=== PATIENT | female | born 1945 | race Caucasian/White ===

== ENCOUNTER → 2018-05-20 09:21 | Outpatient (CLI) | payer MEDICARE, OTHER, SELFPAY | PROVIDERS: Family Provider Family Medicine; PCP Family Medicine; Visit Provider Nurse Practitioner Women's Health | DX: Z12.31 Encounter for screening mammogram for malignant neoplasm of breast (principal) | CPT/HCPCS: 77063; 77067 ==

== ENCOUNTER → 2019-06-15 | Outpatient (CLI) | payer MEDICARE, OTHER, SELFPAY ==
[2019-06-15 11:02] VITALS: BMI 29.5
--- NOTE | 2019-06-15 11:49 | BI_ITS ---
MAMMOGRAPHY - BILATERAL SCREENING REASON FOR EXAM: Female, 74 years old. Routine annual screening examination. PERTINENT HISTORY: Aunt with breast cancer. Remote right nipple biopsy. TECHNIQUE: Digital bilateral breast carmen (3D mammographic acquisition) in the CC and MLO projections. 2-D mediolateral oblique (MLO) and craniocaudad (CC) views of both breasts were obtained. CAD: Full Field Digital Mammography with Computer Added Detection was performed. COMPARISON: Comparison is made with prior examination dated May 20, 2018 and May 06, 2017. FINDINGS: Breast Composition: There are scattered areas of fibroglandular density. There are no dominant masses or suspicious calcifications. No other significant abnormalities are identified. There has been no significant change since the prior study. BI/SCREEN MAMM (CAD) W/CARMEN BILAT IMPRESSION: Stable bilateral screening mammogram. Yearly follow-up mammogram recommended. (A) ASSESSMENT CATEGORY: BIRADS Category 1: Negative. A letter regarding these results will be sent to the patient by the facility within 30 days. Approximately 10% of breast cancers are not detected by mammography. A normal mammogram should not delay biopsy of a clinically suspicious abnormality. [id number] Electronically Signed: Abdirashid Fairbanks, at 15:09 EDT , Service support ,
== END | disposition home or self-care (01) ==
LOC: OPBI 11:30
PROVIDERS: Family Provider Family Medicine; PCP Family Medicine; Referring Provider Nurse Practitioner Women's Health; Visit Provider Nurse Practitioner Women's Health
DX: Z12.31 Encounter for screening mammogram for malignant neoplasm of breast (principal)
CPT/HCPCS: 77063; 77067

== ENCOUNTER 2019-10-15 14:17 | Emergency (ER) | payer MEDICARE, OTHER, SELFPAY ==
[2019-06-15 11:02] VITALS: BMI 29.5
[2019-10-15 14:18] VITALS: BP 199/98; PULSE 73; RESP 18; TEMP 36.1; O2SAT 95; BMI 30.4
--- NOTE | 2019-10-15 14:55 | RAD_ITS ---
STUDY: X-RAY - LUMBAR SPINE REASON FOR EXAM: Female, 74 years old. fall, back pain with left sciatica TECHNIQUE: 3 view(s) of the lumbar spine were obtained. COMPARISON: None FINDINGS: Normal lumbar lordosis. There is no substantial scoliosis. There is a normal alignment of the vertebrae. There is multilevel endplate spondylosis of the lumbar vertebrae. There is multi-level degenerative disc disease with multi-level disc space narrowing. There is no demonstrated fracture. Moderate facet arthropathy in the lower lumbar levels. There is atherosclerotic calcification of the abdominal aorta without a demonstrated aneurysm. RAD/Lumbar Spine 2 or 3 Views IMPRESSION: No compression fracture. Multilevel degenerative changes. Electronically Signed: Ronald Zepeda MD ([place]) at 15:22 EST , Service support ,
[2019-10-15] MEDS: morphine 10 MG/ML Syringe SC (15:08)
--- NOTE | 2019-10-15 15:50 | ED.DCSUM_ITS ---
History of Present Illness Informant: Patient Occurred: Weeks - 1 week Mechanism/Context: Same level fall, Trip, Slip. Negative for: Cannot recall fall, Prodromal, Dizziness, Vertigo, Lightheadedness, Near-syncope Usually ambulates: Without assistance Location: low back Quality of Pain: Sharp Current Severity: Severe Maximum Severity: Severe Worsened by: walking Relieved by: rest Associated Symptoms: Negative for: Parasthesias, Weakness, Loss of function, Inability to ambulate, Loss of consciousness, Amnesia Narrative: 74-year-old female presents with low back pain radiating down her left leg that started after a fall about a week ago. Pain is constant sharp and stabbing worse with movement better with rest. No lower extremity weakness or paresthesias or loss of bowel or bladder function. No fevers or vomiting. No abdominal pain. No difficulty urinating or loss of bowel or bladder function. No relief with Motrin and acetaminophen Tetanus Immunization: Unknown Prior similar symptoms: No Recent Illness/Hospitalization: No <James Cavanaugh - Last Filed: 10/15/19 15:50> <Sapna Cleveland - Last Filed: 10/15/19 23:22> Chief Complaint: Fall Past Medical History Prior records reviewed: Yes Past Medical History: - - Hyperlipidemia Surgical History: - - Laminectomy Lives: With Family Smoking Status: Never smoker <James Cavanaugh - Last Filed: 10/15/19 15:50> <Sapna Cleveland - Last Filed: 10/15/19 23:22> - Allergies and Home Meds Allergies/Adverse Reactions: Allergies levofloxacin [From Levaquin] Allergy (Mild, Verified 10/15/19 14:19) severe joint issues Sulfa (Sulfonamide Antibiotics) Allergy (Mild, Verified 10/15/19 14:19) stopped breathing Primary Care Physician: Juan Luis Austin MD [Primary Care Provider] - Review of Systems All systems negative except as indicated General: Denies: Chills, Fever Eyes: Denies: Visual changes - bilaterally, Blurred Vision - bilaterally ENT: Denies: Rhinorrhea, Sore throat Cardiovascular: Denies: Chest pain, Palpitations, Heart racing Respiratory: Denies: Dyspnea, Cough, Sputum Gastrointestinal: Denies: Abdominal pain, Nausea, Vomiting, Diarrhea Genitourinary: Denies: Dysuria, Hematuria, Frequency Musculoskeletal: Reports: Back pain. Denies: Neck pain, Swelling, Extremity Pain Skin: Denies: Rash, Abscess, Abrasions, Wounds Neurological: Denies: Headache, Weakness, Parasthesia, Numbness <James Cavanaugh - Last Filed: 10/15/19 15:50> Physical Exam Vital Signs/Narrative: Vital Signs Temp Pulse Resp BP Pulse Ox 10/15/19 14:18 96.9 F L 73 18 199/98 H 95 Inital Vital Signs reviewed: Yes General: Well nourished, Well developed Head: Normocephalic, Atraumatic Eyes: EOMI ENT: No hemotympanum or drainage, No trauma. Negative for: Nasal trauma Neck: Nontender, Full ROM. Negative for: Spinal Tenderness, Paraspinal Tendern ess Cardiovascular: Regular rate, Regular rhythm, No murmurs Respiratory: No distress, CTA bilaterally, Chest nontender Abdomen: Soft, Nontender, Nondistended, Normal bowel sounds, No masses Back: Nontender, Paraspinal Tenderness, Negative SLR - Right, Positive SLR - Left. Negative for: Spinal Tenderness Skin: Normal color, No rash Neurological: Alert, Oriented x3, Cranial nerves II-XII grossly intact, Normal Strength, Normal Sensation, Normal DTR, Normal Gait Psychological: Normal affect <James Cavanaugh - Last Filed: 10/15/19 15:50> Diagnostic/Tx/Re-eval - Medical Decision Making X-ray lumbar spine shows no acute abnormality. Patient is neurovascularly intact. She is able to ambulate. She was given a dose of morphine with improvement of her pain. Repeat evaluation she is ambulatory she feels well we will discharge with a short course of Percocet and have her follow-up with her doctor. <James Cavanaugh - Last Filed: 10/15/19 15:50> - Medical Decision Making I have personally performed a [id number] assessment of the patient and have reviewed the PA note. My galvin findings include 74-year-old female presents after fall 1 week ago. She complains of persistent back pain radiating to her left leg. She denies bowel or bladder incontinence. X-rays are unremarkable. She h as improvement after pain medication. She will follow-up with her primary care physician. Advised return to ED if worsening complaints. <Sapna Cleveland - Last Filed: 10/15/19 23:22> ED Disposition <James Cavanaugh - Last Filed: 10/15/19 15:50> <Sapna Cleveland - Last Filed: 10/15/19 23:22> - Plan for ED Patient: Disposition: Home or Assisted Living Diagnosis: Sciatica Instructions: BACK PAIN w/ SCIATICA Prescriptions: Oxycodone HCl/Acetaminophen [Percocet 5/325] 1 tab PO Q6H PRN PRN 3 Days #12 tab PRN Reason: Pain Prescription Printed Ondansetron [Zofran Odt] 4 mg PO Q8H PRN PRN #10 tab PRN Reason: Nausea Prescription Printed Referrals: Juan Luis Austin MD [Primary Care Provider] -
[2019-10-15] MEDS: Ondansetron ODT 4 MG Tablet PO (16:44)
[2019-10-15 16:45] VITALS: RESP 18
== END 2019-10-15 16:47 | disposition home or self-care (01) ==
PROVIDERS: Emergency Provider Physician Assistant Medical; PCP Family Medicine
DX: M54.42 Lumbago with sciatica, left side (principal)
CPT/HCPCS: 72100; 96372; 99282

== ENCOUNTER 2020-05-02 21:55 | Emergency (ER) | payer MEDICARE, OTHER, SELFPAY ==
[2020-05-02 21:57] VITALS: BP 185/73; PULSE 77; RESP 18; TEMP 37; O2SAT 98; BMI 30.9
--- NOTE | 2020-05-02 22:09 | ED.DCSUM_ITS ---
History of Present Illness Chief Complaint: Fall Informant: Patient Onset: Today Current Severity: Moderate Maximum Severity: Severe Narrative: She presents with right rib pain after a fall. She went to a neighbor's house and when leaving fell down 3 steps, landing on her right side on landscape rocks. She states she did hit her head but did not lose consciousness. She is on no anticoagulants. She did take some Advil at home for pain. She is complaining of pain around the right ribs. - Past Medical History (1) Asthma Status: Chronic (2) Celiac disease Status: Chronic (3) Diabetes Status: Chronic (4) Essential tremor Status: Chronic (5) Hypertension Status: Chronic (6) Lichen sclerosus Status: Chronic Past Medical History - Allergies and Home Meds Allergies/Adverse Reactions: Allergies levofloxacin [From Levaquin] Allergy (Mild, Verified 05/02/20 22:04) severe joint issues Sulfa (Sulfonamide Antibiotics) Allergy (Mild, Verified 05/02/20 22:04) stopped breathing morphine Adverse Reaction (Verified 05/02/20 22:04) Vomiting Primary Care Physician: Juan Luis Austin MD [Primary Care Provider] - Prior records reviewed: Yes Surgical History: - - Laminectomy Lives: Alone Smoking Status: Never smoker Review of Systems General: Denies: Chills, Fever Eyes: Denies: Visual changes - bilaterally ENT: Denies: Bilateral ear pain Cardiovascular: Reports: Chest pain Respiratory: Reports: Dyspnea - Pain with deep breath Gastrointestinal: Denies: Abdominal pain, Nausea, Vomiting, Diarrhea Genitourinary: Denies: Dysuria Musculoskeletal: Denies: Swelling, Extremity Pain Neurological: Denies: Headache Hematologic: Denies: Easy bruising, Easy bleeding Allergy: Denies: Uticaria Physical Exam Vital Signs/Narrative: Vital Signs Temp Pulse Resp BP Pulse Ox 05/02/20 21:57 98.6 F 77 18 185/73 H 98 Inital Vital Signs reviewed: Yes General: Well nourished, Well developed Head: Normocephalic ENT: Moist mucous membranes Neck: Supple Cardiovascular: Regular rate, Regular rhythm Respiratory: No distress, CTA bilaterally, - - Right lateral rib tenderness. Early ecchymosis noted on the posterior right ribs. No abrasions. No crepitus. Abdomen: Soft, Nontender Extremities: Nontender Skin: Normal color Neurological: Alert, Oriented x3 Psychological: Normal affect Diagnostic/Tx/Re-eval Impressions Ribs w/Chest X-Ray 05/02/20 22:09 IMPRESSION: RIBS: Fractures of right ribs 2 through 8. CHEST: No acute pulmonary findings. Electronically Signed: Kenan Mariscal MD at 23:22 EDT Tel , Service support , 05/02/20 22:09 Ribs Uni Min 3V w/PA Chest [RAD] Stat - Medical Decision Making Patient's oxygen saturation is maintained in the high 90s. She was given Zofran and 25 mcg of fentanyl IV. On repeat examination she is still rating her rib pain at 7. Test results are discussed with her and family at bedside. She does have significant number of fractures, but no evidence of pneumothorax. She would prefer to try to go home with pain medication. She will be given another 25 mcg of fentanyl now along with p.o. oxycodone which she has done well with in the past. We will write a prescription for oxycodone to be filled at our pharmacy [facility] so she will have medication with her at home. ED Disposition - Plan for ED Patient: Disposition: Home or Assisted Living Diagnosis: Ribs, multiple fractures Instructions: ED Rib Fx Prescriptions: Oxycodone HCl/Acetaminophen [Percocet 5/325] 1 tablet PO Q6H PRN PRN 5 Days #20 tablet PRN Reason: Pain Score 4-10/10 Referrals: Juan Luis Austin MD [Primary Care Provider] - 1 Week
--- NOTE | 2020-05-02 22:09 | RAD_ITS ---
STUDY: X-RAY - UNILATERAL RIBS ( RIGHT ) WITH CHEST REASON FOR EXAM: Female, 75 years old. Fall today. Mid rib pain. TECHNIQUE - RIBS: 3 view(s) of the ribs. TECHNIQUE - CHEST: Single frontal view of the chest. COMPARISON: None. FINDINGS - RIBS: Fractures of right ribs 2 through 8. FINDINGS - CHEST: The lungs are clear and expanded. There is no demonstrated pleural abnormality. Normal size heart. Normal mediastinum and gage. Normal visualized pulmonary arteries. Normal visualized aortic arch and descending thoracic aorta. Normal visualized thoracic spine. There is no demonstrated abnormality of the visualized soft tissue structures of the upper abdomen. RAD/Ribs Uni Min 3V w/PA Chest IMPRESSION: RIBS: Fractures of right ribs 2 through 8. CHEST: No acute pulmonary findings. Electronically Signed: Kenan Mariscal MD at 23:22 EDT Tel , Service support ,
[2020-05-02] MEDS: Ondansetron 4 MG/2 ML Vial IV (22:38)
[2020-05-02] MEDS: fentaNYL 100 MCG/2 ML Ampul 25 MCG IV (22:38)
[2020-05-03] MEDS: fentaNYL 100 MCG/2 ML Ampul 25 MCG IV (00:06)
[2020-05-03] MEDS: oxyCODONE 5 MG Tablet PO (00:12)
[2020-05-03 00:44] VITALS: BP 163/61; PULSE 76; RESP 16; O2SAT 97
== END 2020-05-03 00:46 | disposition home or self-care (01) ==
PROVIDERS: Emergency Provider Emergency Medicine; PCP Family Medicine
DX: S22.41XA Multiple fractures of ribs, right side, initial encounter for closed fracture (principal); I10 Essential (primary) hypertension; E11.9 Type 2 diabetes mellitus without complications; W10.9XXA Fall (on) (from) unspecified stairs and steps, initial encounter; Z79.4 Long term (current) use of insulin; Z79.899 Other long term (current) drug therapy
CPT/HCPCS: 71101; 96374; 96375; 96376; 99251; 99285; G0463; J2405

== ENCOUNTER → 2020-08-19 13:45 | Outpatient (CLI) | payer MEDICARE, OTHER, SELFPAY ==
--- NOTE | 2020-08-19 13:48 | BI_ITS ---
MAMMOGRAPHY - BILATERAL SCREENING REASON FOR EXAM: Female, 75 years old. Routine annual screening examination. PERTINENT HISTORY: Screening TECHNIQUE: Digital bilateral breast carmen (3D mammographic acquisition) in the CC and MLO projections. 2-D mediolateral oblique (MLO) and craniocaudad (CC) views of both breasts were obtained. CAD: Full Field Digital Mammography with Computer Added Detection was performed. COMPARISON: Previous mammogram obtained on 06/15/2019 FINDINGS: Breast Composition: Scattered There are no dominant masses or suspicious calcifications. No other significant abnormalities are identified. BI/SCREEN MAMM (CAD) W/CARMEN BILAT IMPRESSION: Stable bilateral screening mammogram. Yearly follow-up mammogram recommended. (A) ASSESSMENT CATEGORY: BIRADS Category 1: Negative. A letter regarding these results will be sent to the patient by the facility within 30 days. Approximately 10% of breast cancers are not detected by mammography. A normal mammogram should not delay biopsy of a clinically suspicious abnormality. [id number] Electronically Signed: Zak Santo, at 17:17 EST Tel , Service support ,
== END ==
PROVIDERS: PCP Family Medicine; Referring Provider Nurse Practitioner Women's Health; Visit Provider Nurse Practitioner Women's Health
DX: Z12.31 Encounter for screening mammogram for malignant neoplasm of breast (principal)
CPT/HCPCS: 77063; 77067

== ENCOUNTER 2020-12-03 12:53 | Outpatient (RCR) | payer MEDICARE, OTHER, SELFPAY ==
[2020-12-03] MEDS: COVID-19 VACC, MRNA(PFIZER)/PF 30 MCG/0.3 ML SYRINGE IM (10:41)
[2020-12-24] MEDS: COVID-19 VACC, MRNA(PFIZER)/PF 30 MCG/0.3 ML SYRINGE IM (10:29)
== END 2021-03-04 23:59 ==
LOC: IMMUN 12:53
PROVIDERS: PCP Family Medicine; Visit Provider Family Medicine
DX: Z23 Encounter for immunization (principal)
CPT/HCPCS: 0001A; 0002A; 91300

== ENCOUNTER → 2021-09-04 12:34 | Outpatient (CLI) | payer MEDICARE, OTHER, SELFPAY ==
--- NOTE | 2021-09-04 12:37 | BI_ITS ---
MAMMOGRAPHY - BILATERAL SCREENING REASON FOR EXAM: Female, 76 years old. Routine annual screening examination. PERTINENT HISTORY: Aunt with breast cancer. TECHNIQUE: Digital bilateral breast carmen (3D mammographic acquisition) in the CC and MLO projections. 2-D mediolateral oblique (MLO) and craniocaudad (CC) views of both breasts were obtained. CAD: Full Field Digital Mammography with Computer Added Detection was performed. COMPARISON: Comparison is made with prior study dated 08/19/2020 and 06/15/2019. FINDINGS: Breast Composition: There are scattered areas of fibroglandular density. There are no dominant masses or suspicious calcifications. No other significant abnormalities are identified. There has been no significant change since the prior study. BI/SCRN MAMM (CAD)W/CARMEN BILAT IMPRESSION: Stable bilateral screening mammogram. Yearly follow-up mammogram recommended. (A) ASSESSMENT CATEGORY: BIRADS Category 1: Negative. A letter regarding these results will be sent to the patient by the facility within 30 days. Approximately 10% of breast cancers are not detected by mammography. A normal mammogram should not delay biopsy of a clinically suspicious abnormality. [id number] Electronically Signed: Abdirashid Fairbanks MD at 13:28 EST , Service support ,
== END ==
PROVIDERS: PCP Family Medicine; Referring Provider Nurse Practitioner Women's Health; Visit Provider Nurse Practitioner Women's Health
DX: Z12.31 Encounter for screening mammogram for malignant neoplasm of breast (principal)
CPT/HCPCS: 77063; 77067

== ENCOUNTER → 2022-06-09 | Outpatient (CLI) | payer MEDICARE, OTHER, SELFPAY ==
[2022-06-09 15:15] LABS: Absolute Lymphocyte Count 1.12 X10^3/uL (0.83-4.51); Absolute Neutrophil Count 3.4 X10^3/uL (2.0-7.7); Basophil# 0.04 X10^3/uL; Basophil% 0.8 % (0-1); Eosinophil# 0.13 X10^3/uL; Eosinophils% 2.6 % (0-5); Hematocrit 40.4 % (37-47); Hemoglobin 13.9 g/dL (12.0-15.0); Lymphocyte # 1.12 X10^3/ul (0.83-4.51); Lymphocyte % 22.4 % (19-41); Mean Corp Hgb Conc 34.4 g/dL (32-36); Mean Corpuscular Hgb 31.4 pg (27.0-32.0); Mean Corpuscular Volume 91.2 fL (81-99); Mean Platelet Vol. 10.7 fl (6.2-12.0); Monocyte# 0.32 X10^3/uL; Monocyte% 6.4 % (0-10); NRBC Flagged by Analyzer 0 % (0-5); Neutrophil # 3.39 X10^3/uL (2.7-7.7); Neutrophil % 67.6 % (47-70); Platelet Count 193 K/mm3 (150-450); RBC Distribution Width CV 12.2 % (11.6-14.6); RBC Distribution Width SD 40.9 fl (35.1-43.9); Red Blood Count 4.43 M/mm3 (4.2-5.4)
[2022-06-09 16:01] LABS: Anion Gap 6 (5-15); BUN 21 mg/dL (7-18); BUN/Creat Ratio 24.6 RATIO (10-20); Calcium,Total 9.5 mg/dL (8.5-10.1); Chloride 106 mmol/L (98-107); Creatinine, Serum 0.86 mg/dL (0.55-1.02); EST Glomerular Filtration Rate 69 mL/min (>60); Est Glom Filt Rate - Afr Amer 83 mL/min (>60); Glucose 195 mg/dL (74-106); Potassium 4.2 mmol/L (3.5-5.1); Sodium Level 140 mmol/L (136-145)
== END | disposition home or self-care (01) ==
LOC: MTLAB 13:50
PROVIDERS: PCP Family Medicine; Referring Provider Specialist; Visit Provider Specialist
DX: Z01.818 Encounter for other preprocedural examination (principal)
CPT/HCPCS: 36415; 80048; 85025

== ENCOUNTER → 2022-06-16 | Outpatient (CLI) | payer MEDICARE, OTHER, SELFPAY ==
--- NOTE | 2022-06-16 15:49 | EKG12_ITS ---
Test Reason : PRE OP Blood Pressure : / mmHG Vent. Rate : 080 BPM Atrial Rate : 080 BPM P-R Int : 150 ms QRS Dur : 080 ms QT Int : 372 ms P-R-T Axes : 030 -18 066 degrees QTc Int : 429 ms Normal sinus rhythm Poor R wave progression Confirmed by JUANA GUILLEN, KRISTINA ([id number]), copy editor GAB HORNE ([id number]) on 06/17/2022 11:12:04 AM Referred By: Rafael Franz Confirmed By:KRISTINA ARIAS MD
== END | disposition home or self-care (01) ==
LOC: PSN 15:40
PROVIDERS: PCP Family Medicine; Referring Provider Specialist; Visit Provider Specialist
DX: Z01.818 Encounter for other preprocedural examination (principal); Z01.810 Encounter for preprocedural cardiovascular examination
CPT/HCPCS: 93005

== ENCOUNTER → 2022-09-07 | Outpatient (CLI) | payer MEDICARE, OTHER, SELFPAY ==
--- NOTE | 2022-09-07 09:41 | BI_ITS ---
MAMMOGRAPHY - BILATERAL SCREENING REASON FOR EXAM: Female, 77 years old. Routine annual screening examination. PERTINENT HISTORY: Aunt with breast cancer. TECHNIQUE: Digital bilateral breast carmen (3D mammographic acquisition) in the CC and MLO projections. 2-D mediolateral oblique (MLO) and craniocaudad (CC) views of both breasts were obtained. CAD: Full Field Digital Mammography with Computer Added Detection was performed. COMPARISON: Comparison is made with prior examination dated 09/04/2021 and 08/19/2020. FINDINGS: Breast Composition: There are scattered areas of fibroglandular density. There are no dominant masses or suspicious calcifications. Small benign-appearing bilateral axillary lymph nodes. No other significant abnormalities are identified. There has been no significant change since the prior study. BI/SCRN MAMM (CAD)W/CARMEN BILAT IMPRESSION: Stable bilateral screening mammogram. Yearly follow-up mammogram recommended. (A) ASSESSMENT CATEGORY: BIRADS Category 2: Benign. A letter regarding these results will be sent to the patient by the facility within 30 days. Approximately 10% of breast cancers are not detected by mammography. A normal mammogram should not delay biopsy of a clinically suspicious abnormality. [id number] Electronically Signed: Abdirashid Fairbanks MD at 11:09 EST ,
== END | disposition home or self-care (01) ==
LOC: OPBI 09:40
PROVIDERS: PCP Family Medicine; Visit Provider Nurse Practitioner Women's Health
DX: Z12.31 Encounter for screening mammogram for malignant neoplasm of breast (principal); Z80.3 Family history of malignant neoplasm of breast
CPT/HCPCS: 77063; 77067

== ENCOUNTER → 2022-09-22 | Outpatient (CLI) | payer MEDICARE, OTHER, SELFPAY ==
[2022-09-22 13:10] LABS: Internal QC Validated? YES +Cl - CLEAR BKGD; Monotest Negative (Negative)
== END | disposition home or self-care (01) ==
PROVIDERS: PCP Family Medicine
DX: R59.9 Enlarged lymph nodes, unspecified (principal)
CPT/HCPCS: 86308

== ENCOUNTER 2022-10-29 11:30 | Outpatient (RCR) | payer MEDICARE, OTHER, SELFPAY ==
--- NOTE | 2022-10-01 12:34 | HP.OTEVAL ---
Patient's Visit Information KRUPA OBRIEN is a 77 year old F, referred to Occupational Therapy by Dr. Rafael Franz MD, with a diagnosis of left trigger finger. Date of Evaluation: 10/01/22 Occupational Therapist: Lis Demarco, JEFE/Davi, CHT - Subjective This 77 year old female was seen for OT eval with dx of Trigger finger- with sx on 06/18/22. pt states she feels she did well after sx but now last 8 weeks she is having joint stiffness in the AM and difficulty making a fist for daily tasks and no strength to perform daily tasks. pt would like to get her full ROM and return to using her left hand with ADLs and IADls. pt does state tingling in left hand has become worse last two months -pt does have cervical spine issues and not sure if it is related to cervical spine or more of median nerve issue. - Pain left hand 2 Pain Intensity Range: 4 - ROM Opposition: Kapandji opposition scale right 10 left 10 ROM Comments: left hand is limited by 2 from composite fist. right hand pt can form tight composite fist. 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 with ADLS and IADLs by d/c Goal:: pt will demo the ability to form tight left composite fist to increase use of left hand with ADLs by d/c. pt will demo PIP ext at -5* or less by d.c indicating decrease scar adhesions. Goal:: pt will report no pain greater than 2/10 with use of left hand with ADLs and IADLs by d/c - Rehabilitation General Assessment: pt demo with limited composite fist of left hand following trigger finger release- pt does appear to demo possible scar adhesions to flexor tendon limiting pts full MF ext. pain and weakness limits pts use of left hand with all ADls and IADls. pt would benefit from skilled OT services 2x week for 4 weeks to return pt to her PLOF. Today therapist gave instruction on use of elastomer at night to soften scar, AROM, PROM and scar massage. pt demo understanding and agree to POC. Rehabilitation Potential: Good - Anticipated Interventions A/AAROM/PROM, Strengthening, Scar Care, Triggerpoint Release, Modalities, Orthoses, Joint Protection/Energy Conservation, Ergonomic Education, Fine Motor Coord/Raul, Education re assistive Equipment, Education re Diagnosis, Home Program - Visit Plan Frequency: 2x /Week Duration: 4 Weeks General Plan: therapist used US to increase soft tissue mobility- completed manual scar release agnes. and also completed place and hold ex. pt was able to get light fist following- pt demo good laurie. of this therapy session and feel she will make good recovery as we transition pt from gaining ROM to strengthening. TEXT: Thank you for the opportunity to evaluate your patient. For Medicare and Medicare HMO plans, please review the plan of care and approve it. It will need to be FAXED BACK to us at [phone] for Medicare purposes. Please let me know if there are questions or concerns regarding this plan of care. Physician Signature: Date:
--- NOTE | 2022-10-29 12:05 | HP.OTDCSUM ---
It has been my pleasure to treat KRUPA OBRIEN under orders from Dr. Rafael Franz MD, for the diagnosis of left trigger finger for a total of 8 visit(s). Please see the following information for a summary of their discharge status. % Improvement: 85 Objective/Function: left MF MCP ext.-15. left MF PIP 0/90. left machine setter supervisor strength 20#. pt continues to demo limited MCP and PIP motion decreasing tight composite fist- pt reports does not limit her day to day. pt is to continue with her HEP to mtg. scar adhesions and ROM . Patient Goals: Regain Mobility, Regain Strength, Decrease Swelling/Stiffness, Improve Fine Motor Skills, Use Hand/Wrist/Arm Normally Again, Be More Independent in ADLS Goal:: pt will demo a 30# machine setter supervisor strength to increase pts ind. with ADLS and IADLs by d/c Goal:: pt will demo the ability to form tight left composite fist to increase use of left hand with ADLs by d/c. pt will demo PIP ext at -5* or less by d.c indicating decrease scar adhesions. Goal:: pt will report no pain greater than 2/10 with use of left hand with ADLs and IADLs by d/c Plan: pt to see Wednesday. Discharge Comments: Pts scar has improved and pt has made good gains with her ROM. Pts pain has decreased so pt has returned to using her hand with ADLs and IADs. pt has HEP of scar mtg, PROM and return to use. pt agrees with D/C If there are questions or concerns regarding this patient's occupational therapy, please fell free to call me at [phone]. Thank you for the referral of this patient. Sincerely, Lis Demarco, OTR/L, CHT
== END 2022-10-29 12:58 | disposition home or self-care (01) ==
LOC: OT 11:30
PROVIDERS: PCP Family Medicine; Referring Provider Specialist; Visit Provider Specialist
DX: M65.332 Trigger finger, left middle finger (principal); M25.642 Stiffness of left hand, not elsewhere classified
CPT/HCPCS: 97035; 97110; 97140; 97166; 97530

== ENCOUNTER → 2023-10-26 | Outpatient (CLI) | payer MEDICARE, OTHER, SELFPAY ==
--- NOTE | 2023-10-26 16:21 | RAD_ITS ---
EXAM: XR LUMBOSACRAL SPINE, 4 OR 5 VIEWS CLINICAL INDICATION: lumbar DDD, facet arthropathy TECHNIQUE: Frontal, lateral and bilateral oblique views of the lumbar spine. COMPARISON: XR Lumbosacral Spine dated 10/15/2019 FINDINGS: VERTEBRAE: Dextroscoliosis of the spine noted centered at the thoracolumbar junction appears more prominent on the current study. Bony structures appear diffusely osteoporotic. No acute fracture. Mild anterior listhesis of L4 on L5 likely related to facet arthropathy. DISC SPACES: Disc space narrowing at T12-L1 and L5-S1. GASTROINTESTINAL TRACT: Normal bowel gas pattern. RAD/L/S Spine Min 4 Views IMPRESSION: Osteoporosis. No acute abnormality. Interval increase in the dextroscoliosis. Spondylosis as described. Electronically Signed: Ottoniel Gagnon MD at 16:45 EST ,
--- OUTSIDE RECORDS SUMMARY | 2023-10-26 16:57 | XMS RPT_ITS | CCD ---
Author Name Unknown Address [address] [facility] [address] [place] [address] Organization [facility] Care Team Providers Care Multicultural Manager Name Role Phone Lissette Torres Unavailable Unavailable Abel Michele MD Primary Care Provider [phone] [facility] [place] Unavailable Abel Michele MD Primary Care Provider [facility] Unavailable Abel Michele MD Primary Care Provider [phone] [facility] [place] Unavailable Abel Michele MD Primary Care Provider [facility] [place] Unavailable ABEL MICHELE Referring Unavailable ABEL MICHELE Primary Care Unavailable ABEL MICHELE Primary Care Unavailable GERTRUDE MORGAN Referring Unavailable ABEL MICHELE Primary Care Unavailable ABEL MICHELE Primary Care Unavailable ABEL MICHELE Primary Care Unavailable ABEL MICHELE Primary Care Unavailable KIRIT BRIDGES Attending Unavailable ABEL MICHELE Primary Care Unavailable ABEL MICHELE Primary Care Unavailable ABEL MICHELE Attending Unavailable LORRIE MARKS Referring Unavailable ABEL MICHELE Primary Care Unavailable ABEL MICHELE Primary Care Unavailable Allergies Allergy Classification Reported Allergen(s) Allergy Type Date of Onset Reaction(s) Facility (1 source) Sulfonamides (Antibiotic) drug allergy 7 [facility] (1 source) LEVIQUIN drug allergy 7 [facility] (20 sources) dapagliflozin; Translations: [DAPAGLIFLOZIN] Drug Allergy 7 Intolerance [facility] Work Phone: (20 sources) levoFLOXacin; Translations: [LEVOFLOXACIN] Drug Allergy 9 [facility] Work Phone: (20 sources) Morphine; Translations: [MORPHINE] Drug Allergy 0 Vomiting [facility] (20 sources) Sulfonamides (Antibiotic); Translations: [SULFA (SULFONAMIDE ANTIBIOTICS)] Propensity to adverse reactions 9 Anaphylaxis [facility] Work Phone: Medications Current Medications Medication Drug Class(es) Dates Sig (Normalized) Sig (Original) benzonatate 100 mg oral capsule (1 source) Non-narcotic Antitussive Start: 01-22-2023 End: 01-29-2023 take 1 capsule by mouth every eight hours as needed for cough and cough benzonatate (TESSALON PERLES) 100 mg capsule Indications: Acute cough Take 1 capsule by mouth three times daily as needed for up to 7 days. 21 capsule 0 01/22/2023 01/29/2023 Active Completed/Discontinued Medications Medication Drug Class(es) Dates Sig (Normalized) Sig (Original) acetaminophen 500 mg oral tablet (20 sources) Start: 03-06-2020 take 2 tablets by mouth three times daily as needed for pain PAIN RELIEF EXTRA STRENGTH 500 mg tablet TAKE 2 TABLETS BY MOUTH THREE TIMES DAILY NEEDED FOR PAIN DO NOT EXCEED 3000MG/DAY 0 03/06/2020 Active Problems Active Problems Problem Classification Problem Date Documented Da te Episodic/Chronic Adjustment disorders (4 sources) Adjustment disorder with mixed anxiety and depressed mood; Translations: [Adjustment disorder with mixed anxiety and depressed mood] Chronic Asthma (20 sources) Asthma; Translations: [Unspecified asthma, uncomplicated] Onset: 0 04-06-2011 Chronic Coronary atherosclerosis and other heart disease (20 sources) Disorder of coronary artery; Translations: [Atherosclerotic heart disease of [place] coronary artery with unspecified angina pectoris] Onset: 5 09-12-2015 Chronic Diabetes mellitus without complication (20 sources) Type 2 diabetes mellitus; Translations: [Type 2 diabetes mellitus without complication] Onset: 0 04-29-2017 Chronic Esophageal disorders (20 sources) Gastroesophageal reflux disease; Translations: [Gastro-esophageal reflux disease without esophagitis] Onset: 0 06-03-2010 Chronic Essential hypertension (20 sources) Hypertensive disorder; Translations: [Benign essential hypertension] Onset: 0 04-29-2017 Chronic Genitourinary symptoms and ill-defined conditions (1 source) Increased frequency of urination; Translations: [Frequency of micturition] 08-29-2023 Episodic Headache; including migraine (20 sources) Migraine; Translations: [Migraine, unspecified, not intractable, without status migrainosus] Onset: 0 06-03-2010 Chronic Headache; including migraine (1 source) Headache; 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] Episodic Lymphadenitis (1 source) Cervical lymphadenopathy; Translations: [Localized enlarged lymph nodes] Episodic Nausea and vomiting (1 source) Nausea and vomiting; Translations: [Nausea with vomiting, unspecified] Episodic Noninfectious gastroenteritis (1 source) Acute gastroenteritis; Translations: [Noninfective gastroenteritis and colitis, unspecified] Episodic Nutritional deficiencies (20 sources) Vitamin D deficiency; Translations: [Vitamin D deficiency, unspecified] Onset: 0 04-06-2011 Chronic Osteoarthritis (20 sources) Osteoarthritis; Translations: [Unspecified osteoarthritis, unspecified site] Onset: 0 06-03-2010 Chronic Other bone disease and musculoskeletal deformities (1 source) Senile osteopenia; Translations: [Other specified disorders of bone density and structure, unspecified site] Episodic Other fractures (1 source) Closed fracture of multiple ribs; Translations: [Multiple fractures of ribs, right side, subsequent encounter for fracture with routine healing] Episodic Other gastrointestinal disorders (20 sources) Celiac disease; Translations: [Celiac disease] Onset: 0 04-29-2017 Chronic Other hereditary and degenerative nervous system conditions (20 sources) Essential tremor; Translations: [Essential tremor] Onset: 0 04-06-2011 Chronic Other hereditary and degenerative nervous system conditions (1 source) Mild cognitive disorder ; Translations: [Mild cognitive impairment, so stated] Chronic Other lower respiratory disease (1 source) Cough; Translations: [Acute cough] Episodic Other lower respiratory disease (1 source) Rib pain; Translations: [Pleurodynia] 04-27-2023 Episodic Other nutritional; endocrine; and metabolic disorders (20 sources) Obese class I; Translations: [Obesity, unspecified] Onset: 2 Chronic Other skin disorders (1 source) Lichen sclerosus et atrophicus; Translations: [Lichen sclerosus et atrophicus] Onset: 7 04-29-2017 Chronic Other upper respiratory disease (1 source) Chronic rhinitis; Translations: [Unspecified sinusitis (chronic)] Chronic Other upper respiratory infections (1 source) Acute upper respiratory infection; Translations: [Acute upper respiratory infection, unspecified] Episodic Residual codes; unclassified (1 source) Influenza-like symptoms; Translations: [Other general symptoms and signs] Episodic Residual codes; unclassified (1 source) Left parotid gland swelling; Translations: [Localized edema] Episodic Spondylosis; intervertebral disc disorders; other back problems (20 sources) Displacement of cervical intervertebral disc; Translations: [Other cervical disc displacement, unspecified cervical region] Onset: 4 06-08-2014 Chronic Unclassified (1 source) Screening mammography ; Translations: [Encounter for screening mammogram for malignant neoplasm of breast] Onset: 7 04-29-2017 Unclassified (1 source) Gynecologic examination ; Translations: [Encounter for gynecological examination (general) (routine) without abnormal findings] Onset: 7 04-29-2017 Unclassified (1 source) Acute cough; Translations: [Acute cough] Onset: 3 Urinary tract infections (1 source) Recurrent urinary tract infection; Translations: [Urinary tract infection, site not specified] 08-29-2023 Episodic Past or Other Problems Problem Classification Problem Date Documented Da te Episodic/Chronic Conditions associated with dizziness or vertigo (20 sources) Benign paroxysmal positional vertigo; Translations: [Benign paroxysmal vertigo, unspecified ear] Onset: 10-23-2016 10-23-2016 Episodic Other aftercare (1 source) [facility] (current) use of insulin; Translations: [Controlled type 2 diabetes mellitus without complication, with long-term current use of insulin (HCC)] Onset: 09-22-2021 Episodic Other bone disease and musculoskeletal deformities (20 sources) Osteopenia; Translations: [Other specified disorders of bone density and structure, unspecified site] Onset: 03-01-2010 06-03-2010 Episodic Other bone disease and musculoskeletal deformities (1 source) Other specified disorders of bone density and structure, unspecified site; Translations: [Osteopenia, senile] Onset: 03-29-2023 Episodic Other lower respiratory disease (1 source) Pleurodynia; Translations: [Rib pain on right side] Onset: 04-27-2023 Episodic Other non-traumatic joint disorders (20 sources) Pain of right shoulder joint; Translations: [Pain in right shoulder] Onset: 08-31-2017 08-31-2017 Episodic Other screening for suspected conditions (not mental disorders or infectious disease) (3 sources) Patient encounter status; Translations: [Encounter for screening for eye and ear disorders] Onset: 03-29-2023 Episodic Spondylosis; intervertebral disc disorders; other back problems (20 sources) Cervical radiculopathy; Translations: [Radiculopathy, cervical region] Onset: 06-08-2014 06-08-2014 Episodic Results Test Name Value Interpretation Reference Range Facil ity Vital Signs Date Time Vital Sign Value Performing Clinician Facility 08-29-2023 12:40-0500 Body temperature 97.2 [degF] Gertrude Morgan APRN.CNP Work Phone: [facility] 08-29-2023 12:40-0500 Body weight 83.28 kg Gertrude Morgan APRN.CNP Work Phone: [facility] 08-29-2023 12:40-0500 Diastolic blood pressure 84 mm[Hg] Gertrude Morgan APRN.DYE MAKER Work Phone: [facility] 08-29-2023 12:40-0500 Heart rate 74 /min Gertrude Morgan APRN.DYE MAKER Work Phone: [facility] 08-29-2023 12:40-0500 Respiratory rate 18 /min Gertrude Morgan APRN.DYE MAKER Work Phone: [facility] 08-29-2023 12:40-0500 SaO2% (BldA) [Mass fraction] 99 % Gertrude Morgan APRN.DYE MAKER Work Phone: [facility] 08-29-2023 12:40-0500 Systolic blood pressure 138 mm[Hg] Gertrude Morgan GARAGE DOOR INSTALLER.DYE MAKER Work Phone: [facility] 07-12-2023 15:24-0400 Body height 172.7 cm Abel Michele MD Work Phone: [facility] 07-12-2023 15:24-0400 Body weight 84.37 kg Abel Michele MD Work Phone: [facility] 07-12-2023 15:24-0400 Diastolic blood pressure 75 mm[Hg] Abel Michele MD Work Phone: [facility] 07-12-2023 15:24-0400 Heart rate 82 /min Abel Michele MD Work Phone: [facility] 07-12-2023 15:24-0400 SaO2% (BldA) [Mass fraction] 96 % Abel Michele MD Work Phone: [facility] 07-12-2023 15:24-0400 Systolic blood pressure 116 mm[Hg] Abel Michele MD Work Phone: [facility] 04-27-2023 14:13-0400 Body temperature 98.2 [degF] Lorrie Marks GARAGE DOOR INSTALLER.DYE MAKER Work Phone: [facility] 04-27-2023 14:13-0400 Body weight 86.36 kg Lorrie Marks GARAGE DOOR INSTALLER.DYE MAKER Work Phone: [facility] 04-27-2023 14:13-0400 Diastolic blood pressure 74 mm[Hg] Lorrie Marks GARAGE DOOR INSTALLER.DYE MAKER Work Phone: [facility] 04-27-2023 14:13-0400 Heart rate 68 /min Lorrie Selina GARAGE DOOR INSTALLER.DYE MAKER Work Phone: [facility] 04-27-2023 14:13-0400 Respiratory rate 22 /min Lorrie Selina GARAGE DOOR INSTALLER.DYE MAKER Work Phone: [facility] 04-27-2023 14:13-0400 SaO2% (BldA) [Mass fraction] 98 % Lorrie Selina GARAGE DOOR INSTALLER.DYE MAKER Work Phone: [facility] 04-27-2023 14:13-0400 Systolic blood pressure 122 mm[Hg] Lorrie Marks APRN.DYE MAKER Work Phone: [facility] 01-22-2023 14:28-0400 Body temperature 97 [degF] Gertrude Morgan APRN.DYE MAKER Work Phone: [facility] 01-22-2023 14:28-0400 Body weight 85.19 kg Gertrude Morgan APRN.DYE MAKER Work Phone: [facility] 01-22-2023 14:28-0400 Diastolic blood pressure 72 mm[Hg] Gertrude Morgan APRN.DYE MAKER Work Phone: [facility] 01-22-2023 14:28-0400 Heart rate 77 /min Gertrude Morgan APRN.DYE MAKER Work Phone: [facility] 01-22-2023 14:28-0400 Respiratory rate 21 /min Gertrude Morgan APRN.DYE MAKER Work Phone: [facility] 01-22-2023 14:28-0400 SaO2% (BldA) [Mass fraction] 98 % Gertrude Morgan APRN.DYE MAKER Work Phone: [facility] 01-22-2023 14:28-0400 Systolic blood pressure 138 mm[Hg] Gertrude Morgan APRN.DYE MAKER Work Phone: [facility] 09-29-2022 09:38-0500 Body height 172.7 cm Kirit Bridges GARAGE DOOR INSTALLER.DYE MAKER Work Phone: [facility] 09-29-2022 09:38-0500 Body weight 85.28 kg Kirit Bridges GARAGE DOOR INSTALLER.DYE MAKER Work Phone: [facility] 09-29-2022 09:38-0500 Diastolic blood pressure 67 mm[Hg] Kirit Bridges GARAGE DOOR INSTALLER.DYE MAKER Work Phone: [facility] 09-29-2022 09:38-0500 Heart rate 74 /min Kirit Bridges GARAGE DOOR INSTALLER.DYE MAKER Work Phone: [facility] 09-29-2022 09:38-0500 Systolic blood pressure 129 mm[Hg] Kirit Mark GARAGE DOOR INSTALLER.DYE MAKER Work Phone: [facility] 09-17-2022 10:29-0500 Body temperature 97.81 [degF] Flavia Praisler-Wood GARAGE DOOR INSTALLER.DYE MAKER Work Phone: [facility] 09-17-2022 10:29-0500 Body weight 86.91 kg Flavia Praisler-Wood GARAGE DOOR INSTALLER.DYE MAKER Work Phone: [facility] 09-17-2022 10:29-0500 Diastolic blood pressure 92 mm[Hg] Flavia Praisler-Wood GARAGE DOOR INSTALLER.DYE MAKER Work Phone: [facility] 09-17-2022 10:29-0500 Heart rate 82 /min Flavia Praisler-Wood GARAGE DOOR INSTALLER.DYE MAKER Work Phone: [facility] 09-17-2022 10:29-0500 Respiratory rate 20 /min Flavia Praisler-Wood GARAGE DOOR INSTALLER.DYE MAKER Work Phone: [facility] 09-17-2022 10:29-0500 SaO2% (BldA) [Mass fraction] 95 % Flavia Praisler-Wood GARAGE DOOR INSTALLER.DYE MAKER Work Phone: [facility] 09-17-2022 10:29-0500 Systolic blood pressure 152 mm[Hg] Flavia Praisler-Wood GARAGE DOOR INSTALLER.DYE MAKER Work Phone: [facility] 08-13-2022 15:53-0500 Body height 172.7 cm Abel Michele MD Work Phone: [facility] 08-13-2022 15:53-0500 Body weight 86.18 kg Abel Michele MD Work Phone: [facility] 08-13-2022 15:53-0500 Diastolic blood pressure 47 mm[Hg] Abel Michele MD Work Phone: [facility] 08-13-2022 15:53-0500 Heart rate 71 /min Abel Michele MD Work Phone: [facility] 08-13-2022 15:53-0500 SaO2% (BldA) [Mass fraction] 97 % Abel Michele MD Work Phone: [facility] 08-13-2022 15:53-0500 Systolic blood pressure 116 mm[Hg] Abel Michele MD Work Phone: [facility] 06-29-2022 13:37-0400 Body temperature 97.5 [degF] Lorrie Selina GARAGE DOOR INSTALLER.DYE MAKER Work Phone: [facility] 06-29-2022 13:37-0400 Body weight 87.09 kg Lorrie Selina GARAGE DOOR INSTALLER.DYE MAKER Work Phone: [facility] 06-29-2022 13:37-0400 Diastolic blood pressure 86 mm[Hg] Lorrie Selina GARAGE DOOR INSTALLER.DYE MAKER Work Phone: [facility] 06-29-2022 13:37-0400 Heart rate 82 /min Lorrie Selina GARAGE DOOR INSTALLER.DYE MAKER Work Phone: [facility] 06-29-2022 13:37-0400 Respiratory rate 16 /min Lorrie Selina GARAGE DOOR INSTALLER.DYE MAKER Work Phone: [facility] 06-29-2022 13:37-0400 SaO2% (BldA) [Mass fraction] 97 % Lorrie Selina GARAGE DOOR INSTALLER.DYE MAKER Work Phone: [facility] 06-29-2022 13:37-0400 Systolic blood pressure 142 mm[Hg] Lorrie Selina GARAGE DOOR INSTALLER.DYE MAKER Work Phone: [facility] 04-29-2017 15:50-0400 BMI (Body Mass Index) 31.44 kg/m2 [facility] 04-29-2017 15:50-0400 Body Temperature 97.2 [degF] Lissette Torres [facility] 04-29-2017 15:50-0400 Height 172.72 cm Lissette Torres [facility] 04-29-2017 15:50-0400 Pulse (Heart Rate) 77 /min [facility] 04-29-2017 15:50-0400 Weight 93.8 kg Lissette [facility] Encounters Encounter Date Encounter Type Care Provider Facility Start: 08-29-2023 End: 08-29-2023 ambulatory ABEL MICHELE Facility:[facility] Start: 08-29-2023 End: 08-29-2023 Patient encounter procedure Gertrude Guido SARAH.DYE MAKER Work Phone: [facility] Procedures Date Procedure Procedure Detail Performing Clinician Start: 08-29-2023 Urnls dip stick/tabl et rgnt auto w/o microscopy Christopher Manuel APRN.DYE MAKER Work Phone: Start: 09-04-2021 Mammography Abel anguiano MD Work Phone: Start: 08-25-2020 Adult depression scr eening assessment Abel Michele MD Work Phone: Start: 09-25-2015 Colonoscopy Abel anguiano MD Work Phone: Plan of Treatment Date Care Activity Detail Author Start: 09-25-2025 Colonoscopy COLONOSCOPY [facility] Start: 09-25-2025 COLORECTAL CANCER SCREENING COLORECTAL CANCER SCREENING [facility] Start: 07-12-2024 3 comp foot exam completed Diabetic Foot Exam [facility] Start: 07-12-2024 Annual PCP Team Pricing/Signage Team Member laura Disease Visit Annual PCP Team Chronic Disease Visit [facility] Start: 07-12-2024 BP Controlled (<130/80) BP Controlle d (<130/80) [facility] Start: 04-27-2024 BP CONTROLLED (<130/80) BP CONTROLLE D (<130/80) [facility] Start: 03-29-2024 Hepatitis B surface antibody level LDL CHOLESTEROL [facility] Start: 10-18-2023 Covid-19 Vaccine (6 - Pfizer series) Covid-19 Vaccine (6 - Pfizer series) [facility] Start: 09-29-2023 ANNUAL PCP TEAM EXTRUDER TENDER LAURA DISEASE VISIT ANNUAL PCP TEAM CHRONIC DISEASE VISIT [facility] Start: 09-29-2023 BP CONTROLLED (<130/80) BP CONTROLLE D (<130/80) [facility] Start: 09-29-2023 Hemoglobin A1c/Hemoglobin.total in Blood HBA1C [facility] Start: 09-22-2023 Hepatitis C antibody , confirmatory test DILATED RETINAL EXAM [facility] Start: 08-13-2023 ANNUAL PCP TEAM EXTRUDER TENDER LAURA DISEASE VISIT ANNUAL PCP TEAM CHRONIC DISEASE VISIT [facility] Start: 08-13-2023 BP CONTROLLED (<130/80) BP CONTROLLE D (<130/80) [facility] Start: 08-13-2023 SHINGRIX VACCINE (2 of 3) RENE GRIX VACCINE (2 of 3) [facility] Immunizations Immunization Date Immunization Notes Care Provider Fa cility 06-18-2023 COVID-19 vaccine, ag e 12+ yr, season (PFIZER-BIONTECH) Abel Michele MD Work Phone: [facility] 06-18-2023 influenza (aIIV4) vaccine, age 65+ yr, quadrivalent, PF (FLUAD QUAD) Abel Michele MD Work Phone: [facility] 07-17-2022 influenza (aIIV4) vaccine, age 65+ yr, quadrivalent, PF (FLUAD QUADRIVALENT) Abel Michele MD Work Phone: [facility] 07-17-2021 COVID-19 vaccine, ag e 12+ yr (PFIZER-BIONTECH - PURPLE TOP) Abel Michele MD Work Phone: [facility] 06-10-2021 influenza, high-dose , quadrivalent vaccine (FLUZONE HIGH DOSE QUADRIVALENT) Abel Michele MD Work Phone: [facility] 12-24-2020 COVID-19 vaccine, ag e 12+ yr (PFIZER-BIONTECH - PURPLE TOP) Abel Michele MD Work Phone: [facility] 12-03-2020 COVID-19 vaccine, ag e 12+ yr (PFIZER-BIONTECH - PURPLE TOP) Abel Michele MD Work Phone: [facility] 07-15-2020 influenza, high-dose , quadrivalent vaccine (FLUZONE HIGH DOSE QUADRIVALENT) Abel Michele MD Work Phone: [facility] 06-29-2020 influenza, high dose seasonal, preservative-free Abel Michele MD Work Phone: [facility] 06-16-2019 influenza, high dose seasonal, preservative-free Able Michele MD Work Phone: [facility] 06-10-2018 influenza, high dose seasonal, preservative-free Abel Michele MD Work Phone: [facility] 06-11-2017 influenza, high dose seasonal, preservative-free Abel Michele MD Work Phone: [facility] 06-26-2016 influenza, high dose seasonal, preservative-free Abel Michele MD Work Phone: [facility] 06-12-2016 influenza, seasonal, injectable Abel Michele MD Work Phone: [facility] 06-21-2015 influenza, high dose seasonal, preservative-free Abel Michele MD Work Phone: [facility] 06-21-2015 influenza, seasonal, injectable Abel Michele MD Work Phone: [facility] 05-24-2015 pneumococcal conjuga te vaccine, 13 valent Abel Michele MD Work Phone: [facility] 06-25-2014 influenza virus vacc ine, unspecified formulation Abel Michele MD Work Phone: [facility] 06-15-2014 influenza, seasonal, injectable Abel Michele MD Work Phone: [facility] 03-10-2014 zoster vaccine, live Abel Michele MD Work Phone: [facility] 07-08-2013 influenza virus vacc ine, whole virus Abel Michele MD Work Phone: [facility] 05-31-2013 influenza, seasonal, injectable Abel Michele MD Work Phone: [facility] 09-05-2012 pneumococcal polysaccharide vaccine, 23 valent Abel Michele MD Work Phone: [facility] 06-22-2012 influenza virus vacc ine, whole virus Abel Michele MD Work Phone: [facility] 04-29-2011 tetanus toxoid, redu sonja diphtheria toxoid, and acellular pertussis vaccine, adsorbed Abel Michele MD Work Phone: [facility] 09-02-2010 tetanus and diphther ia toxoids, adsorbed, preservative free, for adult use (2 Lf of tetanus toxoid and 2 Lf of diphtheria toxoid) Abel Michele MD Work Phone: [facility] Work Phone: Payers Date Payer Category Payer Unknown HOSPITAL/MEDICAL GENERIC MEDICAL GENERIC [id number] 2017-Present [phone] [address] [place] [address] Indemnity [id number] 2017 Unknown HOSPITAL/MEDICAL GENERIC MEDICAL GENERIC [id number] 2017-Present [phone] [address] [place] [address] Indemnity [id number] 2017 Unknown [id number] 2017 Medicare MEDICARE MEDICAR E A AND B [id number] 2017-Present [phone] [place] [address] Medicare [id number] 2017 Medicare MEDICARE MEDICAR E A AND B [id number] 2017-Present [phone] [place] [address] Medicare [id number] 2017 Medicare [id number] Social History Date Type Detail Facility Start: 09-30-2011 End: 06-29-2022 Tobacco smoking status NHIS Never smoked tobacco [facility] Start: 12-22-2021 End: 08-29-2023 Alcohol intake Current non-drinker of alcohol (finding) [facility] Start: 1945 Sex Assigned At Not on file [facility] Start: 12-12-2021 End: 08-13-2022 Exposure to SARS-CoV-2 (event) Not sure [facility] Start: 01-28-2022 End: 08-12-2022 History SDOH Alcohol Frequency 1 [facility] Start: 01-28-2022 End: 09-28-2022 History SDOH Physical Activity DPW 0 [facility] Start: 01-28-2022 End: 09-28-2022 History SDOH Stress 3 [facility] Start: 01-28-2022 End: 09-28-2022 History SDOH Housing Homeless Last Year 2 [facility] Start: 09-30-2011 End: 06-29-2022 Tobacco use and exposure Smokeless tobacco non-user [facility] Start: 09-28-2022 History SDOH Social Connections Phone 5 [facility] Start: 09-28-2022 History SDOH Financial 4 [facility] Start: 09-27-2022 End: 10-13-2022 [facility] Start: 09-27-2022 End: 10-13-2022 Social connection and isolation panel [facility] Do you belong to any clubs or organizations such as sikhism groups, unions, fraternal or athletic groups, or school groups? Yes [facility] Are you now , , , , never or living with a partner? [facility] How often to you hav e a drink containing alcohol? Never [facility] How many standard dr inks containing alcohol do you have on a typical day? Patient does not drink [facility] How hard is it for y ou to pay for the very basics like food, housing, medical care, and heating Not very hard [facility] Do you feel stress - tense, restless, nervous, or anxious, or unable to sleep at night because your mind is troubled all the time - these days [OSQ] Only a little [facility] (I/We) worried [facility] (my/our) food would run out before (I/we) got money to buy more. Never true [facility] In the past 12 month s, was there a time when you were not able to pay the mortgage or rent on time? No [facility] Medical Equipment Procedure Code Equipment Code Equipment Origin al Text Equipment Identifier Dates Start: 05-23-2015 Clinical Notes 03-12-2016 to 08-29-2023 Gertrude Morgan APRN.DYE MAKER - 08/29/2023 12:50 PM Abel Zabala MD - 07/12/2023 3:46 PM EDTTelephone Encounter - Sonali PastranaPHILIP - 06/24/2023 2:14 PM EDTPatient Instructions Note Date & Type Note Facility 08-29-2023 Note HNO ID: [id number] Author: Gertrude Morgan APRN.DYE MAKER Service: ? Author Type: Nurse Practitioner Type: Progress Notes Filed: 08/29/2023 12:52 PM Note Text: CC: Patient presents with: Urinary Frequency: Frequency, burning and blood x 1 day HPI Krupa Rubio is a 78 year old female who presents with complaint of possible UTI. These symptoms have been present for 1 days. Associated symptoms: burning, frequency, and hematuria Denies: fever, chills, sweats, abdominal pain, and flank pain Treatments: nothing The ROS was otherwise negative. PMH, Medications, labs, allergies, and recent past visits with PCP were reviewed and updated as able. PHYSICAL EXAM: BP 138/84 Pulse 74 Temp 36.2 ?C (97.2 ?F) (Tympanic) Resp 18 Wt 83.3 kg (183 lb 9.6 oz) LMP (LMP Unknown) SpO2 99% BMI 27.92 kg/m? 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/2015 Essential and other specified forms of tremor Essential hypertension, benign Hypercholesteremia Leiomyoma of uterus, unspecified Migraine Osteopenia Type II or unspecified type diabetes mellitus with unspecified complication, not stated as uncontrolled type 2 PAST SURGICAL HISTORY Procedure Laterality Date ARTHROSCOPY KNEE DIAGNOSTIC W/WO SYNOVIAL BX SPX Arthroscopy, knee right CHOLECYSTECTOMY Cholecystectomy COLONOSCOPY 2005 due 2010 COLONOSCOPY FLX DX W/COLLJ SPEC WHEN PFRMD 09/25/15 Colonoscopy ESOPHAGOGASTRODUODENOSCOPY TRANSORAL DIAGNOSTIC 09/25/15 EGD LAMINECTOMY W/O FFD 09/28 VERT SEG LUMBAR PAST SURGICAL HISTORY OF 04/28/2010 re-do right wrist -- Dr. Brown, [facility] (Worker's Comp) TOTAL ABDOMINAL HYSTERECT W/WO RMVL TUBE OVARY b/l oophorectomy also ALLERGIES Farxiga [Dapagliflozin], Levaquin [Levofloxacin], Morphine, and Sulfa (Sulfonamide Antibiotics) MEDICATIONS glipiZIDE (GLUCOTROL XL) 10mg 24 hr tablet Take 1 tablet by mouth once daily. atenolol (TENORMIN) 50 mg tablet Take 1 tablet by mouth two times a day. gabapentin (NEURONTIN) 300 mg capsule Take 1 capsule by mouth three times a day for 180 days. insulin glargine (BASAGLAR KWIKPEN U-100 INSULIN) 100 unit/mL (3 mL) Inject 22 Units subcutaneously daily at bedtime. May self-titrate by 1 unit every 3 days for goal FBG <130 meloxicam (MOBIC) 15 mg tablet Take 1 tablet by mouth once daily. PARoxetine (PAXIL) 20 mg tablet Take 1 tablet by mouth once daily. primidone (MYSOLINE) 50 mg tablet Take 3 tablets by mouth two times a day. dulaglutide (TRULICITY) 0.75 mg/0.5 mL pen injector Inject 0.75 mg subcutaneously one time a week. albuterol HFA (PROVENTIL HFA, VENTOLIN HFA) 90 mcg/actuation inhaler Inhale 2 Puffs as instructed every 4 hours as needed for wheezing/shortness of breath. pravastatin (PRAVACHOL) 40 mg tablet TAKE 1 TABLET BY MOUTH EVERYDAY AT BEDTIME amLODIPine-Benazepril 10-40 mg per capsule TAKE 1 CAPSULE BY MOUTH ONCE DAILY promethazine (PHENERGAN) 12.5 mg tablet Take 1 tablet by mouth every 6 hours as needed. clobetasol (TEMOVATE) 0.05 % ointment Apply to affected area. APPLY TO VULVAR AREA BID FOR 2 WEEKS THEN DAILY FOR 2 WEEKS, THEN DAILY NEEDED PAIN RELIEF EXTRA STRENGTH 500 mg tablet TAKE 2 TABLETS BY MOUTH THREE TIMES DAILY NEEDED FOR PAIN DO NOT EXCEED 3000MG/DAY blood sugar diagnostic (ONETOUCH VERIO) test strip Test blood sugar(s) 3 times daily. Dx: Type 2 DM - Uncontrolled E11.65 Insulin: Yes glucose (DEX4 GLUCOSE) 4 gram chewable tablet Take 4 tablets by mouth as needed. insulin needles, DISPOSABLE, (PEN NEEDLE) 31 gauge x 5/16 ndle Use one needle per dose. 2 per day. ONE TOUCH DELICA 33 gauge misc TEST BLOOD SUGAR(S) 3 TO 4 TIMES DAILY Blood-Glucose Meter (ONETOUCH VERIO SYSTEM) [facility] U[facility] to check blood sugar Dx. E11.65 Insulin: Yes Lancets (ACCU-CHEK SOFTCLIX LANCETS) lancets Test blood sugar(s) 3 times daily. Dx: 250.00. Insulin: Yes loperamide (IMODIUM) 2 mg cap(s) Take 1 capsule by mouth four times daily as needed. aspirin, enteric coated (ECOTRIN LOW STRENGTH) 81 mg EC tablet Take 1 tablet by mouth once daily. Cholecalciferol, Vitamin D3, 25 mcg (1,000 unit) cap Take 2,000 Units by mouth once daily. multivitamin tablet Take 1 tablet by mouth once daily. nitrofurantoin monohydrate and macrocrystal (MACROBID) 100 mg capsule Take 1 capsule by mouth two times a day for 5 days. albuterol HFA (PROVENTIL HFA, VENTOLIN HFA) 90 mcg/actuation inhaler Inhale 2 Puffs as instructed four times daily as needed. FOR WHEEZING AND SHORTNESS OF BREATH. (Patient not taking: Reported on 08/29/2023) FAMILY HISTORY Problem Relation Age of Onset Cancer Father lung Diabet (more content not included)... [facility] 08-29-2023 History of Presen t illness Narrative CC: Patient presents with: Urinary Frequency: Frequency, burning and blood x 1 day HPI Krupa Rubio is a 78 year old female who presents with complaint of possible UTI. These symptoms have been present for 1 days. Associated symptoms: burning, frequency, and hematuria Denies: fever, chills, sweats, abdominal pain, and flank pain Treatments: nothing The ROS was otherwise negative. PMH, Medications, labs, allergies, and recent past visits with PCP were reviewed and updated as able. 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/2015 Essential and other specified forms of tremor Essential hypertension, benign Hypercholesteremia Leiomyoma of uterus, unspecified Migraine Osteopenia Type II or unspecified type diabetes mellitus with unspecified complication, not stated as uncontrolled type 2 PAST SURGICAL HISTORY Procedure Laterality Date ARTHROSCOPY KNEE DIAGNOSTIC W/WO SYNOVIAL BX SPX Arthroscopy, knee right CHOLECYSTECTOMY Cholecystectomy COLONOSCOPY 2005 due 2010 COLONOSCOPY FLX DX W/COLLJ SPEC WHEN PFRMD 09/25/15 Colonoscopy ESOPHAGOGASTRODUODENOSCOPY TRANSORAL DIAGNOSTIC 09/25/15 EGD LAMINECTOMY W/O FFD 09/28 VERT SEG LUMBAR PAST SURGICAL HISTORY OF 04/28/2010 re-do right wrist -- Dr. Brown, [facility] (Worker's Comp) TOTAL ABDOMINAL HYSTERECT W/WO RMVL TUBE OVARY b/l oophorectomy also ALLERGIES Farxiga [Dapagliflozin], Levaquin [Levofloxacin], Morphine, and Sulfa (Sulfonamide Antibiotics) MEDICATIONS glipiZIDE (GLUCOTROL XL) 10mg 24 hr tablet Take 1 tablet by mouth once daily. atenolol (TENORMIN) 50 mg tablet Take 1 tablet by mouth two times a day. gabapentin (NEURONTIN) 300 mg capsule Take 1 capsule by mouth three times a day for 180 days. insulin glargine (BASAGLAR KWIKPEN U-100 INSULIN) 100 unit/mL (3 mL) Inject 22 Units subcutaneously daily at bedtime. May self-titrate by 1 unit every 3 days for goal FBG <130 meloxicam (MOBIC) 15 mg tablet Take 1 tablet by mouth once daily. PARoxetine (PAXIL) 20 mg tablet Take 1 tablet by mouth once daily. primidone (MYSOLINE) 50 mg tablet Take 3 tablets by mouth two times a day. dulaglutide (TRULICITY) 0.75 mg/0.5 mL pen injector Inject 0.75 mg subcutaneously one time a week. albuterol HFA (PROVENTIL HFA, VENTOLIN HFA) 90 mcg/actuation inhaler Inhale 2 Puffs as instructed every 4 hours as needed for wheezing/shortness of breath. pravastatin (PRAVACHOL) 40 mg tablet TAKE 1 TABLET BY MOUTH EVERYDAY AT BEDTIME amLODIPine-Benazepril 10-40 mg per capsule TAKE 1 CAPSULE BY MOUTH ONCE DAILY promethazine (PHENERGAN) 12.5 mg tablet Take 1 tablet by mouth every 6 hours as needed. clobetasol (TEMOVATE) 0.05 % ointment Apply to affected area. APPLY TO VULVAR AREA BID FOR 2 WEEKS THEN DAILY FOR 2 WEEKS, THEN DAILY NEEDED PAIN RELIEF EXTRA STRENGTH 500 mg tablet TAKE 2 TABLETS BY MOUTH THREE TIMES DAILY NEEDED FOR PAIN DO NOT EXCEED 3000MG/DAY blood sugar diagnostic (ONETOUCH VERIO) test strip Test blood sugar(s) 3 times daily. Dx: Type 2 DM - Uncontrolled E11.65 Insulin: Yes glucose (DEX4 GLUCOSE) 4 gram chewable tablet Take 4 tablets by mouth as needed. insulin needles, DISPOSABLE, (PEN NEEDLE) 31 gauge x 5/16 ndle Use one needle per dose. 2 per day. ONE TOUCH [place] 33 gauge [facility] [place]LOOD [place](S) 3 TO 4 TIMES DAILY Blood-Glucose Meter (ONETOUCH VERIO SYSTEM) [facility] [place] [place] check blood sugar Dx. E11.65 Insulin: Yes Lancets (ACCU-CHEK SOFTCLIX LANCETS) lancets Test blood sugar(s) 3 times daily. Dx: 250.00. Insulin: Yes loperamide (IMODIUM) 2 mg cap(s) Take 1 capsule by mouth four times daily as needed. aspirin, enteric coated (ECOTRIN LOW STRENGTH) 81 mg EC tablet Take 1 tablet by mouth once daily. Cholecalciferol, Vitamin D3, 25 mcg (1,000 unit) cap Take 2,000 Units by mouth once daily. multivitamin tablet Take 1 tablet by mouth once daily. nitrofurantoin monohydrate and macrocrystal (MACROBID) 100 mg capsule Take 1 capsule by mouth two times a day for 5 days. albuterol HFA (PROVENTIL HFA, VENTOLIN HFA) 90 mcg/actuation inhaler Inhale 2 Puffs as instructed four times daily as needed. FOR WHEEZING AND SHORTNESS OF BREATH. (Patient not taking: Reported on 08/29/2023) FAMILY HISTORY Problem Relation Age of Onset Cancer Father lung Diabetes Mother Hypertension Mother Osteoporosis Mother other (dementia [Other]) Mother Diabetes Brother Cancer Maternal Aunt Cancer Maternal Aunt Coronary Artery Disease Maternal Grandfather Social History Tobacco Use Smoking status: Never Smokeless tobacco: Never Vaping Use Vaping Use: Never used Substance Use Topics Alcohol use: No Drug use: No ASSESSMENT/PLAN: 1. Urinary frequency - ICD9: 788.41, ICD10: R35.0 (primary diagnosis) - UA DIP, URINE (POC) - URINE CULTURE 2. Recurrent UTI (urinary tract infection) - ICD9: 599.0, ICD10: N39.0 - NITROFURANTOIN MONOHYDRATE & MACROCRYSTAL 100 MG ORAL CAP Prescription instructions reviewed with patient as applicable. Potential red flag symptoms discussed with the patient. Reviewed appropriate action plan to take if red flag symptoms occur. Patient agreeable to treatment plan. Gertrude Morgan APRN.GERA documented in this encounter [facility] 07-12-2023 Note HNO ID: [id number] Author: Abel Michele MD Service: ? Author Type: Physician Type: Progress Notes Filed: 07/12/2023 6:16 PM Note Text: CHIEF COMPLAINT Patient presents with: diabetes follow up HISTORY OF PRESENT ILLNESS Krupa Rubio is a 78 year old female who presents here today for a diabetes follow up. I last saw this patient on 08/13/22. tremor - Patient reports manageable tremor symptoms diabetes Control has been pretty good, she's on blipizide 10 mg daily , no low glucose episodes. Hypertension/ hyperlipidemia/CAD She is not having angina now. The patient denies exertional chest pain, shortness of breath, palpitations. Health Maintenance Spirometry Hepatitis B Vaccine (1 of 3 - Risk 3-Dose Series) Diabetic Foot Exam Urine Albumin: Creatinine Ratio Labs reviewed. Past medical history, appointments, medications, allergies reviewed. REVIEW OF SYSTEMS General: Feels well, no weight changes, fevers or chills. HEENT: No sinus congestion, earache, sore throat. Cardiac: No chest pain, palpitations Resp: No cough, wheeze, shortness of breath GI: No reflux symptoms, food intolerance, bowel changes. : No urinary frequency, dysuria. MS some neck pains. Back pain. Arthritis pain knees. 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 Repeat BP: 116/75 General: Alert, well developed, well nourished, no distress, pleasant and cooperative. Obese. Heart: Regular rate and rhythm. Normal S1 and S2. No murmurs, rubs, or gallops. Lungs: Clear to auscultation bilaterally. No respiratory distress. No wheezes, rales, or rhonchi. Abdomen: Soft, non-tender, no distention. Extremities: Feet/ankles without edema, posterior tibial pulses full and symmetrical. Feet:Shoes and socks removed, No deformities, ulcers, calluses, and normal distal pulses Data Reviewed Lab Results Component Value Date/Time CHOL 156 03/29/2023 08:51 AM CHOL 148 03/28/2021 10:36 AM HDL 60 03/29/2023 08:51 AM HDL 40 03/28/2021 10:36 AM LDL 79 03/29/2023 08:51 AM LDL 67 03/28/2021 10:36 AM HBA1C 6.7 (H) 03/29/2023 08:51 AM HBA1C 6.5 08/06/2021 09:54 AM HBA1C 6.9 (H) 03/28/2021 10:36 AM TSH 2.220 06/03/2012 11:29 AM Assessment/Plan (E11.9, Z79.4) Controlled type 2 diabetes mellitus without complication, with long-term current use of insulin (HCC) (primary encounter diagnosis) Comment: doing well. Plan: Continue with current plan AND medications (I25.119) Coronary artery disease involving [place] coronary artery of [place] heart with angina pectoris (HCC) (I10) Essential hypertension, benign Comment: bp well controlled. Plan: atenolol (TENORMIN) 50 mg tablet (G25.0) Tremor, essential Comment: beta lisa and mysoline with decent control Plan: atenolol (TENORMIN) 50 mg tablet, primidone (MYSOLINE) 50 mg tablet (F43.23) Adjustment disorder with mixed anxiety and depressed mood Comment: stable on regimen Plan: PARoxetine (PAXIL) 20 mg tablet (E55.9) Vitamin D deficiency Comment: taking replacement Plan: moaintain (M17.0) Primary osteoarthritis of both knees (M50.30) DDD (degenerative disc disease), cervical (M47.816) Lumbar spondylosis Comment: symptoms. Plan: seeing the spine Dr, conssideration of injections. Requested Prescriptions Pending Prescriptions Disp Refills atenolol (TENORMIN) 50 mg tablet 180 tablet 0 Sig: Take 1 tablet by mouth two times a day. gabapentin (NEURONTIN) 300 mg capsule 90 capsule 0 Sig: Take 1 capsule by mouth three times a day for 30 days. insulin glargine (BASAGLAR KWIKPEN U-100 INSULIN) 100 unit/mL (3 mL) 5 Each 5 Sig: Inject 22 Units subcutaneously daily at bedtime. May self-titrate by 1 unit every 3 days for goal FBG <130 meloxicam (MOBIC) 15 mg tablet 90 tablet 2 Sig: Take 1 tablet by mouth once daily. PARoxetine (PAXIL) 20 mg tablet 90 tablet 1 Sig: Take 1 tablet by mouth once daily. primidone (MYSOLINE) 50 mg tablet 540 tablet 0 Sig: Take 3 tablets by mouth two times a day. dulaglutide (TRULICITY) 0.75 mg/0.5 mL pen injector 4 Each 11 Sig: Inject 0.75 mg subcutaneously one time a week. RTO: 6 months if all is well Scribe Attestation: By signing my name below, I, Chad Millan, attest that this documentation has been prepared under the direction and in the presence of Juan Luis Michele M.D. Electronically Signed: Margy De Jesus. July 12, 2023 3:46 (more content not included)... [facility] 07-12-2023 History of Presen t illness Narrative CHIEF COMPLAINT Patient presents with: diabetes follow up HISTORY OF PRESENT ILLNESS Krupa Rubio is a 78 year old female who presents here today for a diabetes follow up. I last saw this patient on 08/13/22. tremor - Patient reports manageable tremor symptoms diabetes Control has been pretty good, she's on blipizide 10 mg daily , no low glucose episodes. Hypertension/ hyperlipidemia/CAD She is not having angina now. The patient denies exertional chest pain, shortness of breath, palpitations. Health Maintenance Spirometry Hepatitis B Vaccine (1 of 3 - Risk 3-Dose Series) Diabetic Foot Exam Urine Albumin: Creatinine Ratio Labs reviewed. Past medical history, appointments, medications, allergies reviewed. REVIEW OF SYSTEMS General: Feels well, no weight changes, fevers or chills. HEENT: No sinus congestion, earache, sore throat. Cardiac: No chest pain, palpitations Resp: No cough, wheeze, shortness of breath GI: No reflux symptoms, food intolerance, bowel changes. : No urinary frequency, dysuria. MS some neck pains. Back pain. Arthritis pain knees. 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 Obese. Heart: Regular rate and rhythm. Normal S1 and S2. No murmurs, rubs, or gallops. Lungs: Clear to auscultation bilaterally. No respiratory distress. No wheezes, rales, or rhonchi. Abdomen: Soft, non-tender, no distention. Extremities: Feet/ankles without edema, posterior tibial pulses full and symmetrical. Feet:Shoes and socks removed, No deformities, ulcers, calluses, and normal distal pulses Data Reviewed Lab Results Component Value Date/Time CHOL 156 03/29/2023 08:51 AM CHOL 148 03/28/2021 10:36 AM HDL 60 03/29/2023 08:51 AM HDL 40 03/28/2021 10:36 AM LDL 79 03/29/2023 08:51 AM LDL 67 03/28/2021 10:36 AM HBA1C 6.7 (H) 03/29/2023 08:51 AM HBA1C 6.5 08/06/2021 09:54 AM HBA1C 6.9 (H) 03/28/2021 10:36 AM TSH 2.220 06/03/2012 11:29 AM Assessment/Plan (E11.9, Z79.4) Controlled type 2 diabetes mellitus without complication, with long-term current use of insulin ([facility]) (primary encounter diagnosis) Comment: doing well. Plan: Continue with current plan & medications (I25.119) Coronary artery disease involving [place] coronary artery of [place] heart with angina pectoris ([facility]) (I10) Essential hypertension, benign Comment: bp well controlled. Plan: atenolol (TENORMIN) 50 mg tablet (G25.0) Tremor, essential Comment: beta lisa and mysoline with decent control Plan: atenolol (TENORMIN) 50 mg tablet, primidone (MYSOLINE) 50 mg tablet (F43.23) Adjustment disorder with mixed anxiety and depressed mood Comment: stable on regimen Plan: PARoxetine (PAXIL) 20 mg tablet (E55.9) Vitamin D deficiency Comment: taking replacement Plan: moaintain (M17.0) Primary osteoarthritis of both knees (M50.30) DDD (degenerative disc disease), cervical (M47.816) Lumbar spondylosis Comment: symptoms. Plan: seeing the spine Dr, conssideration of injections. Requested Prescriptions Pending Prescriptions Disp Refills atenolol (TENORMIN) 50 mg tablet 180 tablet 0 Sig: Take 1 tablet by mouth two times a day. gabapentin (NEURONTIN) 300 mg capsule 90 capsule 0 Sig: Take 1 capsule by mouth three times a day for 30 days. insulin glargine (BASAGLAR KWIKPEN U-100 INSULIN) 100 unit/mL (3 mL) 5 Each 5 Sig: Inject 22 Units subcutaneously daily at bedtime. May self-titrate by 1 unit every 3 days for goal FBG <130 meloxicam (MOBIC) 15 mg tablet 90 tablet 2 Sig: Take 1 tablet by mouth once daily. PARoxetine (PAXIL) 20 mg tablet 90 tablet 1 Sig: Take 1 tablet by mouth once daily. primidone (MYSOLINE) 50 mg tablet 540 tablet 0 Sig: Take 3 tablets by mouth two times a day. dulaglutide (TRULICITY) 0.75 mg/0.5 mL pen injector 4 Each 11 Sig: Inject 0.75 mg subcutaneously one time a week. RTO: 6 months if all is well Scribe Attestation: By signing my name below, IChad, attest that this documentation has been prepared under the direction and in the presence of Juan Luis Michele M.D. Electronically Signed: Margy De Jesus. July 12, 2023 3:46 PM Provider Attestation: Abel Levin MD, personally performed the services described in this documentation. All medical record entries made by the scribe were at my direction and in my presence. I have reviewed the chart and discharge instructions (if applicable), and agree that the record reflects my personal performance and is accurate and complete. Electronically Signed: Abel Michele MD July 12, 2023 6:15 PM documented in this encounter [facility] 06-24-2023 Miscellaneous Notes Last appointment: 09/29/22 Next appointment: 07/12/23 Pharmacy verified in [facility]. Refill(s) requested: Requested Prescriptions Pending Prescriptions Disp Refills gabapentin (NEURONTIN) 300 mg capsule 90 capsule 0 Sig: Take 1 capsule by mouth three times daily for 30 days. Order(s) pended. Please advise,thank you. Sonali DIAS June 24, 2023 2:14 PM documented in this encounter [facility] 06-07-2023 Miscellaneous Notes 1st attempt, sent [facility]. The following approved medication requests have been transmitted electronically. Requested Prescriptions Signed Prescriptions Disp Refills atenolol (TENORMIN) 50 mg tablet 180 tablet 0 Sig: TAKE 1 TABLET BY MOUTH TWICE A DAY Authorizing Provider: ABEL MICHELE Due for appt by end of year Abel Michele MD Pharmacy verified in [facility] Patient has been identified by name and date of : Yes Patient aware RX will be sent to pharmacy. No need to notify patient. Pharmacy phones for refill(s): Requested Prescriptions Pending Prescriptions Disp Refills atenolol (TENORMIN) 50 mg tablet [Pharmacy Med Name: ATENOLOL 50 MG TABLET] 180 tablet 3 Sig: TAKE 1 TABLET BY MOUTH TWICE A DAY Date of last office visit : 09/29/2022 Date of next office visit : Visit date not found Last 2 Encounter Wt Readings: Date: Wt: 04/27/2023 86.4 kg (190 lb 6.4 oz) 01/22/2023 85.2 kg (187 lb 12.8 oz) Blood Pressure: BUN (mg/dL) Date Value 03/29/2023 15 12/14/2020 18 Creatinine (mg/dL) Date Value 03/29/2023 0.79 12/14/2020 0.78 Sodium (mmol/L) Date Value 03/29/2023 141 12/14/2020 138 Potassium (mmol/L) Date Value 03/29/2023 4.4 12/14/2020 4.8 Last 1 Encounter BP Readings: Date: BP: 04/27/2023 122/74 Please advise. Jane Robbins documented in this encounter [facility] 05-07-2023 Miscellaneous Notes The following approved medication requests have been transmitted electronically. Requested Prescriptions Signed Prescriptions Disp Refills gabapentin (NEURONTIN) 300 mg capsule 90 capsule 0 Sig: Take 1 capsule by mouth three times daily for 30 days. Authorizing Provider: ABEL MICHELE MD Pharmacy verified in [facility] Patient has been identified by name and date of : Yes Patient aware RX will be sent to pharmacy. No need to notify patient. Patient phones for refill(s): Requested Prescriptions Pending Prescriptions Disp Refills gabapentin (NEURONTIN) 300 mg capsule 90 capsule 0 Sig: Take 1 capsule by mouth three times daily for 30 days. Date of last office visit : 09/29/2022 Date of next office visit : Visit date not found Last 2 Encounter Wt Readings: Date: Wt: 04/27/2023 86.4 kg (190 lb 6.4 oz) 01/22/2023 85.2 kg (187 lb 12.8 oz) Not applicable Please advise. Rosalia David MA documented in this encounter [facility] 05-03-2023 Miscellaneous Notes Pharmacy verified in [facility] Patient has been identified by name and date of : Yes Patient aware RX will be sent to pharmacy. No need to notify patient. Pharmacy phones for refill(s): Requested Prescriptions Pending Prescriptions Disp Refills primidone (MYSOLINE) 50 mg tablet [Pharmacy Med Name: PRIMIDONE 50 MG TABLET] 540 tablet 0 Sig: TAKE 3 TABLETS BY MOUTH TWICE A DAY Date of last office visit : 09/29/2022 Date of next office visit : Visit date not found Last 2 Encounter Wt Readings: Date: Wt: 04/27/2023 86.4 kg (190 lb 6.4 oz) 01/22/2023 85.2 kg (187 lb 12.8 oz) Blood Pressure: BUN (mg/dL) Date Value 03/29/2023 15 12/14/2020 18 Creatinine (mg/dL) Date Value 03/29/2023 0.79 12/14/2020 0.78 Sodium (mmol/L) Date Value 03/29/2023 141 12/14/2020 138 Potassium (mmol/L) Date Value 03/29/2023 4.4 12/14/2020 4.8 Last 1 Encounter BP Readings: Date: BP: 04/27/2023 122/74 Please advise. Carolina Alejandre LPN documented in this encounter [facility] 04-27-2023 Note HNO ID: [id number] Author: Juany Hernandez RT(R) Service: Radiology Author Type: Technologist Type: Progress Notes Filed: 04/27/2023 2:35 PM Note Text: Radiology Service Progress Note PATIENT NAME: Krupa Rubio DATE OF SERVICE: April 27, 2023 TIME: 2:22 PM PATIENT IDENTITY VERIFICATION COMPLETED USING TWO (2) IDENTIFIERS: Name and Date of confirmed by patient verbally. FALL SCREENING: Has the patient had 2 falls in the last year or 1 fall with injury or currently using an Ambulatory Assistive Device (Walker, Cane, Wheelchair, Crutches, etc.)? No PATIENT GENDER DATA: Female. status: : No status: NO. PATIENT RELEVANT IMPLANT DATA REVIEWED: Not Applicable RADIOLOGY DEPARTMENT: General X-ray: Exam(s) Completed: Rib X-Ray: Right PERIPHERAL IV DATA: Not applicable SIGNED BY: RT Shanna(R) April 27, 2023 2:22 PM [facility] 04-27-2023 Note HNO ID: [id number] Author: Lorrie Marks APRN.DYE MAKER Service: ? Author Type: Nurse Practitioner Type: Progress Notes Filed: 04/27/2023 2:48 PM Note Text: Subjective The history is provided by the patient. No language arts teacher was used. HPI Krupa Rubio is a 78 year old female who presents today for CC of right sided rib pain that started on Wednesday. 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 She has used tylenol with some relief. 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 HENT: Negative for congestion, ear pain, sinus pain and sore throat. Respiratory: Negative for cough. Cardiovascular: Positive for chest pain (right sided rib pain). Musculoskeletal: Negative for myalgias. Neurological: Negative for headaches. Objective Physical Exam Vitals and nursing note reviewed. Cardiovascular: Rate and Rhythm: Normal rate and regular rhythm. Heart sounds: Normal heart sounds. Pulmonary: Effort: Pulmonary effort is normal. Breath sounds: Normal breath sounds. Chest: Chest wall: Tenderness present. No mass, lacerations, deformity, swelling, crepitus or edema. There is no dullness to percussion. Comments: Area of tenderness along 9, 10 ribs Skin: General: Skin is warm and dry. Neurological: Mental Status: She is alert and oriented to person, place, and time. Psychiatric: Mood and Affect: Affect normal. ASSESSMENT/PLAN: 1. Rib pain on right side - ICD9: 786.50, ICD10: R07.81 Encourage deep breathing Warm moist heat/ice Tylenol Follow up with PCP prn - XR RIBS/CHEST 3V AP RIB/OBLS/CXR RIGHT FINDINGS: Osseous demineralization. Redemonstration of multiple healed right posterolateral rib fracture deformities involving the right second through ninth ribs. No radiographic evidence of acute fracture. Right upper quadrant surgical clips. IMPRESSION: Multiple healed remote right rib fracture deformities again identified. No radiographic evidence of acute fracture. Interpreted by : MD Lorrie DHALIWAL APRN.[facility] 04-27-2023 Instructions Lorrie Marks APRN.GERA - 04/27/2023 2:48 PM EDT Encourage deep breathing Warm moist heat/ice Tylenol Follow up with PCP prn documented in this encounter [facility] 04-27-2023 History of Presen t illness Narrative Images from the original note were not included. Subjective The history is provided by the patient. No language arts teacher was used. HPI Krupa Rubio is a 78 year old female who presents today for CC of right sided rib pain that started on Wednesday. 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 She has used tylenol with some relief. 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 HENT: Negative for congestion, ear pain, sinus pain and sore throat. Respiratory: Negative for cough. Cardiovascular: Positive for chest pain (right sided rib pain). Musculoskeletal: Negative for myalgias. Neurological: Negative for headaches. Objective Physical Exam Vitals and nursing note reviewed. Cardiovascular: Rate and Rhythm: Normal rate and regular rhythm. Heart sounds: Normal heart sounds. Pulmonary: Effort: Pulmonary effort is normal. Breath sounds: Normal breath sounds. Chest: Chest wall: Tenderness present. No mass, lacerations, deformity, swelling, crepitus or edema. There is no dullness to percussion. Comments: Area of tenderness along 9, 10 ribs Skin: General: Skin is warm and dry. Neurological: Mental Status: She is alert and oriented to person, place, and time. Psychiatric: Mood and Affect: Affect normal. ASSESSMENT/PLAN: 1. Rib pain on right side - ICD9: 786.50, ICD10: R07.81 Encourage deep breathing Warm moist heat/ice Tylenol Follow up with PCP prn - XR RIBS/CHEST 3V AP RIB/OBLS/CXR RIGHT FINDINGS: Osseous demineralization. Redemonstration of multiple healed right posterolateral rib fracture deformities involving the right second through ninth ribs. No radiographic evidence of acute fracture. Right upper quadrant surgical clips. IMPRESSION: Multiple healed remote right rib fracture deformities again identified. No radiographic evidence of acute fracture. Interpreted by : MD Lorrie DHALIWAL APRN.DYE MAKER documented in this encounter [facility] 03-25-2023 Miscellaneous Notes The following approved medication requests have been transmitted electronically. Requested Prescriptions Signed Prescriptions Disp Refills gabapentin (NEURONTIN) 300 mg capsule 90 capsule 0 Sig: Take 1 capsule by mouth three times daily for 30 days. Authorizing Provider: ABEL MICHELE MD Pharmacy verified in [facility] Patient has been identified by name and date of : Yes Patient aware RX will be sent to pharmacy. No need to notify patient. Patient phones for refill(s): Requested Prescriptions Pending Prescriptions Disp Refills gabapentin (NEURONTIN) 300 mg capsule 90 capsule 0 Sig: Take 1 capsule by mouth three times daily for 30 days. Date of last office visit : 09/29/2022 Date of next office visit : Visit date not found Last 2 Encounter Wt Readings: Date: Wt: 01/22/2023 85.2 kg (187 lb 12.8 oz) 01/11/2023 85.7 kg (189 lb) Not applicable Please advise. Rosalia David MA documented in this encounter [facility] 03-25-2023 Miscellaneous Notes The following approved medication requests have been transmitted electronically. Requested Prescriptions Signed Prescriptions Disp Refills PARoxetine (PAXIL) 20 mg tablet 90 tablet 1 Sig: Take 1 tablet by mouth once daily. Authorizing Provider: ABEL MICHELE MD Pharmacy verified in [facility] Patient has been identified by name and date of : Yes Patient aware RX will be sent to pharmacy. No need to notify patient. Patient phones for refill(s): Requested Prescriptions Pending Prescriptions Disp Refills PARoxetine (PAXIL) 20 mg tablet 90 tablet 1 Sig: Take 1 tablet by mouth once daily. Date of last office visit : Visit date not found Date of next office visit : Visit date not found Last 2 Encounter Wt Readings: Date: Wt: 01/22/2023 85.2 kg (187 lb 12.8 oz) 01/11/2023 85.7 kg (189 lb) Not applicable Please advise. Rosalia David MA documented in this encounter [facility] 03-03-2023 Miscellaneous Notes Our last visit was in July, so you're due for lab and visit any time now. I've placed orders for some fasting labs you can have drawn in [place] before coming for visit. Get Medical Advice on 03/01/23 COMP METABOLIC PANEL LIPID PANEL BASIC HGB A1C CBC VITAMIN D 25 HYDROXY Abel Michele MD documented in this encounter [facility] 02-01-2023 Miscellaneous Notes Last appointment: 09/29/22 Next appointment: none Pharmacy verified in [facility]. Refill(s) requested: Requested Prescriptions Pending Prescriptions Disp Refills gabapentin (NEURONTIN) 300 mg capsule 90 capsule 0 Sig: Take 1 capsule by mouth three times daily for 30 days. Refused Prescriptions Disp Refills primidone (MYSOLINE) 50 mg tablet 540 tablet 0 Sig: Take 3 tablets by mouth twice daily. Order(s) pended. Please advise. Ludmila Rahman LPN, CMA documented in this encounter [facility] 02-01-2023 Miscellaneous Notes Pharmacy verified in [employer] Patient has been identified by name and date of : Yes Patient aware RX will be sent to pharmacy. No need to notify patient. Pharmacy phones for refill(s): Requested Prescriptions Pending Prescriptions Disp Refills primidone (MYSOLINE) 50 mg tablet [Pharmacy Med Name: PRIMIDONE 50 MG TABLET] 540 tablet 0 Sig: TAKE 3 TABLETS BY MOUTH TWICE A DAY Date of last office visit : 09/29/2022 Date of next office visit : Visit date not found Last 2 Encounter Wt Readings: Date: Wt: 01/22/2023 85.2 kg (187 lb 12.8 oz) 01/11/2023 85.7 kg (189 lb) Not applicable Please advise. Jane Robbins documented in this encounter [facility] 01-22-2023 Note HNO ID: [id number] Author: RT Susan(R) Service: Radiology Author Type: Technologist Type: Progress Notes Filed: 01/22/2023 2:53 PM Note Text: Radiology Service Progress Note PATIENT NAME: Krupa Rubio DATE OF SERVICE: January 22, 2023 TIME: 2:45 PM PATIENT IDENTITY VERIFICATION COMPLETED USING TWO (2) IDENTIFIERS: Name and Date of confirmed by patient verbally. FALL SCREENING: Has the patient had 2 falls in the last year or 1 fall with injury or currently using an Ambulatory Assistive Device (Walker, Cane, Wheelchair, Crutches, etc.)? No PATIENT GENDER DATA: Female. status: : No status: NO. PATIENT RELEVANT IMPLANT DATA REVIEWED: Yes RADIOLOGY DEPARTMENT: General X-ray: Exam(s) Completed: Chest X-Ray PERIPHERAL IV DATA: Not applicable SIGNED BY: RT Susan(R) January 22, 2023 2:45 PM [facility] 01-22-2023 Note HNO ID: [id number] Author: Gertrude Morgan APRN.DYE MAKER Service: ? Author Type: Nurse Practitioner Type: Progress Notes Filed: 01/22/2023 3:13 PM Note Text: CC: Patient presents with: Cough: Sinus, congestion, sore throat x 2.5 weeks HPI: Krupa Rubio is a 77 year old female who presents to the office with complaint of chest congestion, head congestion, cough, nonproductive, sore throat, and sinus symptoms for 2 weeks. Symptoms are worsening Associated symptoms includes dyspnea. Denies fever, nausea, vomiting , and diarrhea. Treatments tried include nothing so far. with no relief of symptoms. Sick contacts: unknown. History of asthma, frequent episodes of bronchitis, chronic bronchitis, bronchiectasis or COPD: Yes asthma and history of pneumonia. Smoker: No Seasonal/environmental allergies: No The ROS is otherwise negative. The patient's pmh, medications, allergies, and past visits are reviewed. PHYSICAL EXAM: BP 138/72 Pulse 77 Temp 36.1 ?C (97 ?F) Resp 21 Wt 85.2 kg (187 lb 12.8 oz) LMP (LMP Unknown) SpO2 98% BMI 28.56 kg/m? General appearance: alert, cooperative, pleasant, in no acute distress Head: Normocephalic Eyes: EOM's intact, conjunctiva pink and moist, no icterus, sclera white, non-injected Ears: Right ear: External ear/canal- Normal, TM - clear with good landmarks. Left ear: External ear/canal- Normal, TM - clear with good landmarks Oropharynx:moist without lesions, No erythema, exudates or tonsillar hypertrophy. Heart: Negative. RRR without obvious murmur, gallop, or rubs. No ectopy. 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/2015 Essential and other specified forms of tremor Essential hypertension, benign Hypercholesteremia Leiomyoma of uterus, unspecified Migraine Osteopenia Type II or unspecified type diabetes mellitus with unspecified complication, not stated as uncontrolled type 2 PAST SURGICAL HISTORY Procedure Laterality Date ARTHROSCOPY KNEE DIAGNOSTIC W/WO SYNOVIAL BX SPX Arthroscopy, knee right CHOLECYSTECTOMY Cholecystectomy COLONOSCOPY 2005 due 2010 COLONOSCOPY FLX DX W/COLLJ SPEC WHEN PFRMD 09/25/15 Colonoscopy ESOPHAGOGASTRODUODENOSCOPY TRANSORAL DIAGNOSTIC 09/25/15 EGD LAMINECTOMY W/O FFD 1/2 VERT SEG LUMBAR PAST SURGICAL HISTORY OF 04/28/2010 re-do right wrist -- Dr. Brown, [facility] (Worker's Comp) TOTAL ABDOMINAL HYSTERECT W/WO RMVL TUBE OVARY b/l oophorectomy also ALLERGIES Farxiga [Dapagliflozin], Levaquin [Levofloxacin], Morphine, and Sulfa (Sulfonamide Antibiotics) MEDICATIONS albuterol HFA (PROVENTIL HFA, VENTOLIN HFA) 90 mcg/actuation inhaler Inhale 2 Puffs as instructed every 4 hours as needed for wheezing/shortness of breath. PARoxetine (PAXIL) 20 mg tablet TAKE 1 TABLET BY MOUTH EVERY DAY glipiZIDE (GLUCOTROL XL) 10mg 24 hr tablet TAKE 1 TABLET BY MOUTH EVERY DAY pravastatin (PRAVACHOL) 40 mg tablet TAKE 1 TABLET BY MOUTH EVERYDAY AT BEDTIME meloxicam (MOBIC) 15 mg tablet TAKE 1 TABLET BY MOUTH EVERY DAY primidone (MYSOLINE) 50 mg tablet TAKE 3 TABLETS BY MOUTH TWICE A DAY amLODIPine-Benazepril 10-40 mg per capsule TAKE 1 CAPSULE BY MOUTH ONCE DAILY gabapentin (NEURONTIN) 300 mg capsule TAKE 1 CAPSULE BY MOUTH THREE TIMES DAILY FOR 30 DAYS. TRULICITY 0.75 mg/0.5 mL pen injector INJECT 0.75 MG SUBCUTANEOUSLY ONE TIME A WEEK. atenolol (TENORMIN) 50 mg tablet Take 1 tablet by mouth twice daily. insulin glargine (BASAGLAR KWIKPEN U-100 INSULIN) 100 unit/mL (3 mL) Inject 22 Units subcutaneously daily at bedtime. May self-titrate by 1 unit every 3 days for goal FBG <130 clobetasol (TEMOVATE) 0.05 % ointment Apply to affected area. APPLY TO VULVAR AREA BID FOR 2 WEEKS THEN DAILY FOR 2 WEEKS, THEN DAILY NEEDED PAIN RELIEF EXTRA STRENGTH 500 mg tablet TAKE 2 TABLETS BY MOUTH THREE TIMES DAILY NEEDED FOR PAIN DO NOT EXCEED 3000MG/DAY blood sugar diagnostic (KaymbuTOUCH VERIO) test strip Test blood sugar(s) 3 times daily. Dx: Type 2 DM - Uncontrolled E11.65 Insulin: Yes glucose (DEX4 GLUCOSE) 4 gram chewable tablet Take 4 tablets by mouth as needed. insulin needles, DISPOSABLE, (PEN NEEDLE) 31 gauge x 5/16 ndle Use one needle per dose. 2 per day. ONE TOUCH DELICA 33 gauge misc TEST BLOOD SUGAR(S) 3 TO 4 TIMES DAILY Blood-Glucose Meter (ONETOUCH VERIO SYSTEM) misc UAD to check blood sugar Dx. E11.65 Insulin: Yes Lancets (ACCU-CHEK SOFTCLIX LANCETS) lancets Test blood sugar(s) 3 times daily. Dx: 250.00. Insulin: Yes loperamide (IMODIUM) 2 mg cap(s) Take 1 capsule by mouth four times daily as needed. aspirin, enteric coated (ECOTRIN LOW STRENGTH) 81 mg EC tablet Take 1 tablet by mouth once daily. Cholecalciferol, Vitamin D3, 25 mcg (1,000 unit) cap Take 2,0 (more content not included)... [facility] 01-22-2023 History of Presen t illness Narrative CC: Patient presents with: Cough: Sinus, congestion, sore throat x 2.5 weeks HPI: Krupa Rubio is a 77 year old female who presents to the office with complaint of chest congestion, head congestion, cough, nonproductive, sore throat, and sinus symptoms for 2 weeks. Symptoms are worsening Associated symptoms includes dyspnea. Denies fever, nausea, vomiting , and diarrhea. Treatments tried include nothing so far. with no relief of symptoms. Sick contacts: unknown. History of asthma, frequent episodes of bronchitis, chronic bronchitis, bronchiectasis or COPD: Yes asthma and history of pneumonia. Smoker: No Seasonal/environmental allergies: No The ROS is otherwise negative. The patient's pmh, medications, allergies, and past visits are reviewed. PHYSICAL EXAM: BP 138/72 Pulse 77 Temp 36.1 C (97 F) Resp 21 Wt 85.2 kg (187 lb 12.8 oz) LMP (LMP Unknown) SpO2 98% BMI 28.56 kg/m General appearance: alert, cooperative, pleasant, in no acute distress Head: Normocephalic Eyes: EOM's intact, conjunctiva pink and moist, no icterus, sclera white, non-injected Ears: Right ear: External ear/canal- Normal, TM - clear with good landmarks. Left ear: External ear/canal- Normal, TM - clear with good landmarks Oropharynx:moist without lesions, No erythema, exudates or tonsillar hypertrophy. Heart: Negative. RRR without obvious murmur, gallop, or rubs. No ectopy. 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/2015 Essential and other specified forms of tremor Essential hypertension, benign Hypercholesteremia Leiomyoma of uterus, unspecified Migraine Osteopenia Type II or unspecified type diabetes mellitus with unspecified complication, not stated as uncontrolled type 2 PAST SURGICAL HISTORY Procedure Laterality Date ARTHROSCOPY KNEE DIAGNOSTIC W/WO SYNOVIAL BX SPX Arthroscopy, knee right CHOLECYSTECTOMY Cholecystectomy COLONOSCOPY 2005 due 2010 COLONOSCOPY FLX DX W/COLLJ SPEC WHEN PFRMD 09/25/15 Colonoscopy ESOPHAGOGASTRODUODENOSCOPY TRANSORAL DIAGNOSTIC 09/25/15 EGD LAMINECTOMY W/O FFD 09/28 VERT SEG LUMBAR PAST SURGICAL HISTORY OF 04/28/2010 re-do right wrist -- Dr. Brown, [facility] (Worker's Comp) TOTAL ABDOMINAL HYSTERECT W/WO RMVL TUBE OVARY b/l oophorectomy also ALLERGIES Farxiga [Dapagliflozin], Levaquin [Levofloxacin], Morphine, and Sulfa (Sulfonamide Antibiotics) MEDICATIONS albuterol HFA (PROVENTIL HFA, VENTOLIN HFA) 90 mcg/actuation inhaler Inhale 2 Puffs as instructed every 4 hours as needed for wheezing/shortness of breath. PARoxetine (PAXIL) 20 mg tablet TAKE 1 TABLET BY MOUTH EVERY DAY glipiZIDE (GLUCOTROL XL) 10mg 24 hr tablet TAKE 1 TABLET BY MOUTH EVERY DAY pravastatin (PRAVACHOL) 40 mg tablet TAKE 1 TABLET BY MOUTH EVERYDAY AT BEDTIME meloxicam (MOBIC) 15 mg tablet TAKE 1 TABLET BY MOUTH EVERY DAY primidone (MYSOLINE) 50 mg tablet TAKE 3 TABLETS BY MOUTH TWICE A DAY amLODIPine-Benazepril 10-40 mg per capsule TAKE 1 CAPSULE BY MOUTH ONCE DAILY gabapentin (NEURONTIN) 300 mg capsule TAKE 1 CAPSULE BY MOUTH THREE TIMES DAILY FOR 30 DAYS. TRULICITY 0.75 mg/0.5 mL pen injector INJECT 0.75 MG SUBCUTANEOUSLY ONE TIME A WEEK. atenolol (TENORMIN) 50 mg tablet Take 1 tablet by mouth twice daily. insulin glargine (BASAGLAR KWIKPEN U-100 INSULIN) 100 unit/mL (3 mL) Inject 22 Units subcutaneously daily at bedtime. May self-titrate by 1 unit every 3 days for goal FBG <130 clobetasol (TEMOVATE) 0.05 % ointment Apply to affected area. APPLY TO VULVAR AREA BID FOR 2 WEEKS THEN DAILY FOR 2 WEEKS, THEN DAILY NEEDED PAIN RELIEF EXTRA STRENGTH 500 mg tablet TAKE 2 TABLETS BY MOUTH THREE TIMES DAILY NEEDED FOR PAIN DO NOT EXCEED 3000MG/DAY blood sugar diagnostic (ONETOUCH VERIO) test strip Test blood sugar(s) 3 times daily. Dx: Type 2 DM - Uncontrolled E11.65 Insulin: Yes glucose (DEX4 GLUCOSE) 4 gram chewable tablet Take 4 tablets by mouth as needed. insulin needles, DISPOSABLE, (PEN NEEDLE) 31 gauge x 5/16 ndle Use one needle per dose. 2 per day. ONE TOUCH DELICA 33 gauge misc TEST BLOOD SUGAR(S) 3 TO 4 TIMES DAILY Blood-Glucose Meter (ONETOUCH VERIO SYSTEM) misc UAD to check blood sugar Dx. E11.65 Insulin: Yes Lancets (ACCU-CHEK SOFTCLIX LANCETS) lancets Test blood sugar(s) 3 times daily. Dx: 250.00. Insulin: Yes loperamide (IMODIUM) 2 mg cap(s) Take 1 capsule by mouth four times daily as needed. aspirin, enteric coated (ECOTRIN LOW STRENGTH) 81 mg EC tablet Take 1 tablet by mouth once daily. Cholecalciferol, Vitamin D3, 25 mcg (1,000 unit) cap Take 2,000 Units by mouth once daily. multivitamin tablet Take 1 tablet by mouth once daily. promethazine (PHENERGAN) 12.5 mg tablet Take 1 tablet by mouth every 6 hours as needed. (Patient not taking: Reported on 09/29/2022) albuterol HFA (PROVENTIL HFA, VENTOLIN HFA) 90 mcg/actuation inhaler Inhale 2 Puffs as instructed four times daily as needed. FOR WHEEZING AND SHORTNESS OF BREATH. (Patient not taking: Reported on 01/11/2023) FAMILY HISTORY Problem Relation Age of Onset Cancer Father lung Diabetes Mother Hypertension Mother Osteoporosis Mother other (dementia [Other]) Mother Diabetes Brother Cancer Maternal Aunt Cancer Maternal Aunt Coronary Artery Disease Maternal Grandfather Social History Tobacco Use Smoking status: Never Smokeless tobacco: Never Vaping Use Vaping Use: Never used Substance Use Topics Alcohol use: No Drug use: No ASSESSMENT/PLAN: 1. Acute cough - ICD9: 786.2, ICD10: R05.1 (primary diagnosis) - XR CHEST 2V FRONTAL/LAT * * * * Physician Interpretation * * * * EXAMINATION: CHEST RADIOGRAPH (2 VIEW FRONTAL & LATERAL) CLINICAL HISTORY: Acute cough MQ: [id number] EXAM DATE/TIME: 01/22/2023 2:52 PM COMPARISON: Chest x-ray 01/11/2023 RESULT: Lines, tubes, and devices: None. Lungs and pleura: No consolidation. No lung mass. No pleural effusion. No pneumothorax. Cardiomediastinal silhouette: Normal cardiomediastinal silhouette. Bones and soft tissues: Multiple healed right rib fractures. IMPRESSION IMPRESSION: No acute radiographic abnormality. Poultry Inseminator: MARIANNA Transcribe Date/Time: Jan 22 2023 2:56P Dictated by : GM AG MD - BENZONATATE 100 MG CAPSULE 2. Rhinosinusitis - ICD9: 473.9, ICD10: J31.0, J32.9 - DOXYCYCLINE MONOHYDRATE 100 MG TABLET Prescription instructions reviewed with patient as applicable. Potential red flag symptoms discussed with the patient. Reviewed appropriate action plan to take if red flag symptoms occur. Patient agreeable to treatment plan. Gertrude Morgan APRN.GERA documented in this encounter [facility] 01-11-2023 Note HNO ID: [id number] Author: RT Shanna(R) Service: Nuclear Medicine Author Type: Technologist Type: Progress Notes Filed: 01/11/2023 4:04 PM Note Text: Radiology Service Progress Note PATIENT NAME: Krupa Rubio DATE OF SERVICE: January 11, 2023 TIME: 3:57 PM PATIENT IDENTITY VERIFICATION COMPLETED USING TWO (2) IDENTIFIERS: Name and Date of confirmed by patient verbally. FALL SCREENING: Has the patient had 2 falls in the last year or 1 fall with injury or currently using an Ambulatory Assistive Device (Walker, Cane, Wheelchair, Crutches, etc.)? No PATIENT GENDER DATA: Female. status: : No status: NO. PATIENT RELEVANT IMPLANT DATA REVIEWED: Not Applicable RADIOLOGY DEPARTMENT: General X-ray: Exam(s) Completed: Chest X-Ray PERIPHERAL IV DATA: Not applicable SIGNED BY: RT Shanna(R) January 11, 2023 3:57 PM [facility] 01-11-2023 Note HNO ID: [id number] Author: SUSANNA Delacruz Service: ? Author Type: Physician Project Engineer [employer]s Type: Progress Notes Filed: 01/11/2023 4:12 PM Note Text: This note was created using [employer]. Subjective Krupa Rubio is a 77 year old female. HPI 77-year-old female with PMH of asthma presents for cough and wheezing. Patient has had a cough for the past 4 to 5 days. States cough is getting worse. She states it is dry. She has a lot had a little bit of runny nose. No fevers or chills. No vomiting or diarrhea. She states that she has history of asthma and previously had an inhaler, but has not used it for few years, so is unsure where it is at. She has noticed that she has been wheezing while she has had this cough for the past few days. 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 Essential and other specified forms of tremor Essential hypertension, benign Hypercholesteremia Leiomyoma of uterus, unspecified Migraine Osteopenia Type II or unspecified type diabetes mellitus with unspecified complication, not stated as uncontrolled type 2 PAST SURGICAL HISTORY Procedure Laterality Date ARTHROSCOPY KNEE DIAGNOSTIC W/WO SYNOVIAL BX SPX Arthroscopy, knee right CHOLECYSTECTOMY Cholecystectomy COLONOSCOPY 2005 due 2010 COLONOSCOPY FLX DX W/COLLJ SPEC WHEN PFRMD 09/25/15 Colonoscopy ESOPHAGOGASTRODUODENOSCOPY TRANSORAL DIAGNOSTIC 09/25/15 EGD LAMINECTOMY W/O FFD 09/28 VERT SEG LUMBAR PAST SURGICAL HISTORY OF 04/28/2010 re-do right wrist -- Dr. Brown, [facility] (Worker's Comp) TOTAL ABDOMINAL HYSTERECT W/WO RMVL TUBE OVARY b/l oophorectomy also ALLERGIES Farxiga [Dapagliflozin], Levaquin [Levofloxacin], Morphine, and Sulfa (Sulfonamide Antibiotics) MEDICATIONS PARoxetine (PAXIL) 20 mg tablet TAKE 1 TABLET BY MOUTH EVERY DAY glipiZIDE (GLUCOTROL XL) 10mg 24 hr tablet TAKE 1 TABLET BY MOUTH EVERY DAY pravastatin (PRAVACHOL) 40 mg tablet TAKE 1 TABLET BY MOUTH EVERYDAY AT BEDTIME meloxicam (MOBIC) 15 mg tablet TAKE 1 TABLET BY MOUTH EVERY DAY primidone (MYSOLINE) 50 mg tablet TAKE 3 TABLETS BY MOUTH TWICE A DAY amLODIPine-Benazepril 10-40 mg per capsule TAKE 1 CAPSULE BY MOUTH ONCE DAILY gabapentin (NEURONTIN) 300 mg capsule TAKE 1 CAPSULE BY MOUTH THREE TIMES DAILY FOR 30 DAYS. TRULICITY 0.75 mg/0.5 mL pen injector INJECT 0.75 MG SUBCUTANEOUSLY ONE TIME A WEEK. atenolol (TENORMIN) 50 mg tablet Take 1 tablet by mouth twice daily. insulin glargine (BASAGLAR KWIKPEN U-100 INSULIN) 100 unit/mL (3 mL) Inject 22 Units subcutaneously daily at bedtime. May self-titrate by 1 unit every 3 days for goal FBG <130 clobetasol (TEMOVATE) 0.05 % ointment Apply to affected area. APPLY TO VULVAR AREA BID FOR 2 WEEKS THEN DAILY FOR 2 WEEKS, THEN DAILY NEEDED PAIN RELIEF EXTRA STRENGTH 500 mg tablet TAKE 2 TABLETS BY MOUTH THREE TIMES DAILY NEEDED FOR PAIN DO NOT EXCEED 3000MG/DAY blood sugar diagnostic (ONETOUCH VERIO) test strip Test blood sugar(s) 3 times daily. Dx: Type 2 DM - Uncontrolled E11.65 Insulin: Yes glucose (DEX4 GLUCOSE) 4 gram chewable tablet Take 4 tablets by mouth as needed. insulin needles, DISPOSABLE, (PEN NEEDLE) 31 gauge x 5/16 ndle Use one needle per dose. 2 per day. ONE TOUCH DELICA 33 gauge [facility] [place]OD [place](S) 3 TO 4 TIMES DAILY Blood-Glucose Meter (ONETOUCH VERIO SYSTEM) [facility] [place] check blood sugar Dx. E11.65 Insulin: Yes Lancets (ACCU-CHEK SOFTCLIX LANCETS) lancets Test blood sugar(s) 3 times daily. Dx: 250.00. Insulin: Yes loperamide (IMODIUM) 2 mg cap(s) Take 1 capsule by mouth four times daily as needed. aspirin, enteric coated (ECOTRIN LOW STRENGTH) 81 mg EC tablet Take 1 tablet by mouth once daily. Cholecalciferol, Vitamin D3, 25 mcg (1,000 unit) cap Take 2,000 Units by mouth once daily. multivitamin tablet Take 1 tablet by mouth once daily. promethazine (PHENERGAN) 12.5 mg tablet Take 1 tablet by mouth every 6 hours as needed. (Patient not taking: Reported on 09/29/2022) albuterol HFA (PROVENTIL HFA, VENTOLIN HFA) 90 mcg/actuation inhaler Inhale 2 Puffs as instructed four times daily as needed. FOR WHEEZING AND SHORTNESS OF BREATH. (Patient not taking: Reported on 01/11/2023) FAMILY HISTORY Problem Relation Age of Onset Cancer Father lung Diabetes Mother Hypertension Mother Osteoporosis Mother other (dementia [Other]) Mother Diabetes Brother Cancer Maternal Aunt Cancer Maternal Aunt Coronary Artery Disease Maternal Grandfather Social History Tobacco Use Smoking status: Never Smokeless tobacco: Never Vaping Use Vaping Use: Never used Substance Use Topics Alcohol use: No Drug use: No Review of Systems Constitutional: Negative for chills and fever. HENT: Positive for rhinorrhea. Negative for congestion, ear pain a (more content not included)... [facility] 12-23-2022 Miscellaneous Notes The following approved medication requests have been transmitted electronically. Requested Prescriptions Signed Prescriptions Disp Refills glipiZIDE (GLUCOTROL XL) 10mg 24 hr tablet 90 tablet 3 Sig: TAKE 1 TABLET BY MOUTH EVERY DAY Authorizing Provider: ABEL MICHELE MD Pharmacy verified in [facility] Patient has been identified by name and date of : Yes Patient aware RX will be sent to pharmacy. No need to notify patient. Patient phones for refill(s): Requested Prescriptions Pending Prescriptions Disp Refills glipiZIDE XL (GLUCOTROL XL) 10 mg 24 hr tablet [Pharmacy Med Name: GLIPIZIDE ER 10 MG TABLET] 90 tablet 3 Sig: TAKE 1 TABLET BY MOUTH EVERY DAY Date of last office visit : 09/29/2022 Date of next office visit : Visit date not found Last 2 Encounter Wt Readings: Date: Wt: 09/29/2022 85.3 kg (188 lb) 09/22/2022 85.7 kg (189 lb) Diabetes: Hemoglobin A1C (%) Date Value 08/26/2022 7.0 03/28/2021 6.9 Hemoglobin A1C (POCT) (%) Date Value 08/06/2021 6.5 Please advise. Demetris Tang documented in this encounter [facility] 10-30-2022 Miscellaneous Notes Received 10/30/2022 from [facility]. Placed in provider's inbox for review. Route to [place] for scanning documented in this encounter [facility] 10-19-2022 Miscellaneous Notes Recent bp and labs. The following approved medication requests have been transmitted electronically. Requested Prescriptions Signed Prescriptions Disp Refills amLODIPine-Benazepril 10-40 mg per capsule 90 capsule 3 Sig: TAKE 1 CAPSULE BY MOUTH ONCE DAILY Authorizing Provider: ABEL MICHELE MD Pharmacy verified in [facility] Patient has been identified by name and date of : Yes Patient aware RX will be sent to pharmacy. No need to notify patient. Patient phones for refill(s): Requested Prescriptions Pending Prescriptions Disp Refills amLODIPine-Benazepril 10-40 mg per capsule [Pharmacy Med Name: AMLODIPINE-BENAZEPRIL 10-40 MG] 90 capsule 3 Sig: TAKE 1 CAPSULE BY MOUTH ONCE DAILY Date of last office visit : 09/29/2022 Date of next office visit : Visit date not found Last 2 Encounter Wt Readings: Date: Wt: 09/29/2022 85.3 kg (188 lb) 09/22/2022 85.7 kg (189 lb) Blood Pressure: BUN (mg/dL) Date Value 08/26/2022 13 12/14/2020 18 Creatinine (mg/dL) Date Value 08/26/2022 0.80 12/14/2020 0.78 Sodium (mmol/L) Date Value 08/26/2022 138 12/14/2020 138 Potassium (mmol/L) Date Value 08/26/2022 4.4 12/14/2020 4.8 Last 1 Encounter BP Readings: Date: BP: 09/29/2022 129/67 Please advise. Demetris Tang documented in this encounter [facility] 10-14-2022 Miscellaneous Notes Pharmacy verified in [facility] Patient has been identified by name and date of : Yes Patient aware RX will be sent to pharmacy. No need to notify patient. Pharmacy phones for refill(s): Requested Prescriptions Pending Prescriptions Disp Refills gabapentin (NEURONTIN) 300 mg capsule [Pharmacy Med Name: GABAPENTIN 300 MG CAPSULE] 90 capsule 0 Sig: TAKE 1 CAPSULE BY MOUTH THREE TIMES DAILY FOR 30 DAYS. Date of last office visit : 09/29/2022 Date of next office visit : Visit date not found Last 2 Encounter Wt Readings: Date: Wt: 09/29/2022 85.3 kg (188 lb) 09/22/2022 85.7 kg (189 lb) Not applicable Please advise. Jane Robbins documented in this encounter [facility] 10-01-2022 Miscellaneous Notes Received OT evaluation/ orders from [facility]. Placed in provider's inbox for review. Route to [place] fax/scanning. documented in this encounter [facility] 09-30-2022 Miscellaneous Notes Pharmacy verified in [facility] Patient has been identified by name and date of : Yes Patient aware RX will be sent to pharmacy. No need to notify patient. Patient phones for refill(s): Requested Prescriptions Pending Prescriptions Disp Refills PARoxetine (PAXIL) 20 mg tablet 30 tablet 4 Sig: Take 1 tablet by mouth once daily. Date of last office visit : 09/29/2022 Date of next office visit : Last 2 Encounter Wt Readings: Date: Wt: 09/29/2022 85.3 kg (188 lb) 09/22/2022 85.7 kg (189 lb) Not applicable Please advise. Carolina Alejandre LPN documented in this encounter [facility] 09-29-2022 Note HNO ID: [id number] Author: Kirit Bridges APRN.DYE MAKER Service: ? Author Type: Nurse Practitioner Type: Progress Notes Filed: 09/29/2022 11:38 AM Note Text: This note was created using [employer]. Subjective Krupa Rubio is a 77 year old female. Patient here to follow-up on face/neck swelling. Seen on 09/17 at [facility], prescribed Keflex. Re-evaluated on 09/22 in [facility] because it was more tender on the left side with ear pain. Since that time, her symptoms are improving, less swollen and less tender. No URI or ill symptoms during this time, felt well and at baseline. Has dental appointment on Wednesday. The history is provided by the patient. Review of Systems Constitutional: Negative for chills, fatigue and fever. Respiratory: Negative for cough and shortness of breath. Cardiovascular: Negative for chest pain. Gastrointestinal: Negative for abdominal pain. Genitourinary: Negative for difficulty urinating. Allergic/Immunologic: Positive for immunocompromised state. Hematological: Positive for adenopathy. 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/2015 Essential and other specified forms of tremor Essential hypertension, benign Hypercholesteremia Leiomyoma of uterus, unspecified Migraine Osteopenia Type II or unspecified type diabetes mellitus with unspecified complication, not stated as uncontrolled type 2 PAST SURGICAL HISTORY Procedure Laterality Date ARTHROSCOPY KNEE DIAGNOSTIC W/WO SYNOVIAL BX SPX Arthroscopy, knee right CHOLECYSTECTOMY Cholecystectomy COLONOSCOPY 2005 due 2010 COLONOSCOPY FLX DX W/COLLJ SPEC WHEN PFRMD 09/25/15 Colonoscopy ESOPHAGOGASTRODUODENOSCOPY TRANSORAL DIAGNOSTIC 09/25/15 EGD LAMINECTOMY W/O FFD / VERT SEG LUMBAR PAST SURGICAL HISTORY OF 04/28/2010 re-do right wrist -- Dr. Brown, [facility] (Worker's Comp) TOTAL ABDOMINAL HYSTERECT W/WO RMVL TUBE OVARY b/l oophorectomy also ALLERGIES Farxiga [Dapagliflozin], Levaquin [Levofloxacin], Morphine, and Sulfa (Sulfonamide Antibiotics) MEDICATIONS gabapentin (NEURONTIN) 300 mg capsule Take 1 capsule by mouth three times daily for 30 days. primidone (MYSOLINE) 50 mg tablet TAKE 3 TABLETS BY MOUTH TWICE A DAY PARoxetine (PAXIL) 20 mg tablet Take 1 tablet by mouth once daily. TRULICITY 0.75 mg/0.5 mL pen injector INJECT 0.75 MG SUBCUTANEOUSLY ONE TIME A WEEK. atenolol (TENORMIN) 50 mg tablet Take 1 tablet by mouth twice daily. meloxicam (MOBIC) 15 mg tablet TAKE 1 TABLET BY MOUTH EVERY DAY insulin glargine (BASAGLAR KWIKPEN U-100 INSULIN) 100 unit/mL (3 mL) Inject 22 Units subcutaneously daily at bedtime. May self-titrate by 1 unit every 3 days for goal FBG <130 glipiZIDE (GLUCOTROL XL) 10mg 24 hr tablet Take 1 tablet by mouth once daily. pravastatin (PRAVACHOL) 40 mg tablet TAKE 1 TABLET BY MOUTH EVERYDAY AT BEDTIME amLODIPine-Benazepril 10-40 mg per capsule Take 1 capsule by mouth once daily. clobetasol (TEMOVATE) 0.05 % ointment Apply to affected area. APPLY TO VULVAR AREA BID FOR 2 WEEKS THEN DAILY FOR 2 WEEKS, THEN DAILY NEEDED PAIN RELIEF EXTRA STRENGTH 500 mg tablet TAKE 2 TABLETS BY MOUTH THREE TIMES DAILY NEEDED FOR PAIN DO NOT EXCEED 3000MG/DAY blood sugar diagnostic (ONETOUCH VERIO) test strip Test blood sugar(s) 3 times daily. Dx: Type 2 DM - Uncontrolled E11.65 Insulin: Yes glucose (DEX4 GLUCOSE) 4 gram chewable tablet Take 4 tablets by mouth as needed. albuterol HFA (PROVENTIL HFA, VENTOLIN HFA) 90 mcg/actuation inhaler Inhale 2 Puffs as instructed four times daily as needed. FOR WHEEZING AND SHORTNESS OF BREATH. insulin needles, DISPOSABLE, (PEN NEEDLE) 31 gauge x 5/16 ndle Use one needle per dose. 2 per day. ONE TOUCH DELICA 33 gauge misc TEST BLOOD SUGAR(S) 3 TO 4 TIMES DAILY Blood-Glucose Meter (ONETOUCH VERIO SYSTEM) [facility] [place] check blood sugar Dx. E11.65 Insulin: Yes Lancets (ACCU-CHEK SOFTCLIX LANCETS) lancets Test blood sugar(s) 3 times daily. Dx: 250.00. Insulin: Yes loperamide (IMODIUM) 2 mg cap(s) Take 1 capsule by mouth four times daily as needed. aspirin, enteric coated (ECOTRIN LOW STRENGTH) 81 mg EC tablet Take 1 tablet by mouth once daily. Cholecalciferol, Vitamin D3, 25 mcg (1,000 unit) cap Take 2,000 Units by mouth once daily. multivitamin tablet Take 1 tablet by mouth once daily. promethazine (PHENERGAN) 12.5 mg tablet Take 1 tablet by mouth every 6 hours as needed. (Patient not taking: Reported on 09/29/2022) FAMILY HISTORY Problem Relation Age of Onset Cancer Father lung Diabetes Mother Hypertension Mother Osteoporosis Mother other (dementia [Other]) Mother Diabetes Brother Cancer Maternal Aunt Cancer Maternal Aunt Coronary Artery Disease Maternal Grandfather Social History Tobacco Use Smoking status: Never Smokeless tobacco: Never Vaping Use (more content not included)... [facility] 09-29-2022 History of Presen t illness Narrative Images from the original note were not included. This note was created using [employer]. Subjective Krupa Rubio is a 77 year old female. Patient here to follow-up on face/neck swelling. Seen on 09/17 at [facility], prescribed Keflex. Re-evaluated on 09/22 in [facility] because it was more tender on the left side with ear pain. Since that time, her symptoms are improving, less swollen and less tender. No URI or ill symptoms during this time, felt well and at baseline. Has dental appointment on Wednesday. The history is provided by the patient. Review of Systems Constitutional: Negative for chills, fatigue and fever. Respiratory: Negative for cough and shortness of breath. Cardiovascular: Negative for chest pain. Gastrointestinal: Negative for abdominal pain. Genitourinary: Negative for difficulty urinating. Allergic/Immunologic: Positive for immunocompromised state. Hematological: Positive for adenopathy. 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/2015 Essential and other specified forms of tremor Essential hypertension, benign Hypercholesteremia Leiomyoma of uterus, unspecified Migraine Osteopenia Type II or unspecified type diabetes mellitus with unspecified complication, not stated as uncontrolled type 2 PAST SURGICAL HISTORY Procedure Laterality Date ARTHROSCOPY KNEE DIAGNOSTIC W/WO SYNOVIAL BX SPX Arthroscopy, knee right CHOLECYSTECTOMY Cholecystectomy COLONOSCOPY 2005 due 2010 COLONOSCOPY FLX DX W/COLLJ SPEC WHEN PFRMD 09/25/15 Colonoscopy ESOPHAGOGASTRODUODENOSCOPY TRANSORAL DIAGNOSTIC 09/25/15 EGD LAMINECTOMY W/O FFD 09/28 VERT SEG LUMBAR PAST SURGICAL HISTORY OF 04/28/2010 re-do right wrist -- Dr. Brown, [facility] (Worker's Comp) TOTAL ABDOMINAL HYSTERECT W/WO RMVL TUBE OVARY b/l oophorectomy also ALLERGIES Farxiga [Dapagliflozin], Levaquin [Levofloxacin], Morphine, and Sulfa (Sulfonamide Antibiotics) MEDICATIONS gabapentin (NEURONTIN) 300 mg capsule Take 1 capsule by mouth three times daily for 30 days. primidone (MYSOLINE) 50 mg tablet TAKE 3 TABLETS BY MOUTH TWICE A DAY PARoxetine (PAXIL) 20 mg tablet Take 1 tablet by mouth once daily. TRULICITY 0.75 mg/0.5 mL pen injector INJECT 0.75 MG SUBCUTANEOUSLY ONE TIME A WEEK. atenolol (TENORMIN) 50 mg tablet Take 1 tablet by mouth twice daily. meloxicam (MOBIC) 15 mg tablet TAKE 1 TABLET BY MOUTH EVERY DAY insulin glargine (BASAGLAR KWIKPEN U-100 INSULIN) 100 unit/mL (3 mL) Inject 22 Units subcutaneously daily at bedtime. May self-titrate by 1 unit every 3 days for goal FBG <130 glipiZIDE (GLUCOTROL XL) 10mg 24 hr tablet Take 1 tablet by mouth once daily. pravastatin (PRAVACHOL) 40 mg tablet TAKE 1 TABLET BY MOUTH EVERYDAY AT BEDTIME amLODIPine-Benazepril 10-40 mg per capsule Take 1 capsule by mouth once daily. clobetasol (TEMOVATE) 0.05 % ointment Apply to affected area. APPLY TO VULVAR AREA BID FOR 2 WEEKS THEN DAILY FOR 2 WEEKS, THEN DAILY NEEDED PAIN RELIEF EXTRA STRENGTH 500 mg tablet TAKE 2 TABLETS BY MOUTH THREE TIMES DAILY NEEDED FOR PAIN DO NOT EXCEED 3000MG/DAY blood sugar diagnostic ([employer] VERIO) test strip Test blood sugar(s) 3 times daily. Dx: Type 2 DM - Uncontrolled E11.65 Insulin: Yes glucose (DEX4 GLUCOSE) 4 gram chewable tablet Take 4 tablets by mouth as needed. albuterol HFA (PROVENTIL HFA, VENTOLIN HFA) 90 mcg/actuation inhaler Inhale 2 Puffs as instructed four times daily as needed. FOR WHEEZING AND SHORTNESS OF BREATH. insulin needles, DISPOSABLE, (PEN NEEDLE) 31 gauge x 5/16 ndle Use one needle per dose. 2 per day. ONE TOUCH DELICA 33 gauge misc TEST BLOOD SUGAR(S) 3 TO 4 TIMES DAILY Blood-Glucose Meter (ONETOUCH VERIO SYSTEM) misc UAD to check blood sugar Dx. E11.65 Insulin: Yes Lancets (ACCU-CHEK SOFTCLIX LANCETS) lancets Test blood sugar(s) 3 times daily. Dx: 250.00. Insulin: Yes loperamide (IMODIUM) 2 mg cap(s) Take 1 capsule by mouth four times daily as needed. aspirin, enteric coated (ECOTRIN LOW STRENGTH) 81 mg EC tablet Take 1 tablet by mouth once daily. Cholecalciferol, Vitamin D3, 25 mcg (1,000 unit) cap Take 2,000 Units by mouth once daily. multivitamin tablet Take 1 tablet by mouth once daily. promethazine (PHENERGAN) 12.5 mg tablet Take 1 tablet by mouth every 6 hours as needed. (Patient not taking: Reported on 09/29/2022) FAMILY HISTORY Problem Relation Age of Onset Cancer Father lung Diabetes Mother Hypertension Mother Osteoporosis Mother other (dementia [Other]) Mother Diabetes Brother Cancer Maternal Aunt Cancer Maternal Aunt Coronary Artery Disease Maternal Grandfather Social History Tobacco Use Smoking status: Never Smokeless tobacco: Never Vaping Use Vaping Use: Never used Substance Use Topics Alcohol use: No Drug use: No Objective BP 129/67 Pulse 74 Ht 172.7 cm (5' 7.99 ) Wt 85.3 kg (188 lb) LMP (LMP Unknown) BMI 28.59 kg/m Physical Exam Vitals and nursing note reviewed. Constitutional: Appearance: She is well-developed. She is not ill-appearing. HENT: Head: Comments: Mild swelling/tenderness of left parotid gland Pulmonary: Effort: Pulmonary effort is normal. Lymphadenopathy: Head: Left side of head: No submental, submandibular, tonsillar, preauricular, posterior auricular or occipital adenopathy. Cervical: Cervical adenopathy present. Left cervical: Superficial cervical adenopathy present. No deep cervical adenopathy. Skin: General: Skin is warm and dry. Neurological: Mental Status: She is alert and oriented to person, place, and time. Assessment and Plan 1. Swelling of left parotid gland Symptoms resolving. Keep dental appointment on Wednesday as scheduled and discuss with them. If symptoms do not completely resolve or worsen again, return for re-evaluation. Kirit Bridges APRN.DYE MAKER documented in this encounter [facility] 09-22-2022 Miscellaneous Notes Received 09/22/2022 from Jasper Baker O.D. Placed in provider's inbox for review. Route to [place] for scanning. D<M T2 No Retinopathy documented in this encounter [facility] 09-17-2022 History of Presen t illness Narrative Images from the original note were not included. Subjective HPI Krupa Rubio is a 77 year old female who presents with swelling on her left face and neck. This has been present for 5 days, seems to be getting worse. She states the swollen area is tender, she has not had a rash or fever. She has taken tylenol at home for pain. Review of Systems Constitutional: Negative for chills and fever. HENT: Negative for congestion, ear pain and sore throat. See HPI Respiratory: Negative for cough. Cardiovascular: Negative. Skin: Negative for itching and rash. 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/2015 Essential and other specified forms of tremor Essential hypertension, benign Hypercholesteremia Leiomyoma of uterus, unspecified Migraine Osteopenia Type II or unspecified type diabetes mellitus with unspecified complication, not stated as uncontrolled type 2 PAST SURGICAL HISTORY Procedure Laterality Date ARTHROSCOPY KNEE DIAGNOSTIC W/WO SYNOVIAL BX SPX Arthroscopy, knee right CHOLECYSTECTOMY Cholecystectomy COLONOSCOPY 2005 due 2010 COLONOSCOPY FLX DX W/COLLJ SPEC WHEN PFRMD 09/25/15 Colonoscopy ESOPHAGOGASTRODUODENOSCOPY TRANSORAL DIAGNOSTIC 09/25/15 EGD LAMINECTOMY W/O FFD 09/28 VERT SEG LUMBAR PAST SURGICAL HISTORY OF 04/28/2010 re-do right wrist -- Dr. Brown, [facility] (Worker's Comp) TOTAL ABDOMINAL HYSTERECT W/WO RMVL TUBE OVARY b/l oophorectomy also ALLERGIES Farxiga [Dapagliflozin], Levaquin [Levofloxacin], Morphine, and Sulfa (Sulfonamide Antibiotics) MEDICATIONS cephALEXin (KEFLEX) 500 mg capsule Take 1 capsule by mouth three times daily for 7 days. gabapentin (NEURONTIN) 300 mg capsule Take 1 capsule by mouth three times daily for 30 days. primidone (MYSOLINE) 50 mg tablet TAKE 3 TABLETS BY MOUTH TWICE A DAY promethazine (PHENERGAN) 12.5 mg tablet Take 1 tablet by mouth every 6 hours as needed. PARoxetine (PAXIL) 20 mg tablet Take 1 tablet by mouth once daily. TRULICITY 0.75 mg/0.5 mL pen injector INJECT 0.75 MG SUBCUTANEOUSLY ONE TIME A WEEK. atenolol (TENORMIN) 50 mg tablet Take 1 tablet by mouth twice daily. meloxicam (MOBIC) 15 mg tablet TAKE 1 TABLET BY MOUTH EVERY DAY insulin glargine (BASAGLAR KWIKPEN U-100 INSULIN) 100 unit/mL (3 mL) Inject 22 Units subcutaneously daily at bedtime. May self-titrate by 1 unit every 3 days for goal FBG <130 glipiZIDE (GLUCOTROL XL) 10mg 24 hr tablet Take 1 tablet by mouth once daily. pravastatin (PRAVACHOL) 40 mg tablet TAKE 1 TABLET BY MOUTH EVERYDAY AT BEDTIME amLODIPine-Benazepril 10-40 mg per capsule Take 1 capsule by mouth once daily. clobetasol (TEMOVATE) 0.05 % ointment Apply to affected area. APPLY TO VULVAR AREA BID FOR 2 WEEKS THEN DAILY FOR 2 WEEKS, THEN DAILY NEEDED PAIN RELIEF EXTRA STRENGTH 500 mg tablet TAKE 2 TABLETS BY MOUTH THREE TIMES DAILY NEEDED FOR PAIN DO NOT EXCEED 3000MG/DAY blood sugar diagnostic (ONETOUCH VERIO) test strip Test blood sugar(s) 3 times daily. Dx: Type 2 DM - Uncontrolled E11.65 Insulin: Yes glucose (DEX4 GLUCOSE) 4 gram chewable tablet Take 4 tablets by mouth as needed. albuterol HFA (PROVENTIL HFA, VENTOLIN HFA) 90 mcg/actuation inhaler Inhale 2 Puffs as instructed four times daily as needed. FOR WHEEZING AND SHORTNESS OF BREATH. insulin needles, DISPOSABLE, (PEN NEEDLE) 31 gauge x 5/16 ndle Use one needle per dose. 2 per day. ONE TOUCH DELICA 33 gauge misc TEST BLOOD SUGAR(S) 3 TO 4 TIMES DAILY Blood-Glucose Meter (ONETOUCH VERIO SYSTEM) misc UAD to check blood sugar Dx. E11.65 Insulin: Yes Lancets (ACCU-CHEK SOFTCLIX LANCETS) lancets Test blood sugar(s) 3 times daily. Dx: 250.00. Insulin: Yes loperamide (IMODIUM) 2 mg cap(s) Take 1 capsule by mouth four times daily as needed. aspirin, enteric coated (ECOTRIN LOW STRENGTH) 81 mg EC tablet Take 1 tablet by mouth once daily. Cholecalciferol, Vitamin D3, 25 mcg (1,000 unit) cap Take 2,000 Units by mouth once daily. multivitamin tablet Take 1 tablet by mouth once daily. FAMILY HISTORY Problem Relation Age of Onset Cancer Father lung Diabetes Mother Hypertension Mother Osteoporosis Mother other (dementia [Other]) Mother Diabetes Brother Cancer Maternal Aunt Cancer Maternal Aunt Coronary Artery Disease Maternal Grandfather Social History Tobacco Use Smoking status: Never Smokeless tobacco: Never Vaping Use Vaping Use: Never used Substance Use Topics Alcohol use: No Drug use: No Objective Physical Exam Vitals and nursing note reviewed. Constitutional: Appearance: Normal appearance. HENT: Head: Right Ear: Tympanic membrane, ear canal and external ear normal. Left Ear: Tympanic membrane, ear canal and external ear normal. Mouth/Throat: Mouth: Mucous membranes are moist. Pharynx: Oropharynx is clear. Uvula midline. No oropharyngeal exudate or posterior oropharyngeal erythema. Cardiovascular: Rate and Rhythm: Normal rate and regular rhythm. Heart sounds: Normal heart sounds. Pulmonary: Effort: Pulmonary effort is normal. No respiratory distress. Breath sounds: Normal breath sounds. No wheezing or rales. Musculoskeletal: Cervical back: Neck supple. Lymphadenopathy: Head: Left side of head: Tonsillar, preauricular and posterior auricular adenopathy present. Cervical: No cervical adenopathy. Skin: General: Skin is warm and dry. Findings: No erythema or rash. Neurological: Mental Status: She is alert. ASSESSMENT/PLAN: 1. Lymphadenopathy, cervical - ICD9: 785.6, ICD10: R59.0 - CEPHALEXIN 500 MG CAPSULE - apply ice to area 2-3 times daily. - Follow-up with your PCP in 3-5 days if symptoms have not improved or sooner if symptoms worsen - Discussed red flags and need for immediate medical evaluation if any occur. - Discussed supportive care treatment with fluids, rest and analgesia. - Discussed expected course of illness Flavia Ames APRN.CNP documented in this encounter [facility] 09-17-2022 Instructions Flavia Ames APRN.CNP - 09/17/2022 10:39 AM EST ASSESSMENT/PLAN: 1. Lymphadenopathy, cervical - ICD9: 785.6, ICD10: R59.0 - CEPHALEXIN 500 MG CAPSULE - apply ice to area 2-3 times daily. - Follow-up with your PCP in 3-5 days if symptoms have not improved or sooner if symptoms worsen - Discussed red flags and need for immediate medical evaluation if any occur. - Discussed supportive care treatment with fluids, rest and analgesia. - Discussed expected course of illness Flavia Ames APRN.DYE MAKER documented in this encounter [facility] 09-16-2022 Miscellaneous Notes Pharmacy verified in [facility] Patient has been identified by name and date of : Yes Patient aware RX will be sent to pharmacy. No need to notify patient. Pharmacy phones for refill(s): Requested Prescriptions Pending Prescriptions Disp Refills gabapentin (NEURONTIN) 300 mg capsule 90 capsule 0 Sig: Take 1 capsule by mouth three times daily for 30 days. Date of last office visit : 08/13/2022 Date of next office visit : Visit date not found Last 2 Encounter Wt Readings: Date: Wt: 08/13/2022 86.2 kg (190 lb) 06/29/2022 87.1 kg (192 lb) Not applicable Please advise. Carolina Alejandre LPN documented in this encounter [facility] 09-07-2022 Miscellaneous Notes Received 09/07/2022 from [facility]. Placed in provider's inbox for review. Route to [place] for scanning documented in this encounter [facility] 08-13-2022 History of Presen t illness Narrative CHIEF COMPLAINT Patient presents with: f/u: Diabetes, forgetfulness, episodes of diarrhea HISTORY OF PRESENT ILLNESS Krupa Rubio is a 77 year old female who presents here today for follow up management multiple medical conditions. I last saw this patient on 01/28/22. Forgetfulness Patient is still able to drive place and do things She says that things just slips her mind. Patient says that the forgetfulness is not severe. Diarrhea Patient went to urgent care for diarrhea She had another episode of diarrhea 2 weeks ago. This has been an exacerbation of prior condition She has been taking Imodium. Health Maintenance Due for spirometry. Due for Shingrix series Due for TDAP. Due for COVID booster Due for dilated retinal exam. Due for depression screening. Due for diabetic foot exam. Due for influenza Due for routine labs. Labs reviewed. Past medical history, appointments, medications, allergies reviewed. REVIEW OF SYSTEMS Pertinent positives/ negatives: General: Feels well, no fever, no chills +forgetfulness. HEENT: No sinus congestion, earache, sore throat. Cardiac: No chest pain, palpitations Resp: No cough, wheeze, shortness of breath GI: No reflux symptoms, food intolerance, +diarrhea : No urinary frequency, dysuria. MS: No pain or joint complaints. 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 Heart: Regular rate and rhythm. Normal S1 and S2. No murmurs, rubs, or gallops. Lungs: Clear to auscultation bilaterally. No respiratory distress. No wheezes, rales, or rhonchi. Abdomen: Soft, non-tender, no distention. Extremities: Feet/ankles without edema, posterior tibial pulses full and symmetrical. Assessment/Plan (G31.84) Mild cognitive impairment of uncertain or unknown etiology (primary encounter diagnosis) Comment: patient starting to forget things Plan: CONSULT TO GERIATRICS (K52.9) Acute gastroenteritis Comment: frequent episodes of diarrhea Plan: COMP METABOLIC PANEL, CBC (E11.9, Z79.4) Controlled type 2 diabetes mellitus without complication, with long-term current use of insulin ([facility]) Comment: due for labs Plan: HGB A1C Requested Prescriptions Signed Prescriptions Disp Refills gabapentin (NEURONTIN) 300 mg capsule 90 capsule 0 Sig: Take 1 capsule by mouth three times daily for 30 days. RTO: 6 months Scribe Attestation: By signing my name below, I, Barbie Flynn, attest that this documentation has been prepared under the direction and in the presence of Juan Luis Michele M.D. Electronically Signed: Margy Yip. August 13, 2022 9:55 AM Provider Attestation: I, Abel Michele MD, personally performed the services described in this documentation. All medical record entries made by the scribe were at my direction and in my presence. I have reviewed the chart and discharge instructions (if applicable) and agree that the record reflects my personal performance and is accurate and complete. Electronically Signed: Abel Michele MD August 13, 2022 5:25 PM documented in this encounter [facility] 07-30-2022 Miscellaneous Notes Pharmacy verified in Epic Patient has been identified by name and date of : Yes Patient aware RX will be sent to pharmacy. No need to notify patient. Pharmacy phones for refill(s): Requested Prescriptions Pending Prescriptions Disp Refills primidone (MYSOLINE) 50 mg tablet [Pharmacy Med Name: PRIMIDONE 50 MG TABLET] 540 tablet 0 Sig: TAKE 3 TABLETS BY MOUTH TWICE A DAY Date of last office visit : 01/28/2022 Date of next office visit : Visit date not found Last 2 Encounter Wt Readings: Date: Wt: 06/29/2022 87.1 kg (192 lb) 12/22/2021 89.9 kg (198 lb 3.2 oz) Blood Pressure: BUN (mg/dL) Date Value 01/26/2022 16 12/14/2020 18 Creatinine (mg/dL) Date Value 01/26/2022 0.87 12/14/2020 0.78 Sodium (mmol/L) Date Value 01/26/2022 139 12/14/2020 138 Potassium (mmol/L) Date Value 01/26/2022 4.3 12/14/2020 4.8 Last 1 Encounter BP Readings: Date: BP: 06/29/2022 142/86 Please advise. Carolina Alejandre LPN documented in this encounter [facility] 06-30-2022 Miscellaneous Notes Patient notified.Lexy Washington LPN Let patient know their covid19/influenza test was negative. documented in this encounter [facility] 06-29-2022 Instructions Lorrie Marks APRN.DYE MAKER - 06/29/2022 1:55 PM EDT covid test ordered You will be notified in 24 hours, [facility] until covid results are back Rest, increase water intake Tylenol as needed for fever or pain. Salt water gargles, chloraseptic spray or lozenges as needed for sore throat. Warm beverages, honey. Nasal saline spray as needed Cool mist humidifier at night Tylenol (generic acetaminophen) 500 mg-2 tabs every 8 hrs. as needed for fever and aches -Mucinex (generic is fine) Guaifenesin 1200 mg twice daily to help with cough and to thin out mucus Phenergan as ordered Drink small sips of clear fluids to begin with. Advance to other liquids as tolerated. If tolerating liquids for several hours without vomiting, then you can try bland foods such as toast, crackers, etc. Advance to full diet when nausea/vomiting has completely resolved but avoid greasy, fatty, spicy foods for next several days. To ER for worsening symptoms, increased pain, fevers, vomiting, decreased urine output, blood in her urine blood in her stools or dark tarry stools. * Seek medical care immediately, call 911, go to ER if you have chest pain, difficulty breathing, shortness of breath, inability to swallow. documented in this encounter [facility] 06-29-2022 History of Presen t illness Narrative Subjective The history is provided by the patient. No language arts teacher was used. HPI Krupa Rubio is a 77 year old female who presents today for CC of cough, congestion, post nasal drainage and sore throat for 4 days. She also has had off and on vomiting, and nausea. She has used OTC mucinex without relief. She is a diabetic on insulin and watching her blood sugars, and monitoring insulin so not hypoglycemic. Her BS range from 90-160. No known exposure to viral illnesses or covid. 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 Negative for chills and fever. HENT: Positive for congestion and sore throat. Negative for ear pain and sinus pain. Respiratory: Positive for cough. Negative for sputum production, shortness of breath and wheezing. Cardiovascular: Negative for chest pain. Gastrointestinal: Positive for nausea and vomiting. Negative for abdominal pain and diarrhea. Musculoskeletal: Negative for myalgias. Neurological: Negative for headaches. Objective Physical Exam Vitals and nursing note reviewed. Constitutional: Appearance: Normal appearance. HENT: Head: Normocephalic and atraumatic. Right Ear: Tympanic membrane, ear canal and external ear normal. Left Ear: Tympanic membrane, ear canal and external ear normal. Nose: No mucosal edema, congestion or rhinorrhea. Right Sinus: No maxillary sinus tenderness or frontal sinus tenderness. Left Sinus: No maxillary sinus tenderness or frontal sinus tenderness. Mouth/Throat: Pharynx: Uvula midline. No oropharyngeal exudate or posterior oropharyngeal erythema. Cardiovascular: Rate and Rhythm: Normal rate and regular rhythm. Heart sounds: Normal heart sounds. Pulmonary: Effort: Pulmonary effort is normal. Breath sounds: Normal breath sounds. Abdominal: General: Bowel sounds are normal. There is no abdominal bruit. Palpations: Abdomen is not rigid. There is no mass or pulsatile mass. Tenderness: There is generalized abdominal tenderness (mild, achy). There is no guarding or rebound. Negative signs include Forrester's sign and McBurney's sign. Lymphadenopathy: Head: Right side of head: No submental, submandibular or tonsillar adenopathy. Left side of head: No submental, submandibular or tonsillar adenopathy. Cervical: No cervical adenopathy. Skin: General: Skin is warm and dry. Neurological: Mental Status: She is alert and oriented to person, place, and time. Psychiatric: Mood and Affect: Affect normal. ASSESSMENT/PLAN: 1. Flu-like symptoms - ICD9: 780.99, ICD10: R68.89 (primary diagnosis) Home isolation Testing ordered Comfort measures discussed - see patient instructions. When to seek higher level of care Notified in 24-48 hours with results, available on [employer] - COVID WITH FLUA+B, ROUTINE 2. Acute upper respiratory infection, unspecified - ICD9: 465.9, ICD10: J06.9 - Discussed viral etiology and rationale for treatment. - Symptomatic treatment with prn analgesia - Supportive care with fluids and rest - COVID WITH FLUA+B, ROUTINE 3. Nausea and vomiting, unspecified vomiting type - ICD9: 787.01, ICD10: R11.2 Encourage hydration, monitor blood sugars, insulin dosing Monitor urine output [place] diet Phenergan Diagnosis and treatment plan were discussed and questions were answered to the patient's satisfaction. Pt acknowledged understanding of concepts and follow up plan. Specific signs and symptoms that would indicate the need for higher level of care were discussed in detail warranting prompt ER evaluation. Lorrie Marks APRN.GERA documented in this encounter [facility] 06-17-2022 Miscellaneous Notes Received EKG from [facility]. Placed in provider's inbox for review. Route to [place] scanning. documented in this encounter [facility] 06-17-2022 Miscellaneous Notes Pharmacy verified in Epic Patient has been identified by name and date of : Yes Patient aware RX will be sent to pharmacy. No need to notify patient. Patient phones for refill(s): Requested Prescriptions Pending Prescriptions Disp Refills PARoxetine (PAXIL) 20 mg tablet 30 tablet 4 Sig: Take 1 tablet by mouth once daily. Date of last office visit : 04/22/21 distance 01/28/22 Date of next office visit : Visit date not found Last 2 Encounter Wt Readings: Date: Wt: 12/22/2021 89.9 kg (198 lb 3.2 oz) 08/06/2021 89.8 kg (198 lb) Not applicable Please advise. Carolina Alejandre LPN documented in this encounter [facility] 06-10-2022 Miscellaneous Notes Pharmacy verified in [facility] Patient has been identified by name and date of : Yes Patient aware RX will be sent to pharmacy. No need to notify patient. Patient phones for refill(s): Requested Prescriptions Pending Prescriptions Disp Refills TRULICITY 0.75 mg/0.5 mL pen injector [Pharmacy Med Name: TRULICITY 0.75 MG/0.5 ML PEN] 11 Sig: INJECT 0.75 MG SUBCUTANEOUSLY ONE TIME A WEEK. Date of last office visit : 03/06/2021 Date of next office visit : Visit date not found Last 2 Encounter Wt Readings: Date: Wt: 12/22/2021 89.9 kg (198 lb 3.2 oz) 08/06/2021 89.8 kg (198 lb) Diabetes: Hemoglobin A1C (%) Date Value 01/26/2022 7.0 03/28/2021 6.9 Hemoglobin A1C (POCT) (%) Date Value 08/06/2021 6.5 Please advise. Carolina Alejandre LPN documented in this encounter [facility] 06-02-2022 Miscellaneous Notes Pharmacy verified in [facility] Patient has been identified by name and date of : Yes Patient aware RX will be sent to pharmacy. No need to notify patient. Patient phones for refill(s): Requested Prescriptions Pending Prescriptions Disp Refills atenolol (TENORMIN) 50 mg tablet 180 tablet 3 Sig: Take 1 tablet by mouth twice daily. Date of last office visit : 04/22/2021 Date of next office visit : Visit date not found Last 2 Encounter Wt Readings: Date: Wt: 12/22/2021 89.9 kg (198 lb 3.2 oz) 08/06/2021 89.8 kg (198 lb) Blood Pressure: BUN (mg/dL) Date Value 01/26/2022 16 12/14/2020 18 Creatinine (mg/dL) Date Value 01/26/2022 0.87 12/14/2020 0.78 Sodium (mmol/L) Date Value 01/26/2022 139 12/14/2020 138 Potassium (mmol/L) Date Value 01/26/2022 4.3 12/14/2020 4.8 Last 1 Encounter BP Readings: Date: BP: 12/22/2021 162/80 Please advise. Carolina Alejandre LPN documented in this encounter [facility] 05-07-2022 Miscellaneous Notes The following approved medication requests have been transmitted electronically. Requested Prescriptions Pending Prescriptions Disp Refills meloxicam (MOBIC) 15 mg tablet [Pharmacy Med Name: MELOXICAM 15 MG TABLET] 90 tablet 1 Sig: TAKE 1 TABLET BY MOUTH EVERY DAY Abel Michele MD Pharmacy verified in Epic Patient has been identified by name and date of : Yes Patient aware RX will be sent to pharmacy. No need to notify patient. Pharmacy phones for refill(s): Requested Prescriptions Pending Prescriptions Disp Refills meloxicam (MOBIC) 15 mg tablet [Pharmacy Med Name: MELOXICAM 15 MG TABLET] 90 tablet 1 Sig: TAKE 1 TABLET BY MOUTH EVERY DAY Date of last office visit : 01/28/2022 Date of next office visit : Visit date not found Last 2 Encounter Wt Readings: Date: Wt: 12/22/2021 89.9 kg (198 lb 3.2 oz) 08/06/2021 89.8 kg (198 lb) Not applicable Please advise. Jane Robbins documented in this encounter [facility] 05-01-2022 Miscellaneous Notes The following approved medication requests have been transmitted electronically. Signed Prescriptions Disp Refills gabapentin (NEURONTIN) 400 mg capsule 90 capsule 2 Sig: Take 1 capsule by mouth three times daily for 90 days. NIRAJ: No Authorizing Provider: ABEL MICHELE MD Last appointment: 01/28/22 Next appointment: n/a Pharmacy verified in [facility]. Refill(s) requested: Pending Prescriptions Disp Refills GABAPENTIN 400 MG CAPSULE 90 capsule 2 Sig: Take 1 capsule by mouth three times daily for 90 days. NIRAJ: No Order(s) pended. Please advise. Tasia Evans LPN documented in this encounter [facility] 04-30-2022 Miscellaneous Notes Pharmacy verified in [facility] Patient has been identified by name and date of : Yes Patient aware RX will be sent to pharmacy. No need to notify patient. Patient phones for refill(s): Pending Prescriptions Disp Refills PRIMIDONE 50 MG TABLET 540 tablet 0 Sig: TAKE 3 TABLETS BY MOUTH TWICE A DAY NIRAJ: Yes Date of last office visit : 04/22/[address] [facility] 01/28/2022 Date of next office visit : Visit date not found Last 2 Encounter Wt Readings: Date: Wt: 12/22/2021 89.9 kg (198 lb 3.2 oz) 08/06/2021 89.8 kg (198 lb) Blood Pressure: BUN (mg/dL) Date Value 01/26/2022 16 12/14/2020 18 Creatinine (mg/dL) Date Value 01/26/2022 0.87 12/14/2020 0.78 Sodium (mmol/L) Date Value 01/26/2022 139 12/14/2020 138 Potassium (mmol/L) Date Value 01/26/2022 4.3 12/14/2020 4.8 Last 1 Encounter BP Readings: Date: BP: 12/22/2021 162/80 Please advise. Carolina Alejandre LPN documented in this encounter [facility] 04-03-2022 Miscellaneous Notes The following approved medication requests have been transmitted electronically. Signed Prescriptions Disp Refills insulin glargine (BASAGLAR KWIKPEN U-100 INSULIN) 100 unit/mL (3 mL) 5 Pen 5 Sig: Inject 22 Units subcutaneously daily at bedtime. May self-titrate by 1 unit every 3 days for goal FBG <130 NIRAJ: No Authorizing Provider: ABEL MICHELE MD Patient requesting refills as follows: Last Prescribed: 02/12/21 Last O/V: 01/28/22 Next O/V : none Pending Prescriptions Disp Refills INSULIN GLARGINE (U-100) 100 UNIT/ML (3 ML) SUBCUTANEOUS PEN 5 Pen 5 Sig: Inject 22 Units subcutaneously daily at bedtime. May self-titrate by 1 unit every 3 days for goal FBG <130 NIRAJ: No Please review and advise. Ambika Knight Ma documented in this encounter [facility] 02-02-2022 Miscellaneous Notes Pharmacy verified in [facility] Patient has been identified by name and date of : Yes Patient aware RX will be sent to pharmacy. No need to notify patient. Pharmacy phones for refill(s): Pending Prescriptions Disp Refills PRIMIDONE 50 MG TABLET 540 tablet 0 Sig: TAKE 3 TABLETS BY MOUTH TWICE A DAY NIRAJ: Yes Date of last office visit : 01/28/2022 Date of next office visit : Visit date not found Last 2 Encounter Wt Readings: Date: Wt: 12/22/2021 89.9 kg (198 lb 3.2 oz) 08/06/2021 89.8 kg (198 lb) Not applicable Please advise. Jane Robbins documented in this encounter [facility] 01-28-2022 History of Presen t illness Narrative This Team Access Model visit is a virtual encounter. It required patient-provider interaction for the medical decision making as documented below. The patient consented to proceed by video encounter before initiating the encounter. DISTANCE HEALTH VISIT Krupa Rubio is a 76 year old female seen for follow up management of multiple medical issues. Diabetes Mellitus Patient is managed on glipizide 10 mg, gabapentin 400 mg and Trulicity Adherent to current regimen without side effects from medication. No current symptoms. Hyperlipidemia Patient is managed on pravastatin 40 mg. Patient denies muscle aches or cramps with statin use Hypertension Patient is managed on amlodipine-Benzepril 10-40 mg Adherent to current regimen without side effects from medication. No current symptoms. Headaches Patient notes having headaches since she had COVID over a year ago. She says that they are not as frequent as they used to be but they happen enough. Memory loss Patient says that her memory is worsening She has trouble with dates. Patient says that she is still functioning. Patient denies getting lost when leaving her house. HISTORY REVIEWED (electronic chart updated): - medical history - medications - allergies REVIEW OF SYSTEMS: General: Feels well, no weight changes, fever, chills. +memory loss HEENT: No sinus congestion, earache, sore throat. +headache Cardiac: No chest pain, palpitations Resp: No cough, wheeze, shortness of breath GI: No reflux symptoms, food intolerance, bowel changes. : No urinary frequency, dysuria. MS: No pain or joint complaints. PHYSICAL EXAMINATION: VIDEO EXAM: performed via video enabled technology GENERAL: alert and appropriate, in no distress and well-hydrated, well nourished Data Reviewed: 01/26/22 Albumin- within normal limits Lipid- within normal limits A1C trends- Lab Results Component Value Date HBA1C 7.0 01/26/2022 HBA1C 6.5 08/06/2021 HBA1C 6.9 03/28/2021 HBA1C 8.1 12/14/2020 HBA1C 6.7 06/05/2020 BMP- glucose (119 high) ASSESSMENT/PLAN: This encounter occurred by video encounter over the course of 13 minutes. (E11.9, Z79.4) Controlled type 2 diabetes mellitus without complication, with long-term current use of insulin (HCC) (primary encounter diagnosis) Comment: well controlled on current regimen Plan: maintain current regimen, follow up with PharmD , follow up here in 6 mos, A1c at office visit next time. (I10) Essential hypertension, benign Comment: well controlled on current regimen Plan: send MyChart message when refills for medications needed (G25.0) Tremor, essential Comment: well controlled Plan: send MyChart message when refills for medications needed (K21.9) Gastroesophageal reflux disease, unspecified whether esophagitis present Comment: well controlled Plan: send MyChart message when refills for medications needed (R51.9, U09.9, G89.29) Post-COVID chronic headache Comment: Patient has been having headaches since her covid diagnosis 1 year ago Plan: continue to monitor No medications selected for refill. RTO: 6 months Scribe Attestation: By signing my name below, IBarbie, attest that this documentation has been prepared under the direction and in the presence of Juan Luis Michele M.D.. Electronically Signed: Margy Yip. January 28, 2022 9:17 AM. This telehealth encounter is provided under a state of emergency due to COVID19 and is for care for condition where providing the care is supportive of minimizing potential exposure and/or transmission of COVID19. Provider Attestation: Abel Levin MD, personally performed the services described in this documentation. All medical record entries made by the scribe were at my direction and in my presence. I have reviewed the chart and discharge instructions (if applicable) and agree that the record reflects my personal performance and is accurate and complete. Electronically Signed: Abel Michele MD. January 28, 2022 3:47 PM documented in this encounter [facility] 01-14-2022 Miscellaneous Notes Patient read mychart message. Appointment on 01/28/22 changed to virtual 1st attempt: MC sent documented in this encounter [facility] 12-24-2021 Miscellaneous Notes Pharmacy verified in Epic Patient has been identified by name and date of : Yes Patient aware RX will be sent to pharmacy. No need to notify patient. Patient phones for refill(s): Pending Prescriptions Disp Refills GLIPIZIDE ER 10 MG TABLET, EXTENDED RELEASE 24 HR 90 tablet 3 Sig: Take 1 tablet by mouth once daily. NIRAJ: No Date of last office visit : 04/22/2021 Date of next office visit : 01/28/2022 Last 2 Encounter Wt Readings: Date: Wt: 12/22/2021 89.9 kg (198 lb 3.2 oz) 08/06/2021 89.8 kg (198 lb) Diabetes: Hemoglobin A1C (%) Date Value 03/28/2021 6.9 Hemoglobin A1C (POCT) (%) Date Value 08/06/2021 6.5 Please advise. Gabby Guzman RN documented in this encounter [facility] documented as of this encounter (statuses as of 12/24/2021) [facility] History of Past illness Narrative* Problem Noted Date Resolved Date Acute pain of right knee 03/12/2016 021 documented as of this encounter (statuses as of 01/14/2022) [facility] History of Past illness Narrative* Problem Noted Date Resolved Date Acute pain of right knee 03/12/2016 021 documented as of this encounter (statuses as of 01/16/2022) [facility] History of Past illness Narrative* Problem Noted Date Resolved Date Acute pain of right knee 03/12/2016 021 documented as of this encounter (statuses as of 01/28/2022) [facility] History of Past illness Narrative* Problem Noted Date Resolved Date Acute pain of right knee 03/12/2016 021 documented as of this encounter (statuses as of 02/02/2022) [address]16-2016 History of Past illness Narrative* Problem Noted Date Resolved Date Acute pain of right knee 03/12/2016 021 documented as of this encounter (statuses as of 04/03/2022) [facility] History of Past illness Narrative* Problem Noted Date Resolved Date Acute pain of right knee 03/12/2016 021 documented as of this encounter (statuses as of 04/27/2022) [address]16-2016 History of Past illness Narrative* Problem Noted Date Resolved Date Acute pain of right knee 03/12/2016 021 documented as of this encounter (statuses as of 04/30/2022) [address]16-2016 History of Past illness Narrative* Problem Noted Date Resolved Date Acute pain of right knee 03/12/2016 021 documented as of this encounter (statuses as of 05/01/2022) [address]16-2016 History of Past illness Narrative* Problem Noted Date Resolved Date Acute pain of right knee 03/12/2016 021 documented as of this encounter (statuses as of 05/07/2022) [facility] of Past illness Narrative* Problem Noted Date Resolved Date Acute pain of right knee 03/12/2016 021 documented as of this encounter (statuses as of 06/03/2022) [facility] History of Past illness Narrative* Problem Noted Date Resolved Date Acute pain of right knee 03/12/2016 021 documented as of this encounter (statuses as of 06/10/2022) [address]16-2016 History of Past illness Narrative* Problem Noted Date Resolved Date Acute pain of right knee 03/12/2016 021 documented as of this encounter (statuses as of 06/17/2022) [address]16[address]2016 History of Past illness Narrative* Problem Noted Date Resolved Date Acute pain of right knee 03/12/2016 021 documented as of this encounter (statuses as of 06/17/2022) [address]16-2016 History of Past illness Narrative* Problem Noted Date Resolved Date Acute pain of right knee 03/12/2016 021 documented as of this encounter (statuses as of 06/29/2022) [address]16[address]2016 History of Past illness Narrative* Problem Noted Date Resolved Date Acute pain of right knee 03/12/2016 021 documented as of this encounter (statuses as of 06/30/2022) [facility] Past illness Narrative* Problem Noted Date Resolved Date Acute pain of right knee 03/12/2016 021 documented as of this encounter (statuses as of 07/30/2022) [address]16[address]2016 History of Past illness Narrative* Problem Noted Date Resolved Date Acute pain of right knee 03/12/2016 021 documented as of this encounter (statuses as of 08/13/2022) [address]16-2016 History of Past illness Narrative* Problem Noted Date Resolved Date Acute pain of right knee 03/12/2016 021 documented as of this encounter (statuses as of 09/07/2022) [address]16[address]2016 History of Past illness Narrative* Problem Noted Date Resolved Date Acute pain of right knee 03/12/2016 021 documented as of this encounter (statuses as of 09/16/2022) [address]16[address]2016 History of Past illness Narrative* Problem Noted Date Resolved Date Acute pain of right knee 03/12/2016 021 documented as of this encounter (statuses as of 09/18/2022) [address]16[address]2016 History of Past illness Narrative* Problem Noted Date Resolved Date Acute pain of right knee 03/12/2016 021 documented as of this encounter (statuses as of 09/28/2022) [address]16[address]2016 History of Past illness Narrative* Problem Noted Date Resolved Date Acute pain of right knee 03/12/2016 021 documented as of this encounter (statuses as of 10/01/2022) [address]16-2016 History of Past illness Narrative* Problem Noted Date Resolved Date Acute pain of right knee 03/12/2016 021 documented as of this encounter (statuses as of 10/02/2022) [address]16[address]2016 History of Past illness Narrative* Problem Noted Date Resolved Date Acute pain of right knee 03/12/2016 021 documented as of this encounter (statuses as of 10/02/2022) [facility] of Past illness Narrative* Problem Noted Date Resolved Date Acute pain of right knee 03/12/2016 021 documented as of this encounter (statuses as of 10/14/2022) [facility] History of Past illness Narrative* Problem Noted Date Resolved Date Acute pain of right knee 03/12/2016 021 documented as of this encounter (statuses as of 10/19/2022) [facility] History of Past illness Narrative* Problem Noted Date Resolved Date Acute pain of right knee 03/12/2016 021 documented as of this encounter (statuses as of 10/30/2022) [facility] History of Past illness Narrative* Problem Noted Date Resolved Date Acute pain of right knee 03/12/2016 021 documented as of this encounter (statuses as of 12/23/2022) [address]16[address]2016 History of Past illness Narrative* Problem Noted Date Resolved Date Acute pain of right knee 03/12/2016 021 documented as of this encounter (statuses as of 01/22/2023) [facility] History of Past illness Narrative* Problem Noted Date Resolved Date Acute pain of right knee 03/12/2016 021 documented as of this encounter (statuses as of 02/01/2023) [address]16[address]2016 History of Past illness Narrative* Problem Noted Date Resolved Date Acute pain of right knee 03/12/2016 021 documented as of this encounter (statuses as of 02/02/2023) [address]16[address]2016 History of Past illness Narrative* Problem Noted Date Resolved Date Acute pain of right knee 03/12/2016 021 documented as of this encounter (statuses as of 03/03/2023) [facility] History of Past illness Narrative* Problem Noted Date Resolved Date Acute pain of right knee 03/12/2016 021 documented as of this encounter (statuses as of 03/25/2023) [address]16[address]2016 History of Past illness Narrative* Problem Noted Date Resolved Date Acute pain of right knee 03/12/2016 021 documented as of this encounter (statuses as of 03/25/2023) [address]16[address]2016 History of Past illness Narrative* Problem Noted Date Diagnosed Date Resolved Date Acute pain of right knee 03/12/201604/2021 documented as of this encounter (statuses as of 04/28/2023) [address]16-2016 History of Past illness Narrative* Problem Noted Date Diagnosed Date Resolved Date Acute pain of right knee 03/12/201604/2021 documented as of this encounter (statuses as of 05/03/2023) [address]16[address]2016 History of Past illness Narrative* Problem Noted Date Diagnosed Date Resolved Date Acute pain of right knee 03/12/201604/2021 documented as of this encounter (statuses as of 05/10/2023) [address]16-2016 History of Past illness Narrative* Problem Noted Date Diagnosed Date Resolved Date Acute pain of right knee 03/12/201604/2021 documented as of this encounter (statuses as of 06/08/2023) [address]16-2016 History of Past illness Narrative* Problem Noted Date Diagnosed Date Resolved Date Acute pain of right knee 03/12/201604/2021 documented as of this encounter (statuses as of 06/25/2023) [address]16-2016 History of Past illness Narrative* Problem Noted Date Diagnosed Date Resolved Date Acute pain of right knee 03/12/201604/2021 documented as of this encounter (statuses as of 07/13/2023) [address]16-2016 History of Past illness Narrative* Problem Noted Date Diagnosed Date Resolved Date Acute pain of right knee 03/12/201604/2021 documented as of this encounter (statuses as of 07/13/2023) [address]16[address]2016 History of Past illness Narrative* Problem Noted Date Diagnosed Date Resolved Date Acute pain of right knee 03/12/201604/2021 documented as of this encounter (statuses as of 08/29/2023) [facility] Controlled type 2 diabetes mellitus without complication, with long-term current use of insulin (HCC) 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) [facility] Controlled type 2 diabetes mellitus without complication, with long-term current use of insulin ([facility])- Primary Essential hypertension, benign Tremor, essential Essential and other specified forms of tremor Gastroesophageal reflux disease, unspecified whether esophagitis present Post-COVID chronic headache Obesity, Class I, BMI 30-34.9 Obesity, unspecified [facility] Diagnosis Tremor, essential Essential and other specified forms of tremor [facility] Tremor, essential Essential and other specified forms of tremor [facility] Diagnosis Closed fracture of multiple ribs of right side with routine healing, subsequent encounter [facility] Diagnosis Essential hypertension, benign Tremor, essential Essential and other specified forms of tremor [facility] Diagnosis Adjustment disorder with mixed anxiety and depressed mood [facility] Diagnosis Flu-like symptoms- Primary Other general symptoms Acute upper respiratory infection, unspecified Nausea and vomiting, unspecified vomiting type [facility] Diagnosis Mild cognitive impairment of uncertain or unknown etiology- Primary Acute gastroenteritis Other and unspecified noninfectious gastroenteritis and colitis Controlled type 2 diabetes mellitus without complication, with long-term current use of insulin ([facility]) [facility] Diagnosis Lymphadenopathy, cervical- Primary Enlargement of lymph nodes [facility] Diagnosis Screening for diabetic retinopathy- Primary Screening for other eye conditions [facility] Diagnosis Swelling of left parotid gland- Primary [facility]* Diagnosis Adjustment disorder with mixed anxiety and depressed mood [facility] Diagnosis Acute cough- Primary Rhinosinusitis Unspecified sinusitis (chronic) [facility]* Diagnosis Tremor, essential Essential and other specified forms of tremor [facility] Diagnosis Controlled type 2 diabetes mellitus without complication, with long-term current use of insulin ([facility])- Primary DDD (degenerative disc disease), cervical Degeneration of cervical intervertebral disc Coronary artery disease involving [place] coronary artery of [place] heart with angina pectoris ([facility]) Encounter for vitamin deficiency screening Screening for other and unspecified endocrine, nutritional, metabolic, and immunity disorders Osteopenia, senile Disorder of bone and cartilage, unspecified [facility] Diagnosis Adjustment disorder with mixed anxiety and depressed mood [facility] Diagnosis Rib pain on right side- Primary Chest pain, unspecified [facility] Diagnosis Tremor, essential Essential and other specified forms of tremor [facility] Diagnosis Essential hypertension, benign Tremor, essential Essential and other specified forms of tremor [facility] Diagnosis Controlled type 2 diabetes mellitus without complication, with long-term current use of insulin ([facility])- Primary Essential hypertension, benign Tremor, essential Essential and other specified forms of tremor Adjustment disorder with mixed anxiety and depressed mood Vitamin D deficiency Unspecified vitamin D deficiency Coronary artery disease involving [place] coronary artery of [place] heart with angina pectoris ([facility]) Primary osteoarthritis of both knees Primary localized osteoarthrosis, lower leg DDD (degenerative disc disease), cervical Degeneration of cervical intervertebral disc Lumbar spondylosis Lumbosacral spondylosis without myelopathy [facility] Diagnosis Urinary frequency- Primary Recurrent UTI (urinary tract infection) Urinary tract infection, site not specified [facility] Diagnostic Procedure Only (Urgent) - Closed Specialty Diagnoses / Procedures Referred By Contac t Referred To Contact XR IMAGING Diagnoses Rib pain on right side Procedures XR RIBS/CHEST 3V AP RIB/OBLS/CXR RIGHT RADEX RIBS UNI W/POSTEROANT CH MINIMUM 3 VIEWS Lorrie Marks APRN.CNP [id number] [place] [id number] Xr Imaging Referral ID Status Reason Start Date Expiration Date V isits Requested Visits Authorized [id number] Closed Auto-Generate d Referral 04/27/2023 05/26/2024 1 1 [facility] Summary Purpose Family History No Family History Records FoundNo Family History Records Found Advance Directives No Advanced Directives Records FoundNo Advanced Directives Records Found Health Concerns Infection Onset Date Last Indicated Resolved Time COVID-19 Rule-Out 06/29/2022 06/29/2022 Infection Onset Date Last Indicated Resolved Time COVID-19 Rule-Out 06/29/2022 06/29/2022 06/30/2022 1:51 AM EDT Reason for Referral Specialty Diagnoses / Procedures Referred By Contac t Referred To Contact Gerontology Diagnoses Mild cognitive impairment of uncertain or unknown etiology Procedures CONSULT TO GERIATRICS OFFICE/OUTPATIENT [facility]3] 60-74 MINUTES Abel Michele MD [address] [place] [address] [place] [address] Referral ID Status Reason Start Date Expiration Date Visits Requested Visits Authorized [id number] Authorized PCP Requested Referral 08/13/2023 1 1 Additional Source Comments INFORMATION SOURCE (unrecogn ized section and content) DATE CREATED AUTHOR AUTHOR'S ORGANIZ ATION 09/25/2023 [facility] Source Comments (unrecognize d section and content) In the event this informatio n is protected by the Federal Confidentiality of Alcohol and Drug Abuse Patient Records regulations: The Federal rules restrict any use of the information to criminally investigate or prosecute any alcohol or drug abuse patient.[facility] the event this information is protected by the Federal Confidentiality of Alcohol and Drug Abuse Patient Records regulations: The Federal rules restrict any use of the information to criminally investigate or prosecute any alcohol or drug abuse patient.[facility] the event this information is protected by the Federal Confidentiality of Alcohol and Drug Abuse Patient Records regulations: The Federal rules restrict any use of the information to criminally investigate or prosecute any alcohol or drug abuse patient.[facility] the event this information is protected by the Federal Confidentiality of Alcohol and Drug Abuse Patient Records regulations: The Federal rules restrict any use of the information to criminally investigate or prosecute any alcohol or drug abuse patient.[facility] the event this information is protected by the Federal Confidentiality of Alcohol and Drug Abuse Patient Records regulations: The Federal rules restrict any use of the information to criminally investigate or prosecute any alcohol or drug abuse patient.[facility] the event this information is protected by the Federal Confidentiality of Alcohol and Drug Abuse Patient Records regulations: The Federal rules restrict any use of the information to criminally investigate or prosecute any alcohol or drug abuse patient.[facility] the event this information is protected by the Federal Confidentiality of Alcohol and Drug Abuse Patient Records regulations: The Federal rules restrict any use of the information to criminally investigate or prosecute any alcohol or drug abuse patient.[facility] the event this information is protected by the Federal Confidentiality of Alcohol and Drug Abuse Patient Records regulations: The Federal rules restrict any use of the information to criminally investigate or prosecute any alcohol or drug abuse patient.[facility] the event this information is protected by the Federal Confidentiality of Alcohol and Drug Abuse Patient Records regulations: The Federal rules restrict any use of the information to criminally investigate or prosecute any alcohol or drug abuse patient.[facility] the event this information is protected by the Federal Confidentiality of Alcohol and Drug Abuse Patient Records regulations: The Federal rules restrict any use of the information to criminally investigate or prosecute any alcohol or drug abuse patient.[facility] the event this information is protected by the Federal Confidentiality of Alcohol and Drug Abuse Patient Records regulations: The Federal rules restrict any use of the information to criminally investigate or prosecute any alcohol or drug abuse patient.[facility] the event this information is protected by the Federal Confidentiality of Alcohol and Drug Abuse Patient Records regulations: The Federal rules restrict any use of the information to criminally investigate or prosecute any alcohol or drug abuse patient.[facility] the event this information is protected by the Federal Confidentiality of Alcohol and Drug Abuse Patient Records regulations: The Federal rules restrict any use of the information to criminally investigate or prosecute any alcohol or drug abuse patient.[facility] the event this information is protected by the Federal Confidentiality of Alcohol and Drug Abuse Patient Records regulations: The Federal rules restrict any use of the information to criminally investigate or prosecute any alcohol or drug abuse patient.[facility]In the event this information is protected by the Federal Confidentiality of Alcohol and Drug Abuse Patient Records regulations: The Federal rules restrict any use of the information to criminally investigate or prosecute any alcohol or drug abuse patient.[facility]In the event this information is protected by the Federal Confidentiality of Alcohol and Drug Abuse Patient Records regulations: The Federal rules restrict any use of the information to criminally investigate or prosecute any alcohol or drug abuse patient.[facility] HospitalIn the event this information is protected by the Federal Confidentiality of Alcohol and Drug Abuse Patient Records regulations: The Federal rules restrict any use of the information to criminally investigate or prosecute any alcohol or drug abuse patient.[facility] HospitalIn the event this information is protected by the Federal Confidentiality of Alcohol and Drug Abuse Patient Records regulations: The Federal rules restrict any use of the information to criminally investigate or prosecute any alcohol or drug abuse patient.[facility] HospitalIn the event this information is protected by the Federal Confidentiality of Alcohol and Drug Abuse Patient Records regulations: The Federal rules restrict any use of the information to criminally investigate or prosecute any alcohol or drug abuse patient.[facility] HospitalIn the event this information is protected by the Federal Confidentiality of Alcohol and Drug Abuse Patient Records regulations: The Federal rules restrict any use of the information to criminally investigate or prosecute any alcohol or drug abuse patient.[facility] HospitalIn the event this information is protected by the Federal Confidentiality of Alcohol and Drug Abuse Patient Records regulations: The Federal rules restrict any use of the information to criminally investigate or prosecute any alcohol or drug abuse patient.[facility] HospitalIn the event this information is protected by the Federal Confidentiality of Alcohol and Drug Abuse Patient Records regulations: The Federal rules restrict any use of the information to criminally investigate or prosecute any alcohol or drug abuse patient.[facility] HospitalIn the event this information is protected by the Federal Confidentiality of Alcohol and Drug Abuse Patient Records regulations: The Federal rules restrict any use of the information to criminally investigate or prosecute any alcohol or drug abuse patient.[facility] HospitalIn the event this information is protected by the Federal Confidentiality of Alcohol and Drug Abuse Patient Records regulations: The Federal rules restrict any use of the information to criminally investigate or prosecute any alcohol or drug abuse patient.[facility] HospitalIn the event this information is protected by the Federal Confidentiality of Alcohol and Drug Abuse Patient Records regulations: The Federal rules restrict any use of the information to criminally investigate or prosecute any alcohol or drug abuse patient.[facility] HospitalIn the event this information is protected by the Federal Confidentiality of Alcohol and Drug Abuse Patient Records regulations: The Federal rules restrict any use of the information to criminally investigate or prosecute any alcohol or drug abuse patient.[facility] HospitalIn the event this information is protected by the Federal Confidentiality of Alcohol and Drug Abuse Patient Records regulations: The Federal rules restrict any use of the information to criminally investigate or prosecute any alcohol or drug abuse patient.[facility] HospitalIn the event this information is protected by the Federal Confidentiality of Alcohol and Drug Abuse Patient Records regulations: The Federal rules restrict any use of the information to criminally investigate or prosecute any alcohol or drug abuse patient.[facility] HospitalIn the event this information is protected by the Federal Confidentiality of Alcohol and Drug Abuse Patient Records regulations: The Federal rules restrict any use of the information to criminally investigate or prosecute any alcohol or drug abuse patient.[facility] HospitalIn the event this information is protected by the Federal Confidentiality of Alcohol and Drug Abuse Patient Records regulations: The Federal rules restrict any use of the information to criminally investigate or prosecute any alcohol or drug abuse patient.[facility] HospitalIn the event this information is protected by the Federal Confidentiality of Alcohol and Drug Abuse Patient Records regulations: The Federal rules restrict any use of the information to criminally investigate or prosecute any alcohol or drug abuse patient.[facility] HospitalIn the event this information is protected by the Federal Confidentiality of Alcohol and Drug Abuse Patient Records regulations: The Federal rules restrict any use of the information to criminally investigate or prosecute any alcohol or drug abuse patient.[facility] HospitalIn the event this information is protected by the Federal Confidentiality of Alcohol and Drug Abuse Patient Records regulations: The Federal rules restrict any use of the information to criminally investigate or prosecute any alcohol or drug abuse patient.[facility] HospitalIn the event this information is protected by the Federal Confidentiality of Alcohol and Drug Abuse Patient Records regulations: The Federal rules restrict any use of the information to criminally investigate or prosecute any alcohol or drug abuse patient.[facility] HospitalIn the event this information is protected by the Federal Confidentiality of Alcohol and Drug Abuse Patient Records regulations: The Federal rules restrict any use of the information to criminally investigate or prosecute any alcohol or drug abuse patient.[facility] HospitalIn the event this information is protected by the Federal Confidentiality of Alcohol and Drug Abuse Patient Records regulations: The Federal rules restrict any use of the information to criminally investigate or prosecute any alcohol or drug abuse patient.[facility] HospitalIn the event this information is protected by the Federal Confidentiality of Alcohol and Drug Abuse Patient Records regulations: The Federal rules restrict any use of the information to criminally investigate or prosecute any alcohol or drug abuse patient.[facility] HospitalIn the event this information is protected by the Federal Confidentiality of Alcohol and Drug Abuse Patient Records regulations: The Federal rules restrict any use of the information to criminally investigate or prosecute any alcohol or drug abuse patient.[facility] HospitalIn the event this information is protected by the Federal Confidentiality of Alcohol and Drug Abuse Patient Records regulations: The Federal rules restrict any use of the information to criminally investigate or prosecute any alcohol or drug abuse patient.[facility] HospitalIn the event this information is protected by the Federal Confidentiality of Alcohol and Drug Abuse Patient Records regulations: The Federal rules restrict any use of the information to criminally investigate or prosecute any alcohol or drug abuse patient.[facility] HospitalIn the event this information is protected by the Federal Confidentiality of Alcohol and Drug Abuse Patient Records regulations: The Federal rules restrict any use of the information to criminally investigate or prosecute any alcohol or drug abuse patient.[facility] HospitalIn the event this information is protected by the Federal Confidentiality of Alcohol and Drug Abuse Patient Records regulations: The Federal rules restrict any use of the information to criminally investigate or prosecute any alcohol or drug abuse patient.[facility] HospitalIn the event this information is protected by the Federal Confidentiality of Alcohol and Drug Abuse Patient Records regulations: The Federal rules restrict any use of the information to criminally investigate or prosecute any alcohol or drug abuse patient.[facility] Care Teams (unrecognized sec tion and content) Multicultural Manager Relationship Specialty Start Date End Date Abel Michele MD [address] [place], [place] [id number] PCP - General Family Practice 02/24/12 Marisela Blair RPh [address] [place], [place] [id number] Pharmacist Pharmacy 06/29/18 Multicultural Manager Relationship Specialty Start Date End Date Abel Michele MD [address] [place], [place] [id number] PCP - General Family Practice 02/24/12 Marisela Blair, [facility] [address] [place] [address] Pharmacist Pharmacy 06/29/18 Multicultural Manager Relationship Specialty Start Date End Date Abel Michele MD [address] [place] [address] PCP - General Family Practice 02/24/12 Marisela Blair, [facility] [address] [place] [address] Pharmacist Pharmacy 06/29/18 Multicultural Manager Relationship Specialty Start Date End Date Abel Michele MD [address] [place] [address] PCP - General Family Practice 02/24/12 Marisela Blair, [facility] [address] [place] [address] Pharmacist Pharmacy 06/29/18 Multicultural Manager Relationship Specialty Start Date End Date Abel Michele MD [address] [place] [address] PCP - General Family Practice 02/24/12 Marisela Blair, [facility] [address] [place] [address] Pharmacist Pharmacy 06/29/18 Multicultural Manager Relationship Specialty Start Date End Date Abel Michele MD [address] [place] [address] PCP - General Family Practice 02/24/12 Marisela Blair, [facility] [address] [place] [address] Pharmacist Pharmacy 06/29/18 Multicultural Manager Relationship Specialty Start Date End Date Abel Michele MD [address] [place] [address] PCP - General Family Practice 02/24/12 Johnnie, Marisela, [facility] [address] [place] [address] Pharmacist Pharmacy 06/29/18 Multicultural Manager Relationship Specialty Start Date End Date Abel Michele MD [address] [facility] [place] [address] PCP - General Family Medicine 02/24/12 Upland, Marisela, [facility] [address] [place] [address] Pharmacist Pharmacy 06/29/18 Multicultural Manager Relationship Specialty Start Date End Date Abel Michele MD [address] [facility] [place] [address] PCP - General Family Medicine 02/24/12 UplandFarrah clarkeily, [facility] [address] [place] [address] Pharmacist Pharmacy 06/29/18 Multicultural Manager Relationship Specialty Start Date End Date Abel Michele MD [address] [place] [address] PCP - General Family Medicine 02/24/12 JohnnieFarrah clarkeily, [facility] [address] [place] [address] Pharmacist Pharmacy 06/29/18 Multicultural Manager Relationship Specialty Start Date End Date Abel Michele MD [address] [place] [address] PCP - General Family Medicine 02/24/12 [place] Marisela, [facility] [address] [place] [address] Pharmacist Pharmacy 06/29/18 Multicultural Manager Relationship Specialty Start Date End Date Abel Michele MD [address] [facility] [place] [address] PCP - General Family Medicine 02/24/12 Marisela Blair, [facility] [address] [facility] [place] [address] Pharmacist Pharmacy 06/29/18 Multicultural Manager Relationship Specialty Start Date End Date Abel Michele MD [address] [facility] [place] [address] PCP - General Family Medicine 02/24/12 [place], Marisela, [facility] [address] [facility] [place] [address] Pharmacist Pharmacy 06/29/18 Multicultural Manager Relationship Specialty Start Date End Date Abel Michele MD [address] [place] [address] PCP - General Family Medicine 02/24/12 UplandMarisela, [facility] [address] [facility] [place] [address] Pharmacist Pharmacy 06/29/18 Multicultural Manager Relationship Specialty Start Date End Date Abel Michele MD [address] [place] [address] PCP - General Family Medicine 02/24/12 [place], Marisela, [facility] [address] [facility] [place] [address] Pharmacist Pharmacy 06/29/18 Multicultural Manager Relationship Specialty Start Date End Date Abel Michele MD [address] [facility] [place] [address] PCP - General Family Medicine 02/24/12 Johnnie, Marisela, [facility] [address] [facility] [place] [address] Pharmacist Pharmacy 06/29/18 Multicultural Manager Relationship Specialty Start Date End Date Abel Michele MD [address] [place] [address] PCP - General Family Medicine 02/24/12 Johnnie, Marisela, [facility] [address] [place] [address] Pharmacist Pharmacy 06/29/18 Multicultural Manager Relationship Specialty Start Date End Date Abel Michele MD [address] [place] [address] PCP - General Family Medicine 02/24/12 JohnnieFarrah clarkeily, [facility] [address] [place] [address] Pharmacist Pharmacy 06/29/18 Multicultural Manager Relationship Specialty Start Date End Date Abel Michele MD [address] [place] [address] PCP - General Family Medicine 02/24/12 Johnnie, Marisela, [facility] [address] [place] [address] Pharmacist Pharmacy 06/29/18 Multicultural Manager Relationship Specialty Start Date End Date Abel Michele MD [address] [place] [address] PCP - General Family Medicine 02/24/12 UplandMarisela, [facility] [address] [place] [address] Pharmacist Pharmacy 06/29/18 Multicultural Manager Relationship Specialty Start Date End Date Abel Michele MD [address] [place] [address] PCP - General Family Medicine 02/24/12 UplandMarisela, [facility] [address] [place] [address] Pharmacist Pharmacy 06/29/18 Multicultural Manager Relationship Specialty Start Date End Date Abel Michele MD [address] [place] [address] PCP - General Family Medicine 02/24/12 UplandMarisela, [facility] [address] [facility] [place] [address] Pharmacist Pharmacy 06/29/18 Multicultural Manager Relationship Specialty Start Date End Date Abel Michele MD [address] [place] [address] PCP - General Family Medicine 02/24/12 UplandMarisela, [facility] [address] [facility] [place] [address] Pharmacist Pharmacy 06/29/18 Multicultural Manager Relationship Specialty Start Date End Date Abel Michele MD [address] [place] [address] PCP - General Family Medicine 02/24/12 UplandMarisela, [facility] [address] [facility] [place] [address] Pharmacist Pharmacy 06/29/18 Reason for Visit (unrecogniz ed section and content) Reason Comments Follow Up Reason Comments Refill Request Reason Onset Date Comments Refill Request 04/03/2022 Reason Onset Date Comments Refill Request 04/30/2022 Reason Onset Date Comments Refill Request 06/16/2022 Reason Comments Received Outside Medical Records EKG [facility] Reason Comments Sore Throat Vomiting, cough, sor e throat, fatigue x 4 days Reason Comments Results Reason Comments f/u Diabetes, forgetfuln ess, episodes of diarrhea Reason Comments Received Outside Medical Records [facility] Bilateral Screening Mammogram 09/07/2022 Reason Onset Date Comments Refill Request 09/15/2022 Reason Comments Swollen Lymph Node L sided swollen lymp h node with throat and neck pain x5 days Reason Comments Received Outside Medical Records [facility] O.D[facility] Eye exam 09/22/2022 Reason Comments Swollen Glands Reason Onset Date Comments Refill Request 09/30/2022 Reason Comments Received Outside Medical Records Orders [facility] OT Reason Comments Received Outside Medical Records [facility] OT [facility] Discharge summary 10/29/2022 Reason Comments Cough Sinus, congestion, s ore throat x 2.5 weeks Reason Onset Date Comments Refill Request 02/01/2023 Reason Onset Date Comments Refill Request 03/25/2023 Reason Comments Pain Right rib pain x 3 d ays Reason Onset Date Comments Refill Request 05/07/2023 Reason Onset Date Comments Refill Request 06/24/2023 Reason Comments diabetes follow up Reason Comments Med Change Request Reason Comments Urinary Frequency Frequency, burning a nd blood x 1 day FOR RECORDS PERTAINING TO PATIENTS WHO ARE OR HAVE BEEN ENROLLED IN A CHEMICAL DEPENDENCY/SUBSTANCEABUSE PROGRAM, SOME INFORMATION MAY BE OMITTED. This clinical summary was aggregated from multiple sources. Caution should be exercised in using it in the provision of clinical care. This summary normalizes information from multiple sources, and as a consequence, information in this document may materially change the coding, format and clinical context of patient data. In addition, data may be omitted in some cases. CLINICAL DECISIONS SHOULD BE BASED ON THE PRIMARY CLINICAL RECORDS. [facility] [employer] [facility]. provides no warranty or guarantee of the accuracy or completeness of information in this document.
== END | disposition home or self-care (01) ==
LOC: MTRAD 16:18
PROVIDERS: PCP Family Medicine; Referring Provider Clinical Nurse Specialist Adult Health; Visit Provider Clinical Nurse Specialist Adult Health
DX: M51.36 Other intervertebral disc degeneration, lumbar region (principal); M47.816 Spondylosis without myelopathy or radiculopathy, lumbar region
CPT/HCPCS: 72110

== ENCOUNTER 2023-11-06 13:54 | Emergency (ER) | payer MEDICARE, OTHER, SELFPAY ==
[2023-11-06 13:55] VITALS: BP 162/96; PULSE 76; RESP 14; TEMP 37.2; O2SAT 99; BMI 26.1
--- OUTSIDE RECORDS SUMMARY | 2023-11-06 14:13 | XMS RPT_ITS | CCD ---
Author Name Unknown Address [address] [facility] [address] [place] [address] Organization [facility] Care Team Providers Care Counter Waitress/Waiter Name Role Phone Lissette Torres Unavailable Unavailable Abel Michele MD Primary Care Provider [facility], Marisela Unavailable Abel Michele MD Primary Care Provider [facility], Marisela Unavailable Abel Michele MD Primary Care Provider [facility], Marisela Unavailable Abel Michele MD Primary Care Provider [facility], Marisela Unavailable ABEL MICHELE Primary Care Unavailable GERTRUDE MORGAN Referring Unavailable ABEL MICHELE Primary Care Unavailable ABEL MICHELE Primary Care Unavailable ABEL MICHELE Primary Care Unavailable ABEL MICHELE Primary Care Unavailable ABEL MICHELE Primary Care Unavailable ABEL MICHELE Attending Unavailable LORRIE MARKS Referring Unavailable ABEL MICHELE Primary Care Unavailable ABEL MICHELE Primary Care Unavailable ABEL MICHELE Referring Unavailable ABEL MICHELE Primary Care Unavailable Allergies Allergy Classification Reported Allergen(s) Allergy Type Date of Onset Reaction(s) Facility (1 source) Sulfonamides (Antibiotic) drug allergy 7 [facility] (1 source) LEVIQUIN drug allergy 7 [facility] (20 sources) dapagliflozin; Translations: [DAPAGLIFLOZIN] Drug Allergy 7 Intolerance [facility] Work Phone: (20 sources) levoFLOXacin; Translations: [LEVOFLOXACIN] Drug Allergy 9 [facility] Work Phone: (20 sources) Morphine; Translations: [MORPHINE] Drug Allergy 0 Vomiting [facility] (20 sources) Sulfonamides (Antibiotic); Translations: [SULFA (SULFONAMIDE ANTIBIOTICS)] Propensity to adverse reactions 9 Anaphylaxis [facility] Work Phone: Medications Current Medications Medication [...] coronary artery; Translations: [Atherosclerotic heart disease of [place] coronary artery with unspecified angina pectoris] Onset: [...] 10-23-2016 10-23-2016 Episodic Other aftercare (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; Translations: [Controlled type [...] 12:40-0500 Body temperature 97.2 [degF] Gertrude Morgan APRN.SPEECH THERAPIST EARLY INTERVENTION Work Phone: [facility] 08-29-2023 12:40-0500 Body weight 83.28 kg Gertrued Morgan APRN.SPEECH THERAPIST EARLY INTERVENTION Work Phone: [facility] 08-29-2023 12:40-0500 Diastolic blood pressure 84 mm[Hg] Gertrude Morgan APRN.SPEECH THERAPIST EARLY INTERVENTION Work Phone: [facility] 08-29-2023 12:40-0500 Heart rate 74 /min Gertrude Morgan APRN.SPEECH THERAPIST EARLY INTERVENTION Work Phone: [facility] 08-29-2023 12:40-0500 Respiratory rate 18 /min Gertrude Morgan APRN.SPEECH THERAPIST EARLY INTERVENTION Work Phone: [facility] 08-29-2023 12:40-0500 SaO2% (BldA) [Mass fraction] 99 % Gertrude Morgan APRN.SPEECH THERAPIST EARLY INTERVENTION Work Phone: [facility] 08-29-2023 12:40-0500 Systolic blood pressure 138 mm[Hg] Gertrude Morgan APRN.SPEECH THERAPIST EARLY INTERVENTION Work Phone: [facility] 07-12-2023 15:24-0400 Body height 172.7 cm Abel Michele MD Work Phone: [facility] 07-12-2023 15:24-0400 Body weight 84.37 kg Abel Michele MD Work Phone: [facility] 07-12-2023 15:24-0400 Diastolic blood pressure 75 mm[Hg] Abel Michele MD Work Phone: [facility] 07-12-2023 15:24-0400 Heart rate 82 /min Abel Michele MD Work Phone: [facility] 07-12-2023 15:24-0400 SaO2% (BldA) [Mass fraction] 96 % Abel Michele MD Work Phone: [facility] 07-12-2023 15:24-0400 Systolic blood pressure 116 mm[Hg] Abel Michele MD Work Phone: [facility] 04-27-2023 14:13-0400 Body temperature 98.2 [degF] Lorrie Selina LABELER.SPEECH THERAPIST EARLY INTERVENTION Work Phone: [facility] 04-27-2023 14:13-0400 Body weight 86.36 kg Lorrie Selina LABELER.SPEECH THERAPIST EARLY INTERVENTION Work Phone: [facility] 04-27-2023 14:13-0400 Diastolic blood pressure 74 mm[Hg] Lorrie Selina LABELER.SPEECH THERAPIST EARLY INTERVENTION Work Phone: [facility] 04-27-2023 14:13-0400 Heart rate 68 /min Lorrie Selina LABELER.SPEECH THERAPIST EARLY INTERVENTION Work Phone: [facility] 04-27-2023 14:13-0400 Respiratory rate 22 /min Lorrie Selina LABELER.SPEECH THERAPIST EARLY INTERVENTION Work Phone: [facility] 04-27-2023 14:13-0400 SaO2% (BldA) [Mass fraction] 98 % Lorrie Selina LABELER.SPEECH THERAPIST EARLY INTERVENTION Work Phone: [facility] 04-27-2023 14:13-0400 Systolic blood pressure 122 mm[Hg] Lorrie Brunerk LABELER.SPEECH THERAPIST EARLY INTERVENTION Work Phone: [facility] 01-22-2023 14:28-0400 Body temperature 97 [degF] Gertrude Morgan APRN.SPEECH THERAPIST EARLY INTERVENTION Work Phone: [facility] 01-22-2023 14:28-0400 Body weight 85.19 kg Gertrude Morgan APRN.SPEECH THERAPIST EARLY INTERVENTION Work Phone: [facility] 01-22-2023 14:28-0400 Diastolic blood pressure 72 mm[Hg] Gertrude Morgan APRN.SPEECH THERAPIST EARLY INTERVENTION Work Phone: [facility] 01-22-2023 14:28-0400 Heart rate 77 /min Gertrude Morgan APRN.SPEECH THERAPIST EARLY INTERVENTION Work Phone: [facility] 01-22-2023 14:28-0400 Respiratory rate 21 /min Gertrude Morgan APRN.SPEECH THERAPIST EARLY INTERVENTION Work Phone: [facility] 01-22-2023 14:28-0400 SaO2% (BldA) [Mass fraction] 98 % Gertrude Morgan APRN.SPEECH THERAPIST EARLY INTERVENTION Work Phone: [facility] 01-22-2023 14:28-0400 Systolic blood pressure 138 mm[Hg] Gertrude Morgan APRN.SPEECH THERAPIST EARLY INTERVENTION Work Phone: [facility] 09-29-2022 09:38-0500 Body height 172.7 cm Dayanna Flores LABELER.SPEECH THERAPIST EARLY INTERVENTION Work Phone: [facility] 09-29-2022 09:38-0500 Body weight 85.28 kg Dayanna Flores LABELER.SPEECH THERAPIST EARLY INTERVENTION Work Phone: [facility] 09-29-2022 09:38-0500 Diastolic blood pressure 67 mm[Hg] Dayanna Flores LABELER.SPEECH THERAPIST EARLY INTERVENTION Work Phone: [facility] 09-29-2022 09:38-0500 Heart rate 74 /min Dayanna Flores LABELER.SPEECH THERAPIST EARLY INTERVENTION Work Phone: [facility] 09-29-2022 09:38-0500 Systolic blood pressure 129 mm[Hg] Dayanna Mark LABELER.SPEECH THERAPIST EARLY INTERVENTION Work Phone: [facility] 09-17-2022 10:29-0500 Body temperature 97.81 [degF] Flavia Praisler-Wood LABELER.SPEECH THERAPIST EARLY INTERVENTION Work Phone: [facility] 09-17-2022 10:29-0500 Body weight 86.91 kg Flavia Praisler-Wood LABELER.SPEECH THERAPIST EARLY INTERVENTION Work Phone: [facility] 09-17-2022 10:29-0500 Diastolic blood pressure 92 mm[Hg] Flavia Praisler-Wood LABELER.SPEECH THERAPIST EARLY INTERVENTION Work Phone: [facility] 09-17-2022 10:29-0500 Heart rate 82 /min Flavia Praisler-Wood LABELER.SPEECH THERAPIST EARLY INTERVENTION Work Phone: [facility] 09-17-2022 10:29-0500 Respiratory rate 20 /min Flavia Praisler-Wood LABELER.SPEECH THERAPIST EARLY INTERVENTION Work Phone: [facility] 09-17-2022 10:29-0500 SaO2% (BldA) [Mass fraction] 95 % Flavia Praisler-Wood LABELER.SPEECH THERAPIST EARLY INTERVENTION Work Phone: [facility] 09-17-2022 10:29-0500 Systolic blood pressure 152 mm[Hg] Flavia Praisler-Wood LABELER.SPEECH THERAPIST EARLY INTERVENTION Work Phone: [facility] 08-13-2022 15:53-0500 Body height 172.7 cm Abel Michele MD Work Phone: [facility] 08-13-2022 15:53-0500 Body weight 86.18 kg Abel Michele MD Work Phone: [facility] 08-13-2022 15:53-0500 Diastolic blood pressure 47 mm[Hg] Abel Michele MD Work Phone: [facility] 08-13-2022 15:53-0500 Heart rate 71 /min Abel Michele MD Work Phone: [facility] 08-13-2022 15:53-0500 SaO2% (BldA) [Mass fraction] 97 % Abel Michele MD Work Phone: [facility] 08-13-2022 15:53-0500 Systolic blood pressure 116 mm[Hg] Abel Michele MD Work Phone: [facility] 06-29-2022 13:37-0400 Body temperature 97.5 [degF] Lorrie Selina LABELER.SPEECH THERAPIST EARLY INTERVENTION Work Phone: [facility] 06-29-2022 13:37-0400 Body weight 87.09 kg Lorrie Selina LABELER.SPEECH THERAPIST EARLY INTERVENTION Work Phone: [facility] 06-29-2022 13:37-0400 Diastolic blood pressure 86 mm[Hg] Lorrie Selina LABELER.SPEECH THERAPIST EARLY INTERVENTION Work Phone: [facility] 06-29-2022 13:37-0400 Heart rate 82 /min Lorrie Selina LABELER.SPEECH THERAPIST EARLY INTERVENTION Work Phone: [facility] 06-29-2022 13:37-0400 Respiratory rate 16 /min Lorrie Selina LABELER.SPEECH THERAPIST EARLY INTERVENTION Work Phone: [facility] 06-29-2022 13:37-0400 SaO2% (BldA) [Mass fraction] 97 % Lorrie Selina LABELER.SPEECH THERAPIST EARLY INTERVENTION Work Phone: [facility] 06-29-2022 13:37-0400 Systolic blood pressure 142 mm[Hg] Lorrie Selina LABELER.SPEECH THERAPIST EARLY INTERVENTION Work Phone: [facility] 04-29-2017 15:50-0400 BMI (Body Mass Index) 31.44 kg/m2 Lissette Torres [facility] 04-29-2017 15:50-0400 Body Temperature 97.2 [degF] Lissette Torres [facility] 04-29-2017 15:50-0400 Height 172.72 cm Lissette Torres [facility] 04-29-2017 15:50-0400 Pulse (Heart Rate) 77 /min [facility] 04-29-2017 15:50-0400 Weight 93.8 kg Lissette Torres [facility] Encounters Encounter Date Encounter Type Care Provider Facility Start: 08-29-2023 End: 08-29-2023 ambulatory ABEL MICHELE Facility:[facility] Start: 08-29-2023 End: 08-29-2023 Patient encounter procedure Gertrude Morgan APRN.SPEECH THERAPIST EARLY INTERVENTION Work Phone: [facility] Procedures Date Procedure Procedure Detail Performing Clinician Start: 08-29-2023 Urnls dip stick/tabl et rgnt auto w/o microscopy Christopher Manuel LABELER.SPEECH THERAPIST EARLY INTERVENTION Work Phone: Start: 09-04-2021 Mammography Abel anguiano MD Work Phone: Start: 08-25-2020 Adult depression scr eening assessment Abel Michele MD Work Phone: Start: 09-25-2015 Colonoscopy Abel anguiano MD Work Phone: Plan of Treatment Date Care Activity Detail Author Start: 09-25-2025 Colonoscopy COLONOSCOPY [facility] Start: 09-25-2025 COLORECTAL CANCER SCREENING COLORECTAL CANCER SCREENING [facility] Start: 07-12-2024 3 comp foot exam completed Diabetic Foot Exam [facility] Start: 07-12-2024 Annual PCP Team Algebraist laura Disease Visit Annual PCP Team Chronic Disease Visit [facility] Start: 07-12-2024 BP Controlled (<130/80) BP Controlle d (<130/80) [facility] Start: 04-27-2024 BP CONTROLLED (<130/80) BP CONTROLLE D (<130/80) [facility] Start: 03-29-2024 Hepatitis B surface antibody level LDL CHOLESTEROL [facility] Start: 10-18-2023 Covid-19 Vaccine (6 - Pfizer series) Covid-19 Vaccine (6 - Pfizer series) [facility] Start: 09-29-2023 ANNUAL PCP TEAM TEACHER HEARING IMPAIRED LAURA DISEASE VISIT ANNUAL PCP TEAM CHRONIC DISEASE VISIT [facility] Start: 09-29-2023 BP CONTROLLED (<130/80) BP CONTROLLE D (<130/80) [facility] Start: 09-29-2023 Hemoglobin A1c/Hemoglobin.total in Blood HBA1C [facility] Start: 09-22-2023 Hepatitis C antibody , confirmatory test DILATED RETINAL EXAM [facility] Start: 08-13-2023 ANNUAL PCP TEAM TEACHER HEARING IMPAIRED LAURA DISEASE VISIT ANNUAL PCP TEAM CHRONIC DISEASE VISIT [facility] Start: 08-13-2023 BP CONTROLLED (<130/80) BP CONTROLLE D (<130/80) [facility] Start: 08-13-2023 SHINGRIX VACCINE (2 of 3) RENE GRIX VACCINE (2 of 3) [facility] Immunizations Immunization Date Immunization Notes Care Provider Fa cility 06-18-2023 COVID-19 vaccine, ag e 12+ yr, season (PFIZER-BIONTECH) Abel Michele MD Work Phone: [facility] 06-18-2023 influenza (aIIV4) vaccine, age 65+ yr, quadrivalent, PF (FLUAD QUAD) Abel Michele MD Work Phone: [facility] 07-17-2022 influenza (aIIV4) vaccine, age 65+ yr, quadrivalent, PF (FLUAD QUADRIVALENT) Abel Michele MD Work Phone: [facility] 07-17-2021 COVID-19 vaccine, ag e 12+ yr (PFIZER-BIONTECH - PURPLE TOP) Abel Michele MD Work Phone: [facility] 06-10-2021 influenza, high-dose , quadrivalent vaccine (FLUZONE HIGH DOSE QUADRIVALENT) Abel Michele MD Work Phone: [facility] 12-24-2020 COVID-19 vaccine, ag e 12+ yr (PFIZER-BIONTECH - PURPLE TOP) Abel Michele MD Work Phone: [facility] 12-03-2020 COVID-19 vaccine, ag e 12+ yr (PFIZER-BIONTECH - PURPLE TOP) Abel Michele MD Work Phone: [facility] 07-15-2020 influenza, high-dose , quadrivalent vaccine (FLUZONE HIGH DOSE QUADRIVALENT) Abel Michele MD Work Phone: [facility] 06-29-2020 influenza, high dose seasonal, preservative-free Abel Michele MD Work Phone: [facility] 06-16-2019 influenza, high dose seasonal, preservative-free Abel Michele MD Work Phone: [facility] 06-10-2018 influenza, high dose seasonal, preservative-free Abel Michele MD Work Phone: [facility] 06-11-2017 influenza, high dose seasonal, preservative-free Abel Michele MD Work Phone: [facility] 06-26-2016 influenza, high dose seasonal, preservative-free Abel Michele MD Work Phone: [facility] 06-12-2016 influenza, seasonal, injectable Abel Michele MD Work Phone: [facility] 06-21-2015 influenza, high dose seasonal, preservative-free Abel Michele MD Work Phone: [facility] 06-21-2015 influenza, seasonal, injectable Abel Michele MD Work Phone: [facility] 05-24-2015 pneumococcal conjuga te vaccine, 13 valent Abel Michele MD Work Phone: [facility] 06-25-2014 influenza virus vacc ine, unspecified formulation Abel Michele MD Work Phone: [facility] 06-15-2014 influenza, seasonal, injectable Abel Michele MD Work Phone: [facility] 03-10-2014 zoster vaccine, live Abel Michele MD Work Phone: [facility] 07-08-2013 influenza virus vacc ine, whole virus Abel Michele MD Work Phone: [facility] 05-31-2013 influenza, seasonal, injectable Abel Michele MD Work Phone: [facility] 09-05-2012 pneumococcal polysaccharide vaccine, 23 valent Abel Michele MD Work Phone: [facility] 06-22-2012 influenza virus vacc ine, whole virus Abel Michele MD Work Phone: [facility] 04-29-2011 tetanus toxoid, redu sonja diphtheria toxoid, and acellular pertussis vaccine, adsorbed Abel Michele MD Work Phone: [facility] 09-02-2010 tetanus and diphther ia toxoids, adsorbed, preservative free, for adult use (2 Lf of tetanus toxoid and 2 Lf of diphtheria toxoid) Abel Michele MD Work Phone: [facility] Work Phone: Payers Date Payer Category Payer Unknown HOSPITAL/MEDICAL GENERIC MEDICAL GENERIC [id number] 2017-Present [phone] [address] [place] [address] Indemnity [id number] 2017 Unknown HOSPITAL/MEDICAL GENERIC MEDICAL GENERIC [id number] 2017-Present [phone] [address] [place] [address] Indemnity [id number] 2017 Unknown [id number] 2017 Medicare MEDICARE MEDICAR E A AND B [id number] 2017-Present [phone] [place] [address] Medicare [id number] 2017 Medicare MEDICARE MEDICAR E A AND B [id number] 2017-Present [phone] [place] [address] Medicare [id number] 2017 Medicare [id number] Social History Date Type Detail Facility Start: 09-30-2011 End: 06-29-2022 Tobacco smoking status NHIS Never smoked tobacco [facility] Start: 12-22-2021 End: 08-29-2023 Alcohol intake Current non-drinker of alcohol (finding) [facility] Start: 1945 Sex Assigned At Not on file [facility] Start: 12-12-2021 End: 08-13-2022 Exposure to SARS-CoV-2 (event) Not sure [facility] Start: 01-28-2022 End: 08-12-2022 History SDOH Alcohol Frequency 1 [facility] Start: 01-28-2022 End: 09-28-2022 History SDOH Physical Activity DPW 0 [facility] Start: 01-28-2022 End: 09-28-2022 History SDOH Stress 3 [facility] Start: 01-28-2022 End: 09-28-2022 History SDOH Housing Homeless Last Year 2 [facility] Start: 09-30-2011 End: 06-29-2022 Tobacco use and exposure Smokeless tobacco non-user [facility] Start: 09-28-2022 History SDOH Social Connections Phone 5 [facility] Start: 09-28-2022 History SDOH Financial 4 [facility] Start: 09-27-2022 End: 10-13-2022 History of Social function [facility] Start: 09-27-2022 End: 10-13-2022 Social connection and isolation panel [facility] Do you belong to any clubs or organizations such as yazdanism groups, unions, fraternal or athletic groups, or school groups? Yes [facility] Are you now , , , , never or living with a partner? [facility] How often to you hav e a drink containing alcohol? Never [facility] How many standard dr inks containing alcohol do you have on a typical day? Patient does not drink [facility] How hard is it for y ou to pay for the very basics like food, housing, medical care, and heating Not very hard [facility] Do you feel stress - tense, restless, nervous, or anxious, or unable to sleep at night because your mind is troubled all the time - these days [OSQ] Only a little [facility] (I/We) worried wheyosvany er (my/our) food would run out before (I/we) got money to buy more. Never true [facility] In the past 12 month s, was there a time when you were not able to pay the mortgage or rent on time? No [facility] Medical Equipment Procedure Code Equipment Code Equipment Origin al Text Equipment Identifier Dates Start: 05-23-2015 Clinical Notes 03-12-2016 to 08-29-2023 Gertrude Morgan APRN.SPEECH THERAPIST EARLY INTERVENTION - 08/29/2023 12:50 PM Abel Zabala MD - 07/12/2023 3:46 PM EDTTelephone Encounter - Sonali Pastrana [facility] - 06/24/2023 2:14 PM EDTPatient Instructions Note Date & Type Note Facility 08-29-2023 Note HNO ID: [id number] Author: Gertrude Morgan APRN.SPEECH THERAPIST EARLY INTERVENTION Service: ? 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 Brown, [facility] (Worker's Comp) TOTAL ABDOMINAL HYSTERECT W/WO RMVL [...] per day. ONE TOUCH DELICA [facility] BLOOD SUGAR(S) 3 TO 4 TIMES DAILY Blood-Glucose Meter (ONETOUCH VERIO SYSTEM) [facility] UAD to check blood sugar Dx. E11.65 [...] Patient agreeable to treatment plan. Gertrude Morgan APRN.SPEECH THERAPIST EARLY INTERVENTION documented in this encounter [facility] 07-12-2023 Note HNO ID: [id number] Author: Abel Michele MD Service: ? 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 Plan: Continue with current plan & medications (I25.119) Coronary artery disease involving [place] coronary artery of [place] heart with angina pectoris ([facility]) (I10) Essential hypertension, benign Comment: bp well [...] Scribe Attestation: By signing my name below, Chad Levin, attest that this documentation has been prepared [...] 2023 6:15 PM documented in this encounter [facility] 06-24-2023 Miscellaneous Notes Last appointment: 09/29/22 Next appointment: 07/12/23 Pharmacy verified in [facility]. Refill(s) requested: Requested Prescriptions Pending Prescriptions Disp Refills gabapentin (NEURONTIN) 300 mg capsule 90 capsule 0 Sig: Take 1 capsule by mouth three times daily for 30 days. Order(s) pended. Please advise,thank you. Sonali DIAS June 24, 2023 2:14 PM documented in this encounter [facility] 06-07-2023 Miscellaneous Notes 1st attempt, sent [facility]. The following approved medication requests have been transmitted electronically. Requested Prescriptions Signed Prescriptions Disp Refills atenolol (TENORMIN) 50 mg tablet 180 tablet 0 Sig: TAKE 1 TABLET BY MOUTH TWICE A DAY Authorizing Provider: ABEL MICHELE Due for appt by end of year Abel Michele MD Pharmacy verified in [facility] Patient has been identified by name and [...] advise. Jane Robbins documented in this encounter [facility] 05-07-2023 Miscellaneous Notes The following approved medication requests have been transmitted electronically. Requested Prescriptions Signed Prescriptions Disp Refills gabapentin (NEURONTIN) 300 mg capsule 90 capsule 0 Sig: Take 1 capsule by mouth three times daily for 30 days. Authorizing Provider: ABEL MICHELE MD Pharmacy verified in [facility] Patient has been identified by name and [...] Rosalia David MA documented in this encounter [facility] 05-03-2023 Miscellaneous Notes Pharmacy verified in [facility] Patient has been identified by name and [...] Carolina Alejandre LPN documented in this encounter [facility] 04-27-2023 Note HNO ID: [id number] Author: Juany Hernandez RT(R) Service: Radiology Author [...] [facility] 04-27-2023 Note HNO ID: [id number] Author: Lorrie Marks APRN.SPEECH THERAPIST EARLY INTERVENTION Service: ? Author Type: Nurse Practitioner Type: Progress Notes Filed: 04/27/2023 2:48 PM Note Text: Subjective The history is provided by the patient. No bilingual speech language pathologist was used. HPI Krupa Rubio is a 78 year old female who presents today for CC of right sided rib pain that started on Wednesday. 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 She has used tylenol with some relief. 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 Review of Systems Constitutional: Negative for chills [...] fracture. Interpreted by : MD Lorrie DHALIWAL APRN.GERA [facility] 04-27-2023 Instructions Lorrie Marks APRN.GERA - 04/27/2023 2:48 PM EDT Encourage deep breathing Warm moist heat/ice Tylenol Follow up with PCP prn documented in this encounter [facility] 04-27-2023 History of Presen t illness Narrative Images from the original note were not included. Subjective The history is provided by the patient. No bilingual speech language pathologist was used. HPI Krupa Rubio is a 78 year old female who presents today for CC of right sided rib pain that started on Wednesday. 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 She has used tylenol with some relief. 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 Review of Systems Constitutional: Negative for chills [...] fracture. Interpreted by : MD Lorrie DHALIWAL APRN.SPEECH THERAPIST EARLY INTERVENTION documented in this encounter [facility] 03-25-2023 Miscellaneous Notes The following approved medication requests have been transmitted electronically. Requested Prescriptions Signed Prescriptions Disp Refills gabapentin (NEURONTIN) 300 mg capsule 90 capsule 0 Sig: Take 1 capsule by mouth three times daily for 30 days. Authorizing Provider: ABEL MICHELE MD Pharmacy verified in [facility] Patient has been identified by name and [...] Rosalia David MA documented in this encounter [facility] 03-25-2023 Miscellaneous Notes The following approved medication requests have been transmitted electronically. Requested Prescriptions Signed Prescriptions Disp Refills PARoxetine (PAXIL) 20 mg tablet 90 tablet 1 Sig: Take 1 tablet by mouth once daily. Authorizing Provider: ABEL MICHELE MD Pharmacy verified in [facility] Patient has been identified by name and [...] Rosalia David MA documented in this encounter [facility] 03-03-2023 Miscellaneous Notes Our last visit was in July, so you're due for lab and visit any time now. I've placed orders for some fasting labs you can have drawn in [place] before coming for visit. Get Medical Advice on 03/01/23 COMP METABOLIC PANEL LIPID PANEL BASIC HGB A1C CBC VITAMIN D 25 HYDROXY bAel Michele MD documented in this encounter [facility] 02-01-2023 Miscellaneous Notes Last appointment: 09/29/22 Next appointment: none Pharmacy verified in [facility]. Refill(s) requested: Requested Prescriptions Pending Prescriptions Disp Refills gabapentin (NEURONTIN) 300 mg capsule 90 capsule 0 Sig: Take 1 capsule by mouth three times daily for 30 days. Refused Prescriptions Disp Refills primidone (MYSOLINE) 50 mg tablet 540 tablet 0 Sig: Take 3 tablets by mouth twice daily. Order(s) pended. Please advise. Ludmila Rahman LPN, CMA documented in this encounter [facility] 02-01-2023 Miscellaneous Notes Pharmacy verified in [...] advise. Jane Robbins documented in this encounter [facility] 01-22-2023 Note HNO ID: [id number] Author: RT Susan(R) Service: Radiology Author Type: [...] [facility] 01-22-2023 Note HNO ID: [id number] Author: Gertrude Morgan APRN.SPEECH THERAPIST EARLY INTERVENTION Service: ? 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 Brown, [facility] (Worker's Comp) TOTAL ABDOMINAL HYSTERECT W/WO RMVL [...] TIMES DAILY Blood-Glucose Meter (ONETOUCH VERIO SYSTEM) [facility] [place] UAD to check blood sugar Dx. 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 Brown, [facility] (Worker's Comp) TOTAL ABDOMINAL HYSTERECT W/WO RMVL [...] 3 TO 4 TIMES DAILY Blood-Glucose Meter ([facility] [employer] VERIO SYSTEM) misc UAD to check blood [...] fractures. IMPRESSION IMPRESSION: No acute radiographic abnormality. Air And Water Filler: MARIANNA Transcribe Date/Time: Jan 22 2023 2:56P [...] Gertrude Morgan APRN.GERA documented in this encounter [facility] 01-11-2023 Note HNO ID: [id number] Author: RT Shanna(R) Service: Nuclear Medicine Author [...] [facility] 01-11-2023 Note HNO ID: [id number] Author: SUSANNA Delacruz Service: ? Author Type: Physician Aboriginal Ceremonial Celebrant Type: Progress Notes Filed: 01/11/2023 4:12 PM Note Text: This note was created using Softdeskriter. 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 Brown, [facility] (Worker's Comp) TOTAL ABDOMINAL HYSTERECT W/WO RMVL [...] per day. ONE TOUCH DELICA 33 gauge [facility] [place] TEST BLOOD SUGAR(S) 3 TO 4 TIMES DAILY Blood-Glucose Meter (ONETOUCH VERIO SYSTEM) [facility] [place] UAD to check blood sugar Dx. E11.65 [...] Provider: ABEL MICHELE MD Pharmacy verified in [facility] Patient has been identified by name and [...] advise. Demetris Tang documented in this encounter [facility] 10-30-2022 Miscellaneous Notes Received 10/30/2022 from [facility]. Placed in provider's inbox for review. [facility] documented in this encounter [facility] 10-19-2022 Miscellaneous Notes Recent bp and labs. The following approved medication requests have been transmitted electronically. Requested Prescriptions Signed Prescriptions Disp Refills amLODIPine-Benazepril 10-40 mg per capsule 90 capsule 3 Sig: TAKE 1 CAPSULE BY MOUTH ONCE DAILY Authorizing Provider: ABEL MICHELE MD Pharmacy verified in [facility] Patient has been identified by name and [...] advise. Demetris Tang documented in this encounter [facility] 10-14-2022 Miscellaneous Notes Pharmacy verified in [facility] Patient has been identified by name and [...] advise. Jane Robbins documented in this encounter [facility] 10-01-2022 Miscellaneous Notes Received OT evaluation/ orders from [facility]. Placed in provider's inbox for review. [facility] to [facility]. documented in this encounter [facility] 09-30-2022 Miscellaneous Notes Pharmacy verified in [facility] Patient has been identified by name and [...] Carolina Alejandre LPN documented in this encounter [facility] 09-29-2022 History of Presen t illness Narrative Images from the original note were not included. This note was created using Softdeskriter. Subjective Krupa Rubio is a 77 year old female. Patient here to follow-up on face/neck swelling. Seen on 09/17 at [facility], prescribed Keflex. 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 Brown, [facility] (Worker's Comp) TOTAL ABDOMINAL HYSTERECT W/WO RMVL [...] TIMES DAILY Blood-Glucose Meter (ONETOUCH VERIO SYSTEM) mis UAD to check blood sugar Dx. E11.65 [...] resolve or worsen again, return for re-evaluation. Dayanna Flores APRN.GERA documented in this encounter [facility] 09-22-2022 Miscellaneous Notes Received 09/22/2022 from Jasper Baker O.D. Placed in provider's inbox for review. [facility]. D<M T2 No Retinopathy documented in this encounter [facility] 09-17-2022 History of Presen t illness Narrative Images from the original note were not included. 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 Brown, [facility] (Worker's Comp) TOTAL ABDOMINAL HYSTERECT W/WO RMVL [...] DO NOT EXCEED 3000MG/DAY blood sugar diagnostic ([employer] Systems[employer]CH VERIO) test strip Test blood sugar(s) [...] Discussed expected course of illness Flavia Ames APRN.SPEECH THERAPIST EARLY INTERVENTION documented in this encounter [facility] 09-17-2022 Instructions Flavia Ames APRN.GERA - 09/17/2022 10:39 AM EST ASSESSMENT/PLAN: 1. [...] Flavia Ames APRN.CNP documented in this encounter [facility] 09-16-2022 Miscellaneous Notes Pharmacy verified in [facility] Patient has been identified by name and [...] Carolina Alejandre LPN documented in this encounter [facility] 09-07-2022 Miscellaneous Notes Received 09/07/2022 from [facility]. Placed in provider's inbox for review. 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 documented in this encounter [facility] 06-29-2022 Instructions Lorrie Marks APRN.SPEECH THERAPIST EARLY INTERVENTION - 06/29/2022 1:55 PM EDT covid test ordered You will be notified in 24 hours, results available on [facility] Home isolation until covid results are back [...] inability to swallow. documented in this encounter [facility] 06-29-2022 History of Presen t illness Narrative Subjective The history is provided by the patient. No bilingual speech language pathologist was used. 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 Review of Systems Constitutional: Positive for malaise/fatigue. [...] in 24-48 hours with results, available on [employer] - COVID WITH FLUA+B, ROUTINE 2. Acute [...] blood sugars, insulin dosing Monitor urine output Bryant diet Phenergan Diagnosis and treatment plan were discussed and questions were answered to the patient's satisfaction. Pt acknowledged understanding of concepts and follow up plan. Specific signs and symptoms that would indicate the need for higher level of care were discussed in detail warranting prompt ER evaluation. Lorrie Marks APRN.GERA documented in this encounter [facility] 06-17-2022 Miscellaneous Notes Received EKG from [facility]. Placed in provider's inbox for review. Route to [facility] scanning. documented in this encounter [facility] 06-17-2022 Miscellaneous Notes Pharmacy verified in [facility] Patient has been identified by name and [...] Carolina Alejandre LPN documented in this encounter [facility] 06-10-2022 Miscellaneous Notes Pharmacy verified in [facility] Patient has been identified by name and [...] Carolina Alejandre LPN documented in this encounter [facility] 06-02-2022 Miscellaneous Notes Pharmacy verified in [facility] Patient has been identified by name and [...] Carolina Alejandre LPN documented in this encounter [facility] 05-07-2022 Miscellaneous Notes The following approved medication requests have been transmitted electronically. Requested Prescriptions Pending Prescriptions Disp Refills meloxicam (MOBIC) 15 mg tablet [Pharmacy Med Name: MELOXICAM 15 MG TABLET] 90 tablet 1 Sig: TAKE 1 TABLET BY MOUTH EVERY DAY Abel Michele MD Pharmacy verified in [facility] Patient has been identified by name and [...] advise. Jane Robbins documented in this encounter [facility] 05-01-2022 Miscellaneous Notes The following approved medication requests have been transmitted electronically. Signed Prescriptions Disp Refills gabapentin (NEURONTIN) 400 mg capsule 90 capsule 2 Sig: Take 1 capsule by mouth three times daily for 90 days. NIRAJ: No Authorizing Provider: ABEL MICHELE MD Last appointment: 01/28/22 Next appointment: n/a Pharmacy verified in [facility]. Refill(s) requested: Pending Prescriptions Disp Refills GABAPENTIN 400 MG CAPSULE 90 capsule 2 Sig: Take 1 capsule by mouth three times daily for 90 days. NIRAJ: No Order(s) pended. Please advise. Tasia Evans LPN documented in this encounter [facility] 04-30-2022 Miscellaneous Notes Pharmacy verified in [facility] Patient has been identified by name and date of : Yes Patient aware RX will be sent to pharmacy. No need to notify patient. Patient phones for refill(s): Pending Prescriptions Disp Refills PRIMIDONE 50 MG TABLET 540 tablet 0 Sig: TAKE 3 TABLETS BY MOUTH TWICE A DAY NIRAJ: Yes Date of last office visit : 04/22/2021 [facility] 01/28/2022 Date of next office visit [...] Carolina Alejandre LPN documented in this encounter [facility] 04-03-2022 Miscellaneous Notes The following approved [...] Ambika Knight Ma documented in this encounter [facility] 02-02-2022 Miscellaneous Notes Pharmacy verified in [facility] Patient has been identified by name and [...] advise. Jane Robbins documented in this encounter [facility] 01-28-2022 History of Presen t illness [...] 2022 3:47 PM documented in this encounter [facility] 01-14-2022 Miscellaneous Notes Patient read [facility] message. Appointment on 01/28/22 changed to virtual 1st attempt: [facility] sent documented in this encounter [facility] 12-24-2021 Miscellaneous Notes Pharmacy verified in [facility] Patient has been identified by name and [...] Gabby Guzman RN documented in this encounter [facility] documented as of this encounter (statuses as of 12/24/2021) [facility] of Past illness Narrative* Problem Noted Date Resolved Date Acute pain of right knee 03/12/2016 021 documented as of this encounter (statuses as of 01/14/2022) [facility] Narrative* Problem Noted Date Resolved Date Acute pain of right knee 03/12/2016 021 documented as of this encounter (statuses as of 01/16/2022) [facility] of [facility] Narrative* Problem Noted Date Resolved Date Acute pain of right knee 03/12/2016 021 documented as of this encounter (statuses as of 01/28/2022) [facility] Narrative* Problem Noted Date Resolved Date Acute pain of right knee 03/12/2016 021 documented as of this encounter (statuses as of 02/02/2022) [facility] Narrative* Problem Noted Date Resolved Date Acute pain of right knee 03/12/2016 021 documented as of this encounter (statuses as of 04/03/2022) [address]-2016 History of Past illness Narrative* Problem Noted Date Resolved Date Acute pain of right knee 03/12/2016 021 documented as of this encounter (statuses as of 04/27/2022) [address]2016 History of Past illness Narrative* Problem Noted Date Resolved Date Acute pain of right knee 03/12/2016 021 documented as of this encounter (statuses as of 04/30/2022) [address]2016 History of Past illness Narrative* Problem Noted Date Resolved Date Acute pain of right knee 03/12/2016 021 documented as of this encounter (statuses as of 05/01/2022) [address]2016 History of Past illness Narrative* Problem Noted Date Resolved Date Acute pain of right knee 03/12/2016 021 documented as of this encounter (statuses as of 05/07/2022) [facility]* Problem Noted Date Resolved Date Acute pain of right knee 03/12/2016 021 documented as of this encounter (statuses as of 06/03/2022) [address] History of Past illness Narrative* Problem Noted Date Resolved Date Acute pain of right knee 03/12/2016 021 documented as of this encounter (statuses as of 06/10/2022) [address]2016 History of Past illness Narrative* Problem Noted Date Resolved Date Acute pain of right knee 03/12/2016 021 documented as of this encounter (statuses as of 06/17/2022) [address]2016 History of Past illness Narrative* Problem Noted Date Resolved Date Acute pain of right knee 03/12/2016 021 documented as of this encounter (statuses as of 06/17/2022) [address]2016 History of Past illness Narrative* Problem Noted Date Resolved Date Acute pain of right knee 03/12/2016 021 documented as of this encounter (statuses as of 06/29/2022) [address]2016 History of Past illness Narrative* Problem Noted Date Resolved Date Acute pain of right knee 03/12/2016 021 documented as of this encounter (statuses as of 06/30/2022) [address] History of Past illness Narrative* Problem Noted Date Resolved Date Acute pain of right knee 03/12/2016 021 documented as of this encounter (statuses as of 07/30/2022) [address]2016 History of Past illness Narrative* Problem Noted Date Resolved Date Acute pain of right knee 03/12/2016 021 documented as of this encounter (statuses as of 08/13/2022) [address]2016 History of Past illness Narrative* Problem Noted Date Resolved Date Acute pain of right knee 03/12/2016 021 documented as of this encounter (statuses as of 09/07/2022) [address]2016 History of Past illness Narrative* Problem Noted Date Resolved Date Acute pain of right knee 03/12/2016 021 documented as of this encounter (statuses as of 09/16/2022) [address] History of Past illness Narrative* Problem Noted Date Resolved Date Acute pain of right knee 03/12/2016 021 documented as of this encounter (statuses as of 09/18/2022) [address] History of Past illness Narrative* Problem Noted Date Resolved Date Acute pain of right knee 03/12/2016 021 documented as of this encounter (statuses as of 09/28/2022) [address] History of Past illness Narrative* Problem Noted Date Resolved Date Acute pain of right knee 03/12/2016 021 documented as of this encounter (statuses as of 10/01/2022) [address] History of Past illness Narrative* Problem Noted Date Resolved Date Acute pain of right knee 03/12/2016 021 documented as of this encounter (statuses as of 10/02/2022) [address]2016 History of Past illness Narrative* Problem Noted Date Resolved Date Acute pain of right knee 03/12/2016 021 documented as of this encounter (statuses as of 10/02/2022) [address] History of Past illness Narrative* Problem Noted Date Resolved Date Acute pain of right knee 03/12/2016 021 documented as of this encounter (statuses as of 10/14/2022) [address] History of Past illness Narrative* Problem Noted Date Resolved Date Acute pain of right knee 03/12/2016 021 documented as of this encounter (statuses as of 10/19/2022) [address]2016 History of Past illness Narrative* Problem Noted Date Resolved Date Acute pain of right knee 03/12/2016 06/08/2 021 documented as of this encounter (statuses as of 10/30/2022) [address]2016 History of Past illness Narrative* Problem Noted Date Resolved Date Acute pain of right knee 03/12/2016 021 documented as of this encounter (statuses as of 12/23/2022) [address]2016 History of Past illness Narrative* Problem Noted Date Resolved Date Acute pain of right knee 03/12/2016 021 documented as of this encounter (statuses as of 01/22/2023) [facility]* Problem Noted Date Resolved Date Acute pain of right knee 03/12/2016 021 documented as of this encounter (statuses as of 02/01/2023) [address] History of Past illness Narrative* Problem Noted Date Resolved Date Acute pain of right knee 03/12/2016 021 documented as of this encounter (statuses as of 02/02/2023) [address] History of Past illness Narrative* Problem Noted Date Resolved Date Acute pain of right knee 03/12/2016 021 documented as of this encounter (statuses as of 03/03/2023) [address] History of Past illness Narrative* Problem Noted Date Resolved Date Acute pain of right knee 03/12/2016 021 documented as of this encounter (statuses as of 03/25/2023) [facility]* Problem Noted Date Resolved Date Acute pain of right knee 03/12/2016 021 documented as of this encounter (statuses as of 03/25/2023) [address] History of Past illness Narrative* Problem Noted Date Diagnosed Date Resolved Date Acute pain of right knee 03/12/201604/2021 documented as of this encounter (statuses as of 04/28/2023) [address] History of Past illness Narrative* Problem Noted Date Diagnosed Date Resolved Date Acute pain of right knee 03/12/201604/2021 documented as of this encounter (statuses as of 05/03/2023) [address] History of Past illness Narrative* Problem Noted Date Diagnosed Date Resolved Date Acute pain of right knee 03/12/201604/2021 documented as of this encounter (statuses as of 05/10/2023) [facility]* Problem Noted Date Diagnosed Date Resolved Date Acute pain of right knee 03/12/201604/2021 documented as of this encounter (statuses as of 06/08/2023) [facility]* Problem Noted Date Diagnosed Date Resolved Date Acute pain of right knee 03/12/201604/2021 documented as of this encounter (statuses as of 06/25/2023) [facility]* Problem Noted Date Diagnosed Date Resolved Date Acute pain of right knee 03/12/201604/2021 documented as of this encounter (statuses as of 07/13/2023) [facility]* Problem Noted Date Diagnosed Date Resolved Date Acute pain of right knee 03/12/201604/2021 documented as of this encounter (statuses as of 07/13/2023) [facility] Narrative* Problem Noted Date Diagnosed Date Resolved Date Acute pain of right knee 03/12/201604/2021 documented as of this encounter (statuses as of 08/29/2023) [facility] note* Diagnosis Controlled type 2 diabetes mellitus without complication, with long-term current use of insulin ([facility]) 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) documented in this encounter [facility] note* Diagnosis Controlled type 2 diabetes mellitus without complication, with long-term current use of insulin ([facility])- Primary Essential hypertension, benign Tremor, essential Essential and other specified forms of tremor Gastroesophageal reflux disease, unspecified whether esophagitis present Post-COVID chronic headache Obesity, Class I, BMI 30-34.9 Obesity, unspecified documented in this encounter [facility] note* Diagnosis Tremor, essential Essential and other specified forms of tremor [facility] Diagnosis Tremor, essential Essential and other specified forms of tremor documented in this encounter [facility] note* Diagnosis Closed fracture of multiple ribs of right side with routine healing, subsequent encounter [facility] Diagnosis Essential hypertension, benign Tremor, essential Essential and other specified forms of tremor [facility]* Diagnosis Adjustment disorder with mixed anxiety and depressed mood [facility]* Diagnosis Flu-like symptoms- Primary Other general symptoms Acute upper respiratory infection, unspecified Nausea and vomiting, unspecified vomiting type [facility]* Diagnosis Mild cognitive impairment of uncertain or unknown etiology- Primary Acute gastroenteritis Other and unspecified noninfectious gastroenteritis and colitis Controlled type 2 diabetes mellitus without complication, with long-term current use of insulin ([facility]) [facility]* Diagnosis Lymphadenopathy, cervical- Primary Enlargement of lymph nodes [facility]* Diagnosis Screening for diabetic retinopathy- Primary Screening for other eye conditions [facility]* Diagnosis Swelling of left parotid gland- Primary [facility]* Diagnosis Adjustment disorder with mixed anxiety and depressed mood [facility]* Diagnosis Acute cough- Primary Rhinosinusitis Unspecified sinusitis (chronic) [facility]* Diagnosis Tremor, essential Essential and other specified forms of tremor [facility]* Diagnosis Controlled type 2 diabetes mellitus without complication, with long-term current use of insulin (HCC)- Primary DDD (degenerative disc disease), cervical Degeneration of cervical intervertebral disc Coronary artery disease involving [place] coronary artery of [place] heart with angina pectoris ([facility]) Encounter for vitamin deficiency screening Screening for other and unspecified endocrine, nutritional, metabolic, and immunity disorders Osteopenia, senile Disorder of bone and cartilage, unspecified [facility]* Diagnosis Adjustment disorder with mixed anxiety and depressed mood [facility]* Diagnosis Rib pain on right side- Primary Chest pain, unspecified [facility]* Diagnosis Tremor, essential Essential and other specified forms of tremor [facility]* Diagnosis Essential hypertension, benign Tremor, essential Essential and other specified forms of tremor [facility]* Diagnosis Controlled type 2 diabetes mellitus without complication, with long-term current use of insulin (HCC)- Primary Essential hypertension, benign Tremor, essential Essential and other specified forms of tremor Adjustment disorder with mixed anxiety and depressed mood Vitamin D deficiency Unspecified vitamin D deficiency Coronary artery disease involving [place] coronary artery of [place] heart with angina pectoris (HCC) Primary osteoarthritis of both knees Primary localized osteoarthrosis, lower leg DDD (degenerative disc disease), cervical Degeneration of cervical intervertebral disc Lumbar spondylosis Lumbosacral spondylosis without myelopathy [facility] Diagnosis Urinary frequency- Primary Recurrent UTI (urinary tract infection) Urinary tract infection, site not specified documented [facility] Diagnostic Procedure Only (Urgent) - Closed Specialty Diagnoses / Procedures Referred By Jermaine jacobson Referred To Contact XR IMAGING Diagnoses Rib pain on right side Procedures XR RIBS/CHEST 3V AP RIB/OBLS/CXR RIGHT RADEX RIBS UNI W/POSTEROANT CH MINIMUM 3 VIEWS Lorrie Marks APRN.CNP [address] [place] [address] Xr Imaging Referral ID Status Reason Start Date Expiration Date V isits Requested Visits Authorized [id number] Closed Auto-Generate d Referral 04/27/2023 05/26/2024 1 1 [facility] Summary Purpose Family History No Family History Records FoundNo Family History Records Found Advance Directives No Advanced Directives Records FoundNo Advanced Directives Records Found Health Concerns Infection Onset Date Last Indicated Resolved Time COVID-19 Rule-Out 06/29/2022 06/29/2022 Infection Onset Date Last Indicated Resolved Time COVID-19 Rule-Out 06/29/2022 06/29/2022 06/30/2022 1:51 AM EDT Reason for Referral Specialty Diagnoses / Procedures Referred By Jermaine jacobson Referred To Contact Gerontology Diagnoses Mild cognitive impairment of uncertain or unknown etiology Procedures CONSULT TO G[facility]IATRICS OFFICE[facility] 60-74 [facility]UTES Abel Michele MD [address] [place] [address] [place] [address] Referral ID Status Reason Start Date Expiration Date Visits Requested Visits Authorized [id number] Authorized PCP Requested Referral 2 08/13/2023 1 1 Additional Source Comments INFORMATION SOURCE (unrecogn ized section and content) DATE CREATED AUTHOR AUTHOR'S NIR SALGADO 10/29/2023 [facility] Source Comments (unrecognize d section and content) In the event this informatio n is protected by the Federal Confidentiality of Alcohol and Drug Abuse Patient Records regulations: The Federal rules restrict any use of the information to criminally investigate or prosecute any alcohol or drug abuse patient.[facility] the event this information is protected by the Federal Confidentiality of Alcohol and Drug Abuse Patient Records regulations: The Federal rules restrict any use of the information to criminally investigate or prosecute any alcohol or drug abuse patient.[facility] HospitalIn the event this information is protected by the Federal Confidentiality of Alcohol and Drug Abuse Patient Records regulations: The Federal rules restrict any use of the information to criminally investigate or prosecute any alcohol or drug abuse patient.[facility] HospitalIn the event this information is protected by the Federal Confidentiality of Alcohol and Drug Abuse Patient Records regulations: The Federal rules restrict any use of the information to criminally investigate or prosecute any alcohol or drug abuse patient.[facility] HospitalIn the event this information is protected by the Federal Confidentiality of Alcohol and Drug Abuse Patient Records regulations: The Federal rules restrict any use of the information to criminally investigate or prosecute any alcohol or drug abuse patient.[facility] HospitalIn the event this information is protected by the Federal Confidentiality of Alcohol and Drug Abuse Patient Records regulations: The Federal rules restrict any use of the information to criminally investigate or prosecute any alcohol or drug abuse patient.[facility] HospitalIn the event this information is protected by the Federal Confidentiality of Alcohol and Drug Abuse Patient Records regulations: The Federal rules restrict any use of the information to criminally investigate or prosecute any alcohol or drug abuse patient.[facility] HospitalIn the event this information is protected by the Federal Confidentiality of Alcohol and Drug Abuse Patient Records regulations: The Federal rules restrict any use of the information to criminally investigate or prosecute any alcohol or drug abuse patient.[facility] HospitalIn the event this information is protected by the Federal Confidentiality of Alcohol and Drug Abuse Patient Records regulations: The Federal rules restrict any use of the information to criminally investigate or prosecute any alcohol or drug abuse patient.[facility] HospitalIn the event this information is protected by the Federal Confidentiality of Alcohol and Drug Abuse Patient Records regulations: The Federal rules restrict any use of the information to criminally investigate or prosecute any alcohol or drug abuse patient.[facility] HospitalIn the event this information is protected by the Federal Confidentiality of Alcohol and Drug Abuse Patient Records regulations: The Federal rules restrict any use of the information to criminally investigate or prosecute any alcohol or drug abuse patient.[facility] HospitalIn the event this information is protected by the Federal Confidentiality of Alcohol and Drug Abuse Patient Records regulations: The Federal rules restrict any use of the information to criminally investigate or prosecute any alcohol or drug abuse patient.[facility] HospitalIn the event this information is protected by the Federal Confidentiality of Alcohol and Drug Abuse Patient Records regulations: The Federal rules restrict any use of the information to criminally investigate or prosecute any alcohol or drug abuse patient.[facility] HospitalIn the event this information is protected by the Federal Confidentiality of Alcohol and Drug Abuse Patient Records regulations: The Federal rules restrict any use of the information to criminally investigate or prosecute any alcohol or drug abuse patient.[facility] HospitalIn the event this information is protected by the Federal Confidentiality of Alcohol and Drug Abuse Patient Records regulations: The Federal rules restrict any use of the information to criminally investigate or prosecute any alcohol or drug abuse patient.[facility] HospitalIn the event this information is protected by the Federal Confidentiality of Alcohol and Drug Abuse Patient Records regulations: The Federal rules restrict any use of the information to criminally investigate or prosecute any alcohol or drug abuse patient.[facility] HospitalIn the event this information is protected by the Federal Confidentiality of Alcohol and Drug Abuse Patient Records regulations: The Federal rules restrict any use of the information to criminally investigate or prosecute any alcohol or drug abuse patient.[facility] HospitalIn the event this information is protected by the Federal Confidentiality of Alcohol and Drug Abuse Patient Records regulations: The Federal rules restrict any use of the information to criminally investigate or prosecute any alcohol or drug abuse patient.[facility] HospitalIn the event this information is protected by the Federal Confidentiality of Alcohol and Drug Abuse Patient Records regulations: The Federal rules restrict any use of the information to criminally investigate or prosecute any alcohol or drug abuse patient.[facility] HospitalIn the event this information is protected by the Federal Confidentiality of Alcohol and Drug Abuse Patient Records regulations: The Federal rules restrict any use of the information to criminally investigate or prosecute any alcohol or drug abuse patient.[facility] HospitalIn the event this information is protected by the Federal Confidentiality of Alcohol and Drug Abuse Patient Records regulations: The Federal rules restrict any use of the information to criminally investigate or prosecute any alcohol or drug abuse patient.[facility] HospitalIn the event this information is protected by the Federal Confidentiality of Alcohol and Drug Abuse Patient Records regulations: The Federal rules restrict any use of the information to criminally investigate or prosecute any alcohol or drug abuse patient.[facility] HospitalIn the event this information is protected by the Federal Confidentiality of Alcohol and Drug Abuse Patient Records regulations: The Federal rules restrict any use of the information to criminally investigate or prosecute any alcohol or drug abuse patient.[facility] HospitalIn the event this information is protected by the Federal Confidentiality of Alcohol and Drug Abuse Patient Records regulations: The Federal rules restrict any use of the information to criminally investigate or prosecute any alcohol or drug abuse patient.[facility] HospitalIn the event this information is protected by the Federal Confidentiality of Alcohol and Drug Abuse Patient Records regulations: The Federal rules restrict any use of the information to criminally investigate or prosecute any alcohol or drug abuse patient.[facility] HospitalIn the event this information is protected by the Federal Confidentiality of Alcohol and Drug Abuse Patient Records regulations: The Federal rules restrict any use of the information to criminally investigate or prosecute any alcohol or drug abuse patient.[facility] HospitalIn the event this information is protected by the Federal Confidentiality of Alcohol and Drug Abuse Patient Records regulations: The Federal rules restrict any use of the information to criminally investigate or prosecute any alcohol or drug abuse patient.[facility] HospitalIn the event this information is protected by the Federal Confidentiality of Alcohol and Drug Abuse Patient Records regulations: The Federal rules restrict any use of the information to criminally investigate or prosecute any alcohol or drug abuse patient.[facility] HospitalIn the event this information is protected by the Federal Confidentiality of Alcohol and Drug Abuse Patient Records regulations: The Federal rules restrict any use of the information to criminally investigate or prosecute any alcohol or drug abuse patient.[facility] HospitalIn the event this information is protected by the Federal Confidentiality of Alcohol and Drug Abuse Patient Records regulations: The Federal rules restrict any use of the information to criminally investigate or prosecute any alcohol or drug abuse patient.[facility] HospitalIn the event this information is protected by the Federal Confidentiality of Alcohol and Drug Abuse Patient Records regulations: The Federal rules restrict any use of the information to criminally investigate or prosecute any alcohol or drug abuse patient.[facility] HospitalIn the event this information is protected by the Federal Confidentiality of Alcohol and Drug Abuse Patient Records regulations: The Federal rules restrict any use of the information to criminally investigate or prosecute any alcohol or drug abuse patient.[facility] HospitalIn the event this information is protected by the Federal Confidentiality of Alcohol and Drug Abuse Patient Records regulations: The Federal rules restrict any use of the information to criminally investigate or prosecute any alcohol or drug abuse patient.[facility] HospitalIn the event this information is protected by the Federal Confidentiality of Alcohol and Drug Abuse Patient Records regulations: The Federal rules restrict any use of the information to criminally investigate or prosecute any alcohol or drug abuse patient.[facility] HospitalIn the event this information is protected by the Federal Confidentiality of Alcohol and Drug Abuse Patient Records regulations: The Federal rules restrict any use of the information to criminally investigate or prosecute any alcohol or drug abuse patient.[facility] HospitalIn the event this information is protected by the Federal Confidentiality of Alcohol and Drug Abuse Patient Records regulations: The Federal rules restrict any use of the information to criminally investigate or prosecute any alcohol or drug abuse patient.[facility] HospitalIn the event this information is protected by the Federal Confidentiality of Alcohol and Drug Abuse Patient Records regulations: The Federal rules restrict any use of the information to criminally investigate or prosecute any alcohol or drug abuse patient.[facility] HospitalIn the event this information is protected by the Federal Confidentiality of Alcohol and Drug Abuse Patient Records regulations: The Federal rules restrict any use of the information to criminally investigate or prosecute any alcohol or drug abuse patient.[facility] HospitalIn the event this information is protected by the Federal Confidentiality of Alcohol and Drug Abuse Patient Records regulations: The Federal rules restrict any use of the information to criminally investigate or prosecute any alcohol or drug abuse patient.[facility] HospitalIn the event this information is protected by the Federal Confidentiality of Alcohol and Drug Abuse Patient Records regulations: The Federal rules restrict any use of the information to criminally investigate or prosecute any alcohol or drug abuse patient.[facility] HospitalIn the event this information is protected by the Federal Confidentiality of Alcohol and Drug Abuse Patient Records regulations: The Federal rules restrict any use of the information to criminally investigate or prosecute any alcohol or drug abuse patient.[facility] HospitalIn the event this information is protected by the Federal Confidentiality of Alcohol and Drug Abuse Patient Records regulations: The Federal rules restrict any use of the information to criminally investigate or prosecute any alcohol or drug abuse patient.[facility] HospitalIn the event this information is protected by the Federal Confidentiality of Alcohol and Drug Abuse Patient Records regulations: The Federal rules restrict any use of the information to criminally investigate or prosecute any alcohol or drug abuse patient.[facility] Care Teams (unrecognized sec tion and content) Counter Waitress/Waiter Relationship Specialty Start Date End Date Abel Michele MD [address] [place] [address] PCP - General Family Practice 02/24/12 [facility] [address] [place] [address] Pharmacist Pharmacy 06/29/18 Counter Waitress/Waiter Relationship Specialty Start Date End Date Abel Michele MD [address] [place] [address] PCP - General Family Practice 02/24/12 [facility] [address] [place] [address] Pharmacist Pharmacy 06/29/18 Counter Waitress/Waiter Relationship Specialty Start Date End Date Abel Michele MD [address] [place] [address] PCP - General Family Practice 02/24/12 [facility] [address] [facility] [place] [address] Pharmacist Pharmacy 06/29/18 Counter Waitress/Waiter Relationship Specialty Start Date End Date Abel Michele MD [address] [place] [address] PCP - General Family Practice 02/24/12 JohnnieMarisela, [facility] [address] [place] [address] Pharmacist Pharmacy 06/29/18 Counter Waitress/Waiter Relationship Specialty Start Date End Date Abel Michele MD [address] [place] [address] PCP - General Family Practice 02/24/12 JohnnieMarisela, [facility] [address] [place] [address] Pharmacist Pharmacy 06/29/18 Counter Waitress/Waiter Relationship Specialty Start Date End Date Abel Michele MD [address] [facility] [place] [address] PCP - General Family Practice 02/24/12 Reeds SpringMarisela, [facility] [address] [place] [address] Pharmacist Pharmacy 06/29/18 Counter Waitress/Waiter Relationship Specialty Start Date End Date Abel Michele MD [address] [place] [address] PCP - General Family Practice 02/24/12 JohnnieMarisela, [facility] [address] [place] [address] Pharmacist Pharmacy 06/29/18 Counter Waitress/Waiter Relationship Specialty Start Date End Date Abel Michele MD [address] [facility] [place] [address] PCP - General Family Medicine 02/24/12 Reeds SpringMarisela, [facility] [address] [place] [address] Pharmacist Pharmacy 06/29/18 Counter Waitress/Waiter Relationship Specialty Start Date End Date Abel Michele MD [address] [place] [address] PCP - General Family Medicine 02/24/12 JohnnieMarisela, [facility] [address] [place] [address] Pharmacist Pharmacy 06/29/18 Counter Waitress/Waiter Relationship Specialty Start Date End Date Abel Michele MD [address] [place] [address] PCP - General Family Medicine 02/24/12 [place], Marisela, [facility] [address] [place] [address] Pharmacist Pharmacy 06/29/18 Counter Waitress/Waiter Relationship Specialty Start Date End Date Abel Michele MD [address] [place] [address] PCP - General Family Medicine 02/24/12 JohnnieMarisela, [facility] [address] [place] [address] Pharmacist Pharmacy 06/29/18 Counter Waitress/Waiter Relationship Specialty Start Date End Date Abel Michele MD [address] [place] [address] PCP - General Family Medicine 02/24/12 [place] Marisela, [facility] [address] [place] [address] Pharmacist Pharmacy 06/29/18 Counter Waitress/Waiter Relationship Specialty Start Date End Date Abel Michele MD [address] [place] [address] PCP - General Family Medicine 02/24/12 JohnnieMarisela, [facility] [address] [place] [address] Pharmacist Pharmacy 06/29/18 Counter Waitress/Waiter Relationship Specialty Start Date End Date Abel Michele MD [address] [place] [address] PCP - General Family Medicine 02/24/12 Reeds SpringFarrahMarisela, [facility] [address] [place] [address] Pharmacist Pharmacy 06/29/18 Counter Waitress/Waiter Relationship Specialty Start Date End Date Abel Michele MD [address] [place] [address] PCP - General Family Medicine 02/24/12 Reeds SpringMarisela, [facility] [address] [place] [address] Pharmacist Pharmacy 06/29/18 Counter Waitress/Waiter Relationship Specialty Start Date End Date Abel Michele MD [address] [place] [address] PCP - General Family Medicine 02/24/12 JohnnieMarisela, [facility] [address] [place] [address] Pharmacist Pharmacy 06/29/18 Counter Waitress/Waiter Relationship Specialty Start Date End Date Abel Michele MD [address] [place] [address] PCP - General Family Medicine 02/24/12 Reeds SpringFarrahMarisela, [facility] [address] [place] [address] Pharmacist Pharmacy 06/29/18 Counter Waitress/Waiter Relationship Specialty Start Date End Date Abel Michele MD [address] [place] [address] PCP - General Family Medicine 02/24/12 JohnnieMarisela, [facility] [address] [place] [address] Pharmacist Pharmacy 06/29/18 Counter Waitress/Waiter Relationship Specialty Start Date End Date Abel Michele MD [address] [place] [address] PCP - General Family Medicine 02/24/12 Reeds SpringMarisela, [facility] [address] [place] [address] Pharmacist Pharmacy 06/29/18 Counter Waitress/Waiter Relationship Specialty Start Date End Date Abel Michele MD [address] [place] [address] PCP - General Family Medicine 02/24/12 Reeds SpringMarisela, [facility] [address] [place] [address] Pharmacist Pharmacy 06/29/18 Counter Waitress/Waiter Relationship Specialty Start Date End Date Abel Michele MD [address] [place] [address] PCP - General Family Medicine 02/24/12 Marisela [place], [facility] [address] [place] [address] Pharmacist Pharmacy 06/29/18 Counter Waitress/Waiter Relationship Specialty Start Date End Date Abel Michele MD [address] [address] [place] [address] PCP - General Family Medicine 02/24/12 JohnnieMarisela, [facility] [address] [place] [address] Pharmacist Pharmacy 06/29/18 Counter Waitress/Waiter Relationship Specialty Start Date End Date Abel Michele MD [address] [facility] [place], [place] [id number] PCP - General Family Medicine 02/24/12 Marisela Blair, [facility] [address] [facility] [address] Pharmacist Pharmacy 06/29/18 Counter Waitress/Waiter Relationship Specialty Start Date End Date Abel Michele MD [address] [facility] [place], [place] [id number] PCP - General Family Medicine 02/24/12 Johnnie, Marisela, [facility] [address] [facility] [place], [place] [id number] Pharmacist Pharmacy 06/29/18 Reason for Visit (unrecogniz ed section and content) Reason Comments Follow Up Reason Comments Refill Request Reason Onset Date Comments Refill Request 04/03/2022 Reason Onset Date Comments Refill Request 04/30/2022 Reason Onset Date Comments Refill Request 06/16/2022 Reason Comments Received Outside Medical Records EKG [facility] Reason Comments Sore Throat Vomiting, cough, sor e throat, fatigue x 4 days Reason Comments Results Reason Comments f/u Diabetes, forgetfuln ess, episodes of diarrhea Reason Comments Received Outside Medical Records [facility] Bilateral Screening Mammogram 09/07/2022 Reason Onset Date Comments Refill Request 09/15/2022 Reason Comments Swollen Lymph Node L sided swollen lymp h node with throat and neck pain x5 days Reason Comments Received Outside Medical Records [facility] O[facility] Eye exam 09/22/2022 Reason Comments Swollen Glands Reason Onset Date Comments Refill Request 09/30/2022 Reason Comments Received Outside Medical Records Orders [facility] OT Reason Comments Received Outside Medical Records [facility] OT [facility] Discharge summary 10/29/2022 Reason [...] BE BASED ON THE PRIMARY CLINICAL RECORDS. [employer] [facility]. provides no warranty or guarantee of the accuracy or completeness of information in this document.
[2023-11-06 14:23] LABS: Bedside Glucose 263 mg/dL (74-106)
--- NOTE | 2023-11-06 14:51 | EDS_ITS ---
HPI <YANELIS Mendoza - Last Filed: 11/06/23 17:15> History of Present Illness Chief Complaint: Abd Pain Narrative Narrative: Patient is a 78-year-old female with history of hypertension, hyperlipidemia, diabetic who presents to the emergency department complaints of 4 days of nausea, vomiting, diarrhea. Patient denies any recent biotic use, patient states that she is having difficulty keeping her medications down for the last 4 days. Patient denies any blood in her stool or vomit. Patient denies any specific abdominal pain, states to feel generalized cramping sensation. Patient states that her also has diarrhea however no vomiting. She is here for evaluation. [facility] <YANELIS Mendoza - Last Filed: 11/06/23 17:15> [facility] Medical History (Updated 11/14/23 @ 00:00 by Krishna Carlin) Asthma bone fractures Celiac disease Diabetes Essential tremor Gastrointestinal problem History of back problems Hypertension Lichen sclerosus Osteopenia Home Medications atenolol 100 mg tablet 100 mg PO DAILY 06/13/18 [History Last Taken Unknown] clobetasol 0.05 % topical ointment 1 applic topical BID PRN Itching 06/13/18 [History Last Taken Unknown] glipizide 10 mg tablet 10 mg PO DAILY 06/13/18 [History Last Taken Unknown] loperamide 2 mg capsule (Imodium A-D) 2 mg PO Q1-4H PRN Diarrhea 06/13/18 [History Last Taken Unknown] multivitamin 1 tab PO DAILY 06/13/18 [History Last Taken Unknown] primidone 50 mg tablet 150 mg PO BID 06/13/18 [History Last Taken Unknown] insulin glargine 100 unit/mL (3 mL) subcutaneous pen (Basaglar KwikPen U-100 Insulin) 22 unit subcut DAILY 06/15/19 [History Last Taken Unknown] gabapentin 300 mg capsule 300 mg PO TID 05/02/20 [History Last Taken Unknown] meloxicam 15 mg tablet 15 mg PO DAILY 05/02/20 [History Last Taken Unknown] dulaglutide 0.75 mg/0.5 mL subcutaneous pen injector (Trulicity) 0.75 mg subcut QWEEK 12/17/21 [History Last Taken Unknown] estradiol 0.01% (0.1 mg/gram) vaginal cream See Rx Instructions vaginal .COMPLEX #42.5 grams 12/17/21 [Rx Last Taken Unknown] dicyclomine 20 mg tablet 20 mg PO BID #20 tabs 11/06/23 [Rx Last Taken Unknown] ondansetron 4 mg disintegrating tablet 4 mg PO Q8H PRN PRN Nausea #10 tabs 11/06/23 [Rx Last Taken Unknown] Allergy/AdvReac Type Severity Reaction Status Date / Time dapagliflozin [From Farxiga] Allergy Intermediate Other Verified 11/06/23 13:55 levofloxacin [From Levaquin] Allergy Mild severe Verified 11/06/23 13:55 joint issues Sulfa (Sulfonamide Allergy Mild stopped Verified 11/06/23 13:55 Antibiotics) breathing morphine AdvReac Vomiting Verified 11/06/23 13:55 Family History Father Lung cancer Diabetes Mother Heart disease Diabetes Surgical History (Updated 04/22/22 @ 21:35 by Noreen Friedman RN) H/O colonoscopy H/O esophagogastroduodenoscopy History of bilateral knee replacement History of hysterectomy Hx of cholecystectomy S/P breast biopsy s/p right arm surgery Social History Smoking Status: Never smoker alcohol intake: never substance use type: does not use caffeine: Yes what type of physical activity do you participate in: walking frequency: daily seatbelt use: always do you feel safe at home: Yes additional social history: [employer] employed Patient is retired ROS <YANELIS Mendoza - Last Filed: 11/06/23 17:15> ROS ED ROS Narrative Constitutional: No fever, no chills. Positive for generalized weakness HEENT: No sore throat. No neck pain. No loss of vision. No rhinorrhea. Cardiovascular: No chest pain. No palpitations. No pedal edema. Respiratory: No cough, no shortness of breath. Abdominal: Positive for generalized abdominal cramping, nausea, vomiting, diarrhea Genitourinary: No dysuria. No hematuria. Musculoskeletal: No myalgias. No arthralgias. Neurologic: No headaches. No dizziness. No lightheadedness. Skin: No rash. No change in color. Psychiatric: No depression. No anxiety. EXAM <YANELIS Mendoza - Last Filed: 11/06/23 17:15> Physical Exam Narrative Exam Narrative: Afebrile. Vital signs noted. HEENT: Normocephalic. Atraumatic. PERRL, EOMI. Neck soft and supple. No point tenderness or step off. Dry mucous membranes Cardiovascular: Regular rate and rhythm. No murmurs, rubs, or gallops appreciated. Respiratory: No tachypnea. Lungs clear to auscultation bilaterally. Gastrointestinal: Abdomen soft, nontender, with normoactive bowel sounds. No rebound or guarding. Active bowel sounds, no peritoneal signs Neurological: Awake. Alert. Nonfocal, nonlateralizing. Skin: No rash. Normal color. No pallor. Musculoskeletal: No pedal edema. Full range of motion extremities. Const Vital Signs: 11/06/23 13:55 Temperature 99 F Temperature Source Temporal Pulse Rate 76 Respiratory Rate 14 Blood Pressure 162/96 H Blood Pressure Mean 118 Pulse Ox 99 Oxygen Delivery Method Room Air <Dr. Wesly Huang DO - Last Filed: 11/06/23 21:23> Physical Exam Const Vital Signs: 11/06/23 13:55 Temperature 99 F Temperature Source Temporal Pulse Rate 76 Respiratory Rate 14 Blood Pressure 162/96 H Blood Pressure Mean 118 Pulse Ox 99 Oxygen Delivery Method Room Air [facility] <YANELIS Mendoza - Last Filed: 11/06/23 17:15> [facility] Lab Data Labs: Laboratory Results - last 24 hr 11/06/23 11/06/23 14:02 14:09 WBC 7.8 RBC 4.91 Hgb 15.0 Hct 45.3 MCV 92.3 MCH 30.5 MCHC 33.1 RDW Std Deviation 43.5 RDW Coeff of Gopal 12.8 Plt Count 206 MPV 11.3 Immature Gran % (Auto) 0.400 Neut % (Auto) 78.1 H Lymph % (Auto) 12.2 L [place] % (Auto) 8.5 Eos % (Auto) 0.5 Baso % (Auto) 0.3 Absolute Neuts (auto) 6.1 Absolute Lymphs (auto) 0.95 Nucleated RBC % 0 Sodium 137 Potassium 4.0 Chloride 109 H Carbon Dioxide 21.0 Anion Gap 7 BUN 31 H Creatinine 1.10 H Estim Creat Clear Calc 49.34 Est GFR (MDRD) Af Amer 62 Est GFR (MDRD) Non-Af 51 L BUN/Creatinine Ratio 28.2 H Glucose 251 H Calcium 9.6 Total Bilirubin 0.50 AST 28 ALT 44 Alkaline Phosphatase 66 Total Protein 7.1 Albumin 3.5 Globulin 3.6 Albumin/Globulin Ratio 1.0 Lipase 32 POC Glucose 263 H Treatment and Re-Evaluation :: Patient appears generally well, patient appears nontoxic, vital signs are stable. Patient presents to the emergency department with complaints of nausea, vomiting, and diarrhea that been ongoing for the last 4 days. Differential diagnose includes gastroenteritis, COVID-19, viral-like illness, C. difficile, dehydration. Patient will receive some basic laboratory values, concerning for any leukocytosis, electrolyte abnormalities. COVID 19/RSV/influenza will be completed. Patient given 1 L of normal saline, IV Zofran, IM Bentyl. Patient will be reevaluated. Patient on reevaluation was feeling much better. Patient's laboratory values show a normal CBC, patient's chemistry shows slight renal insufficiency with a creatinine of 1.10, patient's baseline is 0.8. This is only slightly elevated. Patient's blood glucose was 251. Lipase was negative. Patient's rapid COVID-19 influenza RSV was negative. At this time, I do the patient stable for disc harge. Patient was able to pass a p.o. challenge. Patient be given a prescription for Zofran, Bentyl. Instructed return for any worsening symptoms. Patient was follow the brat diet, instructed return for any worsening symptoms. <Dr. Wesly Huang, DO - Last Filed: 11/06/23 21:23> [facility] Narrative Medical decision making narrative: Patient appears generally well, patient appears nontoxic, vital signs are stable. Patient presents to the emergency department with complaints of nausea, vomiting, and diarrhea that been ongoing for the last 4 days. Differential diagnose includes gastroenteritis, COVID-19, viral-like illness, C. difficile, dehydration. Patient will receive some basic laboratory values, concerning for any leukocytosis, electrolyte abnormalities. COVID 19/RSV/influenza will be completed. Patient given 1 L of normal saline, IV Zofran, IM Bentyl. Patient will be reevaluated. Patient on reevaluation was feeling much better. Patient's laboratory values show a normal CBC, patient's chemistry shows slight renal insufficiency with a creatinine of 1.10, patient's baseline is 0.8. This is only slightly elevated. Patient's blood glucose was 251. Lipase was negative. Patient's rapid COVID-19 influenza RSV was negative. At this time, I do the patient stable for discharge. Patient was able to pass a p.o. challenge. Patient be given a prescription for Zofran, Bentyl. Instructed return for any worsening symptoms. Patient was follow the brat diet, instructed return for any worsening symptoms. This patient was seen with a PA/WATER WELL DRILLER Individually assessed they patient including history and physical. I have reviewed everything on the chart that is available and agree with the documentation provided by the PA/WATER WELL DRILLER including discussion about the assessment, treatment plan, discussion, and return precautions. Patient presenting with nausea, vomiting, diarrhea, abdominal pain. She feels better after being treated. Viral testing were negative. Labs were normal. Patient was able to tolerate a p.o. challenge. Patient discharged home with Zofran and Bentyl. Return precautions were discussed. Lab Data Labs: Laboratory Results - last 24 hr 11/06/23 11/06/23 14:02 14:09 WBC 7.8 RBC 4.91 Hgb 15.0 Hct 45.3 MCV 92.3 MCH 30.5 MCHC 33.1 RDW Std Deviation 43.5 RDW Coeff of Gopal 12.8 Plt Count 206 MPV 11.3 Immature Gran % (Auto) 0.400 Neut % (Auto) 78.1 H Lymph % (Auto) 12.2 L [place] % (Auto) 8.5 Eos % (Auto) 0.5 Baso % (Auto) 0.3 Absolute Neuts (auto) 6.1 Absolute Lymphs (auto) 0.95 Nucleated RBC % 0 Sodium 137 Potassium 4.0 Chloride 109 H Carbon Dioxide 21.0 Anion Gap 7 BUN 31 H Creatinine 1.10 H Estim Creat Clear Calc 49.34 Est GFR (MDRD) Af Amer 62 Est GFR (MDRD) Non-Af 51 L BUN/Creatinine Ratio 28.2 H Glucose 251 H Calcium 9.6 Total Bilirubin 0.50 AST 28 ALT 44 Alkaline Phosphatase 66 Total Protein 7.1 Albumin 3.5 Globulin 3.6 Albumin/Globulin Ratio 1.0 Lipase 32 POC Glucose 263 H Discharge Plan Triage Chief Complaint: Abd Pain ED Midlevel Provider: Solitario Kay ED Provider: Wesly Huang Dx/Rx/DC Orders Clinical Impression: Mild nausea and vomiting, Gastroenteritis Instructions: ED Gastritis (Adult), ED Vomiting (Adult) Prescriptions: New ondansetron 4 mg tablet,disintegrating 4 mg PO Q8H PRN PRN (Reason: Nausea) Qty: 10 0RF dicyclomine 20 mg tablet 20 mg PO BID Qty: 20 0RF No Action glipizide 10 mg tablet 10 mg PO DAILY atenolol 100 mg tablet 100 mg PO DAILY primidone 50 mg tablet 150 mg PO BID multivitamin tablet 1 tab PO DAILY loperamide [Imodium A-D] 2 mg capsule 2 mg PO Q1-4H PRN (Reason: Diarrhea) clobetasol 0.05 % ointment 1 applic TOPICAL BID PRN (Reason: Itching) Basagldimas KwikEspinoza U-100 Insulin 100 unit/mL (3 mL) insulin pen 22 unit SC DAILY Trulicity 0.75 mg/0.5 mL pen injector 0.75 mg subcut QWEEK estradiol 0.01 % (0.1 mg/gram) cream See Rx Instructions vaginal .COMPLEX Qty: 42.5 2RF Rx Instructions: small amount as directed vaginal every other day X 4 weeks then twice a week; meloxicam 15 MG tablet 15 mg PO DAILY gabapentin 300 MG capsule 300 mg PO TID Primary Care Provider: Juan Luis Austin Referrals: Juan Luis Austin MD [Primary Care Provider] - Activity Restrictions/Additional Instructions: Advance her diet as tolerated. Clear liquids, use the medicines as needed. Disposition Disposition: Home, Self Care Discharge Date/Time: 11/06/23 17:22
[2023-11-06] MEDS: Ondansetron 4 MG/2 ML Vial IV (15:13)
[2023-11-06] MEDS: 0.9% Normal Saline (1000mL) 1,000 ML 1000 ML IV (15:13)
[2023-11-06] MEDS: Dicyclomine 20 MG/2 ML Vial IM (15:16)
[2023-11-06 15:22] LABS: Absolute Lymphocyte Count 0.95 X10^3/uL (0.83-4.51); Absolute Neutrophil Count 6.1 X10^3/uL (2.0-7.7); Basophil# 0.02 X10^3/uL; Basophil% 0.3 % (0-1); Eosinophil# 0.04 X10^3/uL; Eosinophils% 0.5 % (0-5); Hematocrit 45.3 % (37-47); Lymphocyte # 0.95 X10^3/ul (0.83-4.51); Lymphocyte % 12.2 % (19-41); Mean Corp Hgb Conc 33.1 g/dL (32-36); Mean Corpuscular Hgb 30.5 pg (27.0-32.0); Mean Corpuscular Volume 92.3 fL (81-99); Mean Platelet Vol. 11.3 fl (6.2-12.0); Monocyte# 0.66 X10^3/uL; Monocyte% 8.5 % (0-10); NRBC Flagged by Analyzer 0 % (0-5); Neutrophil % 78.1 % (47-70); Platelet Count 206 K/mm3 (150-450); RBC Distribution Width CV 12.8 % (11.6-14.6); RBC Distribution Width SD 43.5 fl (35.1-43.9); Red Blood Count 4.91 M/mm3 (4.2-5.4); White Blood Count 7.8 K/mm3 (4.4-11.0)
[2023-11-06 15:38] LABS: AST(SGOT) 28 U/L (15-37); Alanine Aminotransfer ALT/SGPT 44 U/L (13-56); Albumin, Serum 3.5 g/dL (3.2-5.0); Alkaline Phosphatase 66 U/L (45-117); Anion Gap 7 (5-15); BUN 31 mg/dL (7-18); BUN/Creat Ratio 28.2 RATIO (10-20); Calcium,Total 9.6 mg/dL (8.5-10.1); Chloride 109 mmol/L (98-107); EST Glomerular Filtration Rate 51 mL/min (>60); Est Glom Filt Rate - Afr Amer 62 mL/min (>60); Estimated Creatinine Clearance 49.34 ml/min; Globulin 3.6 g/dL (2.2-4.2); Glucose 251 mg/dL (74-106); Lipase 32 U/L (13-75); Protein, Total 7.1 g/dL (6.4-8.2); Sodium Level 137 mmol/L (136-145)
== END 2023-11-06 17:22 | disposition home or self-care (01) ==
PROVIDERS: Nurse Practitioner; Emergency Provider Student in an Organized Health Care Education/Training Program; PCP Family Medicine; Visit Provider Student in an Organized Health Care Education/Training Program
DX: K52.9 Noninfective gastroenteritis and colitis, unspecified (principal); E11.9 Type 2 diabetes mellitus without complications; N28.9 Disorder of kidney and ureter, unspecified; E86.0 Dehydration; I10 Essential (primary) hypertension; E78.5 Hyperlipidemia, unspecified; J45.909 Unspecified asthma, uncomplicated
CPT/HCPCS: 80053; 82962; 83690; 85025; 87631; 96361; 96372; 96374; 99283; J2405

== ENCOUNTER 2024-09-18 12:30 | Outpatient (RCR) | payer MEDICARE, OTHER, SELFPAY ==
--- NOTE | 2024-08-15 13:46 | HP.PTEVAL ---
Patient's Visit Information Visit Information Visit Information: KRUPA OBRIEN is a 79 year old F referred to Physical Therapy by Dr. Nirmala Kimbrough MD with a diagnosis of Impaired functional mobility, balance, gait, endurance. Date of Evaluation: 08/15/24 Physical Therapist: CLEVE Olea Visit Plan Frequency: 2x /Week Duration: 2 Months Plan: 2X/ week for 8 weeks for balance training with foam/no foam, EC/EO, gait with head turns, stretch gastroc and strengthening of DF B, functional transfers with HEP HEP: standing heel and toe raises Subjective Subjective: Pt has some decompressed Fx in L spine and at the neck. She went to see Dr Kimbrough and she did not like the way she was walking and so she sent her here to PT. She is retired and can do most things at home. If she goes and gets groceries then her back gets bad. They have a house with 4 levels and going up and down the steps with groceries or laundry is tough. She has rails on all steps. She did fall about 2 weeks ago when she got tangled up in the dogs lead with her arms full. She was able to get back up with the help of her . She does feel off balance every once in awhile. She volunteers at the [employer]. She does not use an AD Objective Objective: Discussed having 2-3 year old crawl into lap and then stand up instead of lifting them at [employer]. Sit to stand: she is able to get up without arms on first attempt but it is a struggle. LE MMT: R hip flex 5.8 and L 6 R knee ext 13.8 and 9.6 R knee flex 8.8 and L 7.4 Gait: Walks with shorter stride and slight increase veering. CATSIB: 115/120 FGA: 10 Stairs: up and down steps with 1 hand rail recip with CGA Standing heel and toe raises: pt has decreased toe raise ability but does well with PF B Balance/Special Test Scores Functional Gait Assessment Score: 10 % Disability: 66.6700 CATSIB Score (Max score 120 seconds): 115 Lower Extremity Functional Score: 39 Goals Goal 1:: I HEP Goal Time Frame: 6-8 Weeks Goal 2:: Increase balance (FGA at eval 10) Goal Time Frame: 6-8 Weeks Goal 3:: Increase CATSIB to 120/120 (At eval: 115/120) Goal Time Frame: 6-8 Weeks Goal 4:: Be able to complete 3 X 10 standing toe raises with 1 UE Goal Time Frame: 6-8 Weeks Goal 5:: Be able to sit to stand 2 X 10 with no UE support to be able to get out of her puffy couch at home Goal Time Frame: 6-8 Weeks Goal 6:: Be able to walk with vertical and horizontal head turns with CGA without veering Goal Time Frame: 6-8 Weeks Rehabilitation Potential Rehabilitation Potential: Good Anticipated Interventions Patient/Client Instruction: Educate patient on: Condition and Plan of Care For the Purpose of:: To increase ROM, To improve nutrient delivery to tissue, To improve muscle performance and motor function, To improve ability to perform ADL's, To increase tolerance to activity/condition/position, To improve performance and independence with ADL's, To decrease level of supervision to perform tasks, To improve gait and locomotor functions, To improve health of tissue, To decrease soft tissue restriction, To increase flexibility/ROM, To improve endurance, To improve balance and To improve safety with gait Therapeutic Exercise to Include: Strength training, Endurance training, Balance training, Postural training, Flexibilty training, Gait and locomotor training and Passive ROM For the Purpose of:: To improve muscle performance and motor function, To improve ability to perform ADL's, To increase tolerance to activity/condition/position, To improve performance and independence with ADL's, To decrease level of supervision to perform tasks, To improve ability of physical actions for home/community/work/leisure, To improve gait and locomotor functions, To improve health of tissue, To decrease soft tissue restriction, To increase flexibility/ROM, To improve endurance, To improve balance and To improve safety with gait Functional Training to Include: Gait training For the Purpose of:: To improve gait and locomotor functions and To improve safety with gait Text: Thank you for the opportunity to evaluate your patient. For Medicare and Medicare HMO plans, please review the plan of care and approve it. It will need to be FAXED BACK to us at [phone] for Medicare purposes. For Medicare only, by signing this I certify the plan of care. Please let me know if there are questions or concerns regarding this plan of care. Physician Signature: Date:
--- NOTE | 2024-09-18 13:08 | HP.PTDCSUM ---
Discharge Summary D/C summary: It has been my pleasure to treat KRUPA OBRIEN referred by Dr. Nirmala Kimbrough MD, with the diagnosis of Impaired functional mobility, balance, gait, endurance for a total of 9 visit(s). Discharge Date: 09/18/24 Please see the following information for a summary of their discharge status. Subjective Subjective: Pt feels that she is a little better. Pt reports that every once in awhile her foot catches and she feels that she will fall FW. She has not fallen Forward. She has slowed down going up and down steps. Overall Improvement % Improvement: 50 Objective Objective/Function: CATSIB 120/120 FGA: 15 Gait: Walks with wider AMEENA and decreased overall stide length but no veering and good heel to toe Goals Goal 1:: I HEP Goal Progress: Goal Met Goal 2:: Increase balance (FGA at eval 10) Goal Progress: Goal Met Goal 3:: Increase CATSIB to 120/120 (At eval: 115/120) Goal Progress: Goal Met Goal 4:: Be able to complete 3 X 10 standing toe raises with 1 UE Goal Progress: Goal Met Goal 5:: Be able to sit to stand 2 X 10 with no UE support to be able to get out of her puffy couch at home Goal Progress: Goal Met Goal 6:: Be able to walk with vertical and horizontal head turns with CGA without veering Goal Progress: Goal Met Plan Plan: DC PT to HEP D/C Information Discharge Comments: DC PT to HEP d/c sentence: If there are questions or concerns regarding this patient's physical therapy, please feel free to call me at [phone]. Thank you for the referral of this patient. Sincerely, Renetta Contreras, MPT Balance/Gait/Functional tests Balance/Special Test Scores Functional Gait Assessment Score: 15 % Disability: 50.0000 CATSIB Score (Max score 120 seconds): 115 Lower Extremity Functional Score: 58 Improvement % Improvement: 50
== END 2024-09-18 19:00 | disposition home or self-care (01) ==
LOC: PT 12:30
PROVIDERS: PCP Family Medicine; Visit Provider Internal Medicine
DX: G25.0 Essential tremor (principal); Z74.09 Other reduced mobility
CPT/HCPCS: 97110; 97161; 97530

== ENCOUNTER 2025-06-06 13:05 | Inpatient (IN) | payer MEDICARE, OTHER, SELFPAY ==
[2025-06-06] VITALS (26 sets, daily range): BP systolic 92–140; BP diastolic 59–99; PULSE 71–164; RESP 12–25; TEMP 35.5–36.8; O2SAT 96–98; BMI 27.6; BMI 26.6
--- NOTE | 2025-06-06 13:28 | RAD_ITS ---
PROCEDURE: CHEST 1 VIEW (PORTABLE) 06/06/2025 REASON FOR EXAM: CHEST PAIN TECHNIQUE: Frontal view of the chest. COMPARISON: 05/02/2020 FINDINGS: No focal consolidation. No pleural effusion or pneumothorax. Cardiac silhouette is within normal limits. Multilevel right posterior rib fractures, likely chronic RAD/Chest 1 View (Portable) IMPRESSION: No focal consolidations. Multilevel right posterior rib fractures, likely chronic Reading [id number]
[2025-06-06 13:52] LABS: Hematocrit 43.4 % (37-47); Hemoglobin 14.5 g/dL (12.0-15.0); Immature Granulocytes Count 0.030 X10^3/uL (0.0-0.0); Mean Corp Hgb Conc 33.4 g/dL (32-36); Mean Corpuscular Volume 91.4 fL (81-99); Mean Platelet Vol. 10.4 fl (6.2-12.0); NRBC Flagged by Analyzer 0 % (0-5); POSITIVE MORPHOLOGY YES; Platelet Count 204 K/mm3 (150-450); RBC Distribution Width CV 12.2 % (11.6-14.6); RBC Distribution Width SD 40.9 fl (35.1-43.9); Red Blood Count 4.75 M/mm3 (4.2-5.4); White Blood Count 7.9 K/mm3 (4.4-11.0)
[2025-06-06 13:57] LABS: Differential Indicated SCAN CRITERIA MET
--- NOTE | 2025-06-06 14:08 | ED.VIS.CHEST ---
HPI History of Present Illness Chief Complaint: Chest Pain Informant: patient Onset/Context/Timing Onset: Today Activity at onset: sudden, activity on onset and sleep Timing: Continuous Quality: Positive for Pressure Location: Substernal Worsened By: Nothing Relieved By: Nothing Associated Symptoms: Positive for Nausea, Vomiting, Diaphoresis, Dyspnea, Lightheadedness and Palpitations; Negative for Cough, Fever or Acid Reflux Narrative Narrative: Patient presents with chest pain that began today. Patient states that over the past several days, she has been feeling weak and having shortness of breath. Patient describes her pain as a pressure. Patient relates it is over the substernal area. Patient admits to some shortness of breath and diaphoresis. Patient states she felt her heart racing when she woke up this morning. Patient states she has been having some nausea, vomiting, and diarrhea over the past several days. Patient denies any history of atrial fibrillation or cardiac dysrhythmia. CVD Risk Factors: Positive for Hypertension and Diabetes; Negative for Hypercholesterolemia, Family History 1' </=55 or Smoking PE Risk Factors: Negative for Recent Travel/Surgery, Recent Immobilization, Prior DVT or PE, Cancer or OCP + Smoking + >/=35 [facility] Medical History Lichen sclerosus Osteopenia Hypertension Gastrointestinal problem Essential tremor Celiac disease Diabetes bone fractures History of back problems Asthma Home Medications ?Medication ?Instructions ?Recorded ?Last Taken ?Type atenolol 100 mg tablet 100 mg PO DAILY 06/13/18 Unknown History clobetasol 0.05 % topical ointment 1 applic topical BID PRN Itching 06/13/18 Unknown History glipizide 10 mg tablet 10 mg PO DAILY 06/13/18 Unknown History loperamide 2 mg capsule (Imodium 2 mg PO Q1-4H PRN Diarrhea 06/13/18 Unknown History A-D) multivitamin 1 tab PO DAILY 06/13/18 Unknown History primidone 50 mg tablet 150 mg PO BID 06/13/18 Unknown History insulin glargine 100 unit/mL (3 22 unit subcut DAILY 06/15/19 Unknown History mL) subcutaneous pen (Basaglar KwikPen U-100 Insulin) gabapentin 300 mg capsule 300 mg PO TID 05/02/20 Unknown History meloxicam 15 mg tablet 15 mg PO DAILY 05/02/20 Unknown History dulaglutide 0.75 mg/0.5 mL 0.75 mg subcut QWEEK 12/17/21 Unknown History subcutaneous pen injector (Trulicity) estradiol 0.01% (0.1 mg/gram) See Rx Instructions vaginal 12/17/21 Unknown Rx vaginal cream .COMPLEX #42.5 grams dicyclomine 20 mg tablet 20 mg PO BID #20 tabs 11/06/23 Unknown Rx ondansetron 4 mg disintegrating 4 mg PO Q8H PRN PRN Nausea #10 tabs 11/06/23 Unknown Rx tablet Allergy/AdvReac Type Severity Reaction Status Date / Time dapagliflozin (From Farxiga) Allergy Intermediate Other Verified 06/06/25 13:10 levofloxacin (From Levaquin) Allergy Mild severe Verified 06/06/25 13:10 joint issues Sulfa (Sulfonamide Allergy Mild stopped Verified 06/06/25 13:10 Antibiotics) breathing morphine AdvReac Vomiting Verified 06/06/25 13:10 Family History Father Lung cancer Diabetes Mother Heart disease Diabetes Surgical History History of bilateral knee replacement s/p right arm surgery H/O esophagogastroduodenoscopy H/O colonoscopy S/P breast biopsy Hx of cholecystectomy History of hysterectomy Social History Smoking Status: Never smoker alcohol intake: never substance use type: does not use caffeine: Yes what type of physical activity do you participate in: walking frequency: daily seatbelt use: always do you feel safe at home: Yes additional social history: [id number] employed Patient is retired ROS ROS ED Constitutional Constitutional ED: Denies chills or fever(s) Eyes Eyes: Denies blurry vision or change in vision ENT ENT ED: Denies rhinorrhea or sore throat Cardiovascular Cardiovascular: Reports chest pain and palpitations Respiratory/Chest Respiratory/Chest: Reports dyspnea; Denies cough Gastrointestinal Gastrointestinal: Reports diarrhea, nausea and vomiting Genitourinary Genitourinary ED: Denies dysuria or hematuria Musculoskeletal Musculoskeletal: Denies back pain or neck pain Integumentary Denies abscess or rash Neurologic Neurologic: Denies headache(s) or weakness Allergic/Immunologic Allergic/Immunologic ED: Denies mouth swelling or urticaria EXAM Physical Exam Const Vital Signs: 06/06/25 13:06 06/06/25 13:09 06/06/25 13:10 Temperature 96 F L 96 F L Temperature Source Axillary Temporal Pulse Rate 164 H 162 H Respiratory Rate 25 H 18 Respiratory Effort Short of Breath Blood Pressure 96/64 92/72 Blood Pressure Mean 74 78 Pulse Ox 98 97 Oxygen Delivery Method Room Air Nasal Cannula 06/06/25 14:09 06/06/25 14:14 06/06/25 15:00 Temperature Temperature Source Pulse Rate 152 H 133 H Respiratory Rate 16 24 H Respiratory Effort Blood Pressure 104/69 98/65 Blood Pressure Mean 80 76 Pulse Ox 98 96 Oxygen Delivery Method Room Air Room Air Room Air 06/06/25 16:00 Temperature Temperature Source Pulse Rate 121 H Respiratory Rate 17 Respiratory Effort Blood Pressure 108/84 H Blood Pressure Mean 92 Pulse Ox 96 Oxygen Delivery Method Room Air Positive well nourished and well developed General Appearance ED: well developed and NAD HEENT Reports moist mucous membranes Neck supple and no JVD Resp normal respiratory effort and clear to auscultation bilaterally Cardio Rate: tachycardic Rhythm: abnormal rhythm irregularly irregular GI soft to palpation, non-tender and non-distended Extremity normal to inspection Neuro oriented x3, CN's II-XII intact bilaterally and no sensory deficits noted Sensorium / Orientation: awake and alert Motor Exam: strength 5/5 throughout Psych mental status grossly normal Heart Score History: Moderately Suspicious ECG: Nonspecific Repolarization Age: >/= 65 years Risk Factors: 1 or 2 Risk Factors Troponin: >/=3 x Normal Limit Score: 7 MDM MDM MDM Narrative Medical decision making narrative: Differential diagnosis includes cardiac dysrhythmia, cardiac ischemia, pneumonia, bronchitis, electrolyte abnormality, dehydration, pulmonary embolism, and anxiety. EKG will be obtained to assess for cardiac dysrhythmia and cardiac ischemia. Chest x-ray will be obtained to assess for pneumonia and bronchitis. CBC will be obtained to assess for leukocytosis and anemia. Basic metabolic profile will be obtained to assess for electrolyte abnormality and renal function. High-sensitivity troponin will be obtained to assess for cardiac ischemia. 2-hour repeat high-sensitivity troponin will be obtained to assess for ongoing cardiac ischemia. D-dimer will be obtained to assess for pulmonary embolism. BNP will be obtained to assess for congestive heart failure. History & Record Review Additional record(s) reviewed:: Prior outpatient record, Prior ED visit and Prior labs Lab Data Attestation: I reviewed the patient's lab results. Lab results narrative: CBC was reviewed and was within normal limits. Basic metabolic profile was reviewed. BUN was slightly elevated at 22. CO2 was slightly low at 15.4. Glucose was mildly elevated at 322. Initial high-sensitivity troponin was reviewed and was slightly elevated at 30. 2-hour repeat high-sensitivity troponin was reviewed and was elevated at 66. BNP was reviewed and was normal at 441. D-dimer was reviewed and was 0.55 which is normal for the patient's age. Labs: Laboratory Results - last 24 hr 06/06/25 06/06/25 13:42 15:20 WBC 7.9 RBC 4.75 Hgb 14.5 Hct 43.4 MCV 91.4 MCH 30.5 MCHC 33.4 RDW Std Deviation 40.9 RDW Coeff of Gopal 12.2 Plt Count 204 MPV 10.4 Immature Gran % (Auto) 0.400 Neut % (Auto) 80.4 H Lymph % (Auto) 15.2 L Zapata % (Auto) 2.8 Eos % (Auto) 0.8 Baso % (Auto) 0.4 Absolute Neuts (auto) 6.4 Absolute Lymphs (auto) 1.21 Nucleated RBC % 0 Atypical Lymphocytes 1+ D-Dimer Quant (PE/DVT) 0.55 H* Sodium 135 Potassium 3.9 Chloride 102 Carbon Dioxide 15.4 L Anion Gap 18 H BUN 22 H Creatinine 1.18 Estim Creat Clear Calc 45.65 L Est GFR (MDRD) Non-Af 47 L BUN/Creatinine Ratio 18.3 Glucose 322 H Calcium 9.2 Troponin T High Sens 30 H Troponin T Hi Sens 2 Hr 66 H* NT pro BNP II 441 Radiography Chest X-Ray - ED: 1 View, Read by ED Physician, Read by Radiologist and No Acute Disease Diagnostic Testing: Clinical Impression(s) from Imaging Studies Chest X-Ray 06/06/25 13:28 IMPRESSION: No focal consolidations. Multilevel right posterior rib fractures, likely chronic [id number] Port[facility] 1 view chest x-ray was obtained. On my independent interpretation, lung pereira are clear. There is normal cardiac silhouette. Bony thorax shows chronic right rib fractures. There is no acute process noted. Radiologist also interpreted the x-ray and agrees. EKG Initial EKG: Attestation: I personally reviewed and interpreted this EKG as follows: Interpretation: Atrial Fibrillation (151), LBBB and Non-Specific ST Changes Comments: EKG was obtained. On my independent potation, shows atrial fibrillation with a rate of 151. QRS interval was normal at 118 ms. QTc interval was 519 ms. There is left axis deviation at -36. There is a left bundle branch block pattern noted. There is criteria for left ventricular hypertrophy. There are nonspecific ST-T wave changes. Prior EKG tracings: available for review Prior: Changed (Compared to EKG dated 06/16/2022, the atrial fibrillation is new.) Management Discussion w/another healthcare provider: Hospitalist Treatment and Re-Evaluation :: Patient was given aspirin. Patient was initially given a dose of 10 mg of Cardizem. Patient heart rate remained elevated after this but her blood pressure was improving. Patient was given a repeat dose of 10 mg of Cardizem. Patient's heart rate improved into the low 100s after this. Patient's heart rate went back up into the 130s. Because of this, patient was started on a Cardizem drip. Patient was advised of her findings. Patient was advised of the need for admission to the hospital. Case was discussed with the hospitalist. He will admit the patient to his service. Patient understood and was agreeable with the plan. All questions were answered. Discharge Plan Triage Chief Complaint: Chest Pain ED Provider: Johnson Rogers Dx/Rx/DC Orders Clinical Impression: Atrial fibrillation with rapid ventricular response, Diabetes, Elevated troponin Prescriptions: No Action glipizide 10 mg tablet 10 mg PO DAILY atenolol 100 mg tablet 100 mg PO DAILY primidone 50 mg tablet 150 mg PO BID multivitamin tablet 1 tab PO DAILY loperamide [Imodium A-D] 2 mg capsule 2 mg PO Q1-4H PRN (Reason: Diarrhea) clobetasol 0.05 % ointment 1 applic TOPICAL BID PRN (Reason: Itching) Renuka Eason U-100 Insulin 100 unit/mL (3 mL) insulin pen 22 unit SC DAILY Trulicity 0.75 mg/0.5 mL pen injector 0.75 mg subcut QWEEK estradiol 0.01 % (0.1 mg/gram) cream See Rx Instructions vaginal .COMPLEX Qty: 42.5 2RF Rx Instructions: small amount as directed vaginal every other day X 4 weeks then twice a week; meloxicam 15 MG tablet 15 mg PO DAILY gabapentin 300 MG capsule 300 mg PO TID ondansetron 4 mg tablet,disintegrating 4 mg PO Q8H PRN PRN (Reason: Nausea) Qty: 10 0RF dicyclomine 20 mg tablet 20 mg PO BID Qty: 20 0RF Primary Care Provider: Nirmala Kimbrough Referrals: Nirmala Kimborugh MD [Primary Care Provider] - Print Language: Belizean Disposition Disposition: Acute Care Hospital [facility]
[2025-06-06 14:28] LABS: Anion Gap 18 (5-15); BUN 22 mg/dL (4-19); BUN/Creat Ratio 18.3 RATIO (10-20); Calcium,Total 9.2 mg/dL (7.6-11.0); Carbon Dioxide 15.4 mmol/L (21.0-32.0); Chloride 102 mmol/L (98-108); Estimated Creatinine Clearance 45.65 ml/min (50-250); Glucose 322 mg/dL (70-99); Potassium 3.9 mmol/L (3.3-5.1); Troponin T High Sensitivity 30 ng/L (<=14)
[2025-06-06 14:52] LABS: Pro- Brain NATRIURETIC PEPTIDE 441 pg/mL (<=1800)
[2025-06-06 15:20] LABS: D-Dimer Quantitative (DVT/PE) 0.55 FEU/ug/m (0.27-0.49)
[2025-06-06 16:11] LABS: Troponin T High Sens 2 HR 66 ng/L (<=14)
--- NOTE | 2025-06-06 16:44 | ECHOD_ITS ---
Reason For Study Reason For Study: ATRIAL FIB-FLUTTER Procedure This was a 2D Doppler, Color Flow transthoracic echocardiogram. Exam performed portable in patient room. Left Ventricle Normal LV size. Moderate concentric left ventricular hypertrophy. The left ventricular ejection fraction is 65 %. Stage 1 diastolic dysfunction. Right Ventricle Normal right ventricle. Atria The left atrium is mildly enlarged. Normal right atrium. Mitral Valve Moderate mitral annular calcification. Trivial mitral valve insufficiency. Tricuspid Valve Mild to moderate tricuspid valve regurgitation. Estimated RVSP 45 mmHg. Aortic Valve Trisinus/trileaflet aortic valve. There is no aortic stenosis. No aortic valve insufficiency. Pulmonic Valve The pulmonic valve is not well visualized. Great Vessels Normal sized aortic root. Pericardium/Pleural No pericardial effusion. MMode/2D Measurements & Calculations LVIDd: 3.4 cm IVSd: 1.5 cm Ao root diam: 3.2 cm LVIDs: 2.4 cm LVPWd: 1.3 cm LA dimension: 3.9 cm RVDd: 3.4 cm FS: 31.4 % LAV(MOD-bp): 49.5 ml LVAd ap4: 18.6 cm2 SV(MOD-sp4): 28.8 ml LAV(MOD-bp) Indexed: 25.4 ml/m2 LVLd ap4: 6.1 cm SI(MOD-sp4): 14.8 ml/m2 LAV(MOD-sp2): 47.2 ml EDV(MOD-sp4): 48.2 ml LAV(MOD-sp4): 49.0 ml EDV(sp4-el): 47.9 ml LVAs ap4: 10.1 cm2 LVLs ap4: 4.9 cm ESV(MOD-sp4): 19.4 ml ESV(sp4-el): 17.5 ml EF(MOD-sp4): 59.7 % EF(sp4-el): 63.5 % SV(sp4-el): 30.4 ml LA A4 area: 17.7 cm2 LA dimension(2D): 4.0 cm RA A4 area: 15.3 cm2 TAPSE: 2.4 cm Doppler Measurements & Calculations MV E max bob: 95.4 cm/sec Lat Peak E' Bob: 7.7 cm/sec Med Peak E' Bob: 6.7 cm/sec MV A max bob: 144.6 cm/sec E/E' lat: 12.4 E/E' med: 14.2 MV E/A: 0.66 MV V2 max: 158.8 cm/sec Ao V2 max: 149.4 cm/sec LV V1 max: 118.6 cm/sec MV max P.1 mmHg Ao max P.9 mmHg LV V1 max P.6 mmHg MV V2 mean: 92.5 cm/sec MV mean P.9 mmHg MV V2 VTI: 34.7 cm PA V2 max: 110.9 cm/sec TR max bob: 317.5 cm/sec TR max P.3 mmHg ECHO/Echo Complete Interpretation Summary Moderate concentric left ventricular hypertrophy. The left ventricular ejection fraction is 65 %. Stage 1 diastolic dysfunction. The left atrium is mildly enlarged. Moderate mitral annular calcification. Mild to moderate tricuspid valve regurgitation. Estimated RVSP 45 mmHg. Ordering Physician: Nasim Garcia Referring Physician: JO DOUGLAS Performed By: Demi Mays RDCS
--- NOTE | 2025-06-06 16:44 | HP.PCM.HOS_ITS ---
[facility] - General General Date of Admission: 06/06/25 Date of Service: 06/06/25 Chief Complaint: Chest pain, shortness of breath and palpitations HPI Narrative KRUPA OBRIEN, is a 80 F who presented to [facility] [place] ED on 06/06/2025 with chest pain, shortness of breath and palpitations. Patient lives at home with her , has good functional status at baseline. She was a nurse for 50 years. She was in her normal state of health until 4 days ago when she began to have nausea with vomiting and diarrhea. She has hardly been able to keep any food or drink down since then and has not taken any of her home oral medications. Notably states that she was started on Jardiance by her PCP 6 days ago, and she began to have the symptoms 2 days later. Denies any associated fever/chills or abdominal pain. Denies any recent sick contacts that she is aware of. She began to have chest pain/discomfort with some shortness of breath and palpitations this morning. Has never had symptoms like this before. She had presyncopal symptoms with ambulation and was diaphoretic with this, so she came in for further evaluation. In the ED she was found to be in new onset A- fib with RVR with heart rate to the 140s to 150s. BP was in the 90s over 60s on arrival. Troponin trend 30 > 66. BNP normal. CBC and BMP were fairly benign. She is given 2 doses of 10 mg of IV Cardizem with improvement of the rate to the 110s to 120s. She was also given a dose of full-strength aspirin. Hospitalist was then contacted for admission. I saw the patient at bedside in the ED, was present. Patient was mildly fatigued. But otherwise sitting back fairly comfortably in bed, conversing normally, in no acute distress. She noted feeling less chest pressure and palpitations now compared to earlier today. She denies any shortness of breath at rest or lower extremity swelling. Notes that her last episode of diarrhea was this morning. Still does not have much of an appetite at this point but is not nauseous. No other acute concerns currently. Will be admitted for further management. [facility] Medical History Lichen sclerosus Osteopenia Hypertension Gastrointestinal problem Essential tremor Celiac disease Diabetes bone fractures History of back problems Asthma Home Medications ?Medication ?Instructions ?Recorded ?Last Taken ?Type atenolol 100 mg tablet 50 mg PO Q12H BP 06/13/18 History clobetasol 0.05 % topical ointment 1 applic topical BI D PRN Itching 06/13/18 Unknown History loperamide 2 mg capsule (Imodium 2 mg PO Q6H PRN Diarr hea 06/13/18 06/02/25 History A-D) multivitamin 1 tab PO DAILY [facility] 06/13/18 Unknown History primidone 50 mg tablet 150 mg PO BID seizures 06/13 Unknown History insulin glargine 100 unit/mL (3 22 unit subcut DAILY d iabetes 06/15/19 Unknown History mL) subcutaneous pen (Basaglar KwikPen U-100 Insulin) gabapentin 300 mg capsule 300 mg PO TID neuropathy 03/1606/02/25 History meloxicam 15 mg tablet 15 mg PO DAILY arthritis 03/1606/02/25 History dulaglutide 0.75 mg/0.5 mL 0.75 mg subcut QWEEK diabet es 12/17/21 Unknown History subcutaneous pen injector (Trulicity) acetaminophen 500 mg capsule 1,000 mg PO Q8H PRN PRN p ain 06/06/25 Unknown History amlodipine 10 mg-benazepril 40 mg 1 cap PO DAILY bp 06/02/25 History capsule aspirin 81 mg capsule 81 mg PO DAILY [facility] 06/06/25 Unknown History empagliflozin 10 mg tablet 10 mg PO DAILY diabetes 07/2106/03/25 History estradiol 0.01% (0.1 mg/gram) See Rx Instructions vagi nal 06/06/25 Unknown History vaginal cream .COMPLEX PRN itching memantine 5 mg tablet (Namenda) 5 mg PO BID [facility] 06/06/25 Unknown History pravastatin 40 mg tablet 40 mg PO DAILY cholesterol 0 06/06/25 Unknown History sertraline 100 mg tablet 100 mg PO DAILY anxiety 05/28 Unknown History Allergy/AdvReac Type Severity Reaction Status Date / Time dapagliflozin (From [facility]) Allergy Intermediate Other Verified 06/06/25 13:10 levofloxacin (From Levaquin) Allergy Mild severe Verified 06/06/25 13:10 joint issues Sulfa (Sulfonamide Allergy Mild stopped Verified 06/06/25 13:10 Antibiotics) breathing morphine AdvReac Vomiting Verified 06/06/25 13:10 Family History Father Lung cancer Diabetes Mother Heart disease Diabetes Surgical History History of bilateral knee replacement s/p right arm surgery H/O esophagogastroduodenoscopy H/O colonoscopy S/P breast biopsy Hx of cholecystectomy History of hysterectomy Social History Smoking Status: Never smoker alcohol intake: never substance use type: does not use caffeine: Yes what type of physical activity do you participate in: walking frequency: daily seatbelt use: always do you feel safe at home: Yes additional social history: [id number] employed Patient is retired ROS Constitutional Constitutional: Reports fatigue and malaise; Denies chills, fever(s) or weakness Cardiovascular Cardiovascular: Reports chest pain, dyspnea on exertion, lightheadedness and palpitations; Denies edema Respiratory/Chest Respiratory/Chest: Denies cough, shortness of breath at rest or wheezing Gastrointestinal Gastrointestinal: Reports diarrhea and nausea; Denies abdominal pain, constipation or vomiting Genitourinary Genitourinary: Denies dysuria Musculoskeletal Musculoskeletal: Denies arthralgias or myalgias Neurologic Neurologic: Denies dizziness, focal weakness, headache(s), numbness or tingling Vital Signs Vital Signs Vital Signs: 06/06/25 13:06 06/06/25 13:09 06/06/25 13:10 Temperature 96 F L 96 F L Temperature Source Axillary Temporal Pulse Rate 164 H 162 H Respiratory Rate 25 H 18 Respiratory Effort Short of Breath Blood Pressure 96/64 92/72 Blood Pressure Mean 74 78 Pulse Ox 98 97 Oxygen Delivery Method Room Air Nasal Cannula 06/06/25 14:09 06/06/25 14:14 06/06/25 15:00 Temperature Temperature Source Pulse Rate 152 H 133 H Respiratory Rate 16 24 H Respiratory Effort Blood Pressure 104/69 98/65 Blood Pressure Mean 80 76 Pulse Ox 98 96 Oxygen Delivery Method Room Air Room Air Room Air 06/06/25 16:00 Temperature Temperature Source Pulse Rate 121 H Respiratory Rate 17 Respiratory Effort Blood Pressure 108/84 H Blood Pressure Mean 92 Pulse Ox 96 Oxygen Delivery Method Room Air Weight Weight: 84.7 kg Body Mass Index (BMI) 27.6 Physical Exam Const alert, oriented x3, no apparent distress and average body habitus Constitutional Narrative: Pleasant elderly female, mildly fatigued appearing, otherwise sitting back fairly comfortably in bed, conversing normally, in no acute distress. General Appearance: cooperative and comfortable HEENT normocephalic, head/scalp atraumatic, hearing grossly normal bilaterally, nasal mucous membranes and turbinates normal and moist oral mucous membranes Eyes PERRL, EOMs intact bilaterally and conjunctivae normal Neck full ROM Chest inspection of chest normal Resp normal respiratory effort, normal air movement, no use of accessory muscles and clear to auscultation bilaterally Cardio no murmurs and peripheral pulses 2+ throughout Cardio Narrative: A-fib with RVR. GI normal to inspection, nondistended, normoactive bowel sounds, soft to palpation, non-tender and non-distended Back/Spine normal ROM Extremity normal to inspection, full ROM and no pedal edema Skin no rashes or lesions noted Psych mental status grossly normal Results Lab / Micro Data 06/06/25 13:42 06/06/25 13:42 Labs: Laboratory Results - last 24 hr 06/06/25 13:42: WBC 7.9, RBC 4.75, Hgb 14.5, Hct 43.4, MCV 91.4, MCH 30.5, MCHC 33.4, RDW Std Deviation 40.9, RDW Coeff of Gopal 12.2, Plt Count 204, MPV 10.4, Immature Gran % (Auto) 0.400, Neut % (Auto) 80.4 H, Lymph % (Auto) 15.2 L, Nelson % (Auto) 2.8, Eos % (Auto) 0.8, Baso % (Auto) 0.4, Absolute Neuts (auto) 6.4, Absolute Lymphs (auto) 1.21, Nucleated RBC % 0, Atypical Lymphocytes 1+, D-Dimer Quant (PE/DVT) 0.55 H*, Sodium 135, Potassium 3.9, Chloride 102, Carbon Dioxide 15.4 L, Anion Gap 18 H, BUN 22 H, Creatinine 1.18, Estim Creat Clear Calc 45.65 L, Est GFR (MDRD) Non-Af 47 L, BUN/Creatinine Ratio 18.3, Glucose 322 H, Calcium 9.2, Troponin T High Sens 30 H, NT pro BNP II 441 06/06/25 15:20: Troponin T Hi Sens 2 Hr 66 H* Imaging Radiology Impression Chest X-Ray 06/06/25 13:28 IMPRESSION: No focal consolidations. Multilevel right posterior rib fractures, likely chronic [id number] Assessment & Plan Assessment/Plan (1) Atrial fibrillation with rapid ventricular response: (2) Elevated troponin: PLAN: Plan Patient is a 80-year-old female who presented [facility] ED on 06/06/2025 with chest pain, shortness of breath and palpitations. 1. New onset A-fib with RVR ? Admit under inpatient status to PCU. In new onset A-fib with RVR with heart rate to the 150s in the ED. BP borderline low on arrival to the 90s over 60s, improved with rate control medication. Is on home atenolol for hypertension but has not taken for the past 4 days due to nausea and vomiting as below. Given 2 doses of IV Cardizem 10 mg in the ED with some improvement in rate to the 110s to 120s, then started on Cardizem drip. Continue Cardizem drip for now. Given the borderline low blood pressures, will initiate p.o. Lopressor 50 mg twice daily for now. [id number] score of 5 (age, sex, hypertension, diabetes). Discussed with patient and she was amenable to start anticoagulation; will start Eliquis 5 mg twice daily this evening. Echo ordered. Monitor cardiac telemetry. 2. Elevated troponins ? Troponin trend 30 > 66 > 64. EKG with no ischemic changes noted. Most likely demand ischemia in setting of A-fib with RVR as above but cannot rule out underlying vascular disease. Echo ordered as above. Pending echo result, could consider cardiac stress test for further evaluation. 3. Nausea/vomiting/diarrhea ? Patient reports consistent nausea, vomiting and diarrhea for the past 4 days prior to admission. Importantly, she was started on Jardiance by her PCP 2 days prior to the symptoms starting. No associated fever/chills or abdominal pain. No recent sick contacts that she is aware of. Highest suspicion is that the symptoms are due to Jardiance. Will hold Jardiance at this time. No JOSE noted, electrolytes normal and patient does appear adequately hydrated at this time. Okay for cardiac, carb controlled diet and can treat symptomatically. 4. Type 2 diabetes mellitus with hyperglycemia, diabetic neuropathy ? Glucose 322 on admit. A1c pending. Will treat with slightly reduced dose of Lantus 18 units daily and sliding scale with meals, adjust as needed. Continue home gabapentin. Holding home Jardiance and Trulicity. Chronic medical conditions: ? Hypertension/hyperlipidemia: BP low normal with patient in A-fib with RVR as above. Will hold home amlodipine?Benazepril for now. Continue home statin. Continue home aspirin. ? Essential tremor: Continue home primidone. ? Anxiety/depression: Stable. Continue home sertraline. ? Osteoarthritis: Okay to continue home Mobic and Tylenol as needed ordered as well. DVT prophylaxis: Not indicated, on Eliquis CODE STATUS: Full code, verified Expected disposition: Home, 2 to 3 days Total clinical time spent by myself addressing the patient's medical issues, reviewing all the data, and collaborating with patient's care team: 76 minutes. Charges/Coding Visit Charges Inpatient E&M: 99428 Init Hosp L3
[2025-06-06] MEDS: Diltiazem 125 MG in Dextrose 5%-Water (100mL Bag) 100 ML IV (17:07)
--- NOTE | 2025-06-06 17:56 | CASEMGMT ---
Care Management Face to Face with patient for initial transition planning/care coordination assessment in the ED.? This typewriter operator automatic introduced self and role at [facility]. Patient alert and oriented. Patient willing to participate in assessment and is able to answer all questions appropriately.? Care providers, pharmacy, and demographics verified. Admitting Diagnosis: ?Chest pain Other diagnosis history: ?hypertension, celiac disease, diabetes asthma, osteopenia PCP: Luis E Specialists: ?Maria M Preferred Pharmacy: [facility] Insurance: ?Medicare Prescription Benefit: ?yes Living Will/HPOA: ?does not have completed, would like to while admitted LNOK: ? Living Arrangements: ?patient lives with in a 4 story home, URIEL, who has dementia, lives in basement .? Patient is independent with ADLs and IADLs Transportation: ?patient drives DME: grab bars in bathroom HHC: ?none SNF/Rehab: ?none Community Resources: ?none Behavioral Health History: ?none Patient goals: Patient wishes to discharge home, denies need for home health care at this time. Patient denies any further needs or concerns at this time. Disposition Plan: admission to acute; RN CM/SW to follow for discharge planning needs that may arise. Anai Sotelo, VENEER STOCK GRADER, RADIO/TV TECHNICIAN
[2025-06-06 18:37] LABS: Magnesium 1.8 mg/dL (1.5-2.2)
[2025-06-06 18:50] LABS: Troponin T High Sens 4 HR 64 ng/L (<=14)
[2025-06-06] MEDS: APIXABAN 5 MG TABLET PO (19:45)
[2025-06-07] VITALS (10 sets, daily range): BP systolic 112–145; BP diastolic 64–91; PULSE 66–92; RESP 15–18; TEMP 36.7–37.1; O2SAT 93–99
--- NOTE | 2025-06-07 00:06 | PCM.HOSP.N ---
Hospitalist Note Patient noted to have converted to sinus rhythm on telemetry, EKG obtained and confirmed normal sinus rhythm with left bundle branch block. Plan to give diltiazem 240 mg CD oral dose now and stop diltiazem drip in 1 hour. SBPs maintaining mid to high 120s over high 60s diastolic.
[2025-06-07 06:10] LABS: Hematocrit 37.7 % (37-47); Hemoglobin 13.2 g/dL (12.0-15.0); Mean Corp Hgb Conc 35.0 g/dL (32-36); Mean Corpuscular Volume 89.3 fL (81-99); Mean Platelet Vol. 10.1 fl (6.2-12.0); Platelet Count 173 K/mm3 (150-450); RBC Distribution Width CV 12.4 % (11.6-14.6); RBC Distribution Width SD 40.5 fl (35.1-43.9); Red Blood Count 4.22 M/mm3 (4.2-5.4); White Blood Count 7.0 K/mm3 (4.4-11.0)
--- NOTE | 2025-06-07 08:17 | PN.HOSP_ITS ---
Reason for Visit Chief Complaint: Chest pain, shortness of breath and palpitations Subjective Subjective Patient states that she was recently switched from Farxiga to Jardiance. She had previously been on glipizide but switched providers and they switched her to this medication. She did not tolerate Farxiga so Jardiance was initiated not that long ago. Since initiation it sounds like she has been having issues. Her labs are concerning for euglycemic DKA so workup is in progress. I did discuss this with her. She is converted to normal sinus rhythm. I suspect that it possibly is related to her metabolic derangements however we will have a follow- up with cardiology at discharge and keep her on beta-lisa and anticoagulation in the short-term. Objective Data Objective Data Vital Signs: Vital Signs Temp Pulse Resp BP Pulse Ox O2 Del Method 98.2 F 76 15 123/69 H 98 Room Air 06/07/25 02:00 06/07/25 03:00 06/07/25 02:00 06/07/25 02:00 06/07/25 02:00 06/07/25 02:25 Oxygen Delivery Method Room Air Weight: 79.379 kg Body Mass Index (BMI) 26.6 Intake & Output: Intake and Output for Last 24 Hours 06/05/25 06/06/25 06/07/25 23:59 23:59 23:59 Intake Total 178.25 / 179.50 5.00 / 5.00 Balance 178.25 / 179.50 5.00 / 5.00 Lab / Micro Data 06/07/25 05:50 06/07/25 08:42 Labs: Laboratory Results - last 24 hr 06/06/25 13:42: WBC 7.9, RBC 4.75, Hgb 14.5, Hct 43.4, MCV 91.4, MCH 30.5, MCHC 33.4, RDW Std Deviation 40.9, RDW Coeff of Gopal 12.2, Plt Count 204, MPV 10.4, Immature Gran % (Auto) 0.400, Neut % (Auto) 80.4 H, Lymph % (Auto) 15.2 L, Brooks % (Auto) 2.8, Eos % (Auto) 0.8, Baso % (Auto) 0.4, Absolute Neuts (auto) 6.4, Absolute Lymphs (auto) 1.21, Nucleated RBC % 0, Atypical Lymphocytes 1+, D-Dimer Quant (PE/DVT) 0.55 H*, Sodium 135, Potassium 3.9, Chloride 102, Carbon Dioxide 15.4 L, Anion Gap 18 H, BUN 22 H, Creatinine 1.18, Estim Creat Clear Calc 45.65 L, Est GFR (MDRD) Non-Af 47 L, BUN/Creatinine Ratio 18.3, Glucose 322 H, Calcium 9.2, Phosphorus 2.9, Magnesium 1.8, Troponin T High Sens 30 H, NT pro BNP II 441 06/06/25 15:20: Troponin T Hi Sens 2 Hr 66 H* 06/06/25 17:05: Hemoglobin A1c 7.2 H 06/06/25 17:32: Troponin T Hi Sens 4Hr 64 H* 06/06/25 22:07: POC Glucose 258 H 06/07/25 05:50: WBC 7.0, RBC 4.22, Hgb 13.2, Hct 37.7, MCV 89.3, MCH 31.3, MCHC 35.0, RDW Std Deviation 40.5, RDW Coeff of Gopal 12.4, Plt Count 173, MPV 10.1, Sodium Cancelled, Potassium Cancelled, Chloride Cancelled, Carbon Dioxide Cancelled, Anion Gap Cancelled, BUN Cancelled, Creatinine Cancelled, Estim Creat Clear Calc Cancelled, Est GFR (MDRD) Non-Af Cancelled, BUN/Creatinine Ratio Cancelled, Glucose Cancelled, Calcium Cancelled 06/07/25 06:37: POC Glucose 187 H Radiography Diagnostic Testing: Radiology Impression Chest X-Ray 06/06/25 13:28 IMPRESSION: No focal consolidations. Multilevel right posterior rib fractures, likely chronic Reading [id number] Physical Exam Const alert, oriented x3, no apparent distress and well nourished Constitutional Narrative: Overweight, very pleasant, older, white female, sitting up in a chair at the bedside, appears comfortable, nontoxic HEENT head/scalp atraumatic and moist oral mucous membranes Head and Scalp: normocephalic Resp normal respiratory effort, no retractions, no use of accessory muscles and clear to auscultation bilaterally Auscultation: Negative for rales, rhonchi or wheezes Cardio regular rate, regular rhythm, S1 normal heart sound, S2 normal heart sound, no murmurs, no rub, no gallops and no clicks GI normal to inspection, nondistended, normoactive bowel sounds, soft to palpation and non-tender Extremity no clubbing, cyanosis or edema Extremity Narrative: 2+ pedal and radial pulses Neuro oriented x3, moves all extremities and no focal motor deficits Speech: speech normal Psych affect normal Psych Narrative: Very pleasant, eye contact is good and patient interacts appropriately Assessment & Plan Assessment/Plan (1) DKA, type 2: (2) Elevated troponin: (3) Atrial fibrillation with rapid ventricular response: (4) Diarrhea: (5) High anion gap metabolic acidosis: (6) Nausea and vomiting: PLAN: Plan New onset A-fib with RVR - Patient has converted back to normal sinus rhythm independently of medication or cardioversion - Continue metoprolol 50 mg p.o. twice daily - Continue Eliquis 5 mg p.o. twice daily - Continue to monitor on telemetry - TSH is within normal limits - Echocardiogram shows moderate concentric LVH with an EF of 65%, stage I diastolic dysfunction and a mildly enlarged LA with mild to moderate tricuspid valve regurgitation and the right ventricular systolic pressure 45 mmHg - Will have patient follow-up with cardiology as an outpatient to assess need for chronic ongoing anticoagulation as this may have been related to her dehydration, nausea and vomiting related issues with anion gap metabolic acidosis from suspected euglycemic DKA Nausea/vomiting/diarrhea - Resolving - Suspect related to euglycemic DKA and Jardiance - Would avoid SGLT 2 inhibitors - Okay to continue as tolerated p.o. diet Anion gap metabolic acidosis secondary to euglycemic DKA - pH is normal currently however patient is compensating by blowing down her CO2 which is abnormal in the 20s - DKA is mild and likely related to Jardiance - Would discontinue SGLT2 inhibitors indefinitely as she had issues with Farxiga as well - Bicarb seems to be improving so we will continue to trend and hold off on insulin drip next-continue subcu insulin - Continue aggressive hydration - repeat BMP at 1600 to reevaluate need for insulin drip - Beta-hydroxybutyrate was elevated at 1.8 Troponin elevation secondary to demand ischemia with A-fib and RVR - Echocardiogram without any wall motion abnormalities and normal EF - Suspect related to dehydration and A-fib with RVR - No further workup required at this time DM-2 - Hold Jardiance - Continue subcu insulin - SSI as ordered - A1c is 7.2 indicating fairly good control overall - Will need to transition from Jardiance and will likely utilize metformin at discharge as patient states she is been on this previously and tolerated well Essential hypertension/hyperlipidemia - Amlodipine/benazepril on hold - Continue metoprolol - Restart medications as appropriate Essential tremor - Continue home primidone Osteoarthritis - Continue home as needed Tylenol and Mobic Diabetic neuropathy - Continue home gabapentin Depression - Continue home sertraline DVT prophylaxis - Eliquis initiated for A-fib CODE STATUS - Full code was verified on admission Charges/Coding Visit Charges Inpatient E&M: 05353 Subs Hosp L3
[2025-06-07] MEDS: 0.9% Normal Saline (1000mL) 1,000 ML 250 ML IV (10:00)
[2025-06-07 10:13] LABS: AST(SGOT) 26 U/L (<=31); Alanine Aminotransfer ALT/SGPT 37 U/L (<=34); Albumin, Serum 3.4 g/dL (3.4-4.8); Alkaline Phosphatase 55 U/L (35-104); Anion Gap 16 (5-15); BUN 29 mg/dL (4-19); BUN/Creat Ratio 30.7 RATIO (10-20); Calcium,Total 9.2 mg/dL (7.6-11.0); Carbon Dioxide 14.4 mmol/L (21.0-32.0); Chloride 103 mmol/L (98-108); Estimated Creatinine Clearance 54.00 ml/min (50-250); Globulin 2.6 g/dL (2.2-4.2); Glucose 216 mg/dL (70-99); Potassium 3.7 mmol/L (3.3-5.1)
[2025-06-07] MEDS: APIXABAN 5 MG TABLET PO ×2 (10:15→21:25)
[2025-06-07] MEDS: Insulin Glargine-YFGN 100 UNIT/ML Pen 18 UNIT SC (10:16)
[2025-06-07 10:23] LABS: BETA-HYDROXYBUTYRATE 1.8 mmol/L (0.0-0.3)
[2025-06-07 10:45] LABS: Allen Test Positive; Base Excess -6 mmol/L (-2 to +2); FI02 21.0; PO2 98 mmHG (75-100); SITE L Radial; SO2 98 % (95-99)
--- NOTE | 2025-06-07 12:19 | CASEMGMT ---
Social Work SW met with pt and assisted in completing Living Will and Health Care POA naming her Solitario Rubio. Copy placed on pt chart and original given to pt. BERTHA Porter
--- NOTE | 2025-06-07 16:28 | CHAPLAIN ---
Type of Pastoral Visit _x__ Initial Visit ___ Follow-up Visit ___ On-call Visit ___ General Patient Visit ___ Spiritual Assessment ___ Family Conference ___ Bereavement ___ Rapid Response ___ Code Blue ___ Other (describe below) Pastoral Care Referral From _x__ Patient ___ Family ___ Nurse ___ Physician ___ Metal Smelter ___ Rn Wellness ___ Other (describe below) Sacrament/Intervention _x__ Active listening ___ Anointing ___ Mormonism ___ Bereavement ___ Communion _x__ Jessica exploration ___ _x__ Life review _x__ Prayer ___ Reconciliation ___ Sacrament of Sick _x__ Supportive presence ___ Wedding ___ Other (describe below) Pastoral Comments patient is open about her surprise need for medical attention and 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
[2025-06-07 17:39] LABS: Anion Gap 13 (5-15); BUN 28 mg/dL (4-19); BUN/Creat Ratio 30.8 RATIO (10-20); Calcium,Total 9.2 mg/dL (7.6-11.0); Carbon Dioxide 17.5 mmol/L (21.0-32.0); Chloride 103 mmol/L (98-108); Estimated Creatinine Clearance 55.76 ml/min (50-250); Glucose 248 mg/dL (70-99); Potassium 3.9 mmol/L (3.3-5.1)
[2025-06-07] MEDS: 0.9% Saline Lock 10 ML Syringe IV (21:29)
[2025-06-08 04:04] VITALS: BP 144/64; PULSE 89; RESP 16; TEMP 36.8; O2SAT 99
[2025-06-08 05:49] LABS: Hematocrit 37.1 % (37-47); Hemoglobin 12.7 g/dL (12.0-15.0); Mean Corp Hgb Conc 34.2 g/dL (32-36); Mean Corpuscular Volume 90.3 fL (81-99); Mean Platelet Vol. 10.7 fl (6.2-12.0); Platelet Count 180 K/mm3 (150-450); RBC Distribution Width CV 12.2 % (11.6-14.6); RBC Distribution Width SD 39.8 fl (35.1-43.9); Red Blood Count 4.11 M/mm3 (4.2-5.4); White Blood Count 7.2 K/mm3 (4.4-11.0)
[2025-06-08 06:24] LABS: AST(SGOT) 25 U/L (<=31); Alanine Aminotransfer ALT/SGPT 30 U/L (<=34); Albumin, Serum 3.2 g/dL (3.4-4.8); Alkaline Phosphatase 58 U/L (35-104); Anion Gap 12 (5-15); BUN 26 mg/dL (4-19); BUN/Creat Ratio 33.2 RATIO (10-20); Calcium,Total 8.8 mg/dL (7.6-11.0); Carbon Dioxide 17.8 mmol/L (21.0-32.0); Chloride 106 mmol/L (98-108); Estimated Creatinine Clearance 64.13 ml/min (50-250); Globulin 2.3 g/dL (2.2-4.2); Glucose 176 mg/dL (70-99); Magnesium 1.9 mg/dL (1.5-2.2); Potassium 3.5 mmol/L (3.3-5.1)
[2025-06-08 07:13] VITALS: O2SAT 93
[2025-06-08 08:45] LABS: BETA-HYDROXYBUTYRATE 0.9 mmol/L (0.0-0.3)
[2025-06-08 09:17] VITALS: BP 141/84; PULSE 92; RESP 16; TEMP 36.8; O2SAT 95
[2025-06-08] MEDS: Sodium Phosphate/Na Biphos 45 MMOL in 0.9% Normal Saline (500mL Bag) 500 ML 85 MMOL IV (09:26)
[2025-06-08] MEDS: 0.9% Saline Lock 10 ML Syringe IV (09:26)
[2025-06-08 09:27] VITALS: BP 141/84; PULSE 92
[2025-06-08] MEDS: APIXABAN 5 MG TABLET PO (09:27)
[2025-06-08] MEDS: Insulin Glargine-YFGN 100 UNIT/ML Pen 25 UNIT SC (09:30)
--- NOTE | 2025-06-08 09:53 | CON.PCM.CA_ITS ---
Assessment & Plan Assessment/Plan (1) Atrial fibrillation: PLAN: Patient had atrial fibrillation with rapid ventricular response on presentation. In the setting of acute illness with DKA. Now resolved. Patient's CHADS2?VASc score is 5. Already started on apixaban. Agree. Discussed with patient in detail. Risks benefits explained. She understands these and wishes to continue. (2) Abnormal ECG: PLAN: ECG done last night showed sinus rhythm with frequent PACs. Underlying left bundle branch block. Normal LV systolic function. (3) Elevated troponin: PLAN: Minimally elevated troponin in the setting of euglycemic DKA and atrial fibrillation with rapid ventricular response. Likely type II. Recommend pharmacological stress test as outpatient. (4) Nausea and vomiting: PLAN: Resolved. As per internal medicine. (5) DKA, type 2: PLAN: As per internal medicine. (6) Hypertension: PLAN: Beta-blockers and calcium channel blockers. (7) Diabetes: PLAN: As per internal medicine. PLAN: Plan Recommend further follow-up as outpatient. HPI Consult Data Date of Consult: 06/08/25 HPI Narrative Reason for Consultation: Abnormal ECG HPI Narrative: 80-year-old female who was admitted to the hospital with complaints of palpitations. Noted to have atrial fibrillation with rapid ventricular response. Per patient, she had been having nausea and vomiting for 2 days prior to her presentation. With her palpitations, she also complained of anterior chest tightness. No previous history of angina either at rest or with exertion. No previous history of heart disease. Her chest discomfort resolved with controlling her heart rate. She subsequently converted to sinus rhythm. She is being treated for euglycemic DKA. Patient has had an ECG done last night. It was read as showing possibly type I second-degree AV block. Subsequently we have been consulted. I reviewed the ECG. It shows sinus rhythm with frequent PACs, some in a bigeminal manner. No heart block noted. Patient denies any history of CVA or TIA. No history of bleeding problems. No history of frequent falls. [facility] Medical History Lichen sclerosus Osteopenia Hypertension Gastrointestinal problem Essential tremor Celiac disease Diabetes bone fractures History of back problems Asthma Home Medications ?Medication ?Instructions ?Recorded ?Last Taken ?Type atenolol 100 mg tablet 50 mg PO Q12H BP 06/13/18 History clobetasol 0.05 % topical ointment 1 applic topical BI D PRN Itching 06/13/18 Unknown History loperamide 2 mg capsule (Imodium 2 mg PO Q6H PRN Diarr hea 06/13/18 06/02/25 History A-D) multivitamin 1 tab PO DAILY [facility] 06/13/18 Unknown History primidone 50 mg tablet 150 mg PO BID seizures 06/13 Unknown History insulin glargine 100 unit/mL (3 22 unit subcut DAILY d iabetes 06/15/19 Unknown History mL) subcutaneous pen (Basaglar KwikPen U-100 Insulin) gabapentin 300 mg capsule 300 mg PO TID neuropathy 03/1606/02/25 History meloxicam 15 mg tablet 15 mg PO DAILY arthritis 03/1606/02/25 History dulaglutide 0.75 mg/0.5 mL 0.75 mg subcut QWEEK diabet es 12/17/21 Unknown History subcutaneous pen injector (Trulicity) acetaminophen 500 mg capsule 1,000 mg PO Q8H PRN PRN p ain 06/06/25 Unknown History amlodipine 10 mg-benazepril 40 mg 1 cap PO DAILY bp 06/02/25 History capsule aspirin 81 mg capsule 81 mg PO DAILY [facility] 06/06/25 Unknown History empagliflozin 10 mg tablet 10 mg PO DAILY diabetes 07/2106/03/25 History estradiol 0.01% (0.1 mg/gram) See Rx Instructions vagi nal 06/06/25 Unknown History vaginal cream .COMPLEX PRN itching memantine 5 mg tablet (Namenda) 5 mg PO BID [facility] 06/06/25 Unknown History pravastatin 40 mg tablet 40 mg PO DAILY cholesterol 0 06/06/25 Unknown History sertraline 100 mg tablet 100 mg PO DAILY anxiety 05/28 Unknown History Allergy/AdvReac Type Severity Reaction Status Date / Time dapagliflozin (From Farxiga) Allergy Intermediate Other Verified 06/06/25 13:10 levofloxacin ([facility]) Allergy Mild severe Verified 06/06/25 13:10 joint issues Sulfa (Sulfonamide Allergy Mild stopped Verified 06/06/25 13:10 Antibiotics) breathing morphine AdvReac Vomiting Verified 06/06/25 13:10 Family History Father Lung cancer Diabetes Mother Heart disease Diabetes Surgical History History of bilateral knee replacement s/p right arm surgery H/O esophagogastroduodenoscopy H/O colonoscopy S/P breast biopsy Hx of cholecystectomy History of hysterectomy Social History Smoking Status: Never smoker alcohol intake: never substance use type: does not use caffeine: Yes what type of physical activity do you participate in: walking frequency: daily seatbelt use: always do you feel safe at home: Yes additional social history: [employer] employed Patient is retired Physical Exam Narrative Comfortable. No distress. Heart sounds 1 and 2 are normal. No murmurs or rubs are noted. Chest clear to auscultation bilaterally. Alert oriented x 3. No ankle edema. Objective Data Vital Signs: Vital Signs Temp Pulse Resp BP Pulse Ox O2 Del Method 98.2 F 92 16 141/84 H 95 Room Air 06/08/25 09:17 06/08/25 09:27 06/08/25 09:17 06/08/25 09:27 06/08/25 09:17 06/08/25 09:17 Oxygen Delivery Method Room Air Weight: 175 lb Body Mass Index (BMI) 26.6 Intake & Output: Intake and Output for Last 24 Hours 06/06/25 06/07/25 06/08/25 23:59 23:59 23:59 Intake Total 178.25 / 179.50 1575.00 / 1575.00 60 / 60 Balance 178.25 / 179.50 1575.00 / 1575.00 60 / 60 Lab / Micro Data 06/08/25 04:54 06/08/25 04:54 Labs: Laboratory Results - last 24 hr 06/07/25 08:42: Sodium 134, Potassium 3.7, Chloride 103, Carbon Dioxide 14.4 L, Anion Gap 16 H, BUN 29 H, Creatinine 0.95, Estim Creat Clear Calc 54.00, Est GFR (MDRD) Non-Af 61, BUN/Creatinine Ratio 30.7 H, Glucose 216 H, Calcium 9.2, Total Bilirubin 0.41, AST 26, ALT 37 H, Alkaline Phosphatase 55, Total Protein 6.1, Albumin 3.4, Globulin 2.6, Albumin/Globulin Ratio 1.3, b-Hydroxybutyric mmol/L 1.8 H 06/07/25 11:32: POC Glucose 299 H 06/07/25 16:15: Sodium 134, Potassium 3.9, Chloride 103, Carbon Dioxide 17.5 L, Anion Gap 13, BUN 28 H, Creatinine 0.92, Estim Creat Clear Calc 55.76, Est GFR (MDRD) Non-Af 64, BUN/Creatinine Ratio 30.8 H, Glucose 248 H, Calcium 9.2 06/07/25 17:04: POC Glucose 186 H 06/07/25 21:21: POC Glucose 241 H 06/08/25 04:54: WBC 7.2, RBC 4.11 L, Hgb 12.7, Hct 37.1, MCV 90.3, MCH 30.9, MCHC 34.2, RDW Std Deviation 39.8, RDW Coeff of Gopal 12.2, Plt Count 180, MPV 10.7, Sodium 136, Potassium 3.5, Chloride 106, Carbon Dioxide 17.8 L, Anion Gap 12, BUN 26 H, Creatinine 0.77, Estim Creat Clear Calc 64.13, Est GFR (MDRD) Non- Af 79, BUN/Creatinine Ratio 33.2 H, Glucose 176 H, Calcium 8.8, Phosphorus 2.2 L , Magnesium 1.9, Total Bilirubin 0.39, AST 25, ALT 30, Alkaline Phosphatase 58, Total Protein 5.5 L, Albumin 3.2 L, Globulin 2.3, Albumin/Globulin Ratio 1.4 06/08/25 05:36: b-Hydroxybutyric mmol/L 0.9 H 06/08/25 06:41: POC Glucose 189 H ABG Data ABG results: ABG 06/07/25 10:41 Specimen Type ART Sample Site L Radial pH 7.41 Bicarbonate Actual 18.3 L Total CO2 19 Base Excess -6 L O2 Saturation 98 O2 % 21.0 ABG pCO2 29.1 L ABG pO2 98 Mt Test Positive O2 Delivery Device Room Air Vent Mode Not entered Cardiology Labs/Tests 06/07/25 08:42: Sodium 134, Potassium 3.7, Chloride 103, Carbon Dioxide 14.4 L, Anion Gap 16 H, BUN 29 H, Creatinine 0.95, Est GFR (MDRD) Non-Af 61, B UN/Creatinine Ratio 30.7 H, Glucose 216 H, Calcium 9.2, Total Bilirubin 0.41 06/07/25 10:41: pH 7.41, Bicarbonate Actual 18.3 L, Base Excess -6 L, O2 Saturation 98, ABG pCO2 29.1 L, ABG pO2 98, Mt Test Positive 06/07/25 16:15: Sodium 134, Potassium 3.9, Chloride 103, Carbon Dioxide 17.5 L, Anion Gap 13, BUN 28 H, Creatinine 0.92, Est GFR (MDRD) Non-Af 64, B UN/Creatinine Ratio 30.8 H, Glucose 248 H, Calcium 9.2 06/08/25 04:54: WBC 7.2, RBC 4.11 L, Hgb 12.7, Hct 37.1, MCV 90.3, MCH 30.9, MCHC 34.2, Plt Count 180, MPV 10.7, Sodium 136, Potassium 3.5, Chloride 106, C arbon Dioxide 17.8 L, Anion Gap 12, BUN 26 H, Creatinine 0.77, Est GFR (MDRD) Non-Af 79, BUN/Creatinine Ratio 33.2 H, Glucose 176 H, Calcium 8.8, Phosphorus 2.2 L, Magnesium 1.9, Total Bilirubin 0.39 Rhythm: EKG: ECHO: Stress Test: Cardiac Cath: PCI: CT Surgery: Holter monitor: EPS: PPM: CXR: Chest CT Scan: Radiography Diagnostic Testing: Radiology Impression Echocardiogram 06/06/25 16:44 Interpretation Summary Moderate concentric left ventricular hypertrophy. The left ventricular ejection fraction is 65 %. Stage 1 diastolic dysfunction. The left atrium is mildly enlarged. Moderate mitral annular calcification. Mild to moderate tricuspid valve regurgitation. Estimated RVSP 45 mmHg. Ordering Physician: Nasim Garcia Referring Physician: JO DOUGLAS Performed By: Demi Mays, RDCHERIE EDITO Risk Score for UA/STEMI Assesmment (YES = 1) Risk Stratification Applicable: No
--- NOTE | 2025-06-08 12:33 | PCM.DC.SUM ---
Providers Date of Admission: 06/06/25 Date of Discharge: 06/08/25 Primary Care Physician: Dr. Nirmala Kimbrough MD Consultations 06/08/25 06:57 Consult: Cardiology Routine Consulting Provider: Josie Lynn Reason for Consult: new onset second degree heart block type 1 EMERGENT Consult: No MD Notified: Yes Date Notified: 06/08/25 Time Notified: 06:57 Method of Notification: Verbal Method of Consult:: In-Person Reason For Visit: NEW ONSET AFIB W/RVR Diagnosis Discharge Diagnosis (1) Atrial fibrillation: Status: Acute Code(s): I48.91 - Unspecified atrial fibrillation (2) Abnormal ECG: Status: Acute Code(s): R94.31 - Abnormal electrocardiogram [ECG] [EKG] (3) Elevated troponin: Status: Acute Code(s): R79.89 - Other specified abnormal findings of blood chemistry (4) Nausea and vomiting: Status: Acute Code(s): R11.2 - Nausea with vomiting, unspecified (5) DKA, type 2: Status: Acute Code(s): E11.10 - Type 2 diabetes mellitus with ketoacidosis without coma (6) Hypertension: Status: Chronic Code(s): I10 - Essential (primary) hypertension (7) Diabetes: Status: Chronic Code(s): E11.9 - Type 2 diabetes mellitus without complications Medications at Discharge Home Medications clobetasol 0.05 % topical ointment 1 applic topical BID PRN Itching 06/13/18 loperamide 2 mg capsule (Imodium A-D) 2 mg PO Q6H PRN Diarrhea 06/13/18 multivitamin 1 tab PO DAILY health maintenance 06/13/18 primidone 50 mg tablet 150 mg PO BID seizures 06/13/18 insulin glargine 100 unit/mL (3 mL) subcutaneous pen (Basaglar KwikPen U-100 Insulin) 22 unit subcut DAILY diabetes 06/15/19 gabapentin 300 mg capsule 300 mg PO TID neuropathy 05/02/20 meloxicam 15 mg tablet 15 mg PO DAILY arthritis 05/02/20 dulaglutide 0.75 mg/0.5 mL subcutaneous pen injector (Trulicity) 0.75 mg subcut QWEEK diabetes 12/17/21 acetaminophen 500 mg capsule 1,000 mg PO Q8H PRN PRN pain 06/06/25 amlodipine 10 mg-benazepril 40 mg capsule 1 cap PO DAILY bp 06/06/25 aspirin 81 mg capsule 81 mg PO DAILY health maintenance 06/06/25 estradiol 0.01% (0.1 mg/gram) vaginal cream See Rx Instructions vaginal .COMPLEX PRN itching 06/06/25 memantine 5 mg tablet (Namenda) 5 mg PO BID health maintenance 06/06/25 pravastatin 40 mg tablet 40 mg PO DAILY cholesterol 06/06/25 sertraline 100 mg tablet 100 mg PO DAILY anxiety 06/06/25 apixaban 5 mg tablet (Eliquis) 5 mg PO BID #60 tabs 06/08/25 metformin 500 mg tablet 500 mg PO BID #70 tabs 06/08/25 metoprolol tartrate 50 mg tablet 50 mg PO BID #60 tabs 06/08/25 Hospital Course Operations None Procedures 2-D Echocardiogram, EGD and - (Chest x-ray) Summary of Care Provided Minutes Spent on Discharge: 38 Hospital Course: Mrs. Rubio is a 80-year-old white female who presents emergency department [facility] on 06/06/2025 with a chief complaint of chest pain, shortness of breath, and palpitations. Patient had reported that she was in her normal state of health until about 4 days prior to presentation when she began to have nausea, vomiting, and diarrhea. She indicated she was hardly able to keep food or drink down since that point time and had not been able to take any of her oral medications. She reported that she was started on Jardiance by her PCP 6 days prior to presentation and she had issues similar when she was placed on Farga. She had no fever or chills. She denied abdominal pain. She had no sick contacts. With regards to his chest pain it started on the morning of presentation. She never had anything like that previously. She has no history of cardiac arrhythmia. She also had some presyncopal symptoms with ambulation and was diaphoretic prior to arrival. Given this she was brought in for further evaluation. Vital signs on arrival to the emergency department showed temperature of 96, heart rate was 160 consistent with A-fib with RVR, respiratory was 25, blood pressure was initially 96/64 pulse ox was 98% on room air. CBC was unremarkable. Chemistry panel showed mild dehydration with a BUN of 22 and a serum creatinine 1.18. Blood sugar was 322. Her anion gap was elevated at 18 and her serum bicarb was 15.4. Initial troponin was 30 with a delta of 66. BNP was 441. Chest x-ray is unremarkable. EKG was consistent with A-fib with RVR and showed a left bundle branch. Bundle branch block appears to be rate dependent. Given the above hospital medicine called for admission and she was admitted to the PCU. Her [id number] score was 5 and she was started on Eliquis. She was initially placed on a Cardizem drip which was transitioned to oral Cardizem and her beta-lisa was changed from atenolol to metoprolol. At discharge she was continued on metoprolol 50 mg p.o. twice daily but did not need the Cardizem and was restarted on her amlodipine/benazepril. She quickly converted back to normal sinus rhythm. An echocardiogram was performed and showed moderate contact of LVH, EF of 65% with stage I diastolic dysfunction and a mildly enlarged left atrium, right ventricular systolic pressure was 45 mmHg. Troponin elevation was likely related to A-fib with RVR however cardiology did evaluate the patient and plans for outpatient stress testing. They indicated since she did not have chest pain at this time and symptoms had resolved outpatient could be pursued. With regards to her anion gap metabolic acidosis. Her pH was normal however she was compensating with a low serum pCO2 on ABG. Beta-hydroxybutyrate was assessed and was positive. I do suspect she was in mild DKA with relationship to her Jardiance and likely component of starvation ketosis. She was aggressively hydrated and maintained on subcu insulin. Her beta hydroxybutyrate trended down and her acidosis resolved. She was able to keep down oral medication and diet and anxious to go home on 06/08/2025. She had no further episodes of A-fib. Prescription for metoprolol, Eliquis, and metformin as this will replace her Jardiance were given at the time of discharge. I have instructed her to slowly uptitrate metformin with 500 mg p.o. twice daily for a week then 500 mg in the morning and 1000 mg at night and then up to 1000 mg p.o. twice daily. She indicated she had been on metformin previously and tolerated well. We did place Jardiance as well as Farxiga allergies while she is hospitalized and they should be avoided in the future. We have asked her to follow-up with her primary care physician in 1 week and call cardiology's office as an outpatient for follow-up with regards to her A-fib and outpatient stress testing. Patient was discharged home in stable condition on 06/08/2025. Discharge diagnoses: Chest pain secondary to A-fib with RVR A-fib with RVR Troponin elevation secondary to demand ischemia Diastolic dysfunction stage I with concentric LVH Mild to moderate pulmonary hypertension Mild to moderate tricuspid valve regurgitation DKA Adverse reaction to medication-Jardiance Nausea/vomiting/diarrhea-resolved DM-2 Essential hypertension Hyperlipidemia Essential tremor Osteoarthritis Diabetic neuropathy Depression Physical Exam Narrative Patient had frequent PACs last night which she did feel as some palpitations but was otherwise asymptomatic. P.o. appetite has been better and was able to eat an omelette for breakfast without difficulty. Overall feeling better. Anxious to go home today. Const alert, oriented x3, no apparent distress, average body habitus, no limitations and well nourished Constitutional Narrative: Overweight, very pleasant, older, white female, sitting up in bed, and family friend at bedside, patient appears comfortable, nontoxic General Appearance: cooperative, comfortable, well kempt and well developed Exam Limitations: no limitations Nutritional Appearance: overweight HEENT normocephalic, head/scalp atraumatic, hearing grossly normal bilaterally and moist oral mucous membranes HEENT Narrative: Mallampati 3, no thrush Eyes Eyes Narrative: No scleral icterus Neck supple Neck Narrative: Trachea midline Resp normal respiratory effort, normal air movement, no retractions, no use of accessory muscles and clear to auscultation bilaterally Auscultation: Negative for rales, rhonchi or wheezes Cardio regular rate, regular rhythm, S1 normal heart sound, S2 normal heart sound, no murmurs, no rub, no gallops and no clicks GI normal to inspection, nondistended, normoactive bowel sounds, soft to palpation and non-tender Extremity no clubbing, cyanosis or edema Extremity Narrative: 2+ pedal and radial pulses Skin no rashes or lesions noted, skin turgor normal and no jaundice Neuro moves all extremities and no focal motor deficits Speech: speech normal Psych mental status grossly normal and affect normal Psych Narrative: Very pleasant, eye contact is good and patient interacts appropriately Weight / BMI Weight Weight: 79.379 kg Body Mass Index (BMI) 26.6 ABG / Lab / Microbiology Data 06/08/25 04:54 06/08/25 04:54 Laboratory: Laboratory Results - last 24 hr 06/07/25 16:15: Sodium 134, Potassium 3.9, Chloride 103, Carbon Dioxide 17.5 L, Anion Gap 13, BUN 28 H, Creatinine 0.92, Estim Creat Clear Calc 55.76, Est GFR (MDRD) Non-Af 64, BUN/Creatinine Ratio 30.8 H, Glucose 248 H, Calcium 9.2 06/07/25 17:04: POC Glucose 186 H 06/07/25 21:21: POC Glucose 241 H 06/08/25 04:54: WBC 7.2, RBC 4.11 L, Hgb 12.7, Hct 37.1, MCV 90.3, MCH 30.9, MCHC 34.2, RDW Std Deviation 39.8, RDW Coeff of Gopal 12.2, Plt Count 180, MPV 10.7, Sodium 136, Potassium 3.5, Chloride 106, Carbon Dioxide 17.8 L, Anion Gap 12, BUN 26 H, Creatinine 0.77, Estim Creat Clear Calc 64.13, Est GFR (MDRD) Non-Af 79, BUN/Creatinine Ratio 33.2 H, Glucose 176 H, Calcium 8.8, Phosphorus 2.2 L, Magnesium 1.9, Total Bilirubin 0.39, AST 25, ALT 30, Alkaline Phosphatase 58, Total Protein 5.5 L, Albumin 3.2 L, Globulin 2.3, Albumin/Globulin Ratio 1.4 06/08/25 05:36: b-Hydroxybutyric mmol/L 0.9 H 06/08/25 06:41: POC Glucose 189 H 06/08/25 09:29: POC Glucose 218 H 06/08/25 11:48: POC Glucose 246 H D/C Instructions Discharge Activity: Return to Normal Activity DC O2, CPAP, BIPAP Needs Home O2 Discharge instructions: No Meaningful Use Info Meaningful Use Meaningful Use Diagnoses (Choose all that apply): None applicable Discharge Plan Admission Admit Date/Time: 06/06/25 16:40 Primary Reason for Your Visit: Chest pain/shortness of breath/palpitations Attending Provider: Kayce Whittington Primary Care Provider: Nirmala Kimbrough Consulting Providers: Nasim Garcia; Josie Lynn Discharge Orders/Prescriptions Prescriptions: New metoprolol tartrate 50 mg Tablet 50 mg PO BID Qty: 60 0RF Eliquis 5 mg Tablet 5 mg PO BID Qty: 60 0RF metformin 500 mg tablet 500 mg PO BID Qty: 70 0RF Rx Instructions: Take 500 mg twice daily for 2 weeks then take 500 mg in the morning and at 1000 mg in the evening for 2 weeks and then increase to 1000 mg twice daily Continued amlodipine-benazepril 10-40 mg capsule 1 cap PO DAILY Patient Comments: TAKE 1 CAPSULE BY MOUTH ONCE DAILY Discontinued atenolol 100 mg tablet 50 mg PO Q12H empagliflozin 10 mg tablet 10 mg PO DAILY No Action primidone 50 mg tablet 150 mg PO BID multivitamin tablet 1 tab PO DAILY loperamide [Imodium A-D] 2 mg capsule 2 mg PO Q6H PRN (Reason: Diarrhea) clobetasol 0.05 % ointment 1 applic TOPICAL BID PRN (Reason: Itching) insulin glargine [Basaglar KwikPen U-100 Insulin] 100 unit/mL (3 mL) insulin pen 22 unit SC DAILY Trulicity 0.75 mg/0.5 mL pen injector 0.75 mg subcut QWEEK Rx Instructions: takes on Wednesday meloxicam 15 MG tablet 15 mg PO DAILY gabapentin 300 MG capsule 300 mg PO TID sertraline 100 mg tablet 100 mg PO DAILY aspirin 81 mg capsule 81 mg PO DAILY memantine [Namenda] 5 mg tablet 5 mg PO BID acetaminophen 500 mg capsule 1,000 mg PO Q8H PRN PRN (Reason: pain) pravastatin 40 mg tablet 40 mg PO DAILY Patient Comments: TAKE 1 TABLET BY MOUTH EVERYDAY AT BEDTIME estradiol 0.01 % (0.1 mg/gram) cream See Rx Instructions vaginal .COMPLEX PRN (Reason: itching) Rx Instructions: small amount as directed vaginally every other day X 4 weeks then twice a week; PRN; Referrals / Follow Up: Josie Lynn MD [Med Staff - Active Staff] - Within 1 Month (Please call on Wednesday to set up an appointment) Nirmala Kimbrough MD [Primary Care Provider] - Within 2 Weeks Disposition Disposition (needs filled in before D/C Order can be placed): Home, Self Care Charges/Coding Visit Charges Inpatient E&M: 94227 Disch Hosp >30min
[2025-06-08 12:40] VITALS: BP 139/71; PULSE 74; RESP 16; TEMP 36.5; O2SAT 96
--- NOTE | 2025-06-08 13:20 | CASEMGMT ---
Patient has order for discharge. Patient is discharging on Eliqumariano, LEOBARDO WILSON called [facility], copay is $0. RN CM in to patient's room to discuss needs at discharge. Patient updated regarding $0 copay for Eliquis. Patient denies needs or help at discharge. Patient had no further questions or concerns.
--- NOTE | 2025-06-08 13:40 | PHA.DC_ITS ---
Pharmacy [facility] has performed discharge medication counseling for this patient. The patient was counseled on the following discharge medications and changes in medications for homegoing review. - Metformin 500 mg tablet, metoprolol tartrate 50 mg tablet, apixaban 5 mg tablet. - Discussed discontinuing atenolol and Jardiance from home medications. Patient had no questions about which medications to take once she returns home. The Reason for Use, instructions for use, and potential side effects were reviewed for all new medications. The patient's questions regarding all of their medications were answered. The patient was able to verbally demonstrate an understanding of their discharge medications. Medications at Discharge Home Medications clobetasol 0.05 % topical ointment 1 applic topical BID PRN Itching 06/13/18 loperamide 2 mg capsule (Imodium A-D) 2 mg PO Q6H PRN Diarrhea 06/13/18 multivitamin 1 tab PO DAILY health maintenance 06/13/18 primidone 50 mg tablet 150 mg PO BID seizures 06/13/18 insulin glargine 100 unit/mL (3 mL) subcutaneous pen (Basaglar KwikPen U-100 Insulin) 22 unit subcut DAILY diabetes 06/15/19 gabapentin 300 mg capsule 300 mg PO TID neuropathy 05/02/20 meloxicam 15 mg tablet 15 mg PO DAILY arthritis 05/02/20 dulaglutide 0.75 mg/0.5 mL subcutaneous pen injector (Trulicity) 0.75 mg subcut QWEEK diabetes 12/17/21 acetaminophen 500 mg capsule 1,000 mg PO Q8H PRN PRN pain 06/06/25 amlodipine 10 mg-benazepril 40 mg capsule 1 cap PO DAILY bp 06/06/25 aspirin 81 mg capsule 81 mg PO DAILY health maintenance 06/06/25 estradiol 0.01% (0.1 mg/gram) vaginal cream See Rx Instructions vaginal .COMPLEX PRN itching 06/06/25 memantine 5 mg tablet (Namenda) 5 mg PO BID health maintenance 06/06/25 pravastatin 40 mg tablet 40 mg PO DAILY cholesterol 06/06/25 sertraline 100 mg tablet 100 mg PO DAILY anxiety 06/06/25 apixaban 5 mg tablet (Eliquis) 5 mg PO BID #60 tabs 06/08/25 metformin 500 mg tablet 500 mg PO BID #70 tabs 06/08/25 metoprolol tartrate 50 mg tablet 50 mg PO BID #60 tabs 06/08/25
[2025-06-08 15:15] VITALS: BP 139/71; PULSE 74; RESP 16; TEMP 36.5; O2SAT 96
== END 2025-06-08 16:31 | disposition home or self-care (01) | DRG 308 ==
LOC: ED 16:52 → PCU 17:12
PROVIDERS: Admitting Provider Hospitalist; Emergency Provider Emergency Medicine; PCP Internal Medicine; Visit Provider Internal Medicine
DX: I48.91 Unspecified atrial fibrillation (principal); E11.10 Type 2 diabetes mellitus with ketoacidosis without coma; I24.89 Other forms of acute ischemic heart disease; I27.20 Pulmonary hypertension, unspecified; F32.A Depression, unspecified; I10 Essential (primary) hypertension; I07.1 Rheumatic tricuspid insufficiency; E11.40 Type 2 diabetes mellitus with diabetic neuropathy, unspecified; E78.5 Hyperlipidemia, unspecified; E86.0 Dehydration; G25.0 Essential tremor; R19.7 Diarrhea, unspecified; R11.2 Nausea with vomiting, unspecified; M19.90 Unspecified osteoarthritis, unspecified site; F41.9 Anxiety disorder, unspecified; I95.9 Hypotension, unspecified; T38.3X5A Adverse effect of insulin and oral hypoglycemic [antidiabetic] drugs, initial encounter; Z79.01 Long term (current) use of anticoagulants; Z79.82 Long term (current) use of aspirin; Z79.84 Long term (current) use of oral hypoglycemic drugs; Z79.85 Long-term (current) use of injectable non-insulin antidiabetic drugs; Z79.899 Other long term (current) drug therapy
CPT/HCPCS: 36415; 36600; 71045; 80048; 80053; 82010; 82803; 82962; 83036; 83735; 83880; 84100; 84484; 85025; 85027; 85379; 93005; 93306; 99285; A4216

== ENCOUNTER 2025-07-18 11:29 | Observation (INO) | payer MEDICARE, OTHER, SELFPAY ==
--- NOTE | 2025-07-16 09:38 | RAD_ITS ---
PROCEDURE: CHEST PA AND LATERAL 07/16/2025 REASON FOR EXAM: HAVING LEFT HEART CATH TECHNIQUE: Procedure Code: RADCXR Modality: DX Procedure: CHEST PA AND LATERAL COMPARISON: Portable chest, 06/06/2025 FINDINGS: The lungs are clear. The heart borders and pulmonary vascular pattern are normal. The upper abdominal bowel gas pattern is normal. There are multiple healed rib fractures on the right. There is mild dextroscoliosis of the thoracolumbar spine. RAD/Chest PA and Lateral IMPRESSION: No evidence of acute cardiopulmonary pathology. Other findings as noted. Reading Location: [place] [id number]
[2025-07-16 10:35] LABS: Hematocrit 38.1 % (37-47); Hemoglobin 12.8 g/dL (12.0-15.0); Immature Granulocytes Count 0.010 X10^3/uL (0.0-0.0); Mean Corp Hgb Conc 33.6 g/dL (32-36); Mean Corpuscular Volume 91.1 fL (81-99); Mean Platelet Vol. 11.0 fl (6.2-12.0); NRBC Flagged by Analyzer 0 % (0-5); Platelet Count 190 K/mm3 (150-450); RBC Distribution Width CV 12.2 % (11.6-14.6); RBC Distribution Width SD 41.1 fl (35.1-43.9); Red Blood Count 4.18 M/mm3 (4.2-5.4); White Blood Count 6.1 K/mm3 (4.4-11.0)
[2025-07-16 10:45] LABS: Prothrombin Time (Protime)PT. 12.6 SECONDS (11.7-14.9)
[2025-07-16 10:46] LABS: Partial Thromboplast Time 25.3 Seconds (24.1-36.2)
[2025-07-16 10:51] LABS: Anion Gap 10 (5-15); BUN 28 mg/dL (4-19); BUN/Creat Ratio 35.8 RATIO (10-20); Calcium,Total 9.4 mg/dL (7.6-11.0); Carbon Dioxide 22.6 mmol/L (21.0-32.0); Chloride 103 mmol/L (98-108); Glucose 163 mg/dL (70-99); Potassium 4.4 mmol/L (3.3-5.1)
[2025-07-17 12:05] VITALS: BMI 27.6
[2025-07-18] VITALS (10 sets, daily range): BP systolic 131–172; BP diastolic 80–110; PULSE 71–88; RESP 16–18; TEMP 36.4–36.9; O2SAT 96–100
--- NOTE | 2025-07-18 11:35 | DCINST_ITS ---
Discharge Instructions DC O2, CPAP, BIPAP needs Home O2 Discharge instructions: No Dressing / Incision Discharge Activity: Return to Normal Activity Dressing / Incision Call your doctor if your incision/area has: Continuous Slow Oozing, Sudden Increased Bleeding, Increased Pain/ Swelling, Increased Redness, Foul Smelling Discharge and Swelling at the incision site Call your doctor if you observe: Fever of 101 or Higher, Coldness, Increased Pain, Numbness or Tingling and Change in Color Follow Up Care Please Follow Up With: Josie Lynn MD When: 2-4 weeks Test Results: Test results from this visit will be discussed in further detail at your follow- up appointment, if applicable. Discharge Plan Admission Attending Provider: Josie Lynn Primary Care Provider: Nirmala Kimbrough Instructions Print Language: Setswana Discharge Orders/Prescriptions Prescriptions: New clopidogrel 75 mg Tablet 75 mg PO DAILY Qty: 30 11RF Continued primidone 50 mg tablet 150 mg PO BID multivitamin tablet 1 tab PO DAILY loperamide [Imodium A-D] 2 mg capsule 2 mg PO Q6H PRN (Reason: Diarrhea) clobetasol 0.05 % ointment 1 applic TOPICAL BID PRN (Reason: Itching) insulin glargine [Basaglar KwikPen U-100 Insulin] 100 unit/mL (3 mL) insulin pen 22 unit SC DAILY Trulicity 0.75 mg/0.5 mL pen injector 0.75 mg subcut QWEEK Rx Instructions: takes on Wednesday meloxicam 15 MG tablet 15 mg PO DAILY gabapentin 300 MG capsule 300 mg PO TID amlodipine-benazepril 10-40 mg capsule 1 cap PO DAILY Patient Comments: TAKE 1 CAPSULE BY MOUTH ONCE DAILY sertraline 100 mg tablet 100 mg PO DAILY memantine [Namenda] 5 mg tablet 5 mg PO BID acetaminophen 500 mg capsule 1,000 mg PO Q8H PRN PRN (Reason: pain) pravastatin 40 mg tablet 40 mg PO DAILY Patient Comments: TAKE 1 TABLET BY MOUTH EVERYDAY AT BEDTIME Eliquis 5 mg Tablet 5 mg PO BID Qty: 60 0RF metoprolol tartrate 100 mg tablet 100 mg PO BID Qty: 60 5RF Held metformin 500 mg tablet 500 mg PO BID Qty: 70 0RF Hold Instructions: Resume on 07/21/25. Rx Instructions: Take 500 mg twice daily for 2 weeks then take 500 mg in the morning and at 1000 mg in the evening for 2 weeks and then increase to 1000 mg twice daily Referrals / Follow Up: Nirmala Kimbrough MD [Primary Care Provider, Internal Medicine] Disposition Disposition (needs filled in before D/C Order can be placed): Home, Self Care
[2025-07-18] MEDS: 0.9% Normal Saline (1000mL) 1,000 ML 150 ML IV (11:45)
--- NOTE | 2025-07-18 11:45 | EKG12_ITS ---
Test Reason : POST PCI Blood Pressure : */* mmHG Vent. Rate : 70 BPM Atrial Rate : 70 BPM P-R Int : 178 ms QRS Dur : 120 ms QT Int : 398 ms P-R-T Axes : 62 -26 73 degrees QTcB Int : 429 ms Normal sinus rhythm Left bundle branch block Abnormal ECG Confirmed by Naresh Ratliff ([id number]), editor managing director VIDA CAMERON ([id number]) on 07/20/2025 7:09:08 AM Referred By: Josie Lynn Confirmed By: Naresh Ratliff
[2025-07-18 11:46] LABS: ACT Activated Clotting Time 210 sec (74-137)
[2025-07-18 11:46] LABS: ACT Activated Clotting Time 239 sec (74-137)
[2025-07-18 11:46] LABS: ACT Activated Clotting Time 262 sec (74-137)
--- NOTE | 2025-07-18 12:16 | CL.I_ITS ---
Patient Name: KRUPA OBRIEN Study Date: 07/18/2025 Performing: Josie Lynn MD Ht: 68 inches 172.72 cm : 1945 Wt: 182.2 lbs 82.55 kg Age: 80 Gender: female BSA: 1.96 PROCEDURE(S) PERFORMED DC02-(32930)LHC/COR IC12-([id number])COREY W/WO PTCA, SINGLE CORONARY ARTERY IC10-([id number])FFR, CORONARY OR GRAFT, INITIAL VESSEL CLINICAL PROFILE AND CO-MORBIDITIES Indications: Suspected CAD Heart Failure: None Stress/Imaging Stress/Image Study Performed: No Angina Classification Anginal Classification w/in 2 Weeks: CCS II CAD Presentations: Unstable angina. CONCLUSIONS 95% complex lesion Prox RCA with healed dissection 60% calcified Mid LAD (iFR 0.93, FFR 0.86) 50% OM1 Successful COREY Prox RCA using Gustavo Drumright 25x38 mm, post-dilated using 2.75 mm balloon RECOMMENDATIONS P2Y12 inhibitors for atleast 6 months Continue Apixaban DESCRIPTION OF PROCEDURE The patient arrived to the procedure lab. The risks and benefits of the procedure as well as a full description of our services here and lack of surgical backup were fully explained to the patient and/or their significant other prior to the catheterization. The Timeout was completed, verifying the correct patient and procedure. The patient's procedural site was prepped and draped in the usual fashion. Local anesthetic was given subcutaneously to right radial region with Lidocaine 2%. Using a modified Seldinger technique, arterial access was obtained via the right radial artery, a 6Fr sheath was inserted.. Left Coronary Artery selective angiography was performed in multiple views using a 5 Fr. 4.0 Niotaze catheter. Right Coronary Artery selective angiography was then performed in multiple views using a 5 Fr. 4.0 Niotaze catheter. Left Coronary Artery selective angiography was performed in multiple views using a 5 Fr. JL 3The images were reviewed and options discussed. A decision was then made to proceed with an Intervention, IVUS or other adjunct procedure. JR 4 Guide catheter was inserted and engaged into the RCA. {L1} RUNTHROUGH Guide wire was advanced to the RCA. GUSTAVO FRONTIER 2.5X 38 Drug Eluting stent was inserted. Drug Eluting stent was advanced across the lesion in the right coronary, proximal. Angiogram performed pre stent deployment. NC EMERGE 2.75 X 20 Balloon catheter was inserted post stent. Angiogram performed post balloon dilatation. Angiogram performed post balloon dilatation. XB 3 Guide catheter was inserted and engaged into the LCA. RUNTHROUGH Guide wire was repositioned to the CIRCUMFLEX The FFR/iFR wire was inserted. Pressures and FFR/iFR were then recorded. iFR Ratio: 0.93 Adenosine was then given per protocol. Pressures and FFR/iFR were then recorded. FFR Ratio Baseline: 0.93 FFR Ratio post Adenosine: 0.86 The FFR/iFR wire was then removed. The arterial sheath was pulled and a TR Band was applied for hemostasis 14 ML OF AIR CORONARY ANGIOGRAPHY DOMINANCE: Left Dominant LEFT MAIN: Angiographically normal LEFT ANTERIOR DESCENDING ARTERY: LAD: Calcified 20% Proximal lesion in LAD Calcified 60% Mid lesion in LAD DIAGONAL 1: Tubular 50% Ostial lesion in 1st Diagonal OM 1: Tubular 50% Ostial lesion in MARG1 OM 2: Tubular 50% Ostial lesion in MARG1 RIGHT CORONARY ARTERY: RCA: Complex 95% Proximal lesion in RCA INTERVENTION INFORMATION LESION SITE: RCA (Proximal) Lesion Complexity: High/C, lesion length: 36 mm Pre Stenosis: 95 % Pre intervention ALFREDITO flow: 3 PROCEDURE: Drug Eluting Stent with post dilatation Post Stenosis: 00 % Post intervention ALFREDITO flow: 3 Lesion Devices: Terumo .014 180cm Runthrough Extra Floppy straight Cordis 6 Fr JR4 100cm Guide Catheter Medtronic 2.50 x 38 GUSTAVO FRONTIER COREY Duncan Sci NC EMERGE MR 2.75x20 BALLOON LESION SITE: LAD (Mid) Lesion Devices: Terumo .014 180cm Runthrough Extra Floppy straight Cordis 6 Fr XB3.0 100cm Guide Catheter Nextance Coronary FFR Wire COMPLICATIONS No Complications PROCEDURE MEDICATIONS Fentanyl 50 mcg IV Versed 1 mg IV Oxygen: 2 L/min via nasal cannula Aspirin (325mg) 1 Tabs PO 07/18/2025 09:31:53 Brilinta 180 mg PO 07/18/2025 10:45:04 Adenosine drip for FFR 23.3 ml IV @ 07/18/2025 11:15:47 Heparin 4000 unit(s) IV 07/18/2025 10:36:47 Heparin 3000 unit(s) IV 07/18/2025 10:48:08 Heparin 2000 unit(s) IV 07/18/2025 11:07:25 Nitro 200 mcg IC 07/18/2025 10:32:57 Nitro 200 mcg IC 07/18/2025 10:32:57 SUMMARY OF HEMODYNAMIC DATA Time AIR REST ECG 09:36:29 AO 141/85 (110) SA 10:28:43 AO 150/86 (115) 10:37:22 AO 162/79 (113) 11:12:10 Signed By Josie Lynn MD On 07/18/2025 12:15:45 Josie Lynn MD
--- NOTE | 2025-07-18 14:51 | DCINST_ITS ---
Discharge Instructions DC O2, CPAP, BIPAP needs Home O2 Discharge instructions: No Dressing / Incision Discharge Activity: Return to Normal Activity Dressing / Incision Call your doctor if your incision/area has: Continuous Slow Oozing, Sudden Increased Bleeding, Increased Pain/ Swelling, Increased Redness, Foul Smelling Discharge and Swelling at the incision site Call your doctor if you observe: Fever of 101 or Higher, Coldness, Increased Pain, Numbness or Tingling and Change in Color Follow Up Care Please Follow Up With: Josie Lynn MD Test Results: Test results from this visit will be discussed in further detail at your follow- up appointment, if applicable. Discharge Plan Admission Admit Date/Time: 07/18/25 11:29 Attending Provider: Josie Lynn Primary Care Provider: Nirmala Kimbrough Discharge Orders/Prescriptions Prescriptions: New clopidogrel 75 mg Tablet 75 mg PO DAILY Qty: 30 11RF Continued multivitamin tablet 1 tab PO DAILY loperamide [Imodium A-D] 2 mg capsule 2 mg PO Q6H PRN (Reason: Diarrhea) clobetasol 0.05 % ointment 1 applic TOPICAL BID PRN (Reason: Itching) insulin glargine [Basaglar KwikPen U-100 Insulin] 100 unit/mL (3 mL) insulin pen 22 unit SC DAILY Trulicity 0.75 mg/0.5 mL pen injector 0.75 mg subcut QWEEK Rx Instructions: takes on Wednesday meloxicam 15 MG tablet 15 mg PO DAILY gabapentin 300 MG capsule 300 mg PO TID amlodipine-benazepril 10-40 mg capsule 1 cap PO DAILY Patient Comments: TAKE 1 CAPSULE BY MOUTH ONCE DAILY sertraline 100 mg tablet 100 mg PO DAILY memantine [Namenda] 5 mg tablet 5 mg PO BID acetaminophen 500 mg capsule 1,000 mg PO Q8H PRN PRN (Reason: pain) pravastatin 40 mg tablet 40 mg PO DAILY Patient Comments: TAKE 1 TABLET BY MOUTH EVERYDAY AT BEDTIME Eliquis 5 mg Tablet 5 mg PO BID Qty: 60 0RF metoprolol tartrate 100 mg tablet 100 mg PO BID Qty: 60 5RF Held metformin 500 mg tablet 500 mg PO BID Qty: 70 0RF Hold Instructions: Resume on 07/21/25. Rx Instructions: Take 500 mg twice daily for 2 weeks then take 500 mg in the morning and at 1000 mg in the evening for 2 weeks and then increase to 1000 mg twice daily Discontinued primidone 50 mg tablet 150 mg PO BID Referrals / Follow Up: Nirmala Kimbrough MD [Primary Care Provider, Internal Medicine] Disposition Disposition (needs filled in before D/C Order can be placed): Home, Self Care
[2025-07-18] MEDS: APIXABAN 5 MG TABLET PO (21:02)
[2025-07-18] MEDS: Memantine Hydrochloride 5 MG Tablet PO (21:03)
[2025-07-19 05:00] VITALS: BP 158/82; PULSE 78; RESP 16; TEMP 36.1; O2SAT 96
[2025-07-19 06:18] LABS: Hematocrit 37.5 % (37-47); Hemoglobin 12.4 g/dL (12.0-15.0); Mean Corp Hgb Conc 33.1 g/dL (32-36); Mean Corpuscular Volume 91.9 fL (81-99); Mean Platelet Vol. 10.8 fl (6.2-12.0); Platelet Count 189 K/mm3 (150-450); RBC Distribution Width CV 12.5 % (11.6-14.6); RBC Distribution Width SD 41.9 fl (35.1-43.9); Red Blood Count 4.08 M/mm3 (4.2-5.4); White Blood Count 7.1 K/mm3 (4.4-11.0)
[2025-07-19 06:54] LABS: Cholesterol 120 mg/dL (<=200); Low Density Lipoprotein Calc. 46 mg/dL; Triglycerides 132 mg/dL; Very Low Density Lipoprotein 26 mg/dL (5-40); cholesterol:hdl ratio screen 2.36
[2025-07-19 07:04] LABS: AST(SGOT) 25 U/L (<=31); Alanine Aminotransfer ALT/SGPT 30 U/L (<=34); Albumin, Serum 3.6 g/dL (3.4-4.8); Alkaline Phosphatase 65 U/L (35-104); Anion Gap 9 (5-15); BUN 25 mg/dL (4-19); BUN/Creat Ratio 26.8 RATIO (10-20); Calcium,Total 9.6 mg/dL (7.6-11.0); Carbon Dioxide 24.4 mmol/L (21.0-32.0); Chloride 105 mmol/L (98-108); Estimated Creatinine Clearance 56.16 ml/min (50-250); Globulin 2.3 g/dL (2.2-4.2); Glucose 167 mg/dL (70-99); Potassium 5.1 mmol/L (3.3-5.1)
[2025-07-19 08:12] VITALS: BP 151/82; PULSE 87; RESP 15; TEMP 36.7; O2SAT 96
[2025-07-19 09:51] VITALS: PULSE 87
[2025-07-19] MEDS: APIXABAN 5 MG TABLET PO (09:51)
[2025-07-19] MEDS: Memantine Hydrochloride 5 MG Tablet PO (09:52)
--- NOTE | 2025-07-19 10:06 | CASEMGMT ---
LEOBARDO WILSON NOTE: Pt to discharge today. LEOBARDO CM to room. Pt resting in bed, awake/alert. Introduced self and role. Pt states she is ready to go home, her will be picking her up. She is aware Rx for plavix has been sent to [facility] and states they can pick it up today. She confirms she has plenty supply of Eliquis @ home. She denies having any discharge needs or concerns. She states she has been up in the room w/out difficulty w/steady gait & good strength. Thelma AGUILARN LEOBARDO CM
--- NOTE | 2025-07-19 10:18 | PHA.DC.COU.R ---
Pharmacy [facility] has performed discharge medication counseling for this patient. The patient was counseled on the following discharge medications and changes in medications for homegoing review. - Clopidogrel 75 mg tablet, Primidone 50 mg tablet The Reason for Use, instructions for use, and potential side effects were reviewed for all new medications. The patient's questions regarding all of their medications were answered. - We discussed the interaction between apixaban and primidone and the reason we are going to stop the primidone at this time. She understood the explanation and had no further questions at this time. The patient was able to verbally demonstrate an understanding of their discharge medications. Medications at Discharge Home Medications clobetasol 0.05 % topical ointment 1 applic topical BID PRN Itching 06/13/18 loperamide 2 mg capsule (Imodium A-D) 2 mg PO Q6H PRN Diarrhea 06/13/18 multivitamin 1 tab PO DAILY health maintenance 06/13/18 insulin glargine 100 unit/mL (3 mL) subcutaneous pen (Basaglar KwikPen U-100 Insulin) 22 unit subcut DAILY diabetes 06/15/19 gabapentin 300 mg capsule 300 mg PO TID neuropathy 05/02/20 meloxicam 15 mg tablet 15 mg PO DAILY arthritis 05/02/20 dulaglutide 0.75 mg/0.5 mL subcutaneous pen injector (Trulicity) 0.75 mg subcut QWEEK diabetes 12/17/21 acetaminophen 500 mg capsule 1,000 mg PO Q8H PRN PRN pain 06/06/25 amlodipine 10 mg-benazepril 40 mg capsule 1 cap PO DAILY bp 06/06/25 memantine 5 mg tablet (Namenda) 5 mg PO BID health maintenance 06/06/25 pravastatin 40 mg tablet 40 mg PO DAILY cholesterol 06/06/25 sertraline 100 mg tablet 100 mg PO DAILY anxiety 06/06/25 apixaban 5 mg tablet (Eliquis) 5 mg PO BID blood thinner #60 tabs 06/08/25 metformin 500 mg tablet 500 mg PO BID diabetes #70 tabs 06/08/25 Held on 07/18/25. Instructions: Resume on 07/21/25. metoprolol tartrate 100 mg tablet 100 mg PO BID blood pressure #60 tabs 07/13/25 clopidogrel 75 mg tablet 75 mg PO DAILY #30 tabs 07/18/25
--- NOTE | 2025-07-19 11:27 | CRPHASE1_ITS ---
Patient Communication Patient Information PHII Cardiac Rehab Discussed with Patient:: Yes Guide to Cardiac Rehab Given to Patient:: Yes Cardiac Rehab Facility Choice List Given to Patient:: Yes Communication to Cardiac Rehab Choice Program [facility] CR PHII:: Communication Given to CR Canvas Worker:: Josie Lynn Phase II Cardiac Rehab:: Yes Sessions:: 36 sessions - 3 days/wk, 12 weeks Cardiac Rehabilitation Info Program Information Cardiac Rehabilitation Program Information: Cardiac Rehab The cardiac rehab team at [facility] consists of highly skilled exercise physiologists, nurses, respiratory therapists and physicians working together with you. Our purpose is to help you have a full recovery and achieve the goals you set for yourself. Over the years many of our patients have returned to activities they assumed they would never do again! We can help restore your confidence and motivation to make lifestyle changes that can have a significant impact on your health and quality of life! We can help answer questions and concerns you may have about exercise, lifestyle, medications, diet, stress and anxiety which are common following a hospitalization. WE monitor ECG and vital signs during exercise and discuss your progress with you and report to your physician(s). Cardiac Rehab is proven to help reduce readmissions, improve functional capacity and lower recurrence of problems with your heart. Our Cardiac Rehab program is Certified by the [place] [employer]monary [employer] (AACVPR) and Accredited by the [place] [employer] through our [facility]. You can contact us at . We invite you to call us with your questions or to get started in our program. If you have other questions or concerns be sure to ask your physician/provider during your follow-up visit. WE look forward to seeing you!
--- NOTE | 2025-07-19 11:28 | CRPH1.INSTRU ---
General Education Discussed with Patient CAD and cardiac anatomy and function:: Patient communicates acknowledgment and Family communicates acknowledgment Explanation of diagnoses and procedures:: Patient communicates acknowledgment and Family communicates acknowledgment Sign/Symptoms of LA:: Patient communicates acknowledgment and Family communicates acknowledgment Antiplatelet therapy: Patient communicates acknowledgment and Family communicates acknowledgment Proper use of NTG-SL: Patient communicates acknowledgment and Family communicates acknowledgment Emergency procedures and activation of EMS: Patient communicates acknowledgment and Family communicates acknowledgment Compliance of all prescribed medications: Patient communicates acknowledgment and Family communicates acknowledgment Dyslipidemia Risk Factors Patient Dyslipidemia Risk Factors Are:: Total Cholesterol, Triglycerides, HDL and LDL Recommendations Recommendations Include:: Lipid profile not available Response Code Dyslipidemia Response Code:: Patient communicates acknowledgment and Family communicates acknowledgment Overweight/Obesity Risk Factors Patient Overweight/Obesity Risk Factors Are:: BMI Normal [24-29 & > 65 years old] Recommendations Recommendations Include:: Weight loss of 5-10%, Reduced calorie diet and Exercise 5-7 times/week Response Code Overweight/Obesity:: Patient communicates acknowledgment and Family communicates acknowledgment Hypertension Recommendations Recommendations Include:: Maintain BP <130/85 Response Code Hypertension:: Patient communicates acknowledgment and Family communicates acknowledgment Sedentary Risk Factors Patient Sedentary Risk Factors Are:: Lack of regular exercise Recommendations Recommendations Include:: Aerobic exercise 5-7 times/week for 20-30 minutes continuously, Benefits of regular exercise, Discussed home walking program and Monitored Outpatient Cardiac Rehab Response Code Sedentary Response Code:: Patient communicates acknowledgment and Family communicates acknowledgment
--- NOTE | 2025-07-19 11:45 | EKG12_ITS ---
Test Reason : POST CATH Blood Pressure : */* mmHG Vent. Rate : 78 BPM Atrial Rate : 78 BPM P-R Int : 176 ms QRS Dur : 124 ms QT Int : 402 ms P-R-T Axes : 48 -11 84 degrees QTcB Int : 458 ms Normal sinus rhythm Left bundle branch block Abnormal ECG When compared with ECG of 18-Jul-2025 12:30, MANUAL COMPARISON REQUIRED DATA IS UNCONFIRMED Confirmed by Naresh Ratliff ([id number]), fashion editor VIDA CAMEORN ([id number]) on 07/20/2025 7:09:19 AM Referred By: Josie Lynn Confirmed By: Naresh Ratliff
== END 2025-07-19 11:21 | disposition home or self-care (01) ==
LOC: CLSP 11:36 → PCU 11:55
PROVIDERS: Admitting Provider Internal Medicine Cardiovascular Disease; PCP Internal Medicine; Referring Provider Internal Medicine Cardiovascular Disease; Visit Provider Internal Medicine Cardiovascular Disease
DX: I25.110 Atherosclerotic heart disease of native coronary artery with unstable angina pectoris (principal); I48.0 Paroxysmal atrial fibrillation; E11.9 Type 2 diabetes mellitus without complications; Z79.4 Long term (current) use of insulin; E78.5 Hyperlipidemia, unspecified; I10 Essential (primary) hypertension; I07.1 Rheumatic tricuspid insufficiency; I44.7 Left bundle-branch block, unspecified; R94.31 Abnormal electrocardiogram [ECG] [EKG]; Z79.899 Other long term (current) drug therapy; Z79.85 Long-term (current) use of injectable non-insulin antidiabetic drugs; Z79.01 Long term (current) use of anticoagulants; Z79.84 Long term (current) use of oral hypoglycemic drugs; J45.909 Unspecified asthma, uncomplicated; G25.0 Essential tremor
CPT/HCPCS: 36415; 71046; 80048; 80053; 80061; 85025; 85027; 85347; 85610; 85730; 92928; 93005; 93454; 93571; 96360; 96361; 99152; 99153; 99221; C1874; C1887; C1894; J0153; Q9967; C1725; C1769; C9600; G0378

== ENCOUNTER 2025-08-02 09:47 | Outpatient (RCR) | payer MEDICARE, OTHER, SELFPAY ==
--- NOTE | 2025-08-02 09:54 | CR.HP_ITS ---
CR - History & Physical General Arrival date:: 08/02/25 Arrival time:: 09:55 Date of Referral:: 07/18/25 Date of CR Evaluation:: 08/02/25 Referring Physician: Dr. Lynn Primary Diagnosis: PCI w/stenting History of Present Cardiac Event Onset Date PTCA or coronary stenting:: Yes (onset 07/18/2025) Vessel: RCA Medications Ambulatory Orders Medication Instructions Recorded clobetasol 0.05 % topical ointment 1 applic topical BI D PRN Itching 06/13/18 loperamide 2 mg capsule (Imodium 2 mg PO Q6H PRN Diarr hea 06/13/18 A-D) multivitamin 1 tab PO DAILY [facility] [place] 06/13/18 insulin glargine 100 unit/mL (3 22 unit subcut DAILY d iabetes 06/15/19 mL) subcutaneous pen (Absolute Antibodyaglar KwikPen U-100 Insulin) gabapentin 300 mg capsule 300 mg PO TID neuropathy 03/16 meloxicam 15 mg tablet 15 mg PO DAILY arthritis 03/16 dulaglutide 0.75 mg/0.5 mL 0.75 mg subcut QWEEK diabet es 12/17/21 subcutaneous pen injector (Trulicity) acetaminophen 500 mg capsule 1,000 mg PO Q8H PRN PRN p ain 06/06/25 amlodipine 10 mg-benazepril 40 mg 1 cap PO DAILY bp capsule memantine 5 mg tablet (Namenda) 5 mg PO BID [facility] 06/06/25 pravastatin 40 mg tablet 40 mg PO DAILY cholesterol 0 06/06/25 sertraline 100 mg tablet 100 mg PO DAILY anxiety 05/28 metformin 500 mg tablet 500 mg PO BID diabetes #70 t abs 06/08/25 Held on 07/18/25. Instructions: Resume on 07/21/25. metoprolol tartrate 100 mg tablet 100 mg PO BID blood pressure #60 07/13/25 tabs clopidogrel 75 mg tablet 75 mg PO DAILY #30 tabs 06/28 11/21 apixaban 5 mg tablet (Eliquis) 5 mg PO BID blood thinn er #60 tabs 07/31/25 glipizide 5 mg tablet 5 mg PO QDAY 07/31/25 Allergies Allergies dapagliflozin (From Farxiga) Allergy (Intermediate, Verified 07/31/25 09:18) Other levofloxacin (From Levaquin) Allergy (Mild, Verified 07/31/25 09:18) severe joint issues Sulfa (Sulfonamide Antibiotics) Allergy (Mild, Verified 07/31/25 09:18) stopped breathing empagliflozin (From Jardiance) Adverse Reaction (Severe, Verified 07/31/25 09:18) Other Euglycemic DKA morphine Adverse Reaction (Verified 07/31/25 09:18) Vomiting Sleep Disorder Evaluation Hx of Sleep Apnea: No Do you snore loudly (louder than talking or can be heard through closed doors)?: No Do you often feel tired/ fatigued/ sleepy during daytime?: No Has anyone observed you stop breathing during sleep?: No History of Hypertension (for STOP score): Yes STOP Results: Negative Advanced Directives Advanced Directives Do you have a Healthcare Power of Clean In Places Operator?: Yes Living Will: Yes Advance Directives Information Provided: No Advance Directives on File: Yes DNR Order?:: No Past Medical History Covid-19 Screening Physicial Symptoms Other Clinical Concerns Exposure Risk Pertinent Comorbidities 65 years or older:: Yes Has a chronic lung disease or moderate to severe asthma:: Yes Has a serious heart condition:: Yes Past Medical Illness Medical History Hypertension Diabetes Abnormal ECG DKA, type 2 Elevated troponin Atrial fibrillation with rapid ventricular response Lichen sclerosus Osteopenia Gastrointestinal problem Essential tremor Celiac disease bone fractures History of back problems Asthma Past Surgical History Surgical History Stented coronary artery (07/18/25) History of bilateral knee replacement s/p right arm surgery H/O esophagogastroduodenoscopy H/O colonoscopy S/P breast biopsy Hx of cholecystectomy History of hysterectomy Surgical History: - (Laminectomy) Family History Summary Family History Father Lung cancer Diabetes Mother Heart disease Diabetes Social History Smoking History Smoking Status: Never smoker Alcohol Use Alcohol Usage: No Substance Abuse Hx Substance Use: No Occupation Occupation (List type of work in comments):: Retired Social Environment Status Marital Status: Current Living Arrangements Living Environment:: Spouse Children How many children do you have?: 2 Do any of your children live nearby?: No Safety Do you feel safe in your surroundings?: Yes Assistance Do you need any assistance at home?: no Review of Systems Review of Systems Hints Review of Present Symptoms: Reports Shortness of Breath with Exertion, Angina, Dizziness/Lightheadedness, Fatigue, Heart Arrhythmia/Irregularities, Appetite - Normal and Appetite - Special Diet; Denies Shortness of Breath at Rest, PVD, Operative Discomfort, Wound Healing, Sleep - Normal or Sexual Changes Pain Is Patient Pain Free?: No Pain Location: neck and back Pain Level: 02/03 Risk Factor Assessment Chief Complaint Chief Complaint: PCI w/stenting Vital Signs Pulse Ox: 97 Blood Pressure: 104/64 Pulse Pulse Rate: 87 Hypertension How long have you been treated?: 50 years Blood Pressure Sitting - Right Arm: 104/64 Stress Stress: Home/Family (brother in law lives with them.) Diabetes Diabetic History: Type II Nutrition Referral for Diabetes: No Obesity Height: 5 ft 8 in Weight:: 182 lb Weight in Pounds: 182.0 lbs Body Mass Index (BMI): 27.6 Nutritional Referral for Obesity: No Risk Stratification Risk Guidelines: Lowest Risk: Risk Factor for Smoking, Moderate Risk: Risk Factor for Obesity and Risk Factor for Sedentary Lifestyle and Highest Risk: Risk Factor for Dyslipidemia, Risk Factor for Diabetes, Risk Factor for Hypertension and Risk Factor for Depression For Smoking Smoking Risk Guidelines For Dyslipidemia Dyslipidemia Risk Guidelines For Diabetes Mellitus Diabetes Risk Guidelines For Obesity/Overweight Obesity/Overweight Risk Guidelines For Hypertension Hypertension Risk Guidelines For Sedentary Lifestyle Sedentary Lifestyle Risk Guidelines For Depression Depression Risk Guidelines Family History Family History Father Lung cancer Diabetes Mother Heart disease Diabetes Motivation Motivation to Participate On a scale of 1 to 10, how prepared are you to commit to attending program?: 9 What do you see as barriers to successfully being able to complete the program?: nothing What do you see as the benefits of succesfully completing the program? In other words, what do you hope to get out of participating in the program?: improve energy levels Are there issues you are dealing with that will interfere with completing the program?: no Do you have a spouse or signficant other, family or friends who will help support you to complete the program?: yes
--- NOTE | 2025-08-02 09:59 | CR.ITP_ITS ---
Diagnosis General Information Admitting Diagnosis: PCI w/stenting Personal Learning Style:: Audio/Visual Barriers to Learning: No Barriers Stage of change r/t lifestyle modifications:: Contemplation Gave educational material for:: Treating Heart Disease, How The Heart Works, What it means to have Heart Disease, How Coronary Artery Disease is Diagnosed, Heart Procedures, What Heart Medications Do, Risk Factors & Modifications, Living an Active Life, Nutrition, Emotions & Heart Disease, Stress Management & Relaxation and Sleep Disorders & Heart Disease Education/Goals Cardiac Rehabilitation Goals Personal Goals: Initial Assessment: Improve management of stress and emotions, Improve energy level, Participate in home exercise program, Improve knowledge of cardiac disease, Improve diet and eating habits (eat healthier) and Control risk factors (learn risk factor modification) Scale for measuring improvement of personal goals Diagnosis & Disease Process Outcomes/Goals: Pt IDs own risk factors & lifestyle modifications by Session 10, Verbalizes symptoms of angina & response by session 3., Pt independently manages and Other Additional Outcomes/Goals: Plan/Interventions: Assist Pt to ID & engage in lifestyle modification to reduce CVD risk, Instruct on individual risk factors, Review symptoms of angina & emergency actions, Review secondary diagnosis & identify educational needs. and Other see comment 30 day Reassessments:: Not Met 30 day Reassessments:: Not Met 30 day Reassessments:: Not Met 30 day Reassessments:: Not Met Final Reassessments:: Not Met Safety Referral to Physical Therapy: No Referral to [facility] Case Management: No Fall Risk Assessed:: Yes Assistive Devices:: None Exercise - Initial Assessment Visit Date of Eval: 08/02/25 (initial eval) Mets: Pre-: >3 METS for 30 minutes by discharge, >5 METS for 30 minutes by discharge, >7 METS for 30 minutes by discharge and Unable to meet goal due to: (see comment below) Physician Prescribed Exercise Modalities: Treadmill, Rower, Schwinn Airdyne AD-7, SciFit Stepper, SciFit Pro- II Ergometer and SciFit Lateral [place] Frequency: 3x/week for 12 weeks [36 sessions] Intensity: 60-80% of age predicted maximum heart rate reserve Duration: 30 - 45 minutes Current METSs:: 3 Target Heart Rate:: 85-107 Resting Blood Pressure: 104/64 EKG Type: Afib w/RVR Outcomes & Goals Goals:: Verbalizes understanding of THR, RPE & goal METS by session 6, Documents in home exercise log/reports 30 min aerobic 5 day/wk by DC, Demonstrates accurate pulse taking by DC and Other additional outcome/goals: see below Intervention & Plan Exercise Program Goals: Instruct on personal THR & RPE, Instruct on MET level & personal MET goal, Show patient to take own pulse /validate performance until accurate, Instruct on home exercise and Other additional plan/int Physical Activity Home Exercise Physical Activity - Home Exercise: Safe Exercise, Warm-up, Self-monitoring, Cool-Down, Home Exercise > 30 min Daily and Sitting Time <3 hours/daily Outcomes & Goals Outcomes/Goals: Demonstrates correct Warm-up/exercise Cool-Down (S3) if = 2.5 METs, Verbalizes symptoms of exercise intolerance by Session 3 (S3), Demonstrate safe equipment use (S3) & follows exercise prescrition (6) and Other: See below Intervention & Plan Plan/Intervention: Instruct warm-up & cool-down if exercising at > 2 METs, Instruct on symptoms of exercise intolerance & actions to take, Instruct & monitor on saf, Assess intial functional capacity & safety risk and Other See below Nutrition - Initial Assessment Program Goals Nutrition Program Goals Patient has diagnosis of Hyperlipidemia (ICD E78)?: Yes Visit Date of Eval: 08/02/25 (initial eval) Cholesterol/Lipids (Other Core Measures) Determine presence & major risk factors that modify LDL goal: Cigarette smoking, Hypertension or hypertensive medication, Low HDL cholesterol <40 mg/dL*, Family history of premature CHD in Male < 55 years: female <65 yearsFa and Age men > 45 years; women >/= 55 years Outcomes/Goals: Pt IDs own risk factors & lifestyle modifications by Session 10, Verbalizes symptoms of angina & response by session 3., Pt independently manages and Other Additional Outcomes/Goals: Intervention/Plan: Advocate for lipid panel cholesterol medication if applicable, Instruct on personal lipid levels & lipid goals/NCEP guidelines, Instruct on cholesterol and Other additional plan/int Referral to dietitian:: No Diabetes (Other Core Measures) Diabetes Type: 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 E11 Insulin dependent injection/pump?: Yes Non-Insulin Dependent?: Yes Do you monitor your blood sugar at home?: Yes Referral to Diabetic Clinic:: No Outcomes/Goals:: Able to state symptoms of, Able to state, Able to state and Other additional Intervention/Plan:: Instruct on, Refer to, Instruct on and Other Weight Mgt (Other Care) Height: 5 ft 8 in Weight:: 182 lb BMI: 27.6 Diagnosis Overweight/Obesity BMI> 30% ICD-10 E66: No Diagnosis High BMI/Morbid Obesity BMI> 35% ICD-10 Z68: No Outcomes/Goals: Pt sets, maintains & shows weight loss goal & trend during rehab and Other additional outcomes/goals Intervention/Plan: Instruct on ideal BMI & set weight loss goal w/patient, Assist pt to ID & incorporate diet changes for weight loss by S9, Refer to Structured Weight Loss program as appropriate, Encourage goal of using 250- 300dcal per session for weight loss and Other additional plan/interventions Healthy Eating Habits Will attend diet classes:: Yes Outcomes/Goals:: Consume diet rich in vegs,fruits,whole grain/high fiber,fish,lean meat, Limit sat/trans fats,cholesterol & added salts & sugars and Other additional outcome/goals: Intervention/Plan:: Assess current eating habits and Other Additional plan/interventions Education Gave educational materials for:: Signs & symptoms of hypoglycemia, Signs & symptoms of hyperglycemia, Relate diabetes to coronary artery disease and Healthy eating Core - Initial Assessment Visit Date of Eval: 08/02/25 (initial eval) Medication Compliance Preventative Medication(s):: Clopidogrel/P2Y12 inhibit, Statin/lipid and Beta lisa Doesn’t believe in the benefits of treatment?: No Believes medications are unnecessary or harmful?: No Has a concern about medication side effects?: No Expresses concern over the cost of medications?: No Outcomes/Goals: Verbalizes medications,desired effect & common side effects @ DC, Pt self-reports following medication regimen, Keeps card in wallet w/medications listed by DC and Other additional outcome/goals: Interventions/plans: Instruct on medication effects & side effects, Review medication list w/patient every two weeks, Instruct importance of taking meds as ordered & assist problem solving and Other additional Tobacco Use Tobacco Use: Non-smoker Interventions/plan: Instruct on effects of smoking & provide smoking cessation resource, Assist pt to set quit date & provide encouragement, Assist pt to develop strategies to achieve/maintain quit date, Assist pt w/nicotine replacement & medication for cessation success and Other additional plan/interventions Hypertension Hypertension Diagnosis:: Hypertension ICD-10 I10 Resting Blood Pressure:: 104/64 [place] [employer] Hypertension Guidelines Outcomes/Goals: Able to verbalize/achieve optimal blood pressure <130/80, Incorporates diet changes & exercise for blood pressure control by DC and Other additional outcomes/goals Interventions/plan: Instruct on optimal blood pressure, hypertension & medications, Instruct on effects of sodium, alcohol, stress, exercise &hypertension and Other additional plan/interventions Tobacco Cessation Referral Smoking Cessation Referral:: No Individual Education/Counseling:: No Education Schedule Given:: Yes Psychosocial - Initial Assess VIsit Date of Eval: 08/02/25 (initial eval) History of previous Mental disease:: No (Pt does not have a diagnosis of mental illness. Pt is on sertraline 100 mg) Psychosocial Test Tool Used:: PowerMessage QOL Cardiac and PHQ-9 Questionnaire phq-9 Severity See PHQ-9 Score: 10 Referral to Behavioral Health PS - Interventions: Yes: Attend Stress Management Classes Outcomes/Goals: See list Psychosocial Outcomes/Goals:: ID's personal stressors & 2 strategies to manage stress by discharge and Other Additional outcome/goals: Intervention/Plan: See List Interventions/Plan:: Assess stressors,coping strategies & signs of derpression on admission, Instruct/assist pt to develop coping & personal stress Mgt strategies, Refer to Behavioral Health if appropriate, Refer to Physician if appropriate, Instruct patient to recognize signs & symptoms of depression, Instruct patient to recog and Other additional plan/intervention Patient Health Questionnaire PHQ-9 Screening Initial Assessment: 1. Little interest or pleasure in doing things: Several days 2. Feeling down, depressed, or hopeless: Several days 3. Trouble falling or staying asleep, or sleeping too much: Nearly every day 4. Feeling tired or having little energy: Nearly every day 5. Poor appetite or overeating: Several days 6. Feeling bad about yourself -- or that you are a failure or have let yourself or your family down: Several days 7. Trouble concentrating on things, such as reading the newspaper or watching television: Not at all 8. Moving or speaking so slowly that other people could have noticed. Or the opposite - being so fidgety or restless that you have been moving around a lot more than usual: Not at all 9. Thoughts that you would be better off , or of hurting yourself in some way: Not at all How difficult have these problems made it for you to do your work, take care of things at home, or get along with other people?: Not difficult at all Total Score: 10 Nutrition Survey Nutrition Survey Initial: Have you lost >10 lbs over the past 2 months without trying?: No Are you following a special diet at home for diabetes, low fat, or low salt?: Yes Are you interested in meeting with a dietitian for help understanding your diet?: No Do you eat less than 3 meals a day?: No Do you eat fatty meats (goldsmith, sausage, ribs, etc), fried foods, desserts, large amounts of salad dressings, margarine, butter, or cheese most days?: Yes Do you have food allergies? [Enter types in comment field]: No Do you eat in restaurants more than 3 times a week?: No Do you season food with salt, seasoning salt, or garlic salt?: Yes Do you used canned, boxed, frozen meals, or soups, seasoning packets?: Yes Total Score:: 4 Exercise - 30-day Assessment Physician Prescribed Exercise Modalities: Treadmill, Rower, Schwinn Airdyne AD-7, SciFit Stepper, SciFit Pro- II Ergometer and SciFit Lateral [place] Analyst Exercise - 60-day Assessment Physician Prescribed Exercise Modalities: Treadmill, Rower, Schwinn Airdyne AD-7, SciFit Stepper, SciFit Pro- II Ergometer and SciFit Lateral [place] Exercise - 90-day Assessment Physician Prescribed Exercise Modalities: Treadmill, Rower, Schwinn Airdyne AD-7, SciFit Stepper, SciFit Pro- II Ergometer and SciFit Lateral [place] Analyst Exercise - Final/Discharge Physician Prescribed Exercise Modalities: Treadmill, Rower, Schwinn Airdyne AD-7, SciFit Stepper, SciFit Pro- II Ergometer and SciFit Lateral [place] Frequency: 3x/week for 12 weeks [36 sessions] Intensity: 60-80% of age predicted maximum heart rate reserve Current METSs:: 3 Target Heart Rate:: 85-107 Nutrition - 30-Day Assessment Weight Mgt (Other Care) Height: 5 ft 8 in Weight:: 182 lb BMI: 27.6 Nutrition - 60-Day Assessment Weight Mgt (Other Care) Height: 5 ft 8 in Weight:: 182 lb BMI: 27.6 Core - Final Assessment Hypertension Resting Blood Pressure:: 104/64 [place] [employer] Hypertension Guidelines Core - 60-Day Assessment Hypertension Resting Blood Pressure:: 104/64 [place] [employer] Hypertension Guidelines Psychosocial - 30-Day Assess Referral to Behavioral Health PS - Interventions: Yes: Attend Stress Management Classes Psychosocial - 60-Day Assess Referral to Behavioral Health PS - Interventions: Yes: Attend Stress Management Classes Psychosocial - 90-Day Assess Referral to Behavioral Health PS - Interventions: Yes: Attend Stress Management Classes Psychosocial - Final Assessmen Psychosocial Test phq-9 Severity See PHQ-9 Score: 10 Referral to Behavioral Health PS - Interventions: Yes: Attend Stress Management Classes Nutrition - 90-Day Assessment Weight Mgt (Other Care) Height: 5 ft 8 in Weight:: 182 lb BMI: 27.6 Nutrition - Final Assessment Program Goals Patient has diagnosis of Hyperlipidemia (ICD E78)?: Yes Weight Mgt (Other Care) Height: 5 ft 8 in Weight:: 182 lb BMI: 27.6
[2025-08-02 10:11] VITALS: BMI 27.6
[2025-08-02 10:15] VITALS: BP 104/64; PULSE 87; O2SAT 97
[2025-08-02 10:47] VITALS: BP 104/64; BMI 27.6
[2025-08-02 10:56] VITALS: BP 104/64
== END 2025-08-26 23:59 ==
LOC: CR 09:47
PROVIDERS: PCP Internal Medicine; Visit Provider Internal Medicine Cardiovascular Disease
DX: Z95.5 Presence of coronary angioplasty implant and graft (principal)
CPT/HCPCS: 93798

== ENCOUNTER → 2025-08-06 | Outpatient (CLI) | payer MEDICARE, OTHER, SELFPAY ==
[2025-08-02 10:47] VITALS: BMI 27.6
--- NOTE | 2025-08-06 13:58 | CDU_ITS ---
Reason For Study Reason For Study: Dizziness Rt. Velocities/BP Lt. Velocities/BP Prox CCA 77.6/11.7 cm/sec. Prox CCA 87.9/17.9 cm/sec. Mid CCA 61.1/8.4 cm/sec. Mid CCA 68.6/15.7 cm/sec. Dist CCA 49.4/7.5 cm/sec. Dist CCA 57.2/14.7 cm/sec. Prox ICA 62.1/17.9 cm/sec. Prox ICA 68.3/17.9 cm/sec. Mid ICA 75.6/21.6 cm/sec. Mid ICA 102.3/29.9 cm/sec. Dist ICA 52.4/15.8 cm/sec. Dist ICA 69.5/21.9 cm/sec. Rt. ICA/CCA = 1.2. Lt. ICA/CCA = 1.5. Prox ECA 88.4/10.0 cm/sec. Prox ECA 70.2/6.5 cm/sec. Rt. Vert. 42.4/14.9 cm/sec. Lt. Vert. 63.4/20.4 cm/sec. Right Extracranial There is intimal thickening but no significant atherosclerotic plaque noted in the right common carotid artery. There is heterogeneous, irregular atherosclerotic plaque noted in the right internal carotid artery. There is intimal thickening but no significant atherosclerotic plaque noted in the right external carotid artery. Antegrade flow is noted in the right vertebral artery. Left Extracranial There is intimal thickening but no significant atherosclerotic plaque noted in the left common carotid artery. There is intimal thickening but no significant atherosclerotic plaque noted in the left internal carotid artery. There is intimal thickening but no significant atherosclerotic plaque noted in the left external carotid artery. Antegrade flow is noted in the left vertebral artery. Procedure Carotid Duplex [id number]. This is a Carotid Duplex examination using B-mode, color flow and specral Doppler. The exam was diagnostic. Exam performed in department. VL/Carotid Duplex Ultrasound Interpretation Summary Mild (<50%) stenosis right extracranial internal carotid. Mild (<50%) stenosis left extracranial internal carotid. Patent and antegrade vertebrals bilaterally. Ordering Physician: Zak Ramos Referring Physician: Nirmala Kimbrough Performed By: Buddy Bello RVT
== END | disposition home or self-care (01) ==
LOC: CVS 13:58
PROVIDERS: PCP Internal Medicine; Referring Provider Nurse Practitioner Family; Visit Provider Nurse Practitioner Family
DX: I65.22 Occlusion and stenosis of left carotid artery (principal); I48.0 Paroxysmal atrial fibrillation; E11.9 Type 2 diabetes mellitus without complications; I51.89 Other ill-defined heart diseases; E78.5 Hyperlipidemia, unspecified; I10 Essential (primary) hypertension
CPT/HCPCS: 93880

== ENCOUNTER 2025-08-22 13:00 | Outpatient (RCR) | payer MEDICARE, OTHER, SELFPAY | END 2025-08-26 23:59 | LOC: CR 13:00 | PROVIDERS: PCP Internal Medicine; Referring Provider Internal Medicine Cardiovascular Disease; Visit Provider Internal Medicine Cardiovascular Disease | DX: Z95.5 Presence of coronary angioplasty implant and graft (principal); I25.10 Atherosclerotic heart disease of native coronary artery without angina pectoris; I51.89 Other ill-defined heart diseases; E11.9 Type 2 diabetes mellitus without complications; E78.5 Hyperlipidemia, unspecified; I10 Essential (primary) hypertension; I48.0 Paroxysmal atrial fibrillation; J45.909 Unspecified asthma, uncomplicated | CPT/HCPCS: 93798 ==

== ENCOUNTER 2025-09-07 13:00 | Outpatient (RCR) | payer MEDICARE, OTHER, SELFPAY ==
--- NOTE | 2025-08-28 08:19 | CR.ITP_ITS ---
Exercise - Initial Assessment Visit Session #:: 7 Physician Prescribed Exercise Modalities: Treadmill, Schwinn Airdyne AD-7 and SciFit Stepper Nutrition - Initial Assessment Weight Mgt (Other Care) Height: 5 ft 8 in Weight:: 176 lb BMI: 26.7 Psychosocial - Initial Assess Referral to Behavioral Health PS - Interventions: Yes: Attend Stress Management Classes Exercise - 30-day Assessment Visit Date of Eval: 08/28/25 Session #:: 7 Physician Prescribed Exercise Modalities: Treadmill, Schwinn Airdyne AD-7 and SciFit Stepper Frequency: 3x/week for 12 weeks [36 sessions] Intensity: 60-80% of age predicted maximum heart rate reserve Duration: 30 - 45 minutes Current METSs:: 3.5 Target Heart Rate:: 85-107 Current RPE:: 12 Maximum Excercise HR:: 98 Resting Blood Pressure: 120/70 Maximum Exercise Blood Pressure: 144/70 EKG Type: NSR rare PAC Outcomes & Goals Goals:: Verbalizes understanding of THR, RPE & goal METS by session 6, Documents in home exercise log/reports 30 min aerobic 5 day/wk by DC, Demonstrates accurate pulse taking by DC and Other additional outcome/goals: see below Intervention & Plan Exercise Program Goals: Instruct on personal THR & RPE, Instruct on MET level & personal MET goal, Show patient to take own pulse /validate performance until accurate, Instruct on home exercise and Other additional plan/int 30-day Reassessments 30 day Reassessments:: Progressing Reassessment Notes & Comments:: Pt oriented to equipment. Pt understands RPE and demonstrates in her daily sessions. Physical Activity Home Exercise Physical Activity - Home Exercise: Safe Exercise, Warm-up, Self-monitoring, Cool-Down, Home Exercise > 30 min Daily and Sitting Time <3 hours/daily Outcomes & Goals Outcomes/Goals: Demonstrates correct Warm-up/exercise Cool-Down (S3) if = 2.5 METs, Verbalizes symptoms of exercise intolerance by Session 3 (S3), Demonstrate safe equipment use (S3) & follows exercise prescrition (6) and Other: See below Intervention & Plan Plan/Intervention: Instruct warm-up & cool-down if exercising at > 2 METs, Instruct on symptoms of exercise intolerance & actions to take, Instruct & monitor on saf, Assess intial functional capacity & safety risk and Other See below 30-day Reassessments 30 day Reassessments:: Progressing Reassessment Notes & Comments:: Pt is progressing in her daily sessions. She demonstrates proper warm up and cool down. Exercise - 60-day Assessment Physician Prescribed Exercise Modalities: Treadmill, Schwinn Airdyne AD-7 and SciFit Stepper Exercise - 90-day Assessment Physician Prescribed Exercise Modalities: Treadmill, Schwinn Airdyne AD-7 and SciFit Stepper Exercise - Final/Discharge Physician Prescribed Exercise Modalities: Treadmill, Schwinn Airdyne AD-7 and SciFit Stepper Nutrition - 30-Day Assessment Program Goals Nutrition Program Goals Patient has diagnosis of Hyperlipidemia (ICD E78)?: Yes Visit Date of Eval: 08/28/25 Session #:: 7 (nutrition score of 4) Cholesterol/Lipids (Other Core Measures) Determine presence & major risk factors that modify LDL goal: Cigarette smoking, Hypertension or hypertensive medication, Low HDL cholesterol <40 mg/dL*, Family history of premature CHD in Male < 55 years: female <65 yearsFa and Age men > 45 years; women >/= 55 years Outcomes/Goals: Pt IDs own risk factors & lifestyle modifications by Session 10, Verbalizes symptoms of angina & response by session 3., Pt independently manages and Other Additional Outcomes/Goals: Intervention/Plan: Advocate for lipid panel cholesterol medication if applicable, Instruct on personal lipid levels & lipid goals/NCEP guidelines, Instruct on cholesterol and Other additional plan/int 30-day Reassessments:: Progressing Reassessment Notes & Comments:: Pt has attended nutrition class with hospital finished goods stock clerk. Pt understands the benefits of a heart healthy low sodium diet Diabetes (Other Core Measures) Diabetes Type: 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 E11 Insulin dependent injection/pump?: Yes Do you monitor your blood sugar at home?: Yes Referral to Diabetic Clinic:: No Outcomes/Goals:: Able to state symptoms of, Able to state, Able to state and Other additional Intervention/Plan:: Instruct on, Refer to, Instruct on and Other 30-day Reassessments:: Progressing Reassessment Notes & Comments:: Pt encouraged to monitor BS as directed by physician. Pt encouraged to follow cardiac controlled diet. Weight Mgt (Other Care) Height: 5 ft 8 in Weight:: 176 lb BMI: 26.7 Diagnosis Overweight/Obesity BMI> 30% ICD-10 E66: No Diagnosis High BMI/Morbid Obesity BMI> 35% ICD-10 Z68: No Outcomes/Goals: Pt sets, maintains & shows weight loss goal & trend during rehab and Other additional outcomes/goals Intervention/Plan: Instruct on ideal BMI & set weight loss goal w/patient, Assist pt to ID & incorporate diet changes for weight loss by S9, Refer to Structured Weight Loss program as appropriate, Encourage goal of using 250- 300dcal per session for weight loss and Other additional plan/interventions 30 day Reassessments:: Progressing Reassessment Notes & Comments:: Pt attended class with hospital finished goods stock clerk. Pt understands the benefit of heart healthy diet and weight control. Healthy Eating Habits Will attend diet classes:: Yes Outcomes/Goals:: Consume diet rich in vegs,fruits,whole grain/high fiber,fish,lean meat, Limit sat/trans fats,cholesterol & added salts & sugars and Other additional outcome/goals: Intervention/Plan:: Assess current eating habits and Other Additional plan/interventions 30-day Reassessments:: Progressing Reassessment Notes & Comments:: Pt has attended nutrition class with hospital finished goods stock clerk. Pt understands the benefits of a heart healthy low sodium diet. Education Gave educational materials for:: Signs & symptoms of hypoglycemia, Signs & symptoms of hyperglycemia, Relate diabetes to coronary artery disease and Healthy eating Nutrition - 60-Day Assessment Weight Mgt (Other Care) Height: 5 ft 8 in Weight:: 176 lb BMI: 26.7 Core - 30-Day Assessment Visit Date of Eval: 08/28/25 Session #:: 7 Medication Compliance Preventative Medication(s):: NEREIDA inhibitor, Clopidogrel/P2Y12 inhibit, Statin/lipid, Beta lisa and Eliquis H/O mental health issues: depression, anxiety, or addiction?: No Doesn?t believe in the benefits of treatment?: No Believes medications are unnecessary or harmful?: No Has a concern about medication side effects?: No Expresses concern over the cost of medications?: No Outcomes/Goals: Verbalizes medications,desired effect & common side effects @ DC, Pt self-reports following medication regimen, Keeps card in wallet w/medications listed by DC and Other additional outcome/goals: Interventions/plans: Instruct on medication effects & side effects, Review medication list w/patient every two weeks, Instruct importance of taking meds as ordered & assist problem solving and Other additional 30-day Reassessments:: Progressing Reassessment Notes & Comments:: Pt is currently taking meds as prescribed. Pt to attend cardiac med class. Tobacco Use Tobacco Use: Non-smoker Do you use smokeless tobacco?: No Hypertension Hypertension Diagnosis:: Hypertension ICD-10 I10 Resting Blood Pressure:: 120/70 [place] [employer] Hypertension Guidelines Peak Exercise Blood Pressure:: 144/70 Outcomes/Goals: Able to verbalize/achieve optimal blood pressure <130/80, Incorporates diet changes & exercise for blood pressure control by DC and Other additional outcomes/goals Interventions/plan: Instruct on optimal blood pressure, hypertension & medications, Instruct on effects of sodium, alcohol, stress, exercise &hypertension and Other additional plan/interventions 30 day Reassessments:: Progressing Reassessment Notes & Comments:: Pt is learning the effects of sodium on blood pressure. BPs are within normal AHA limits. Will continue to monitor and report to physician as necessary. Tobacco Cessation Referral Education Schedule Given:: Yes Psychosocial - 30-Day Assess VIsit Date of Eval: 08/28/25 Session #:: 7 History of previous Mental disease:: No (Pt does not have diagnosis of mental illness. Pt is on sertraline.) Psychosocial Test Tool Used:: Ferrans Power QOL Cardiac and PHQ-9 Questionnaire phq-9 Severity See PHQ-9 Score: 10 Referral to Behavioral Health PS - Interventions: Yes: Attend Stress Management Classes Outcomes/Goals: See list Psychosocial Outcomes/Goals:: ID's personal stressors & 2 strategies to manage stress by discharge and Other Additional outcome/goals: Intervention/Plan: See List Interventions/Plan:: Assess stressors,coping strategies & signs of derpression on admission, Instruct/assist pt to develop coping & personal stress Mgt strategies, Refer to Behavioral Health if appropriate, Refer to Physician if appropriate, Instruct patient to recognize signs & symptoms of depression, Instruct patient to recog and Other additional plan/intervention 30-day Reassessments: 30 day Reassessments:: Progressing Reassessment Notes & Comments:: Pt denies any psychosocial issues at this time. Pt is to attend stress management class. Will reassess every 30 days. Psychosocial - 60-Day Assess Referral to Behavioral Health PS - Interventions: Yes: Attend Stress Management Classes Outcomes/Goals: See list Psychosocial Outcomes/Goals:: ID's personal stressors & 2 strategies to manage stress by discharge and Other Additional outcome/goals: Psychosocial - 90-Day Assess Referral to Behavioral Health PS - Interventions: Yes: Attend Stress Management Classes Psychosocial - Final Assessmen Referral to Behavioral Health PS - Interventions: Yes: Attend Stress Management Classes Nutrition - 90-Day Assessment Weight Mgt (Other Care) Height: 5 ft 8 in Weight:: 176 lb BMI: 26.7 Nutrition - Final Assessment Weight Mgt (Other Care) Height: 5 ft 8 in Weight:: 176 lb BMI: 26.7
[2025-08-28 08:39] VITALS: BP 120/70
[2025-08-28 08:52] VITALS: BMI 26.7
[2025-08-28 09:00] VITALS: BP 120/70
--- NOTE | 2025-09-26 10:38 | PCM.CR.ITP ---
Exercise - Initial Assessment Physician Prescribed Exercise Modalities: Treadmill, SciFit Stepper and SciFit Pro-II Ergometer Nutrition - Initial Assessment Weight Mgt (Other Care) Height: 5 ft 8 in Weight:: 177 lb BMI: 26.9 Core - Initial Assessment Hypertension Resting Blood Pressure:: 120/62 [employer] Hypertension Guidelines Psychosocial - Initial Assess Referral to Behavioral Health PS - Interventions: Yes: Attend Stress Management Classes Exercise - 30-day Assessment Physician Prescribed Exercise Modalities: Treadmill, SciFit Stepper and SciFit Pro-II Ergometer Exercise - 60-day Assessment Visit Date of Eval: 09/26/25 Session #:: 12 Physician Prescribed Exercise Modalities: Treadmill, SciFit Stepper and SciFit Pro-II Ergometer Frequency: 3x/week for 12 weeks [36 sessions] Intensity: 60-80% of age predicted maximum heart rate reserve Duration: 30 - 45 minutes Current METSs:: 3.3 Target Heart Rate:: 85-107 Current RPE:: 11-12 Maximum Excercise HR:: 89 Resting Blood Pressure: 142/72 Maximum Exercise Blood Pressure: 150/68 EKG Type: NSR w/rare PAC, PVC Outcomes & Goals Goals:: Verbalizes understanding of THR, RPE & goal METS by session 6, Documents in home exercise log/reports 30 min aerobic 5 day/wk by DC, Demonstrates accurate pulse taking by DC and Other additional outcome/goals: see below Intervention & Plan Exercise Program Goals: Instruct on personal THR & RPE, Instruct on MET level & personal MET goal, Show patient to take own pulse /validate performance until accurate, Instruct on home exercise and Other additional plan/int Physical Activity Home Exercise Physical Activity - Home Exercise: Safe Exercise, Warm-up, Self-monitoring, Cool-Down, Home Exercise > 30 min Daily and Sitting Time <3 hours/daily Outcomes & Goals Outcomes/Goals: Demonstrates correct Warm-up/exercise Cool-Down (S3) if = 2.5 METs, Verbalizes symptoms of exercise intolerance by Session 3 (S3), Demonstrate safe equipment use (S3) & follows exercise prescrition (6) and Other: See below Intervention & Plan Plan/Intervention: Instruct warm-up & cool-down if exercising at > 2 METs, Instruct on symptoms of exercise intolerance & actions to take, Instruct & monitor on saf, Assess intial functional capacity & safety risk and Other See below 30-day Reassessments 30 day Reassessments:: Progressing Reassessment Notes & Comments:: Proper warm up and cool down demonstrated and explained to pt. Pt is able to return demonstration in their daily sessions. Exercise - 90-day Assessment Physician Prescribed Exercise Modalities: Treadmill, SciFit Stepper and SciFit Pro-II Ergometer Exercise - Final/Discharge Physician Prescribed Exercise Modalities: Treadmill, SciFit Stepper and SciFit Pro-II Ergometer Nutrition - 30-Day Assessment Weight Mgt (Other Care) Height: 5 ft 8 in Weight:: 177 lb BMI: 26.9 Nutrition - 60-Day Assessment Program Goals Nutrition Program Goals Patient has diagnosis of Hyperlipidemia (ICD E78)?: Yes Visit Date of Eval: 09/26/25 Session #:: 12 (Nutrition survey score of 4.) Cholesterol/Lipids (Other Core Measures) Determine presence & major risk factors that modify LDL goal: Cigarette smoking, Hypertension or hypertensive medication, Low HDL cholesterol <40 mg/dL*, Family history of premature CHD in Male < 55 years: female <65 yearsFa and Age men > 45 years; women >/= 55 years Outcomes/Goals: Pt IDs own risk factors & lifestyle modifications by Session 10, Verbalizes symptoms of angina & response by session 3., Pt independently manages and Other Additional Outcomes/Goals: Intervention/Plan: Advocate for lipid panel cholesterol medication if applicable, Instruct on personal lipid levels & lipid goals/NCEP guidelines, Instruct on cholesterol and Other additional plan/int Diabetes (Other Core Measures) Diabetes Type: 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 E11 Insulin dependent injection/pump?: Yes Do you monitor your blood sugar at home?: Yes 30-day Reassessments:: Progressing Weight Mgt (Other Care) Height: 5 ft 8 in Weight:: 177 lb BMI: 26.9 Diagnosis Overweight/Obesity BMI> 30% ICD-10 E66: No Diagnosis High BMI/Morbid Obesity BMI> 35% ICD-10 Z68: No Outcomes/Goals: Pt sets, maintains & shows weight loss goal & trend during rehab and Other additional outcomes/goals Intervention/Plan: Instruct on ideal BMI & set weight loss goal w/patient, Assist pt to ID & incorporate diet changes for weight loss by S9, Refer to Structured Weight Loss program as appropriate, Encourage goal of using 250-300dcal per session for weight loss and Other additional plan/interventions Healthy Eating Habits Will attend diet classes:: Yes Outcomes/Goals:: Consume diet rich in vegs,fruits,whole grain/high fiber,fish,lean meat, Limit sat/trans fats,cholesterol & added salts & sugars and Other additional outcome/goals: Intervention/Plan:: Assess current eating habits and Other Additional plan/interventions 30-day Reassessments:: Progressing Reassessment Notes & Comments:: Pt is scheduled to attend nutrition classes. Pt understands the benefits of a hearth healthy low sodium diet. Education Gave educational materials for:: Signs & symptoms of hypoglycemia, Signs & symptoms of hyperglycemia, Relate diabetes to coronary artery disease and Healthy eating Core - Final Assessment Hypertension Resting Blood Pressure:: 120/62 [employer] Hypertension Guidelines Core - 60-Day Assessment Visit Date of Eval: 09/26/25 Session #:: 12 Medication Compliance Preventative Medication(s):: NEREIDA inhibitor, Clopidogrel/P2Y12 inhibit, Statin/lipid, Beta lisa and Eliquis H/O mental health issues: depression, anxiety, or addiction?: No Doesn?t believe in the benefits of treatment?: No Believes medications are unnecessary or harmful?: No Has a concern about medication side effects?: No Expresses concern over the cost of medications?: No Outcomes/Goals: Verbalizes medications,desired effect & common side effects @ DC, Pt self-reports following medication regimen, Keeps card in wallet w/medications listed by DC and Other additional outcome/goals: Interventions/plans: Instruct on medication effects & side effects, Review medication list w/patient every two weeks, Instruct importance of taking meds as ordered & assist problem solving and Other additional Tobacco Use Tobacco Use: Non-smoker Hypertension Hypertension Diagnosis:: Hypertension ICD-10 I10 Resting Blood Pressure:: 142/72 Resting Blood Pressure:: 120/62 [employer] Hypertension Guidelines Peak Exercise Blood Pressure:: 150/68 Outcomes/Goals: Able to verbalize/achieve optimal blood pressure <130/80, Incorporates diet changes & exercise for blood pressure control by DC and Other additional outcomes/goals Interventions/plan: Instruct on optimal blood pressure, hypertension & medications, Instruct on effects of sodium, alcohol, stress, exercise &hypertension and Other additional plan/interventions 30 day Reassessments:: Progressing Reassessment Notes & Comments:: Pt's BP's are within AHA normal limits on some days. Will continue to monitor and report to pt's physician if necessary. Tobacco Cessation Referral Smoking Cessation Referral:: No Individual Education/Counseling:: No Education Schedule Given:: Yes Psychosocial - 30-Day Assess Referral to Behavioral Health PS - Interventions: Yes: Attend Stress Management Classes Outcomes/Goals: See list Psychosocial Outcomes/Goals:: ID's personal stressors & 2 strategies to manage stress by discharge and Other Additional outcome/goals: Psychosocial - 60-Day Assess VIsit Date of Eval: 09/26/25 Session #:: 12 History of previous Mental disease:: No (Pt does not have a diagnosis of mental illness. Pt is on sertraline.) Psychosocial Test Tool Used:: [employer] QOL Cardiac and PHQ-9 Questionnaire phq-9 Severity See PHQ-9 Score: 10 Referral to Behavioral Health PS - Interventions: Yes: Attend Stress Management Classes Outcomes/Goals: See list Psychosocial Outcomes/Goals:: ID's personal stressors & 2 strategies to manage stress by discharge and Other Additional outcome/goals: Intervention/Plan: See List Interventions/Plan:: Assess stressors,coping strategies & signs of derpression on admission, Instruct/assist pt to develop coping & personal stress Mgt strategies, Refer to Behavioral Health if appropriate, Refer to Physician if appropriate, Instruct patient to recognize signs & symptoms of depression, Instruct patient to recog and Other additional plan/intervention 30-day Reassessments: 30 day Reassessments:: Progressing Reassessment Notes & Comments:: Pt denies any psychosocial issues at this time. Pt to attend stress management classes. Will reassess every 30 days. Psychosocial - 90-Day Assess Referral to Behavioral Health PS - Interventions: Yes: Attend Stress Management Classes Psychosocial - Final Assessmen Referral to Behavioral Health PS - Interventions: Yes: Attend Stress Management Classes Nutrition - 90-Day Assessment Weight Mgt (Other Care) Height: 5 ft 8 in Weight:: 177 lb BMI: 26.9 Nutrition - Final Assessment Weight Mgt (Other Care) Height: 5 ft 8 in Weight:: 177 lb BMI: 26.9
[2025-09-26 10:46] VITALS: BP 142/72
[2025-09-26 11:02] VITALS: BP 120/62; BP 142/72; BMI 26.9
== END 2025-09-26 23:59 ==
LOC: CR 13:00
PROVIDERS: PCP Internal Medicine; Referring Provider Internal Medicine Cardiovascular Disease; Visit Provider Internal Medicine Cardiovascular Disease
DX: Z95.5 Presence of coronary angioplasty implant and graft (principal); I25.10 Atherosclerotic heart disease of native coronary artery without angina pectoris; E11.9 Type 2 diabetes mellitus without complications; E78.5 Hyperlipidemia, unspecified; I11.9 Hypertensive heart disease without heart failure; I48.0 Paroxysmal atrial fibrillation; J45.909 Unspecified asthma, uncomplicated
CPT/HCPCS: 93798

== ENCOUNTER 2025-09-14 14:31 | Inpatient (IN) | payer MEDICARE, OTHER, SELFPAY ==
[2025-08-28 08:52] VITALS: BMI 26.7
[2025-09-14 14:31] VITALS: BP 186/74; PULSE 98; RESP 18; TEMP 36.6; O2SAT 99; BMI 26.2
--- NOTE | 2025-09-14 14:38 | EKG12_ITS ---
Test Reason : Blood Pressure : */* mmHG Vent. Rate : 89 BPM Atrial Rate : 89 BPM P-R Int : 132 ms QRS Dur : 122 ms QT Int : 376 ms P-R-T Axes : 64 -8 102 degrees QTcB Int : 457 ms Normal sinus rhythm Left ventricular hypertrophy with QRS widening and repolarization abnormality ( Dennis product ) Anteroseptal infarct , age undetermined Abnormal ECG ivcd Reconfirmed by Julisa Jackson ([id number]), deputy editor in chief VIDA CAMERON ([id number]) on 09/17/2025 10:17:50 AM Also confirmed by Julisa Jackson ([id number]), deputy editor in chief VIDA CAMERON ([id number]) on 09/18/2025 8:14:53 AM Referred By: NORMAN/GINA Confirmed By: Julisa Jackson
[2025-09-14] MEDS: 0.9% Normal Saline (1000mL) 1,000 ML 1000 ML IV (14:48)
--- NOTE | 2025-09-14 14:50 | RAD_ITS ---
PROCEDURE: CHEST 1 VIEW (PORTABLE) 09/14/2025 REASON FOR EXAM: N/V TECHNIQUE: Frontal view of the chest. COMPARISON: 07/16/2025. FINDINGS: Heart is normal in size. The lungs are clear. No acute osseous abnormalities. RAD/Chest 1 View (Portable) IMPRESSION: No Acute Findings. [facility]
[2025-09-14 14:51] LABS: Hematocrit 41.1 % (37-47); Hemoglobin 13.7 g/dL (12.0-15.0); Immature Granulocytes Count 0.030 X10^3/uL (0.0-0.0); Mean Corp Hgb Conc 33.3 g/dL (32-36); Mean Corpuscular Volume 91.3 fL (81-99); Mean Platelet Vol. 10.5 fl (6.2-12.0); NRBC Flagged by Analyzer 0 % (0-5); Platelet Count 245 K/mm3 (150-450); RBC Distribution Width CV 12.3 % (11.6-14.6); RBC Distribution Width SD 40.7 fl (35.1-43.9); Red Blood Count 4.50 M/mm3 (4.2-5.4); White Blood Count 9.5 K/mm3 (4.4-11.0)
[2025-09-14 14:57] LABS: Mucous, Urine 0 SEEN /hpf (<or=2+); Red Blood Cells-Urine 0 SEEN /hpf (0-5); Squamous Epithelial Cells - UA 0 SEEN /hpf (5-10)
[2025-09-14 14:59] LABS: Color, Urine Yellow (Yellow); Glucose, Dipstick 1000 mg/dl (Normal); Ketone-Dipstick Negative (Negative); Leukocyte Esterase-Dipstick 25 /ul (Negative); Nitrite-Dipstick Positive (Negative); Occult Blood-Urine 10 /ul (Negative); Protein-Dipstick 30 mg/dl (Negative); Specific Gravity, Urine 1.015 (1.002-1.030); Urine Bilirubin Dipstick Negative (Negative)
[2025-09-14 15:00] LABS: Prothrombin Time (Protime)PT. 14.2 SECONDS (11.7-14.9)
--- NOTE | 2025-09-14 15:11 | EDS_ITS ---
HPI HPI - GI History of Present Illness Chief Complaint: Nausea/Vomiting Detail of Chief Complaint: Nausea, vomiting and diarrhea for about 5 days. Informant: patient Nausea/Vomiting/Emesis GI Symptom: Positive for Nausea and Vomiting Onset: Days Severity: Moderate Diarrhea/Melena/Hematochezia GI Symptom: Positive for Diarrhea Onset: Days Stool Quality: Positive for Loose Severity: Mild Associated Symptoms Associated Symptoms: Positive for - (Cloudy urine.); Negative for Dysuria, Frequency, Hematuria or Urgency Narrative Narrative: 80-year-old female history of hypertension, diabetes, celiac, CAD with stent, A- fib on Eliquis. States that she has had nausea vomiting diarrhea for 5 days. No fever or chills. She has had cloudy urine but no dysuria. Really no significant abdominal pain. Her last admission was in June for A-fib. Prior similar symptoms: No Recent Illness/Hospitalization: [facility] Medical History Hypertension Diabetes Abnormal ECG DKA, type 2 Elevated troponin Atrial fibrillation with rapid ventricular response Lichen sclerosus Osteopenia Gastrointestinal problem Essential tremor Celiac disease bone fractures History of back problems Asthma Home Medications ?Medication ?Instructions ?Recorded ?Last Taken ?Type clobetasol 0.05 % topical ointment 1 applic topical BI D PRN Itching 06/13/18 Unknown History loperamide 2 mg capsule (Imodium 2 mg PO Q6H PRN Diarr hea 06/13/18 06/02/25 History A-D) multivitamin 1 tab PO DAILY [facility] 06/13/18 Unknown History insulin glargine 100 unit/mL (3 22 unit subcut DAILY d iabetes 06/15/19 Unknown History mL) subcutaneous pen (Basaglar KwikPen U-100 Insulin) gabapentin 300 mg capsule 300 mg PO TID neuropathy 03/1606/02/25 History meloxicam 15 mg tablet 15 mg PO DAILY arthritis 03/1606/02/25 History dulaglutide 0.75 mg/0.5 mL 0.75 mg subcut QWEEK diabet es 12/17/21 Unknown History subcutaneous pen injector (Trulicity) acetaminophen 500 mg capsule 1,000 mg PO Q8H PRN PRN p ain 06/06/25 Unknown History amlodipine 10 mg-benazepril 40 mg 1 cap PO DAILY bp 06/02/25 History capsule memantine 5 mg tablet (Namenda) 5 mg PO BID [facility] 06/06/25 Unknown History pravastatin 40 mg tablet 40 mg PO DAILY cholesterol 0 06/06/25 Unknown History sertraline 100 mg tablet 100 mg PO DAILY anxiety 05/28 Unknown History metformin 500 mg tablet 500 mg PO BID diabetes #70 t abs 06/08/25 07/17/25 Rx Held on 07/18/25. Instructions: Resume on 07/21/25. metoprolol tartrate 100 mg tablet 100 mg PO BID blood pressure #60 07/13/25 07/18/25 Rx tabs clopidogrel 75 mg tablet 75 mg PO DAILY #30 tabs 06/28 11/21 Unknown Rx apixaban 5 mg tablet (Eliquis) 5 mg PO BID blood thinn er #60 tabs 07/31/25 Unknown Rx glipizide 5 mg tablet 5 mg PO QDAY 07/31/25 Unknow n History Allergy/AdvReac Type Severity Reaction Status Date / Time dapagliflozin (From Farxiga) Allergy Intermediate Other Verified 09/14/25 14:33 levofloxacin (From Levaquin) Allergy Mild severe Verified 09/14/25 14:33 joint issues Sulfa (Sulfonamide Allergy Mild stopped Verified 09/14/25 14:33 Antibiotics) breathing empagliflozin (From AdvReac Severe Other Verified 09/14/25 14:33 Jardiance) morphine AdvReac Vomiting Verified 09/14/25 14:33 Family History Father Lung cancer Diabetes Mother Heart disease Diabetes Surgical History Stented coronary artery (07/18/25) History of bilateral knee replacement s/p right arm surgery H/O esophagogastroduodenoscopy H/O colonoscopy S/P breast biopsy Hx of cholecystectomy History of hysterectomy Social History household members: spouse housing: house Smoking Status: Never smoker alcohol intake: never substance use type: does not use caffeine: Yes what type of physical activity do you participate in: walking frequency: daily seatbelt use: always do you feel safe at home: Yes additional social history: [id number] employed Patient is retired ROS ROS ED ROS Narrative Nausea, vomiting and diarrhea. Cloudy urine. Constitutional Constitutional ED: Denies chills or fever(s) ENT ENT ED: Denies ear pain Cardiovascular Cardiovascular: Denies chest pain Respiratory/Chest Respiratory/Chest: Denies cough or dyspnea Gastrointestinal Gastrointestinal: Reports diarrhea, nausea and vomiting; Denies abdominal pain, constipation or melena Genitourinary Genitourinary ED: Denies dysuria or hematuria Musculoskeletal Musculoskeletal: Denies arthralgias or back pain Integumentary Denies abscess Neurologic Neurologic: Denies headache(s) Psychiatric Psychiatric: Denies anxiety or depression Endocrine Endocrinology: Denies polydipsia Hematologic/Lymphatic Hematologic/Lymphatic: Denies easy bleeding Allergic/Immunologic Allergic/Immunologic ED: Denies mouth swelling, tongue swelling or urticaria EXAM Physical Exam Narrative Exam Narrative: 80-year-old female sitting upright in bed vital signs are stable afebrile does not look septic toxic. No acute distress. H EENT exam pupils are round react light. Active motions are intact. Mildly dry mucous membranes. Neck nontender no JVD. No lymphadenopathy. Lungs clear to auscultation bilaterally. Heart rate in the 90s no murmur. Abdomen soft, nontender, nondistended, normal bowel sounds without peritoneal signs. Patient moving all 4 extremities. Nontender no edema. Normal strength. Back nontender. Neurologically awake alert. Answering questions following commands. Const Vital Signs: 09/14/25 14:31 Temperature 97.8 F Temperature Source Oral Pulse Rate 98 Respiratory Rate 18 Blood Pressure 186/74 H Blood Pressure Mean 111 Pulse Ox 99 Oxygen Delivery Method Room Air MDM MDM MDM Narrative Medical decision making narrative: 80-year-old female with nausea vomiting diarrhea mildly dehydrated also has cloudy urine. Labs will be obtained at this time does not need imaging. IV Zofran for nausea and IV fluids. Repeat exam around 4:10 PM. Patient is doing well she is resting comfortably we have gone over all of her test results. States he really does not feel well enough to go home. Given her UTI and dehydration and her chronic illnesses and her age I spoke to the hospitalist she will be admitted. Hospitalist will be down to evaluate her prior to admission to [facility]. Patient and her are comfortable with plan. History & Record Review Discussion w/independent historian: Patient and Family Additional record(s) reviewed:: Prior inpatient record, Prior outpatient record, Prior ED visit and Prior labs Lab Data Attestation: I reviewed the patient's lab results. Lab results narrative: CBC shows a white count of 9 H&H of 13 and 41. Platelets 245. Chemistries show the gap of 15. BUN and creatinine of 30 and 1.1. Glucose 332 patient is a known diabetic. Liver enzymes are normal. Lipase is normal. COVID, flu and RSV negative. Lactic acid is 3.0. UA is positive nitrites no white or red cells. 4+ bacteria culture will be sent this will be treated UTI. Labs: Laboratory Results - last 24 hr 09/14/25 09/14/25 14:40 14:53 WBC 9.5 RBC 4.50 Hgb 13.7 Hct 41.1 MCV 91.3 MCH 30.4 MCHC 33.3 RDW Std Deviation 40.7 RDW Coeff of Gopal 12.3 Plt Count 245 MPV 10.5 Immature Gran % (Auto) 0.300 Neut % (Auto) 77.6 H Lymph % (Auto) 15.4 L Bollinger % (Auto) 5.9 Eos % (Auto) 0.4 Baso % (Auto) 0.4 Absolute Neuts (auto) 7.4 Absolute Lymphs (auto) 1.46 Nucleated RBC % 0 PT 14.2 INR 1.1 Sodium 137 Potassium 4.2 Chloride 100 Carbon Dioxide 22.7 Anion Gap 15 BUN 30 H Creatinine 1.16 Estim Creat Clear Calc 43.93 L Est GFR (MDRD) Non-Af 48 L BUN/Creatinine Ratio 25.4 H Glucose 332 H Lactic Acid 3.0 H* Calcium 10.8 Total Bilirubin 0.41 AST 18 ALT 23 Alkaline Phosphatase 66 Total Protein 7.4 Albumin 4.5 Globulin 2.8 Albumin/Globulin Ratio 1.6 Lipase 46 Urine Color Yellow Urine Clarity Sl. Cloudy Urine pH 6.0 Ur Specific [place] 1.015 Urine Protein 30 H Urine Glucose (UA) 1000 H Urine Ketones Negative Urine Occult Blood 10 H Urine Nitrite Positive H Urine Bilirubin Negative Urine Urobilinogen Normal Ur Leukocyte Esterase 25 H Urine RBC 0 SEEN Urine WBC 0-5 SEEN Ur Squamous Epith Cells 0 SEEN Urine Bacteria 4+ Urine Mucus 0 SEEN Radiography Chest X-Ray - ED: 1 View, Read by ED Physician, Read by Radiologist, Heart, Lungs, Mediastinum, No Acute Disease, Chronic Changes and - (Old right rib fract ures healed.) Diagnostic Testing: Clinical Impression(s) from Imaging Studies Chest X-Ray 09/14/25 14:50 IMPRESSION: No Acute Findings. Reading Location: [facility] Chest x-ray, portable, single view, interpreted by myself and radiology shows normal cardiac silhouette mediastinum. Normal lung pereira. Chronic changes. Old right rib fractures healed. No acute process. No pneumonia. No effusion. Rhythm Strip Rhythm Strip: Sinus Rhythm Rate: 89 Ectopy: None EKG Initial EKG: Attestation: I personally reviewed and interpreted this EKG as follows: Interpretation: Sinus Rhythm, No Acute Injury Pattern and RBBB Comments: Normal sinus rhythm rate of 89. LVH. Prior infarct. Discharge Plan Triage Chief Complaint: Nausea/Vomiting ED Provider: Onesimo Landry Dx/Rx/DC Orders Clinical Impression: Nausea vomiting and diarrhea, Urinary tract infection, Acute dehydration, Hyperglycemia due to diabetes mellitus, History of atrial fibrillation, Chronic anticoagulation Prescriptions: No Action multivitamin tablet 1 tab PO DAILY loperamide [Imodium A-D] 2 mg capsule 2 mg PO Q6H PRN (Reason: Diarrhea) clobetasol 0.05 % ointment 1 applic TOPICAL BID PRN (Reason: Itching) insulin glargine [Basaglar KwikPen U-100 Insulin] 100 unit/mL (3 mL) insulin pen 22 unit SC DAILY Trulicity 0.75 mg/0.5 mL pen injector 0.75 mg subcut QWEEK Rx Instructions: takes on Wednesday glipizide 5 mg tablet 5 mg PO QDAY Eliquis 5 mg tablet 5 mg PO BID Qty: 60 11RF meloxicam 15 MG tablet 15 mg PO DAILY gabapentin 300 MG capsule 300 mg PO TID amlodipine-benazepril 10-40 mg capsule 1 cap PO DAILY Patient Comments: TAKE 1 CAPSULE BY MOUTH ONCE DAILY sertraline 100 mg tablet 100 mg PO DAILY memantine [Namenda] 5 mg tablet 5 mg PO BID acetaminophen 500 mg capsule 1,000 mg PO Q8H PRN PRN (Reason: pain) pravastatin 40 mg tablet 40 mg PO DAILY Patient Comments: TAKE 1 TABLET BY MOUTH EVERYDAY AT BEDTIME metformin 500 mg tablet 500 mg PO BID Qty: 70 0RF Rx Instructions: Take 500 mg twice daily for 2 weeks then take 500 mg in the morning and at 1000 mg in the evening for 2 weeks and then increase to 1000 mg twice daily clopidogrel 75 mg Tablet 75 mg PO DAILY Qty: 30 11RF metoprolol tartrate 100 mg tablet 100 mg PO BID Qty: 60 5RF Primary Care Provider: Nirmala Kimbrough Referrals: Nirmala Kimbrough MD [Primary Care Provider, Internal Medicine] Print Language: Luxembourgish
[2025-09-14 15:26] LABS: AST(SGOT) 18 U/L (<=31); Alanine Aminotransfer ALT/SGPT 23 U/L (<=34); Albumin, Serum 4.5 g/dL (3.4-4.8); Alkaline Phosphatase 66 U/L (35-104); Anion Gap 15 (5-15); BUN 30 mg/dL (4-19); BUN/Creat Ratio 25.4 RATIO (10-20); Calcium,Total 10.8 mg/dL (7.6-11.0); Carbon Dioxide 22.7 mmol/L (21.0-32.0); Chloride 100 mmol/L (98-108); Estimated Creatinine Clearance 43.93 ml/min (50-250); Globulin 2.8 g/dL (2.2-4.2); Glucose 332 mg/dL (70-99); Lipase 46 U/L (13-75); Potassium 4.2 mmol/L (3.3-5.1)
[2025-09-14 16:00] VITALS: BP 132/74; PULSE 80; RESP 16; TEMP 36.8; O2SAT 99
[2025-09-14 16:35] VITALS: BP 186/74; PULSE 98; RESP 18; TEMP 36.6; O2SAT 99
--- NOTE | 2025-09-14 16:36 | HP.PCM.HOS_ITS ---
HPI - General General Date of Admission: 09/14/25 Date of Service: 09/14/25 Chief Complaint: n/v/d poor po intake HPI Narrative KRUPA OBRIEN, is a 80F with a history of diabetes, hypertension, anxiety, A- fib, coronary artery disease with stent, celiac disease presented [facility] ED 09/14/2025 for nausea, vomiting, and diarrhea for 5 days. In the ED temp 97.8, heart rate 98, respiratory 18, blood pressure 196/74, pulse ox 99% on room air. White count 9.5, hemoglobin 13.7, BUN 30 with creatinine 1.16, glucose 332, calcium 10.8 with normal liver panel, lactic acid of 3. UA positive for nitrite, 25 leuk esterase and 4+ bacteria. Chest x-ray with no acute findings. Patient given Rocephin and IV fluids and hospitalist contacted for admission. Patient evaluated with at bedside. She reports the nausea, vomiting, and diarrhea over the past 5 days with very poor p.o. intake and has not been able to keep anything down, ultimately coming in because she cannot even keep her medicine down and she has several cardiac medications and that is concerning to her. No abdominal pain, still having the vomiting and diarrhea, feels generally weak but no other new or acute complaints [facility] Medical History Hypertension Diabetes Abnormal ECG DKA, type 2 Elevated troponin Atrial fibrillation with rapid ventricular response Lichen sclerosus Osteopenia Gastrointestinal problem Essential tremor Celiac disease bone fractures History of back problems Asthma Home Medications ?Medication ?Instructions ?Recorded ?Last Taken ?Type clobetasol 0.05 % topical ointment 1 applic topical BI D PRN Itching 06/13/18 Unknown History loperamide 2 mg capsule (Imodium 2 mg PO Q6H PRN Diarr hea 06/13/18 06/02/25 History A-D) multivitamin 1 tab PO DAILY [facility] [place] 06/13/18 Unknown History insulin glargine 100 unit/mL (3 22 unit subcut DAILY d iabetes 06/15/19 Unknown History mL) subcutaneous pen (Basaglar KwikPen U-100 Insulin) gabapentin 300 mg capsule 300 mg PO TID neuropathy 03/1606/02/25 History meloxicam 15 mg tablet 15 mg PO DAILY arthritis 03/1606/02/25 History dulaglutide 0.75 mg/0.5 mL 0.75 mg subcut QWEEK diabet es 12/17/21 Unknown History subcutaneous pen injector (Trulicity) acetaminophen 500 mg capsule 1,000 mg PO Q8H PRN PRN p ain 06/06/25 Unknown History amlodipine 10 mg-benazepril 40 mg 1 cap PO DAILY bp 06/02/25 History capsule memantine 5 mg tablet (Namenda) 5 mg PO BID [facility] [place] 06/06/25 Unknown History pravastatin 40 mg tablet 40 mg PO DAILY cholesterol 0 06/06/25 Unknown History sertraline 100 mg tablet 100 mg PO DAILY anxiety 05/28 Unknown History metformin 500 mg tablet 500 mg PO BID diabetes #70 t abs 06/08/25 07/17/25 Rx metoprolol tartrate 100 mg tablet 100 mg PO BID blood pressure #60 07/13/25 07/18/25 Rx tabs clopidogrel 75 mg tablet 75 mg PO DAILY #30 tabs 06/28 11/21 Unknown Rx apixaban 5 mg tablet (Eliquis) 5 mg PO BID blood thinn er #60 tabs 07/31/25 Unknown Rx glipizide 5 mg tablet 5 mg PO QDAY 07/31/25 Unknow n History Allergy/AdvReac Type Severity Reaction Status Date / Time dapagliflozin (From Farxiga) Allergy Intermediate Other Verified 09/14/25 14:33 levofloxacin (From Levaquin) Allergy Mild severe Verified 09/14/25 14:33 joint issues Sulfa (Sulfonamide Allergy Mild stopped Verified 09/14/25 14:33 Antibiotics) breathing empagliflozin (From AdvReac Severe Other Verified 09/14/25 14:33 Jardiance) morphine AdvReac Vomiting Verified 09/14/25 14:33 Family History Father Lung cancer Diabetes Mother Heart disease Diabetes Surgical History Stented coronary artery (07/18/25) History of bilateral knee replacement s/p right arm surgery H/O esophagogastroduodenoscopy H/O colonoscopy S/P breast biopsy Hx of cholecystectomy History of hysterectomy Social History household members: spouse housing: house Smoking Status: Never smoker alcohol intake: never substance use type: does not use caffeine: Yes what type of physical activity do you participate in: walking frequency: daily seatbelt use: always do you feel safe at home: Yes additional social history: [employer] employed Patient is retired ROS ROS Narrative General: Had some alternating sweats and chills but did not measure temp HENT: Some headache, denies stuffy nose, denies sore throat EYES: Denies changes in vision Resp: Denies cough, denies shortness of breath Cardiac: Denies chest pain GI: Not really any abdominal pain, does have diarrhea and vomiting : Denies changes in urination Extremity: Denies swelling MSK: Some generalized weakness Neuro: Denies any numbness/tingling Heme: Denies any bleeding or bruising Skin: Denies rashes Psychiatric: No complaints voiced Patient's Goals Of Care . What matters most to you about your health?: Getting better What would you like to achieve or improve as a result of your hospital stay?: F eeling better and getting hydrated Vital Signs Vital Signs Vital Signs: 09/14/25 14:31 Temperature 97.8 F Temperature Source Oral Pulse Rate 98 Respiratory Rate 18 Blood Pressure 186/74 H Blood Pressure Mean 111 Pulse Ox 99 Oxygen Delivery Method Room Air Weight Weight: 78.199 kg Body Mass Index (BMI) 26.2 Physical Exam Narrative General: Alert, oriented, no apparent distress HEENT: Atraumatic, normocephalic, somewhat dry mucous membranes Eyes: Anicteric, normal conjunctiva, extraocular movements grossly intact Neck: Supple Respiratory: Clear to auscultation bilaterally, normal respiratory effort Cardiovascular: Regular rate and rhythm GI: Soft, nontender, nondistended Extremities: No edema Musculoskeletal: Moving all extremities Neuro: No overt focal neurological deficits Skin: No rashes appreciated Psych: Cooperative Results Lab / Micro Data 09/14/25 14:40 09/14/25 14:40 Labs: Laboratory Results - last 24 hr 09/14/25 14:40: WBC 9.5, RBC 4.50, Hgb 13.7, Hct 41.1, MCV 91.3, MCH 30.4, MCHC 33.3, RDW Std Deviation 40.7, RDW Coeff of Gopal 12.3, Plt Count 245, MPV 10.5, Immature Gran % (Auto) 0.300, Neut % (Auto) 77.6 H, Lymph % (Auto) 15.4 L, [place] % (Auto) 5.9, Eos % (Auto) 0.4, Baso % (Auto) 0.4, Absolute Neuts (auto) 7.4, Absolute Lymphs (auto) 1.46, Nucleated RBC % 0, PT 14.2, INR 1.1, Sodium 137, Potassium 4.2, Chloride 100, Carbon Dioxide 22.7, Anion Gap 15, BUN 30 H, Creatinine 1.16, Estim Creat Clear Calc 43.93 L, Est GFR (MDRD) Non-Af 48 L, B UN/Creatinine Ratio 25.4 H, Glucose 332 H, Calcium 10.8, Total Bilirubin 0.41, AST 18, ALT 23, Alkaline Phosphatase 66, Total Protein 7.4, Albumin 4.5, Globulin 2.8, Albumin/Globulin Ratio 1.6, Lipase 46 09/14/25 14:53: Lactic Acid 3.0 H*, Urine Color Yellow, Urine Clarity Sl. Cloudy, Urine pH 6.0, Ur Specific [place] 1.015, Urine Protein 30 H, Urine Glucose (UA) 1000 H, Urine Ketones Negative, Urine Occult Blood 10 H, Urine Nitrite Positive H, Urine Bilirubin Negative, Urine Urobilinogen Normal, Ur Leukocyte Esterase 25 H, Urine RBC 0 SEEN, Urine WBC 0-5 SEEN, Ur Squamous Epith Cells 0 SEEN, Urine Bacteria 4+, Urine Mucus 0 SEEN Micro: Microbiology 09/14/25 14:53 Mucosa - Nose SARS-CoV-2, Influenza & RSV (PCR) - Final Rhythm Strip Rhythm Strip: Sinus Rhythm Rate: 89 Ectopy: None Imaging Radiology Impression Chest X-Ray 09/14/25 14:50 IMPRESSION: No Acute Findings. [facility] Assessment & Plan Assessment/Plan (1) Acute dehydration: (2) Nausea vomiting and diarrhea: PLAN: Plan # Dehydration secondary to N/V/D - 5 days of nausea/vomiting/diarrhea with very poor p.o. intake and inability to take home medications - Antiemetics -Suspect elevated lactate is due to dehydration - IV fluids - Start with clear liquids and advance to transitional if patient tolerating - Has listed celiac so we will also specify gluten free - Will order stool studies # Abnormal UA with concern for UTI - UA with nitrite, some leuk esterase and 4+ bacteria, urine culture sent, will continue empiric Rocephin while awaiting culture and sensitivity data # Coronary artery disease with stenting and atrial fibrillation - Continue clopidogrel and apixaban -continue outpatient follow-up - Continue beta-lisa #Type 2 diabetes mellitus -Glucose checks and sliding scale insulin - Will continue long-acting insulin but at lower dose given poor p.o. intake - Hold home oral hypoglycemics #Hypertension - Continue home medications at this time #Depression/anxiety -Continue home medications #Hx essential tremor - Had to be taken off of her primidone due to her blood thinners, is going to follow with her outpatient physician to explore alternate agents and options as this negatively impacts her life #DVT ppx: Continued on home Ashleigh Whitehead MD Charges/Coding Visit Charges Inpatient E&M: 05208 Init Hosp L2
--- NOTE | 2025-09-14 16:54 | CASEMGMT ---
Care Management Face to Face with patient for initial transition planning/care coordination assessment in the ED. This field underwriter introduced self and role at [facility]. Patient alert and oriented. Patient willing to participate in assessment and is able to answer all questions appropriately. Patient's , Solitario, at bedside. Care providers, pharmacy, and demographics verified. Admitting Diagnosis: Acute dehydration, Nausea vomiting and diarrhea Other diagnosis history: diabetes, hypertension, anxiety, A-fib, coronary artery disease with stent, celiac disease PCP: Luis E Specialists: Maria M orthopedics Preferred Pharmacy: [facility] Insurance: Medicare A B (primary). [employer] (secondary). Prescription Benefit: yes Living Will/HPOA: Solitario (primary). Son Deshawn (secondary). Son Onesimo (tertiary). LNOK: and 2 sons. Living Arrangements: lives with in a 4 story home and reports having no issues with ADLs or IADLs at baseline. URIEL with dementia lives in basement. Transportation: patient drives DME: grab bars in bathroom HHC: none SNF/Rehab: none Community Resources: none Behavioral Health History: anxiety, per medical records Patient goals: Patient wishes to discharge home, denies need for home health care at this time. Patient denies any further needs or concerns at this time. Disposition Plan: admission to acute; RN CM/SW to follow for discharge planning needs that may arise. Sapna Bermudez, COMPRESSOR MECHANIC, [employer] PRODUCTION TECHNICIAN
[2025-09-14 17:37] VITALS: BP 150/68; PULSE 80; RESP 17; TEMP 36.4; O2SAT 98; BMI 25.8
[2025-09-14] MEDS: 0.9% Normal Saline (1000mL) 1,000 ML 100 ML IV (18:22)
[2025-09-14 18:56] LABS: Reflex Lactate? Y
[2025-09-14] MEDS: 0.9% Saline Lock 10 ML Syringe IV (23:20)
[2025-09-14] MEDS: APIXABAN 5 MG TABLET PO (23:22)
[2025-09-14] MEDS: Memantine Hydrochloride 5 MG Tablet PO (23:22)
[2025-09-14] MEDS: MELATONIN 10 MG TABLET PO (23:22)
[2025-09-14 23:29] VITALS: BP 140/65; PULSE 76; RESP 16; TEMP 36.7; O2SAT 98
[2025-09-14 23:36] VITALS: PULSE 76
[2025-09-15] VITALS (7 sets, daily range): BP systolic 134–145; BP diastolic 65–83; PULSE 61–66; RESP 16–18; TEMP 36.1–36.8; O2SAT 98
[2025-09-15] MEDS: 0.9% Normal Saline (1000mL) 1,000 ML 100 ML IV (03:54)
[2025-09-15] MEDS: 0.9% Saline Lock 10 ML Syringe IV ×3 (04:03→21:28)
[2025-09-15 05:55] LABS: Hematocrit 33.8 % (37-47); Hemoglobin 11.1 g/dL (12.0-15.0); Immature Granulocytes Count 0.020 X10^3/uL (0.0-0.0); Mean Corp Hgb Conc 32.8 g/dL (32-36); Mean Corpuscular Volume 92.1 fL (81-99); Mean Platelet Vol. 10.7 fl (6.2-12.0); NRBC Flagged by Analyzer 0 % (0-5); Platelet Count 180 K/mm3 (150-450); RBC Distribution Width CV 12.3 % (11.6-14.6); RBC Distribution Width SD 41.4 fl (35.1-43.9); Red Blood Count 3.67 M/mm3 (4.2-5.4); White Blood Count 6.8 K/mm3 (4.4-11.0)
[2025-09-15 06:23] LABS: Anion Gap 11 (5-15); BUN 20 mg/dL (4-19); BUN/Creat Ratio 22.8 RATIO (10-20); Calcium,Total 9.3 mg/dL (7.6-11.0); Carbon Dioxide 21.0 mmol/L (21.0-32.0); Chloride 104 mmol/L (98-108); Estimated Creatinine Clearance 58.88 ml/min (50-250); Glucose 231 mg/dL (70-99); Potassium 4.5 mmol/L (3.3-5.1)
--- NOTE | 2025-09-15 10:19 | PN.HOSP_ITS ---
Reason for Visit Chief Complaint: n/v/d poor po intake Subjective Subjective Saw patient at bedside this morning. Patient was sitting in the bedside chair and appeared fairly comfortable and had a good energy level, but she noted that with only eating some Jell-O this morning she was not able to keep that down. She denies any nausea currently. Denies any abdominal pain or discomfort. Denies any pain or burning with urination or any low back pain. Denies any fevers or chills. No other new concerns this morning. Objective Data Objective Data Vital Signs: Vital Signs Temp Pulse Resp BP Pulse Ox O2 Del Method 97 F L 66 16 134/69 H 98 Room Air 09/15/25 03:56 09/15/25 03:56 09/15/25 03:56 09/15/25 03:56 09/15/25 03:56 09/15/25 03:56 Oxygen Delivery Method Room Air Weight: 77.1 kg Body Mass Index (BMI) 25.8 Intake & Output: Intake and Output for Last 24 Hours 09/13/25 09/14/25 09/15/25 23:59 23:59 23:59 Intake Total 1050 / 1050 953.33 / 953.33 Balance 1050 / 1050 953.33 / 953.33 Lab / Micro Data 09/15/25 05:29 09/15/25 05:29 Labs: Laboratory Results - last 24 hr 09/14/25 14:40: WBC 9.5, RBC 4.50, Hgb 13.7, Hct 41.1, MCV 91.3, MCH 30.4, MCHC 33.3, RDW Std Deviation 40.7, RDW Coeff of Gopal 12.3, Plt Count 245, MPV 10.5, Immature Gran % (Auto) 0.300, Neut % (Auto) 77.6 H, Lymph % (Auto) 15.4 L, [place] % (Auto) 5.9, Eos % (Auto) 0.4, Baso % (Auto) 0.4, Absolute Neuts (auto) 7.4, Absolute Lymphs (auto) 1.46, Nucleated RBC % 0, PT 14.2, INR 1.1, Sodium 137, Potassium 4.2, Chloride 100, Carbon Dioxide 22.7, Anion Gap 15, BUN 30 H, Creatinine 1.16, Estim Creat Clear Calc 43.93 L, Est GFR (MDRD) Non-Af 48 L, B UN/Creatinine Ratio 25.4 H, Glucose 332 H, Calcium 10.8, Total Bilirubin 0.41, AST 18, ALT 23, Alkaline Phosphatase 66, Total Protein 7.4, Albumin 4.5, Globulin 2.8, Albumin/Globulin Ratio 1.6, Lipase 46 09/14/25 14:53: Lactic Acid 3.0 H*, Urine Color Yellow, Urine Clarity Sl. Cloudy, Urine pH 6.0, Ur Specific [place] 1.015, Urine Protein 30 H, Urine Glucose (UA) 1000 H, Urine Ketones Negative, Urine Occult Blood 10 H, Urine Nitrite Positive H, Urine Bilirubin Negative, Urine Urobilinogen Normal, Ur Leukocyte Esterase 25 H, Urine RBC 0 SEEN, Urine WBC 0-5 SEEN, Ur Squamous Epith Cells 0 SEEN, Urine Bacteria 4+, Urine Mucus 0 SEEN 09/14/25 18:02: POC Glucose 243 H 09/14/25 19:27: Lactic Acid 1.2 09/14/25 23:26: POC Glucose 205 H 09/15/25 05:29: WBC 6.8, RBC 3.67 L, Hgb 11.1 L, Hct 33.8 L, MCV 92.1, MCH 30.2, MCHC 32.8, RDW Std Deviation 41.4, RDW Coeff of Gopal 12.3, Plt Count 180, MPV 10.7, Immature Gran % (Auto) 0.300, Neut % (Auto) 77.5 H, Lymph % (Auto) 15.8 L, [place] % (Auto) 4.8, Eos % (Auto) 1.2, Baso % (Auto) 0.4, Absolute Neuts (auto) 5.3, Absolute Lymphs (auto) 1.08, Nucleated RBC % 0, Sodium 136, Potassium 4.5, Chloride 104, Carbon Dioxide 21.0, Anion Gap 11, BUN 20 H, Creatinine 0.86, Estim Creat Clear Calc 58.88, Est GFR (MDRD) Non-Af 69, BUN/Creatinine Ratio 22.8 H, Glucose 231 H, Hemoglobin A1c 7.3 H, Calcium 9.3 09/15/25 06:18: POC Glucose 218 H Micro: Microbiology 09/14/25 14:53 Urine, Clean Catch Urine Culture - Preliminary Gram Positive Cocci 12/19/25 14:53 Mucosa - Nose SARS-CoV-2, Influenza & RSV (PCR) - Final Radiography Diagnostic Testing: Radiology Impression Chest X-Ray 09/14/25 14:50 IMPRESSION: No Acute Findings. Reading [facility] Rhythm Strip Rhythm Strip: Sinus Rhythm Rate: 89 Ectopy: None Patient's Goals Of Care - F/U Goals Reviewed Goals of care reviewed with patient: NA-No significant change in clinical Status /major procedure scheduled Physical Exam Const alert, oriented x3, no apparent distress and average body habitus Constitutional Narrative: Elderly female, mildly fatigued appearing but otherwise sitting up fairly comfortably in bedside chair, conversing normally, in no acute distress. General Appearance: cooperative and comfortable HEENT normocephalic, head/scalp atraumatic, hearing grossly normal bilaterally, nasal mucous membranes and turbinates normal and moist oral mucous membranes Eyes PERRL, EOMs intact bilaterally and conjunctivae normal Neck full ROM Chest inspection of chest normal Resp normal respiratory effort, normal air movement, no use of accessory muscles and clear to auscultation bilaterally Cardio regular rate, regular rhythm, no murmurs and peripheral pulses 2+ throughout GI normal to inspection, nondistended, normoactive bowel sounds, soft to palpation, non-tender and non-distended Back/Spine normal ROM Extremity normal to inspection, full ROM and no pedal edema Skin no rashes or lesions noted Psych mental status grossly normal Assessment & Plan Assessment/Plan (1) Acute dehydration: (2) Urinary tract infection: PLAN: Plan Patient is a 80-year-old female who presented to [facility] ED on 09/15 with dehydration secondary to nausea, vomiting and diarrhea. 1. Dehydration due to nausea/vomiting/diarrhea suspected secondary to UTI ? Presented with nausea/vomiting/diarrhea and poor p.o. intake for 4 to 5 days. Lactic acid 3.0, mild creatinine elevation noted. Lactic acid resolved with IV fluid resuscitation. UA with positive nitrates, 25 leukocyte esterase, 4+ bacteria. Urine culture pending. Renal/bladder ultrasound pending. WBC normal, afebrile and normotensive so did not meet sepsis criteria. Will continue to treat with IV ceftriaxone for now. Patient okay for cardiac and carb controlled diet as tolerated. 2. Mild acute anemia suspected secondary to esophagitis/gastritis ? Hemoglobin 11.1 on hospital day 2 after IV fluid resuscitation, baseline 12- 13. Given her nausea/vomiting and reported pain/discomfort with p.o. intake, suspect patient has some degree of esophagitis and gastritis at this time. As she is on Eliquis and Plavix, suspect mild degree of bleeding from inflammation that is leading to slight decrease in hemoglobin level. Will treat with IV PPI twice daily for now. Can consider GI consult as needed. 3. History of CAD with recent stenting, paroxysmal A-fib, hypertension, hyperlipidemia ? Follows with cardiology. Recent left heart cath on 07/18 showed 95% complex lesion in proximal RCA s/p COREY x 1; 50 to 60% lesions noted in other vessels as well. Cardiology recommended Plavix for the 6 months in addition to home Eliquis. Okay to continue home Eliquis and Plavix for now. However, if hemoglobin continues to downtrend as above, will plan to hold Eliquis for a period of time but will continue Plavix given recent stent placement. Normotensive to mildly hypertensive since admission, okay to continue home amlodipine, Lopressor, NEREIDA inhibitor and statin. 4. Type 2 diabetes mellitus with diabetic neuropathy ? Glucose 332 on admit. A1c 7.3%. Treating with reduced dose of Lantus 15 units daily and high-dose sliding scale insulin with meals for now, adjust as needed. Hold home glipizide, metformin and Trulicity. Continue home gabapentin. 5. Anxiety/depression ? Stable. Continue home sertraline. 6. Essential tremor ? Home primidone was recently discontinued with patient on blood thinners as above. No inpatient needs, continue outpatient follow-up. 7. Osteoarthritis ? Will discontinue home meloxicam with patient on blood thinners as above. DVT prophylaxis: Not indicated, on Eliquis CODE STATUS: Full code, verified Expected disposition: Home, TBD Total clinical time spent by myself addressing the patient's medical issues, reviewing all the data, and collaborating with patient's care team: 42 minutes. Charges/Coding Visit Charges Inpatient E&M: 91194 Subs Hosp L2
--- NOTE | 2025-09-15 10:22 | CASEMGMT ---
LEOBARDO WILSON in to discuss BARTON form with patient. LEOBARDO WILSON explained BARTON form, patient voiced understanding. Pt signed form and filed in chart. Pt provided with a copy of signed BARTON form. Patient had no further questions or concerns at this time. Noted assessment completed by ER EVELYNE. Pt reports she has a CGM with sufficient supplies. Pt states she just got a back up BGM with sufficient supplies this week. Pt reports having supply of needles and insulin as well. Pt denies any homegoing needs at this time. Pt does not use AD and feels her strength is fine to return home when dc'd.
[2025-09-15] MEDS: Insulin Glargine-YFGN 100 UNIT/ML Pen 15 UNIT SC (10:52)
[2025-09-15] MEDS: APIXABAN 5 MG TABLET PO ×2 (10:52→21:44)
[2025-09-15] MEDS: Memantine Hydrochloride 5 MG Tablet PO ×2 (10:53→21:44)
--- NOTE | 2025-09-15 10:58 | US_ITS ---
PROCEDURE: KIDNEY AND BLADDER 09/15/2025 REASON FOR EXAM: SEVERE UTI, EVAL FOR PYELO TECHNIQUE: Procedure Code: USKI Modality: US Procedure: KIDNEY AND BLADDER COMPARISON: None FINDINGS: Kidneys: Normal renal sizes, parenchymal thicknesses, and echotextures. [place]: None Cysts or Masses: No cysts or large solid renal masses. RIGHT Kidney Size: 12.7 x 4.4 x 5.0 cm LEFT Kidney Size: 13.0 x 4.9 x 4.2 cm. URINARY BLADDER: The urinary bladder appears to be unremarkable. Bilateral ureteral jets are visualized. US/Kidney and Bladder IMPRESSION: No hydronephrosis. Reading Location: [facility]
[2025-09-15] MEDS: Pantoprazole Sodium 40 MG in 0.9% Normal Saline (100mL MB+) 100 ML 330 MG IV ×2 (13:31→21:36)
[2025-09-16 03:07] VITALS: BP 147/65; PULSE 62; RESP 17; TEMP 36.8; O2SAT 98
[2025-09-16 05:28] LABS: Hematocrit 36.0 % (37-47); Hemoglobin 11.8 g/dL (12.0-15.0); Mean Corp Hgb Conc 32.8 g/dL (32-36); Mean Corpuscular Volume 90.7 fL (81-99); Mean Platelet Vol. 10.4 fl (6.2-12.0); Platelet Count 189 K/mm3 (150-450); RBC Distribution Width CV 12.1 % (11.6-14.6); RBC Distribution Width SD 40.2 fl (35.1-43.9); Red Blood Count 3.97 M/mm3 (4.2-5.4); White Blood Count 6.4 K/mm3 (4.4-11.0)
[2025-09-16 05:49] LABS: Anion Gap 11 (5-15); BUN 13 mg/dL (4-19); BUN/Creat Ratio 13.9 RATIO (10-20); Calcium,Total 9.5 mg/dL (7.6-11.0); Carbon Dioxide 21.2 mmol/L (21.0-32.0); Chloride 105 mmol/L (98-108); Estimated Creatinine Clearance 54.45 ml/min (50-250); Glucose 162 mg/dL (70-99); Potassium 4.1 mmol/L (3.3-5.1)
[2025-09-16 08:02] VITALS: BP 125/63; PULSE 59; RESP 18; TEMP 36.6; O2SAT 98
[2025-09-16 09:00] VITALS: RESP 18
--- NOTE | 2025-09-16 09:55 | PN.HOSP_ITS ---
Reason for Visit Chief Complaint: n/v/d poor po intake Subjective Subjective Saw patient at bedside this morning. Patient appeared mildly improved today compared to yesterday from an energy standpoint. Notes that she ate breakfast about an hour ago and has not had any episodes of vomiting since then. Continues to feel some nausea and mild abdominal discomfort after eating. No other new concerns this morning. Objective Data Objective Data Vital Signs: Vital Signs Temp Pulse Resp BP Pulse Ox O2 Del Method 97.9 F 59 L 18 125/63 H 98 Room Air 09/16/25 08:02 09/16/25 08:02 09/16/25 08:02 09/16/25 08:02 09/16/25 08:02 09/16/25 08:02 Oxygen Delivery Method Room Air Weight: 77.1 kg Body Mass Index (BMI) 25.8 Intake & Output: Intake and Output for Last 24 Hours 09/14/25 09/15/25 09/16/25 23:59 23:59 23:59 Intake Total 1050 / 1050 2803.33 / 3003.33 420 / 420 Balance 1050 / 1050 2803.33 / 3003.33 420 / 420 Lab / Micro Data 09/16/25 05:12 09/16/25 05:12 Labs: Laboratory Results - last 24 hr 09/15/25 13:23: POC Glucose 218 H 09/15/25 17:08: POC Glucose 141 H 09/15/25 21:25: POC Glucose 166 H 09/16/25 05:12: WBC 6.4, RBC 3.97 L, Hgb 11.8 L, Hct 36.0 L, MCV 90.7, MCH 29.7, MCHC 32.8, RDW Std Deviation 40.2, RDW Coeff of Gopal 12.1, Plt Count 189, MPV 10.4, Sodium 137, Potassium 4.1, Chloride 105, Carbon Dioxide 21.2, Anion Gap 11, BUN 13, Creatinine 0.93, Estim Creat Clear Calc 54.45, Est GFR (MDRD) Non-Af 63, BUN/Creatinine Ratio 13.9, Glucose 162 H, Calcium 9.5 09/16/25 06:17: POC Glucose 163 H Micro: Microbiology 09/14/25 14:53 Urine, Clean Catch Urine Culture - Final Staphylococcus epidermidis 09/14/25 14:53 Mucosa - Nose SARS-CoV-2, Influenza & RSV (PCR) - Final Radiography Diagnostic Testing: Radiology Impression Renal Ultrasound 09/15/25 10:58 IMPRESSION: No hydronephrosis. Reading Location: [facility] Rhythm Strip Rhythm Strip: Sinus Rhythm Rate: 89 Ectopy: None Patient's Goals Of Care - F/U Goals Reviewed Goals of care reviewed with patient: NA-No significant change in clinical Status /major procedure scheduled Physical Exam Const alert, oriented x3, no apparent distress and average body habitus Constitutional Narrative: Elderly female, mildly fatigued appearing but energy level improved from yesterday, otherwise sitting up comfortably in bedside chair, conversing normally, in no acute distress. General Appearance: cooperative and comfortable HEENT normocephalic, head/scalp atraumatic, hearing grossly normal bilaterally, nasal mucous membranes and turbinates normal and moist oral mucous membranes Eyes PERRL, EOMs intact bilaterally and conjunctivae normal Neck full ROM Chest inspection of chest normal Resp normal respiratory effort, normal air movement, no use of accessory muscles and clear to auscultation bilaterally Cardio regular rate, regular rhythm, no murmurs and peripheral pulses 2+ throughout GI normal to inspection, nondistended, normoactive bowel sounds, soft to palpation, non-tender and non-distended Back/Spine normal ROM Extremity normal to inspection, full ROM and no pedal edema Skin no rashes or lesions noted Psych mental status grossly normal Assessment & Plan Assessment/Plan (1) Acute dehydration: (2) Urinary tract infection: PLAN: Plan Patient is a 80-year-old female who presented to [place] ED on 09/15 with dehydration secondary to nausea, vomiting and diarrhea. 1. Dehydration due to nausea/vomiting/diarrhea with concern for UTI ? Presented with nausea/vomiting/diarrhea and poor p.o. intake for 4 to 5 days. Lactic acid 3.0, mild creatinine elevation noted. Lactic acid resolved with IV fluid resuscitation. UA with positive nitrates, 25 leukocyte esterase, 4+ bacteria. Urine culture grew greater than 100,000 staph epidermidis. Renal/bladder ultrasound unremarkable. WBC normal, afebrile and normotensive so did not meet sepsis criteria. Unclear if symptoms may be secondary to UTI versus possible mild recent gastroenteritis. Will plan to complete 5-day course of antibiotics total. Continue cardiac and carb controlled diet. 2. Mild acute anemia suspected secondary to esophagitis/gastritis ? Hemoglobin 11.1 on hospital day 2 after IV fluid resuscitation, baseline 12- 13. Given her nausea/vomiting and reported pain/discomfort with p.o. intake, suspect patient has some degree of esophagitis +/- gastritis. As she is on Eliquis and Plavix, suspect mild degree of bleeding from inflammation that is leading to slight decrease in hemoglobin level. Patient subjectively improving with treatment with IV PPI twice daily and tolerating p.o. intake; will initiate sucralfate before meals and at night as well and plan for 2 weeks of this on discharge. Most recent hemoglobin 11.8 on 09/16, remaining stable. If patient continues to feel improved tomorrow, should be fine for discharge home. 3. History of CAD with recent stenting, paroxysmal A-fib, hypertension, hyperlipidemia ? Follows with cardiology. Recent left heart cath on 07/18 showed 95% complex lesion in proximal RCA s/p COREY x 1; 50 to 60% lesions noted in other vessels as well. Cardiology recommended Plavix for the 6 months in addition to home Eliquis. Okay to continue home Eliquis and Plavix for now. However, if hemoglobin continues to downtrend as above, will plan to hold Eliquis for a period of time but will continue Plavix given recent stent placement. Normotensive to mildly hypertensive since admission, okay to continue home amlodipine, Lopressor, NEREIDA inhibitor and statin. 4. Type 2 diabetes mellitus with diabetic neuropathy ? Glucose 332 on admit. A1c 7.3%. Treating with reduced dose of Lantus 15 units daily and high-dose sliding scale insulin with meals for now, adjust as needed. Hold home glipizide, metformin and Trulicity. Continue home gabapentin. 5. Anxiety/depression ? Stable. Continue home sertraline. 6. Essential tremor ? Home primidone was recently discontinued with patient on blood thinners as above. No inpatient needs, continue outpatient follow-up. 7. Osteoarthritis ? Will discontinue home meloxicam with patient on blood thinners as above. DVT prophylaxis: Not indicated, on Eliquis CODE STATUS: Full code, verified Expected disposition: Home, 1 to 2 days Total clinical time spent by myself addressing the patient's medical issues, reviewing all the data, and collaborating with patient's care team: 38 minutes. Charges/Coding Visit Charges Inpatient E&M: 31687 Subs Hosp L2
[2025-09-16] MEDS: Pantoprazole Sodium 40 MG in 0.9% Normal Saline (100mL MB+) 100 ML 330 MG IV ×2 (11:41→21:40)
[2025-09-16] MEDS: Insulin Glargine-YFGN 100 UNIT/ML Pen 15 UNIT SC (11:44)
[2025-09-16] MEDS: APIXABAN 5 MG TABLET PO ×2 (11:48→21:31)
[2025-09-16] MEDS: Memantine Hydrochloride 5 MG Tablet PO ×2 (11:49→21:27)
[2025-09-16 15:23] VITALS: BP 131/59; PULSE 73; RESP 18; TEMP 37.2; O2SAT 98
[2025-09-16 21:27] VITALS: BP 168/67; PULSE 91
[2025-09-16] MEDS: 0.9% Saline Lock 10 ML Syringe IV (21:32)
[2025-09-16 21:45] VITALS: BP 168/67; PULSE 65; RESP 18; TEMP 36.9; O2SAT 100
[2025-09-17 02:36] VITALS: BP 116/56; PULSE 63; RESP 18; TEMP 36.8; O2SAT 99
[2025-09-17 08:31] VITALS: BP 120/69; PULSE 68; RESP 18; TEMP 36.3; O2SAT 99
[2025-09-17 08:33] VITALS: BP 120/69; PULSE 68
[2025-09-17] MEDS: APIXABAN 5 MG TABLET PO (08:34)
[2025-09-17] MEDS: Insulin Glargine-YFGN 100 UNIT/ML Pen 15 UNIT SC (08:35)
[2025-09-17] MEDS: Memantine Hydrochloride 5 MG Tablet PO (08:35)
[2025-09-17] MEDS: Pantoprazole Sodium 40 MG in 0.9% Normal Saline (100mL MB+) 100 ML 330 MG IV (08:37)
--- NOTE | 2025-09-17 09:41 | DCINST_ITS ---
Discharge Instructions DC O2, CPAP, BIPAP needs Home O2 Discharge instructions: No Dressing / Incision Discharge Activity: No Restrictions Follow Up Care Test Results: Test results from this visit will be discussed in further detail at your follow- up appointment, if applicable. Discharge Plan Admission Admit Date/Time: 09/15/25 12:28 Primary Reason for Your Visit: Nausea with vomiting and abdominal discomfort Attending Provider: Nasim Garcia Primary Care Provider: Nirmala Kimbrough Consulting Providers: Anu Whitehead Instructions Additional Instructions / Restrictions: ? Take Protonix twice daily for the next 30 days, with plan to then de-escalate to only once daily going forward after that. ? Take sucralfate 1 g before meals and at night (4 times daily) for the next 2 weeks. ? Stop taking Mobic daily for pain, as this along with Eliquis and Plavix puts you at a much higher risk of bleeding. ? Continue your other home medications as normal. Discharge Orders/Prescriptions Prescriptions: New sucralfate 1 gram Tablet 1 g PO 1HR_ACHS 14 Days Qty: 64 0RF pantoprazole [Protonix] 40 mg tablet,delayed release (DR/EC) 40 mg PO BID 30 Days Qty: 60 0RF Continued multivitamin tablet 1 tab PO DAILY loperamide [Imodium A-D] 2 mg capsule 2 mg PO Q6H PRN (Reason: Diarrhea) clobetasol 0.05 % ointment 1 applic TOPICAL BID PRN (Reason: Itching) insulin glargine [Basaglar KwikPen U-100 Insulin] 100 unit/mL (3 mL) insulin pen 22 unit SC DAILY Trulicity 0.75 mg/0.5 mL pen injector 0.75 mg subcut QWEEK Rx Instructions: takes on Wednesday glipizide 5 mg tablet 5 mg PO QDAY Eliquis 5 mg tablet 5 mg PO BID Qty: 60 11RF gabapentin 300 MG capsule 300 mg PO TID amlodipine-benazepril 10-40 mg capsule 1 cap PO DAILY Patient Comments: TAKE 1 CAPSULE BY MOUTH ONCE DAILY sertraline 100 mg tablet 100 mg PO DAILY memantine [Namenda] 5 mg tablet 5 mg PO BID acetaminophen 500 mg capsule 1,000 mg PO Q8H PRN PRN (Reason: pain) pravastatin 40 mg tablet 40 mg PO DAILY Patient Comments: TAKE 1 TABLET BY MOUTH EVERYDAY AT BEDTIME metformin 500 mg tablet 500 mg PO BID Qty: 70 0RF Rx Instructions: Take 500 mg twice daily for 2 weeks then take 500 mg in the morning and at 1000 mg in the evening for 2 weeks and then increase to 1000 mg twice daily clopidogrel 75 mg Tablet 75 mg PO DAILY Qty: 30 11RF metoprolol tartrate 100 mg tablet 100 mg PO BID Qty: 60 5RF Discontinued meloxicam 15 MG tablet 15 mg PO DAILY Referrals / Follow Up: Nirmala Kimbrough MD [Primary Care Provider, Internal Medicine] Disposition Disposition (needs filled in before D/C Order can be placed): Home, Self Care
--- NOTE | 2025-09-17 09:47 | DS.PCM_ITS ---
Providers Date of Admission: 09/14/25 Date of Discharge: 09/17/25 Primary Care Physician: Dr. Nirmala Kimbrough MD Reason For Visit: N/V/D Diagnosis Discharge Diagnosis (1) Acute dehydration: Status: Acute Code(s): E86.0 - Dehydration (2) Urinary tract infection: Status: Acute Code(s): N39.0 - Urinary tract infection, site not specified Medications at Discharge Home Medications clobetasol 0.05 % topical ointment 1 applic topical BID PRN Itching 06/13/18 loperamide 2 mg capsule (Imodium A-D) 2 mg PO Q6H PRN Diarrhea 06/13/18 multivitamin 1 tab PO DAILY health maintenance 06/13/18 insulin glargine 100 unit/mL (3 mL) subcutaneous pen (Basaglar KwikPen U-100 Insulin) 22 unit subcut DAILY diabetes 06/15/19 gabapentin 300 mg capsule 300 mg PO TID neuropathy 05/02/20 dulaglutide 0.75 mg/0.5 mL subcutaneous pen injector (Trulicity) 0.75 mg subcut QWEEK diabetes 12/17/21 acetaminophen 500 mg capsule 1,000 mg PO Q8H PRN PRN pain 06/06/25 amlodipine 10 mg-benazepril 40 mg capsule 1 cap PO DAILY bp 06/06/25 memantine 5 mg tablet (Namenda) 5 mg PO BID health maintenance 06/06/25 pravastatin 40 mg tablet 40 mg PO DAILY cholesterol 06/06/25 sertraline 100 mg tablet 100 mg PO DAILY anxiety 06/06/25 metformin 500 mg tablet 500 mg PO BID diabetes #70 tabs 06/08/25 metoprolol tartrate 100 mg tablet 100 mg PO BID blood pressure #60 tabs 07/13/25 clopidogrel 75 mg tablet 75 mg PO DAILY #30 tabs 07/18/25 apixaban 5 mg tablet (Eliquis) 5 mg PO BID blood thinner #60 tabs 07/31/25 glipizide 5 mg tablet 5 mg PO QDAY 07/31/25 pantoprazole 40 mg tablet,delayed release (Protonix) 40 mg PO BID 30 days #60 tabs 09/17/25 sucralfate 1 gram tablet 1 g PO 1HR_ACHS 14 days #64 tabs 09/17/25 Hospital Course Operations None Procedures EKG and - (Chest x-ray, renal ultrasound) Summary of Care Provided Minutes Spent on Discharge: 37 Hospital Course: Patient is a 80-year-old female who presented to [facility] ED on 09/14 with dehydration secondary to nausea, vomiting and diarrhea. Hospital course as noted below. Patient discharged home in stable condition on 09/17. 1. Dehydration due to nausea/vomiting/diarrhea with concern for UTI ? Presented with nausea/vomiting/diarrhea and poor p.o. intake for 4 to 5 days. Lactic acid 3.0, mild creatinine elevation noted. Lactic acid resolved with IV fluid resuscitation. UA with positive nitrates, 25 leukocyte esterase, 4+ bacteria. Urine culture grew greater than 100,000 staph epidermidis. Renal/bladder ultrasound unremarkable. WBC normal, afebrile and normotensive so did not meet sepsis criteria. Seems more likely the symptoms were secondary to a possible mild recent gastroenteritis versus inflammation from esophagitis/gastritis as below. Treated with IV antibiotics while in patient but no need for further antibiotics on discharge. Stable for discharge home on 09/17. 2. Mild acute anemia suspected secondary to esophagitis/gastritis ? Hemoglobin 11.1 on hospital day 2 after IV fluid resuscitation, baseline 12- 13. Given her nausea/vomiting and reported pain/discomfort with p.o. intake, suspect patient has some degree of esophagitis +/- gastritis. As she is on Eliquis and Plavix, suspect mild degree of bleeding from inflammation that is leading to slight decrease in hemoglobin level. Patient subjectively improving with treatment with IV PPI twice daily and sucralfate with meals and at night. Most recent hemoglobin 11.8 on 09/16, remained stable. Will discharge on p.o. PPI twice daily for 1 month and sucralfate before meals and at night for 2 weeks, with plan to de-escalate to PPI daily after 1 month. 3. History of CAD with recent stenting, paroxysmal A-fib, hypertension, hyperlipidemia ? Follows with cardiology. Recent left heart cath on 07/18 showed 95% complex lesion in proximal RCA s/p COREY x 1; 50 to 60% lesions noted in other vessels as well. Cardiology recommended Plavix for the 6 months in addition to home Eliquis. Okay to continue home Eliquis and Plavix. Continue home amlodipine, Lopressor, NEREIDA inhibitor and statin. 4. Type 2 diabetes mellitus with diabetic neuropathy ? Glucose 332 on admit. A1c 7.3%. Treated with reduced dose of Lantus 15 units daily and high-dose sliding scale insulin with meals with adequate glucose control. Okay to resume home insulin regimen as well as glipizide, metformin and Trulicity on discharge. Continue home gabapentin. 5. Anxiety/depression ? Stable. Continue home sertraline. 6. Essential tremor ? Home primidone was recently discontinued with patient on blood thinners as above. No inpatient needs, continue outpatient follow-up. 7. Osteoarthritis ? Discontinued home meloxicam with patient on blood thinners as above. Total clinical time spent by myself addressing the patient's medical issues, reviewing all the data, and collaborating with patient's care team: 37 minutes. Physical Exam Const alert, oriented x3, no apparent distress and average body habitus Constitutional Narrative: Elderly female, energy level improved from admission, otherwise sitting up comfortably in bedside chair, conversing normally, in no acute distress. General Appearance: cooperative and comfortable HEENT normocephalic, head/scalp atraumatic, hearing grossly normal bilaterally, nasal mucous membranes and turbinates normal and moist oral mucous membranes Eyes PERRL, EOMs intact bilaterally and conjunctivae normal Neck full ROM Chest inspection of chest normal Resp normal respiratory effort, normal air movement, no use of accessory muscles and clear to auscultation bilaterally Cardio regular rate, regular rhythm, no murmurs and peripheral pulses 2+ throughout GI normal to inspection, nondistended, normoactive bowel sounds, soft to palpation, non-tender and non-distended Back/Spine normal ROM Extremity normal to inspection, full ROM and no pedal edema Skin no rashes or lesions noted Psych mental status grossly normal Weight / BMI Weight Weight: 77.1 kg Body Mass Index (BMI) 25.8 ABG / Lab / Microbiology Data 09/16/25 05:12 09/16/25 05:12 Laboratory: Laboratory Results - last 24 hr 09/16/25 16:45: POC Glucose 176 H 09/16/25 21:46: POC Glucose 209 H 09/17/25 06:18: POC Glucose 183 H Microbiology: Microbiology 09/14/25 14:53 Urine, Clean Catch Urine Culture - Final Staphylococcus epidermidis 09/14/25 14:53 Mucosa - Nose SARS-CoV-2, Influenza & RSV (PCR) - Final D/C Instructions DC O2, CPAP, BIPAP Needs Home O2 Discharge instructions: No Patient's Goals Of Care - F/U Goals Reviewed Goals of care reviewed with patient: NA-No significant change in clinical Status /major procedure scheduled Meaningful Use Info Meaningful Use Meaningful Use Diagnoses (Choose all that apply): None applicable Discharge Plan Admission Admit Date/Time: 09/15/25 12:28 Primary Reason for Your Visit: Nausea with vomiting and abdominal discomfort Attending Provider: Nasim Garcia Primary Care Provider: Nirmala Kimbrough Consulting Providers: Anu Whitehead Instructions Additional Instructions / Restrictions: ? Take Protonix twice daily for the next 30 days, with plan to then de-escalate to only once daily going forward after that. ? Take sucralfate 1 g before meals and at night (4 times daily) for the next 2 weeks. ? Stop taking Mobic daily for pain, as this along with Eliquis and Plavix puts you at a much higher risk of bleeding. ? Continue your other home medications as normal. Discharge Orders/Prescriptions Prescriptions: New sucralfate 1 gram Tablet 1 g PO 1HR_ACHS 14 Days Qty: 64 0RF pantoprazole [Protonix] 40 mg tablet,delayed release (DR/EC) 40 mg PO BID 30 Days Qty: 60 0RF Continued multivitamin tablet 1 tab PO DAILY loperamide [Imodium A-D] 2 mg capsule 2 mg PO Q6H PRN (Reason: Diarrhea) clobetasol 0.05 % ointment 1 applic TOPICAL BID PRN (Reason: Itching) insulin glargine [Basaglar KwikPen U-100 Insulin] 100 unit/mL (3 mL) insulin pen 22 unit SC DAILY Trulicity 0.75 mg/0.5 mL pen injector 0.75 mg subcut QWEEK Rx Instructions: takes on Wednesday glipizide 5 mg tablet 5 mg PO QDAY Eliquis 5 mg tablet 5 mg PO BID Qty: 60 11RF gabapentin 300 MG capsule 300 mg PO TID amlodipine-benazepril 10-40 mg capsule 1 cap PO DAILY Patient Comments: TAKE 1 CAPSULE BY MOUTH ONCE DAILY sertraline 100 mg tablet 100 mg PO DAILY memantine [Namenda] 5 mg tablet 5 mg PO BID acetaminophen 500 mg capsule 1,000 mg PO Q8H PRN PRN (Reason: pain) pravastatin 40 mg tablet 40 mg PO DAILY Patient Comments: TAKE 1 TABLET BY MOUTH EVERYDAY AT BEDTIME metformin 500 mg tablet 500 mg PO BID Qty: 70 0RF Rx Instructions: Take 500 mg twice daily for 2 weeks then take 500 mg in the morning and at 1000 mg in the evening for 2 weeks and then increase to 1000 mg twice daily clopidogrel 75 mg Tablet 75 mg PO DAILY Qty: 30 11RF metoprolol tartrate 100 mg tablet 100 mg PO BID Qty: 60 5RF Discontinued meloxicam 15 MG tablet 15 mg PO DAILY Referrals / Follow Up: Nirmala Kimbrough MD [Primary Care Provider, Internal Medicine] Disposition Disposition (needs filled in before D/C Order can be placed): Home, Self Care Charges/Coding Visit Charges Inpatient E&M: 03037 Disch Hosp >30min
[2025-09-17 13:09] VITALS: BP 129/77; PULSE 61; RESP 18; TEMP 36.6; O2SAT 98
--- NOTE | 2025-09-17 14:59 | PHA.DC.MR.R ---
Pharmacy [facility] Med Reconciliation Pharmacy Service has performed discharge medication reconciliation for this patient. Medication education papers prepared, patient discharged when counseling was attempted. Medications reviewed. The patient's discharge medication list was reviewed for discrepancies and discrepancies were resolved. Medications at Discharge Home Medications clobetasol 0.05 % topical ointment 1 applic topical BID PRN Itching 06/13/18 loperamide 2 mg capsule (Imodium A-D) 2 mg PO Q6H PRN Diarrhea 06/13/18 multivitamin 1 tab PO DAILY health maintenance 06/13/18 insulin glargine 100 unit/mL (3 mL) subcutaneous pen (Basaglar KwikPen U-100 Insulin) 22 unit subcut DAILY diabetes 06/15/19 gabapentin 300 mg capsule 300 mg PO TID neuropathy 05/02/20 dulaglutide 0.75 mg/0.5 mL subcutaneous pen injector (Trulicity) 0.75 mg subcut QWEEK diabetes 12/17/21 acetaminophen 500 mg capsule 1,000 mg PO Q8H PRN PRN pain 06/06/25 amlodipine 10 mg-benazepril 40 mg capsule 1 cap PO DAILY bp 06/06/25 memantine 5 mg tablet (Namenda) 5 mg PO BID health maintenance 06/06/25 pravastatin 40 mg tablet 40 mg PO DAILY cholesterol 06/06/25 sertraline 100 mg tablet 100 mg PO DAILY anxiety 06/06/25 metformin 500 mg tablet 500 mg PO BID diabetes #70 tabs 06/08/25 metoprolol tartrate 100 mg tablet 100 mg PO BID blood pressure #60 tabs 07/13/25 clopidogrel 75 mg tablet 75 mg PO DAILY #30 tabs 07/18/25 apixaban 5 mg tablet (Eliquis) 5 mg PO BID blood thinner #60 tabs 07/31/25 glipizide 5 mg tablet 5 mg PO QDAY 07/31/25 pantoprazole 40 mg tablet,delayed release (Protonix) 40 mg PO BID 30 days #60 tabs 09/17/25 sucralfate 1 gram tablet 1 g PO 1HR_ACHS 14 days #64 tabs 09/17/25
== END 2025-09-17 14:43 | disposition home or self-care (01) | DRG 641 ==
LOC: ED 16:24 → MS3 16:39
PROVIDERS: Emergency Medicine; Admitting Provider Internal Medicine; Emergency Provider Emergency Medicine; PCP Internal Medicine; Visit Provider Hospitalist
DX: E86.0 Dehydration (principal); N39.0 Urinary tract infection, site not specified; E11.40 Type 2 diabetes mellitus with diabetic neuropathy, unspecified; D64.9 Anemia, unspecified; E11.65 Type 2 diabetes mellitus with hyperglycemia; I48.0 Paroxysmal atrial fibrillation; F32.A Depression, unspecified; I10 Essential (primary) hypertension; K52.9 Noninfective gastroenteritis and colitis, unspecified; M19.90 Unspecified osteoarthritis, unspecified site; Z79.4 Long term (current) use of insulin; I25.10 Atherosclerotic heart disease of native coronary artery without angina pectoris; K29.70 Gastritis, unspecified, without bleeding; K20.90 Esophagitis, unspecified without bleeding; F41.9 Anxiety disorder, unspecified; R11.2 Nausea with vomiting, unspecified; Z95.5 Presence of coronary angioplasty implant and graft; Z79.85 Long-term (current) use of injectable non-insulin antidiabetic drugs; Z79.01 Long term (current) use of anticoagulants; Z79.84 Long term (current) use of oral hypoglycemic drugs; Z79.02 Long term (current) use of antithrombotics/antiplatelets; Z79.1 Long term (current) use of non-steroidal anti-inflammatories (NSAID); Z79.899 Other long term (current) drug therapy; Z96.653 Presence of artificial knee joint, bilateral; Z90.49 Acquired absence of other specified parts of digestive tract; Z90.710 Acquired absence of both cervix and uterus
CPT/HCPCS: 36415; 71045; 76770; 80048; 80053; 81001; 82962; 83036; 83605; 83690; 85025; 85027; 85610; 87077; 87086; 87088; 87186; 87631; 93005; 99284; A4216; J2405